=== PATIENT | female | born 1985 | race African-American/Black ===

== ENCOUNTER → 2017-10-24 18:25 | Outpatient (CLI) | payer MEDICAID, SELFPAY ==
[2017-10-30 11:03] LABS: HPV APTIMA, High Risk Negative (Negative)
== END ==
PROVIDERS: Family Provider Family Medicine; PCP Family Medicine; Visit Provider Obstetrics & Gynecology
DX: Z01.419 Encounter for gynecological examination (general) (routine) without abnormal findings (principal)
CPT/HCPCS: 88175; G0145

== ENCOUNTER → 2017-11-30 10:39 | Outpatient (CLI) | payer MEDICAID, SELFPAY | PROVIDERS: Visit Provider Obstetrics & Gynecology | DX: Z01.818 Encounter for other preprocedural examination (principal) ==

== ENCOUNTER 2018-01-11 07:03 | Day surgery (SDC) | payer MEDICAID, SELFPAY ==
--- NOTE | 2018-01-09 15:25 | EKG12_ITS ---
Test Reason : PRE OP Blood Pressure : / mmHG Vent. Rate : 055 BPM Atrial Rate : 055 BPM P-R Int : 150 ms QRS Dur : 086 ms QT Int : 420 ms P-R-T Axes : 070 056 036 degrees QTc Int : 401 ms Sinus bradycardia Otherwise normal ECG Confirmed by GO RAMON ([id number]), commercial production editor NIKKY RAMOS ([id number]) on 01/11/2018 12:31:52 PM Referred By: Brenda Gonzalez Confirmed By:GO RAMON
[2018-01-09 16:34] LABS: Prothrombin Time (Protime)PT. 13.4 SECONDS (11.7-14.9)
[2018-01-09 16:35] LABS: Hematocrit 39.3 % (37-47); Hemoglobin 12.9 g/dl (12.0-15.0); Mean Corp Hgb Conc 32.8 g/gl (32-36); Mean Corpuscular Hgb 29.7 pg (27.0-32.0); Mean Corpuscular Volume 90.6 fL (81-99); Partial Thromboplast Time 30.4 Seconds (24.1-36.2); Platelet Count 162 K/mm3 (150-450); RBC Distribution Width CV 12.9 % (11.6-14.6); RBC Distribution Width SD 42.4 fl (35.1-43.9); Red Blood Count 4.34 M/mm3 (4.2-5.4); White Blood Count 7.2 K/mm3 (4.4-11.0)
[2018-01-09 16:51] LABS: Scan Indicated on CBC? Y/N NO
[2018-01-09 17:06] LABS: AST(SGOT) 14 U/L (15-37); Alanine Aminotransfer ALT/SGPT 17 U/L (13-56); Albumin, Serum 2.9 g/dL (3.2-5.0); Alkaline Phosphatase 52 U/L (45-117); Bilirubin, Direct < 0.05 mg/dL (0.00-0.30); Globulin 3.3 g/dL (2.2-4.2); Protein, Total 6.2 g/dL (6.4-8.2)
[2018-01-11] VITALS (7 sets, daily range): BP systolic 117–134; BP diastolic 52–76; PULSE 67–94; RESP 16–24; TEMP 36.3–36.9; O2SAT 98–100; BMI 34.9
--- NOTE | 2018-01-11 08:25 | BLA_PTH ---
PATIENT: ARIELLE MOORE LOC: [facility] [place] U#:[id number] AGE/SX: 32/F ROOM: RE01/11/[address]: Dr. Brenda Daniel MD : [id number] BED: DIS: 01/11/2018 SPEC #: [id number] RECD: 01/11/18 10:51 STATUS: PREETI MARCErich #: [id number] MICHAEL: 01/11/18 08:[address]: Brenda Ceja DEPT: SURGICAL PATHOLOGY RECD BY: Anton Lock ENTERED: 01/11/18 11:56 SP TYPE: BLADDER BX OTHR DR: Dr. Kelechi Hobbs MD No Primary Care Phys Tissues: Urinary bladder, NOS Procedures: Surgery Specimen Level IV HEADER OPERATION: Diagnostic laparoscopy with treatment of endometriosis PRE-OP DIAGNOSIS: Chronic pelvic pain, dysmenorrhea, presumed endometriosis TISSUE SUBMITTED: Posterior cul-de-sac biopsy MICROSCOPIC DIAGNOSIS Posterior cul-de-sac, biopsy: A piece of fibroconnective and fibromuscular tissue, negative for endometriosis. MAXIMILIAN:noel 01/12/18 MICROSCOPIC DESCRIPTION Slides are reviewed. GROSS DESCRIPTION Received in fixative is one container labeled with the patient's name and designated posterior cul-de-sac biopsy. The specimen consists of a piece of chan-pink soft tissue measuring 0.5 x 0.5 x 0.2 cm. The specimen is totally submitted in one cassette. / MAXIMILIAN:noel 01/11/18 TC:5 [facility]: [id number]
[2018-01-11] MEDS: Bupivacaine Mpf 0.5% 30 ML VIAL (10:20)
--- NOTE | 2018-01-11 10:36 | PCM.DC ---
- Discharge Diagnoses Current Active Problems: Dysmenorrhea - painful periods Chronic pelvic pain Reason(s) for Visit for Discharge Instructions: Laparoscopy You will use the following diet at home:: No restrictions Your food should be the consistency of: Regular Discharge Activity: Return to Normal Activity, May not drive while taking narcotic pain medications., May Shower, - - No driving for 72 hours May resume sexual activity in: 4 weeks Lifting Restrictions: 10-20 lb Call your doctor if your incision/area has: Continuous Slow Oozing, Increased Pain/ Swelling, Increased Redness Call your doctor if you observe: Fever of 101 or Higher, Inability to urinate, Inability to have a bowel movement, Using more than one pad per hour, Chest pain, Calf discomfort, Uncontrolled pain Suture Line Care: Avoid Pulling/Pushing Remove Dressing in (days):: 1 Cleanse incision/area with: Soap & Water Additional Instructions: You may take Naproxen over the counter as needed for mild to moderate pain. Allergies/Adverse Reactions: Allergies No Known Allergies Allergy (Verified 09/25/16 16:05) Medications to take at Discharge Norethindrone AC-Eth Estradiol [[place] 1.5 mg-30 Mcg Tablet] 1 each PO DAILY 11/03/17 Docusate Sodium [Colace] 100 mg PO BID PRN PRN #60 cap 01/11/18 Oxycodone [Oxyir] 5 mg PO Q4H PRN PRN 3 Days #18 tablet 01/11/18 The following prescriptions were given: Oxycodone [Oxyir] 5 mg PO Q4H PRN PRN 3 Days #18 tablet PRN Reason: Severe Pain (6-10/10) Docusate Sodium [Colace] 100 mg PO BID PRN PRN #60 cap PRN Reason: Constipation Primary Care Physician: Care Physician,No Primary [Primary Care Provider] - Test Results: Test results from this visit will be discussed in further detail at your follow-up appointment, if applicable. Please Follow Up With: Brenda Gonzalez MD When: 2-4 weeks
--- NOTE | 2018-01-11 11:45 | PCM.IMDPSTOP ---
Immediate Post-Op Note Date of Procedure: 01/11/18 Primary Surgeon/Physician: HIRO Steward Assistant: Raquel Lamas Pre-Operative Diagnosis: Chronic pelvic pain, dysmenorrhea Post-Operative Diagnosis: Chronic pelvic pain, dysmenorrhea Surgery/Procedure Performed:: Diagnostic laparoscopy, peritoneal biopsy, lysis of adhesions, right ovarian cyst drainage Description of Surgical Findings:: Bilateral adnexal adhesions present Right tube absent Right hemorrhagic ovarian cyst Estimated Blood Loss: 10 ml Specimen's removed: left posterior culdesac peritoneum Type of Anesthesia:: General - Admit VTE Documentation VTE Present on Admission: No VTE Mechan Device Prophylaxis: SCD's VTE Pharm Prophylaxis ordered?: No
--- NOTE | 2018-01-16 07:24 | OP.PCM_ITS ---
Problem List (1) Chronic pelvic pain in female Status: Acute (2) Dysmenorrhea Status: Acute Report of Operation Date of Procedure: 01/11/18 Pre-Operative Diagnosis: Chronic pelvic pain, dysmenorrhea Post-Operative Diagnosis: Chronic pelvic pain, dysmenorrhea Surgery/Procedure Performed:: Diagnostic laparoscopy, peritoneal biopsy, lysis of adhesions, right ovarian cyst drainage Description of Surgical Findings:: Bilateral adnexal adhesions present Right tube absent Right hemorrhagic ovarian cyst animal husbandry professor: Raquel Lamas Type of Anesthesia:: General Anesthesiologist: Efren Marie Specimen's removed: left posterior culdesac peritoneum Drains: Urine 120ml Estimated Blood Loss (mL): 10 ml Description of Procedure: Patient's: 32-year-old para 2 with a history of chronic pelvic pain and dysmenorrhea for more than a decade. She was counseled and opted to proceed with diagnostic laparoscopy to rule out endometriosis. Risks, benefits, indications and alternatives of procedure were reviewed. Informed consent was obtained. Procedure: The patient was taken to the operating room and signed and was performed. The patient was placed into dorsal supine position and used under general anesthesia and intubated. She was then placed into dorsal lithotomy and her arms tucked at her sides. An examination under anesthesia was performed. The perineum and abdomen were prepped and draped in sterile fashion. Davis catheter was placed into the bladder. The patient was placed into high lithotomy and weighted speculum placed into the vagina cervix visualized and grasped at the anterior cervical lip using a single-tooth tenaculum. A Conn cannula was placed for uterine manipulation and secured. Patient was placed into low lithotomy and attention turned to the abdomen. A an inferior umbilical incision was made using a scalpel. Veress needle was placed at the site with successful hanging drop test and no aspirate. The abdomen was insufflated to 15 mmHg. Veress needle was removed and a 5 mm trocar was placed under laparoscopic guidance. Patient was placed into Trendelenburg. A 5 mm port was placed suprapubically after making an incision using a scalpel. The abdomen was inspected with the pelvis. There is a lesion in the posterior cul-de-sac, I was uncertain if this was endometriosis, otherwise inspection was significant for adhesions over the bilateral adnexae. The left lower quadrant incision was made and port was placed approximately 2 cm medial and superior to the anterior superior iliac spine on that side. The pelvic adhesions were lysed sharply and bluntly. The lesion in the posterior cul-de-sac was grasped and excised with peritoneal biopsy sharply. The [place] with monopolar enegy was utilized to obtain hemostasis. Shayy was also placed at this site with hemostasis attained. The abdomen was desufflated and the patient taken out of Trendelenberg. The ports were removed. The incisions were closed with 4-0 monocryl and sites covered with steristrips and opsite dressing. Half percent bupivicaine was injected for additional analgesia. The Jhonny cannula and tenaculum were removed. The patient was placed into dorsal supine position, awakened, extubated and transferred to the recovery room without complication. - Complications None - Admit VTE Documentation VTE Present on Admission: No VTE Mechan Device Prophylaxis: SCD's VTE Pharm Prophylaxis ordered?: No
== END 2018-01-11 12:25 | disposition home or self-care (01) ==
LOC: SDC 07:04 → AC 07:05
PROVIDERS: Visit Provider Obstetrics & Gynecology
PROC: (CPT 49320; principal; 2018-01-11 08:10)
DX: N83.201 Unspecified ovarian cyst, right side (principal); N73.6 Female pelvic peritoneal adhesions (postinfective); R19.07 Generalized intra-abdominal and pelvic swelling, mass and lump; N94.6 Dysmenorrhea, unspecified; G89.29 Other chronic pain; R01.1 Cardiac murmur, unspecified; Z98.51 Tubal ligation status; Z87.891 Personal history of nicotine dependence
CPT/HCPCS: 49321; 49322; 49329; 36415; 80076; 85027; 85610; 85730; 86850; 86900; 88305; 93005; J7120; J2405

== ENCOUNTER 2018-03-29 15:37 | Emergency (ER) | payer MEDICAID, SELFPAY ==
[2018-03-29 15:39] VITALS: BP 123/86; PULSE 63; RESP 18; TEMP 37.1; O2SAT 100; BMI 30.1
[2018-03-29] MEDS: Ondansetron 4 MG/2 ML Vial IV (16:26)
[2018-03-29] MEDS: 0.9% Normal Saline 1,000 ML 1000 ML IV (16:26)
--- NOTE | 2018-03-29 19:01 | ED.DCSUM_ITS ---
- ER Visit Summary Date of Service: 03/29/18 Chief Complaint: Abdominal pain with nausea and vomiting History of Present Illness: The patient is a 32 F who presents with abdominal pain nausea and vomiting that started Monday. She is reporting 4-6 episodes of emesis per day. She complains of thirst and dry mouth. She denies fever but does complain of chills. She denies any ocular, visual or auditory symptoms. She denies chest pain, palpitations or rapid heartbeat. She denies shortness of breath or dyspnea on exertion. The abdominal pain is generalized. There is no radiation. She denies hematemesis, melena or hematochezia. She denies any urologic symptoms. She states she has not urinated since yesterday. She denies symptoms of . No ill contacts. No antibiotic use in the past 3-4 weeks. Physical Examination: Vital signs noted and unremarkable. She appears uncomfortable. Head is atraumatic normocephalic. Pupils are equal round reactive. Extraocular muscles are intact. TMs are pearly white with landmarks noted. Nares patent with no drainage. Posterior pharynx without erythema or exudate. Uvula is midline. There is no dysphonia or dysphasia. Tongue and mucosa are dry. Trachea is midline. There is no stridor with auscultation of the neck. Heart is regular without murmur, gallop or rub. S1 and S2 are normal. Lungs are clear to auscultation with good movement of air bilaterally. Abdomen is soft nontender with normal bowel sounds. There is no evidence of umbilical or inguinal hernia. There is no CVA tenderness noted. She has no rash or skin lesions. Neuro exam is nonfocal. Test Results: None Emergency Department Course and Treatment: IV was established she received 1 L of normal saline wide open and 4 mg of Zofran. She was given a p.o. challenge. She was reassessed at 1850. She states she feels better. Clinically she looks better. She did passed p.o. challenge. Treatment Plan: Discharge with prescription for Zofran and appropriate home- going instructions Disposition: Discharged home in stable improved condition Impression: Abdominal pain generalized with nausea and vomiting Moderate dehydration This note was generated with [employer] dictation software. It may contain incorrect words, spelling, and punctuation that were not noted in review of the chart prior to signing ED Disposition - Plan for ED Patient: Disposition: Home or Assisted Living Chief Complaint: Nausea/Vomiting/Diarrhea Instructions: ED Nausea Vomiting Prescriptions: Ondansetron [Zofran Odt] 4 mg PO Q8H PRN PRN #5 tab PRN Reason: Nausea/Vomiting Referrals: Care Physician,No Primary [Primary Care Provider] - Goyo Figueroa III, MD [STAFF PHYSICIAN] - 3-5 Days if not improving
[2018-03-29 19:17] VITALS: BP 128/76; PULSE 64; RESP 16; O2SAT 99
[2018-03-29] MEDS: Dicyclomine 10 MG Capsule 20 MG PO (19:31)
== END 2018-03-29 19:19 | disposition home or self-care (01) ==
PROVIDERS: Emergency Provider Emergency Medicine
DX: R10.84 Generalized abdominal pain (principal); R11.2 Nausea with vomiting, unspecified; E86.0 Dehydration; Z72.0 Tobacco use
CPT/HCPCS: 96361; 96374; 99285; J7030; A4216; J2405

== ENCOUNTER 2018-07-04 13:30 | Emergency (ER) | payer MEDICAID, SELFPAY ==
[2018-07-04 13:30] VITALS: BP 136/68; PULSE 96; RESP 16; TEMP 36.6; O2SAT 99; BMI 31.1
--- NOTE | 2018-07-04 13:33 | RAD_ITS ---
STUDY: X-RAY - LEFT SHOULDER REASON FOR EXAM: Female, 32 years old. Pain following a fall. TECHNIQUE: 4 view(s) of the shoulder. COMPARISON: None. FINDINGS: Normal glenohumeral articulation. There is minimal widening of the AC joint suggesting a Type I acromioclavicular joint separation. Normal acromion. Normal humeral head and visualized proximal humerus. The soft tissue structures are unremarkable. Normal visualized pulmonary apex. RAD/Shoulder min 2 Views IMPRESSION: Minimal widening of the left acromioclavicular joint. Electronically Signed: Adan Acosta MD at 14:11 EST Tel [phone], Service support ,
--- NOTE | 2018-07-04 13:45 | RAD_ITS ---
STUDY: X-RAY - LEFT KNEE REASON FOR EXAM: Female, 32 years old. Pain following a recent fall. TECHNIQUE: 4 view(s) of the knee. COMPARISON: Comparison is made with prior study dated June 07, 2016. FINDINGS: Normal visualized distal femur. Normal visualized proximal tibia and fibula. Normal proximal tibiofibular articulation. Normal medial femorotibial compartment. Normal lateral femorotibial compartment. There is moderate degenerative arthrosis of the patellofemoral articulation. The soft tissue structures are unremarkable. RAD/Knee 4 or More Views IMPRESSION: Degenerative arthrosis. Electronically Signed: Adan Acosta MD at 14:13 EST Tel [phone], Service support ,
--- NOTE | 2018-07-04 14:56 | ED.DCSUM_ITS ---
- ER Visit Summary Date of Service: 07/04/18 Chief Complaint: Fall History of Present Illness: The patient is a 32 F who presents after a fall that occurred today. Patient states she slipped on ice and fell onto her left side. Patient states she hit her shoulder and hit her left knee. Patient states she had recent left knee surgery. Patient is concerned over possible damage to her left knee. Patient denies any head injury or loss of consciousness. Patient denies any paresthesias or weakness. Patient describes the pain as aching. Physical Examination: Vital signs are stable. Patient is afebrile. Patient is in no acute distress. Musculoskeletal exam reveals tenderness over the lateral aspect of the left shoulder. There is also some mild tenderness and spasm of the left trapezius muscle. There is no bony crepitance or step-off. Range of motion was limited in abduction and flexion of the left shoulder secondary to pain. There is diffuse tenderness over the left knee. There is no effusion. There is no deformity noted. Range of motion was limited and complete flexion and complete extension secondary to pain. Patient states that this is typical since her surgery. Sensation was intact to light touch bilaterally in the upper and lower extremities. Strength is 5/5 bilaterally upper and lower extremities. The remaining physical exam is within normal limits. Test Results: X-rays of the left shoulder and left knee were obtained. There are no acute fractures noted. Emergency Department Course and Treatment: Patient was instructed to ice and elevate the left knee and left shoulder. Patient was instructed to continue Tylenol as needed for pain. Patient was instructed to follow-up with her orthopedic surgeon in 5-7 days. Patient understood and was agreeable with the plan. All questions were answered. Disposition: Discharge home Impression: 1. Left shoulder contusion 2. Left knee contusion This note was generated with [employer] dictation software. It may contain incorrect words, spelling, and punctuation that were not noted in review of the chart prior to signing ED Disposition - Plan for ED Patient: Disposition: Home or Assisted Living Chief Complaint: Fall Instructions: ED Mechanical Fall, ED Contusion Upper Ext, ED Contusion Lower Ext Referrals: Care Physician,No Primary [Primary Care Provider] -
--- OUTSIDE RECORDS SUMMARY | 2018-09-08 13:47 | XMS RPT_ITS ---
:1985 Author Organization OHIP Support Name Relationship Address Phone [employer] Unavailable [address] + [place] [address] LUSTER, EFE Unavailable [address] + [address] [place] [address] LUSTER, JEVON Unavailable [address] + [place] [address] [employer] Unavailable [address] + [place] [address] LUSTER, EFE Unavailable [address] + [address] [place] [address] LUSTER, JEVON Unavailable [address] + [place] [address] [employer] Unavailable [address] + [place] [address] LUSTER, EFE Unavailable [address] + [address] [place] [address] LUSTER, JEVON Unavailable [address] + [place] [address] [employer] Unavailable [address] + [place] [address] LUSTER, EFE Unavailable [address] + [address] [place] [address] LUSTER, JEVON Unavailable [address] + [place] [address] [employer] Unavailable [address] + [place] [address] LUSTER, EFE Unavailable [address] + [address] [place] [address] TERESA JEVON Unavailable [address] + [place] [address] [facility] Unavailable [address] [facility] + [place] [address] LUSTGREER EFE Unavailable [address] [place] [address] TERESA JEVON Unavailable [address] + [place] [address] Care Team Providers Name Role Phone FARROW, LUTUL D Referring Unavailable FARROW, LUTUL D Admitting Unavailable FARROW, LUTUL D Attending Unavailable FARROW, LUTUL D Referring Unavailable FARROW, LUTUL D Attending Unavailable MASHA ANTON Referring Unavailable FARROW, LUTUL D Referring Unavailable FARROW, LUTUL D Attending Unavailable FARROW, LUTUL D Referring Unavailable COLBY, ALONDRA (PT) Attending Unavailable FARROW, LUTUL D Referring Unavailable FARROW, LUTUL D Referring Unavailable TRAE SOUZA (PAGiselaC) Attending Unavailable FARROW, LUTUL D Referring Unavailable COLBY, ALONDRA (PT) Attending Unavailable FARROW, LUTUL D Referring Unavailable COLBY, ALONDRA (PT) Attending Unavailable FARROW, LUTUL D Referring Unavailable COLBY, ALONDRA (PT) Attending Unavailable FARROW, LUTUL D Referring Unavailable COLBY, ALONDRA (PT) Attending Unavailable FARROW, LUTUL D Referring Unavailable COLBY, ALONDRA (PT) Attending Unavailable FARROW, LUTUL D Referring Unavailable FARROW, LUTUL D Attending Unavailable FARROW, LUTUL D Referring Unavailable COLBY, ALONDRA (PT) Attending Unavailable FARROW, LUTUL D Referring Unavailable COLBY, ALONDRA (PT) Attending Unavailable FARROW, LUTUL D Referring Unavailable COLBY, ALONDRA (PT) Attending Unavailable FARROW, LUTUL D Referring Unavailable COLBY, ALONDRA (PT) Attending Unavailable FARROW, LUTUL D Referring Unavailable COLBY, ALONDRA (PT) Attending Unavailable FARROW, LUTUL D Referring Unavailable FARROW, LUTUL D Referring Unavailable FARROW, LUTUL D Attending Unavailable FARROW, LUTUL D Referring Unavailable COLBYALONDRA (PT) Attending Unavailable FARROW, LUTUL D Referring Unavailable COLBY, ALONDRA (PT) Attending Unavailable FARROW, LUTUL D Referring Unavailable COLBY, ALONDRA (PT) Attending Unavailable FARROW, LUTUL D Referring Unavailable FARROW, LUTUL D Referring Unavailable COLBY, ALONDRA (PT) Attending Unavailable FARROW, LUTUL D Referring Unavailable COLBY, ALONDRA (PT) Attending Unavailable FARROW, LUTUL D Referring Unavailable COLBY, ALONDRA (PT) Attending Unavailable FARROW, LUTUL D Referring Unavailable FARROW, LUTUL D Referring Unavailable FARROW, LUTUL D Attending Unavailable FARROW, LUTUL D Referring Unavailable COLBY, ALONDRA (PT) Attending Unavailable FARROW, LUTUL D Referring Unavailable COLBY, ALONDRA (PT) Attending Unavailable FARROW, LUTUL D Referring Unavailable FARROW, LUTUL D Referring Unavailable FARROW, LUTUL D Referring Unavailable COLBY, ALONDRA (PT) Attending Unavailable FARROW, LUTUL D Referring Unavailable Primay Care Physicia, No Primary Care Unavailable Kelechi Burton Attending Unavailable Kilpatrick-Fredy, Brenda Attending Unavailable Tima, Dante Primary Care Unavailable Kilpatrick-Fredy, Brenda Attending Unavailable Kilpatrick-Fredy, Summer Referring Unavailable Primay Care Physicia, No Primary Care Unavailable Kilpatrick-Fredy, Summer Attending Unavailable Primay Care Physicia, No Primary Care Unavailable Kilpatrick-Fredy, Summer Referring Unavailable Kelechi Hobbs Consulting Unavailable Alistair Ramon Attending Unavailable Kilpatrick-Fredy, Summer Referring Unavailable Primay Care Physicia, No Primary Care Unavailable Perez Dunn Attending Unavailable PROBLEMS PROBLEMS DATE TYPE CONDITION / CODE ATTENDING STATUS SOURCE 05/17/2018 Active Pain in left knee / NA Active [facility] M25.562(ICD-10) Clinic Main [place] Repository 02/28/2018 Active Unspecified NA Active [facility] dislocation of left Clinic Main patella, initial [place] encounter / Repository S83.005A(ICD-10) 02/12/2018 Active Other instability, FARROW, LUTUL D Active [facility] left knee / Clinic Other M25.362(ICD-10) [place] Repository 02/26/2018 Active Other specified FARROW, LUTUL D Active [facility] postprocedural Clinic Other states / [place] Z98.890(ICD-10) Repository 02/22/2018 Active Encounter for other NA Active [facility] preprocedural Clinic Other examination / [place] Z01.818(ICD-10) Repository 01/18/2018 Active Unknown / ISMAEL SKINNER Active [facility] UNK(Unknown) Clinic Main [place] Repository 01/18/2018 Active Pain, unspecified / NA Active [facility] R52(ICD-10) [facility] Main [place] Repository 01/11/2018 Unknown Z98.890 - Other Carlos Active [place] specified [facility] states / Repository Z98.890(ICD-10) 02/20/2018 Unknown R00.1 - Bradycardia, Alistair Ramon Active [place] unspecified / Community R00.1(ICD-10) Hospital Repository 10/25/2017 Unknown Z12.4 - Encounter Ti [facility] [place] for screening for [facility] of cervix / Repository Z12.4(ICD-10) 10/25/2017 Unknown Z01.419 - Encounter Ti Gonzalez [place] for gynecological [facility] examination Hospital (general) (routine) Repository without abnormal findings / Z01.419(ICD-10) PROCEDURES PROCEDURES No Procedure Records FoundRESULTS RESULTS PROGRESS Observed: 07/13/2018 Status: COMPLETED Source: [place] 11:37 AM [facility] REPOSITORY HNO ID: [id number] Author: Alondra (Pt) Lasha Service: (none) Author Type: Physical Therapist Type: Progress Notes Filed: 07/13/2018 11:41 AM Note Text: Episode Visit Count: 23 Therapist That Will Oversee The Plan Of Care: Alondra Colby Start of Care Date: 03/05/18 Onset Date: 02/26/18 Plan of Care Certification Date: 05/22/18 Patient Identified by Name and Date of : Yes REHABILITATION AND SPORTS THERAPY PHYSICAL THERAPY TREATMENT NOTE ASSESSMENT: Miriam Liang demonstrated improvements in knee flexion, gait, pain and strength. Pt notes that she still feels her knee is a little more painful then it was before the fall Great work on all exs. Pt motivated to continue to work on flexion ROM. Returns to physician in 2 weeks. The patient will continue to benefit from continued skilled physical therapy for improvement of flexion ROM and strength PLAN FOR NEXT VISIT: Continue to work on flexion ROM SUBJECTIVE: Pt notes that she feels like her knee is still not as good as it was before the fall . Pain Score: 6/10 Pain Location: Knee - Left Description: Aching;Burning;Sharp Frequency: Continuous Pain Location: Knee - Left Post Treatment Pain Description: Burning;Aching OBJECTIVE MEASURES WITH LEVEL OF FUNCTION: LE PROM L Knee Flexion: 120 Degrees ( supine with strap) TREATMENT: Therapeutic Exercise: 1: UBE seat legs 5 and 5 seat heigh 3 for 5 min beginning and end of session 2: door mini squats 2# 2x10 3: Left quad sets 2-3 second hold 2x10. 4: paramount hamstring curls left only 25# 3x10 5: SLR left 2x15 reps . 6: prone left knee flexion with strap 30 sec hold x3 7: supine left heel slides with board and strap 2x10. 8: up / down 4 steps reciprocal with mild deviation on going down . 10: standing TKE with blue Rep band 3x15. 11: 6 inch blue step forward step ups left 2x10. 12: Left leg press 40# 3x10 13: Lacrosse ball mobs left distal patell and left quad x 5 minutes. Skilled Intervention: Patient was educated in proper exercise technique and purpose for exercises. Skilled judgment was provided in selection of appropriate interventions. Correct performance of therapeutic exercises was facilitated with verbal and visual cuing. Manual Therapy: Skilled Intervention: Manual skills to improve joint mobility, ROM, and decrease pain. Utilized anatomy knowledge of the therapist, and assessment of patient's response to intervention. Billing: [facility]: Therapeutic Exercise ([id number]): 1:1 time: 40 minutes (3 units: 38-52 mins) Total time: 40 minutes Alondra Colby PT CNTHERAPY Observed: 07/13/2018 Status: COMPLETED Source: [place] 10:45 AM [facility] REPOSITORY OT/PT/Speech Visit (PTWS) MIRIAM LIANG ([id number]) 1985 F Date Time Provider Department 07/13/18 10:45 AM ALONDRA COLBY (PT) PTWS Date Time Provider Department Center 07/13/2018 10:45 AM [id number], LISA (PT) PTWS [facility] [place] Reason for Visit: Physical Therapy [503] Primary Visit Diagnosis:S/P left knee surgery [Z98.890] Other Visit Diagnosis: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] Allergies As of Date: 07/13/2018 Noted Allergy Reaction bee stings [Other] 06/07/2005 Comments: swelling Detergents [Other] 09/28/2005 Comments: Some detergent irritate her Date Reviewed: 06/14/2018 Reviewed by: Mindy Burgos Ma - Fully Assessed Progress Notes: Alondra Colby, PT 07/13/2018 11:41 AM Signed Episode Visit Count: 23 Therapist That Will Oversee The Plan Of Care: Alondra Colby Start of Care Date: 03/05/18 Onset Date: 02/26/18 Plan of Care Certification Date: 05/22/18 Patient Identified by Name and Date of : Yes REHABILITATION AND SPORTS THERAPY PHYSICAL THERAPY TREATMENT NOTE ASSESSMENT: Miriam Liang demonstrated improvements in knee flexion, gait, pain and strength. Pt notes that she still feels her knee is a little more painful then it was before the fall Great work on all exs. Pt motivated to continue to work on flexion ROM. Returns to physician in 2 weeks. The patient will continue to benefit from continued skilled physical therapy for improvement of flexion ROM and strength PLAN FOR NEXT VISIT: Continue to work on flexion ROM SUBJECTIVE: Pt notes that she feels like her knee is still not as good as it was before the fall . Pain Score: 6/10 Pain Location: Knee - Left Description: Aching;Burning;Sharp Frequency: Continuous Pain Location: Knee - Left Post Treatment Pain Description: Burning;Aching OBJECTIVE MEASURES WITH LEVEL OF FUNCTION: LE PROM L Knee Flexion: 120 Degrees ( supine with strap) TREATMENT: Therapeutic Exercise: 1: UBE seat legs 5 and 5 seat heigh 3 for 5 min beginning and end of session 2: door mini squats 2# 2x10 3: Left quad sets 2-3 second hold 2x10. 4: paramount hamstring curls left only 25# 3x10 5: SLR left 2x15 reps . 6: prone left knee flexion with strap 30 sec hold x3 7: supine left heel slides with board and strap 2x10. 8: up / down 4 steps reciprocal with mild deviation on going down . 10: standing TKE with blue Rep band 3x15. 11: 6 inch blue step forward step ups left 2x10. 12: Left leg press 40# 3x10 13: Lacrosse ball mobs left distal patell and left quad x 5 minutes. Skilled Intervention: Patient was educated in proper exercise technique and purpose for exercises. Skilled judgment was provided in selection of appropriate interventions. Correct performance of therapeutic exercises was facilitated with verbal and visual cuing. Manual Therapy: Skilled Intervention: Manual skills to improve joint mobility, ROM, and decrease pain. Utilized anatomy knowledge of the therapist, and assessment of patient's response to intervention. Billing: [facility]: Therapeutic Exercise ([id number]): 1:1 time: 40 minutes (3 units: 38-52 mins) Total time: 40 minutes Alondra Colby PT PROGRESS Observed: 07/06/2018 Status: COMPLETED Source: [place] 11:31 AM [facility] REPOSITORY HNO ID: [id number] Author: Chandler New Service: (none) Author Type: Physical Therapist Type: Progress Notes Filed: 07/06/2018 12:33 PM Note Text: Episode Visit Count: 22 Therapist That Will Oversee The Plan Of Care: Alondra Colby Start of Care Date: 03/05/18 Onset Date: 02/26/18 Plan of Care Certification Date: 05/22/18 Patient Identified by Name and Date of : Yes REHABILITATION AND SPORTS THERAPY PHYSICAL THERAPY TREATMENT NOTE ASSESSMENT: Miriam Liang demonstrated difficulty with increase pain in knee and left side of her body as she fell down 6 steps since last seen. She went to emergency room and X-rays for left shoulder and knee were negative per patient report. Decreased intensity of exercises today and patient with a slight reduction in left knee pain at end of treatment. Patient with increase tenderness directly on knee cap to palpation. The patient will continue to benefit from continued skilled physical therapy for progression of left knee per her tolerance. PLAN FOR NEXT VISIT: Monitor response to treatment today and progress per patient tolerance. SUBJECTIVE: Patient reports she fell down 6 steps 2 days ago and fell on left side. She reports increase soreness left shoulder , upper and lower back and left patella. She reports calling off work yesterday and today due to pain. Patient reports going to ER and had X-rays of left knee and shoulder and she reports X-rays were negative.. Pain Score: 8/10 Pain Location: Knee - Left Description: Shooting Frequency: Continuous Post Treatment Pain Score: 7/10 Pain Location: Knee - Left Post Treatment Pain Description: Aching;Other: See comment (tired) OBJECTIVE MEASURES WITH LEVEL OF FUNCTION: Patient with increase tenderness directly on knee cap to palpation. TREATMENT: Therapeutic Exercise: 1: Step One stepper seat 12 x 5 minutes at start and towards end of treatment another 5 minutes. 2: door mini squats 2x10 3: Left quad sets 2-3 second hold 2x10. 4: Seated left hamstring curls with yellow band 2x10. 5: SLR left x 2 reps with increas pain lateral and medial knee and this was stopped. 6: prone left knee flexion with strap 30 sec hold x3 7: supine left heel slides 2x10. 8: Seated B hip abduction orange band 2x10. 9: Standing forward B step taps onto dome of BOSU 2x10 each. Skilled Intervention: Patient was educated in proper exercise technique and purpose for exercises. Skilled judgment was provided in selection of appropriate interventions. Correct performance of therapeutic exercises was facilitated with verbal and visual cuing. Billing: [facility]: Therapeutic Exercise ([id number]): 1:1 time: 40 minutes (3 units: 38-52 mins) Total time: 40 minutes JANELLE Solis PT CNTHERAPY Observed: 07/06/2018 Status: COMPLETED Source: [place] 10:45 AM [facility] REPOSITORY OT/PT/Speech Visit (PTWS) MIRIAM LIANG ([id number]) 1985 F Date Time Provider Department 07/06/18 10:45 AM LETICIA KIMBALL (COUNTER STACKER) PTWS Date Time Provider Department Center 07/06/2018 10:45 AM [id number], NANCY (COUNTER STACKER) PTWS [facility] [place] Reason for Visit: Physical Therapy [503] Primary Visit Diagnosis:S/P left knee surgery [Z98.890] Other Visit Diagnosis: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] Allergies As of Date: 07/06/2018 Noted Allergy Reaction bee stings [Other] 06/07/2005 Comments: swelling Detergents [Other] 09/28/2005 Comments: Some detergent irritate her Date Reviewed: 06/14/2018 Reviewed by: Mindy Burgos Ma - Fully Assessed Progress Notes: Chandler New PT 07/06/2018 12:33 PM Signed Episode Visit Count: 22 Therapist That Will Oversee The Plan Of Care: Alondra Colby Start of Care Date: 03/05/18 Onset Date: 02/26/18 Plan of Care Certification Date: 05/22/18 Patient Identified by Name and Date of : Yes REHABILITATION AND SPORTS THERAPY PHYSICAL THERAPY TREATMENT NOTE ASSESSMENT: Miriam Liang demonstrated difficulty with increase pain in knee and left side of her body as she fell down 6 steps since last seen. She went to emergency room and X-rays for left shoulder and knee were negative per patient report. Decreased intensity of exercises today and patient with a slight reduction in left knee pain at end of treatment. Patient with increase tenderness directly on knee cap to palpation. The patient will continue to benefit from continued skilled physical therapy for progression of left knee per her tolerance. PLAN FOR NEXT VISIT: Monitor response to treatment today and progress per patient tolerance. SUBJECTIVE: Patient reports she fell down 6 steps 2 days ago and fell on left side. She reports increase soreness left shoulder , upper and lower back and left patella. She reports calling off work yesterday and today due to pain. Patient reports going to ER and had X-rays of left knee and shoulder and she reports X-rays were negative.. Pain Score: 8/10 Pain Location: Knee - Left Description: Shooting Frequency: Continuous Post Treatment Pain Score: 7/10 Pain Location: Knee - Left Post Treatment Pain Description: Aching;Other: See comment (tired) OBJECTIVE MEASURES WITH LEVEL OF FUNCTION: Patient with increase tenderness directly on knee cap to palpation. TREATMENT: Therapeutic Exercise: 1: Step One stepper seat 12 x 5 minutes at start and towards end of treatment another 5 minutes. 2: door mini squats 2x10 3: Left quad sets 2-3 second hold 2x10. 4: Seated left hamstring curls with yellow band 2x10. 5: SLR left x 2 reps with increas pain lateral and medial knee and this was stopped. 6: prone left knee flexion with strap 30 sec hold x3 7: supine left heel slides 2x10. 8: Seated B hip abduction orange band 2x10. 9: Standing forward B step taps onto dome of BOSU 2x10 each. Skilled Intervention: Patient was educated in proper exercise technique and purpose for exercises. Skilled judgment was provided in selection of appropriate interventions. Correct performance of therapeutic exercises was facilitated with verbal and visual cuing. Billing: [facility]: Therapeutic Exercise ([id number]): 1:1 time: 40 minutes (3 units: 38-52 mins) Total time: 40 minutes Leticia Kimball PTMay New PT Previous Version Follow-up and Disposition History Recorded CNCO Observed: 07/05/2018 Status: COMPLETED Source: [place] 12:00 AM [facility] REPOSITORY Letter Text [facility] Ismael Skinner M.D. [address] [address] NAME: Miriam Liang July 05, 2018 To Whom This May Concern: This letter is to certify the above patient is under my care for a LEFT knee injury. She recently had a relapse after falling down her stairs and will return back to work until Monday July 09, 2018. If you have any questions concerning this matter, please call my office. Respectfully, Kathryn Ruff Observed: 07/05/2018 Status: COMPLETED Source: [place] 12:00 AM [facility] REPOSITORY Telephone (ORTHST) MIRIAM LIANG ([id number]) 1985 F Date Time Provider Department 07/05/18 ISMAEL SKINNER During your visit today, we recorded the following information about you: Mar Raman Psr 07/05/2018 10:45 AM Signed Patient calling to say that she fell down the stairs yesterday and went to the Emergency Room. The emergency room excused her from work for one day but she is in a lot of pain. She's expected to be to work at 2:30 pm today. Please call to advise. Ida Jones RN, RN 07/05/2018 11:09 AM Signed ORTHO CARE COORDINATION QUICK NOTE Patient has been identified by name and date of : Yes Returned call to patient. She states that she slipped down stairs and fell and banged up her operative knee and shoulder as well. We have never treated her shoulder. She would like a letter provided putting her out of work today and tomorrow. This is to be faxed to: Attn: Ida [phone] Letter created and faxed. Patient will continue to ice, elevate, rest and take OTC meds. She did ask for a narcotic prescription; explained she should follow up with PCP because we have not treated her for this latest injury. She also will have the [place] ED fax us their notes. Ida Jones RN Allergies As of Date: 07/05/2018 Noted Allergy Reaction bee stings [Other] 06/07/2005 Comments: swelling Detergents [Other] 09/28/2005 Comments: Some detergent irritate her Date Reviewed: 06/14/2018 Reviewed by: Mindy Burgos Ma - Fully Assessed Reason for Visit: Fall [218] Returning Patient's Call [408] Reason For Visit History Recorded Problem List As Of Date 07/05/2018 Noted Resolved DISLOCAT PATELLA-CLOSED [S83.006A] INVALID FOR* Closed dislocation of left patella [S83.005A] INVALID FOR* More... Patellar instability [M25.369] INVALID FOR* More... Obesity, Class I, BMI 30-34.9 [E66.9] INVALID FOR* S/P left knee arthroscopy, MPFL reconstruction,*INVALID FOR* Stiffness of left knee [M25.662] INVALID FOR* Letter Text [facility] Ismael Skinner M.D. [address] [address] NAME: Miriam Liang July 05, 2018 To Whom This May Concern: Miriam Liang is under my care for her left knee. She recently experienced an incident resulting in a flare up of her post op pain. As such please excuse her from work for July 05 and July 06, 2018. Respectfully, Ismael Skinner M.D. Encounter Status:Closed by IDA JONES on 07/05/18 EMERGENCY DEPARTMENT Observed: 07/04/2018 Status: F Source: [place] SUMMARY 2:57 PM [facility] REPOSITORY [facility] Medical Records Department [address] [place] [id number] Emergency Department Summary 07/04/18 1446 MR#: [id number] Acct: [id number] Name: MIRIAM LIANG Rep #: [id number] : 1985 32 From: Kelechi Burton DO PCP: Care Physician, No Primary Status: REG ER - ER Visit Summary Date of Service: 07/04/18 Chief Complaint: Fall History of Present Illness: The patient is a 32 F who presents after a fall that occurred today. Patient states she slipped on ice and fell onto her left side. Patient states she hit her shoulder and hit her left knee. Patient states she had recent left knee surgery. Patient is concerned over possible damage to her left knee. Patient denies any head injury or loss of consciousness. Patient denies any paresthesias or weakness. Patient describes the pain as aching. Physical Examination: Vital signs are stable. Patient is afebrile. Patient is in no acute distress. Musculoskeletal exam reveals tenderness over the lateral aspect of the left shoulder. There is also some mild tenderness and spasm of the left trapezius muscle. There is no bony crepitance or step-off. Range of motion was limited in abduction and flexion of the left shoulder secondary to pain. There is diffuse tenderness over the left knee. There is no effusion. There is no deformity noted. Range of motion was limited and complete flexion and complete extension secondary to pain. Patient states that this is typical since her surgery. Sensation was intact to light touch bilaterally in the upper and lower extremities. Strength is 5/5 bilaterally upper and lower extremities. The remaining physical exam is within normal limits. Test Results: X-rays of the left shoulder and left knee were obtained. There are no acute fractures noted. Emergency Department Course and Treatment: Patient was instructed to ice and elevate the left knee and left shoulder. Patient was instructed to continue Tylenol as needed for pain. Patient was instructed to follow-up with her orthopedic surgeon in 5-7 days. Patient understood and was agreeable with the plan. All questions were answered. Disposition: Discharge home Impression: 1. Left shoulder contusion 2. Left knee contusion This note was generated with [employer] dictation software. It may contain incorrect words, spelling, and punctuation that were not noted in review of the chart prior to signing ED Disposition - Plan for ED Patient: Disposition: Home or Assisted Living Chief Complaint: Fall Instructions: ED Mechanical Fall, ED Contusion Upper Ext, ED Contusion Lower Ext Referrals: Care Physician,No Primary [Primary Care Provider] - What to do if you have Problems For any increased pain, shortness of breath, bleeding, nausea or vomiting, chest pain, or any unexpected problems, contact your Primary Care Provider. Call [facility] [facility] ([phone]) or report to the closest Emergency Room. Call 911 if necessary. 07/04/18 1707 <Electronically signed by Kelechi Burton DO> Date Kelechi Neil Signature (If Indicated): Date CC: No Primary Care Physician SHOULDER MIN 2 VIEWS Observed: 07/04/2018 Status: F Source: [place] 1:36 PM [facility] REPOSITORY [facility] Imaging Services [address] [place] [address] Shoulder min 2 Views MR#: [id number] Acct: [id number] Name: MIRIAM LIANG Rep #: [id number] : 1985 F 32 From: Adan Acosta MD PCP: Care Physician, No Primary Status: PRE ER Study: Shoulder min 2 Views Date of Exam: 07/04/18 Exam# [id number] Ordering Dr: Provider,Ed P. STUDY: X-RAY - LEFT SHOULDER REASON FOR EXAM: Female, 32 years old. Pain following a fall. TECHNIQUE: 4 view(s) of the shoulder. COMPARISON: None. FINDINGS: Normal glenohumeral articulation. There is minimal widening of the AC joint suggesting a Type I acromioclavicular joint separation. Normal acromion. Normal humeral head and visualized proximal humerus. The soft tissue structures are unremarkable. Normal visualized pulmonary apex. RAD/Shoulder min 2 Views IMPRESSION: Minimal widening of the left acromioclavicular joint. Electronically Signed: Adan Acosta MD at 14:11 EST Tel [phone], Service support , CC: No Primary Care Physician; ED PHYSICIAN PROVIDER 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: Signed KNEE 4 OR MORE Observed: 07/04/2018 Status: F Source: [place] VIEWS 1:36 PM [facility] HOSPITAL REPOSITORY [facility] Imaging Services [address] [place] [address] Knee 4 or More Views MR#: [id number] Acct: [id number] Name: MIRIAM LIANG Rep #: [id number] : 1985 F 32 From: Adan Acosta MD PCP: Care Physician, No Primary Status: PRE ER Study: Knee 4 or More Views Date of Exam: 07/04/18 Exam# [id number] Ordering Dr: Provider,Ed P. STUDY: X-RAY - LEFT KNEE REASON FOR EXAM: Female, 32 years old. Pain following a recent fall. TECHNIQUE: 4 view(s) of the knee. COMPARISON: Comparison is made with prior study dated June 07, 2016. FINDINGS: Normal visualized distal femur. Normal visualized proximal tibia and fibula. Normal proximal tibiofibular articulation. Normal medial femorotibial compartment. Normal lateral femorotibial compartment. There is moderate degenerative arthrosis of the patellofemoral articulation. The soft tissue structures are unremarkable. RAD/Knee 4 or More Views IMPRESSION: Degenerative arthrosis. Electronically Signed: Adan Acosta MD at 14:13 EST Tel [phone], Service support , CC: No Primary Care Physician; ED PHYSICIAN PROVIDER 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: Signed PROGRESS Observed: 06/26/2018 Status: COMPLETED Source: [place] 10:40 AM [facility] REPOSITORY O ID: [id number] Author: Alondra Colby Service: (none) Author Type: Physical Therapist Type: Progress Notes Filed: 06/26/2018 11:09 AM Note Text: Episode Visit Count: 21 Therapist That Will Oversee The Plan Of Care: Alondra Colby Start of Care Date: 03/05/18 Onset Date: 02/26/18 Plan of Care Certification Date: 05/22/18 Patient Identified by Name and Date of : Yes REHABILITATION AND SPORTS THERAPY PHYSICAL THERAPY TREATMENT NOTE ASSESSMENT: Miriam Liang demonstrated improvements in AROM left knee flexion. She had increase soreness distal patella after starting back to work with light duty yesterday. Patient was able to progress exercises today with no increase in pain. The patient will continue to benefit from continued skilled physical therapy for progression of ROM and strength of left lower extremity. PLAN FOR NEXT VISIT: Possibly progress standing hip exercise to B with weight or resistive band. SUBJECTIVE: Patient reports the left knee is sore and tired as she returned to light duty work yesterday. Pain Score: 11/26 Pain Location: Knee - Left Description: Sore;Other: See comment (tired) Frequency: Intermittent Post Treatment Pain Score: No Change OBJECTIVE MEASURES WITH LEVEL OF FUNCTION: Ambulation up and down 4 steps step over step with 1 hand rail assist. left knee supine AROM 118 degrees flexion TREATMENT: Therapeutic Exercise: 1: Side lying with left hip abduction, circles cw and ccw and hip marching x 10 each. 2: door mini squats 2# 2x12 3: Ambulation up and down 4 steps step over step with 1 hand rail assist. 4: hamstring curls paramount 25# left only 3x10 (Added 5# cuff weight) 5: SLR left 1x15 and 1x18 reps independent 6: prone knee flexion with strap 30 sec hold x4 7: supine left heel slide with strap assist 5 second hold 2x10. 8: 6 inch blue step left lateral step ups 2x10. 9: UBE seat height 3 legs 5 and seat 5 , 5 min beginning and end of session 10: standing TKE with blue Rep band 3x15. 11: 6 inch blue step forward step ups left 2x10. 12: Left leg press 40# 3x15 13: Lacrosse ball mobs left distal patell and left quad x 5 minutes. Skilled Intervention: Patient was educated in proper exercise technique and purpose for exercises. Skilled judgment was provided in selection of appropriate interventions. Correct performance of therapeutic exercises was facilitated with verbal and visual cuing. Billing: [facility]: Therapeutic Exercise ([id number]): 1:1 time: 45 minutes (3 units: 38-52 mins) Total time: 45 minutes Leticia Kimball PT-Addis/Alondra Colby PT CNTHERAPY Observed: 06/26/2018 Status: COMPLETED Source: [place] [address]:00 AM [facility] REPOSITORY OT/PT/Speech Visit (PTWS) MIRIAM LIANG ([id number]) 1985 F Date Time Provider Department 06/26/18 10:00 AM LETICIA KIMBALL (COUNTER STACKER) PTWS Date Time Provider Department Center 06/26/2018 10:00 AM [id number], NANCY (COUNTER STACKER) PTWS [facility] [place] Reason for Visit: Physical Therapy [503] Primary Visit Diagnosis:S/P left knee surgery [Z98.890] Other Visit Diagnosis: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] Allergies As of Date: 06/26/2018 Noted Allergy Reaction bee stings [Other] 06/07/2005 Comments: swelling Detergents [Other] 09/28/2005 Comments: Some detergent irritate her Date Reviewed: 06/14/2018 Reviewed by: Mindy Burgos Ma - Fully Assessed Progress Notes: Alondra Colby, PT 06/26/2018 11:09 AM Signed Episode Visit Count: 21 Therapist That Will Oversee The Plan Of Care: Alondra Colby Start of Care Date: 03/05/18 Onset Date: 02/26/18 Plan of Care Certification Date: 05/22/18 Patient Identified by Name and Date of : Yes REHABILITATION AND SPORTS THERAPY PHYSICAL THERAPY TREATMENT NOTE ASSESSMENT: Miriam Liang demonstrated improvements in AROM left knee flexion. She had increase soreness distal patella after starting back to work with light duty yesterday. Patient was able to progress exercises today with no increase in pain. The patient will continue to benefit from continued skilled physical therapy for progression of ROM and strength of left lower extremity. PLAN FOR NEXT VISIT: Possibly progress standing hip exercise to B with weight or resistive band. SUBJECTIVE: Patient reports the left knee is sore and tired as she returned to light duty work yesterday. Pain Score: 6/10 Pain Location: Knee - Left Description: Sore;Other: See comment (tired) Frequency: Intermittent Post Treatment Pain Score: No Change OBJECTIVE MEASURES WITH LEVEL OF FUNCTION: Ambulation up and down 4 steps step over step with 1 hand rail assist. left knee supine AROM 118 degrees flexion TREATMENT: Therapeutic Exercise: 1: Side lying with left hip abduction, circles cw and ccw and hip marching x 10 each. 2: door mini squats 2# 2x12 3: Ambulation up and down 4 steps step over step with 1 hand rail assist. 4: hamstring curls paramount 25# left only 3x10 (Added 5# cuff weight) 5: SLR left 1x15 and 1x18 reps independent 6: prone knee flexion with strap 30 sec hold x4 7: supine left heel slide with strap assist 5 second hold 2x10. 8: 6 inch blue step left lateral step ups 2x10. 9: UBE seat height 3 legs 5 and seat 5 , 5 min beginning and end of session 10: standing TKE with blue Rep band 3x15. 11: 6 inch blue step forward step ups left 2x10. 12: Left leg press 40# 3x15 13: Lacrosse ball mobs left distal patell and left quad x 5 minutes. Skilled Intervention: Patient was educated in proper exercise technique and purpose for exercises. Skilled judgment was provided in selection of appropriate interventions. Correct performance of therapeutic exercises was facilitated with verbal and visual cuing. Billing: [facility]: Therapeutic Exercise ([id number]): 1:1 time: 45 minutes (3 units: 38-52 mins) Total time: 45 minutes JANELLE Solis/Alondra Colby PT Previous Version Follow-up and Disposition History Recorded PROGRESS Observed: 06/25/2018 Status: COMPLETED Source: [place] 1:24 PM [facility] REPOSITORY HNO ID: [id number] Author: Alondra (Marcus) Lasha Service: (none) Author Type: Physical Therapist Type: Progress Notes Filed: 06/25/2018 1:26 PM Note Text: Episode Visit Count: 20 Therapist That Will Oversee The Plan Of Care: Alondra Colby Start of Care Date: 03/05/18 Onset Date: 02/26/18 Plan of Care Certification Date: 05/22/18 Patient Identified by Name and Date of : Yes REHABILITATION AND SPORTS THERAPY PHYSICAL THERAPY TREATMENT NOTE ASSESSMENT: Miriam Liang demonstrated improvements in flexion ROM since last seen. Doing well with gait and strengthening The patient will continue to benefit from continued skilled physical therapy for progression of flexion stretching PLAN FOR NEXT VISIT: Continue to progress step ups , increase weight to hamstring curls as able SUBJECTIVE: Pt states that she is doing well Pain Score: 0/10 Pain Location: Knee - Left Frequency: Intermittent Post Treatment Pain Score: 0/10 Pain Location: Knee - Left OBJECTIVE MEASURES WITH LEVEL OF FUNCTION: LE AROM L Knee Extension: 0 Degrees L Knee Flexion: 116 Degrees TREATMENT: Therapeutic Exercise: 2: door mini squats 2# 2x10 4: hamstring curls paramount 20# left only 3x15 5: SLR 1x15 reps independent 6: prone knee flexion with strap 30 sec hold x4 7: supine heel slide with strap 2x10 also with 10 sec hold with therapist overpressure 9: UBE seat height 3 legs 5 and seat 5 , 5 min beginning and end of session 10: standing TKE with blue Rep band 3x15. 11: green step ups left 2x10 12: Left leg press 40# 3x15 Skilled Intervention: Skilled judgment was provided in selection of appropriate interventions. Correct performance of therapeutic exercises was facilitated with verbal and visual cuing. Billing: [facility]: Therapeutic Exercise ([id number]): 1:1 time: 40 minutes (3 units: 38-52 mins) Total time: 40 minutes Alondra Colby PT CNTHERAPY Observed: 06/25/2018 Status: COMPLETED Source: [place] 10:15 AM [facility] REPOSITORY OT/PT/Speech Visit (PTWS) MIRIAM LIANG ([id number]) 1985 F Date Time Provider Department 06/25/18 10:15 AM ALONDRA COLBY (PT) PTWS Date Time Provider Department Center 06/25/2018 10:15 AM [id number], LISA (PT) PTWS [facility] [place] Reason for Visit: Physical Therapy [503] Primary Visit Diagnosis:S/P left knee surgery [Z98.890] Other Visit Diagnosis: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] Allergies As of Date: 06/25/2018 Noted Allergy Reaction bee stings [Other] 06/07/2005 Comments: swelling Detergents [Other] 09/28/2005 Comments: Some detergent irritate her Date Reviewed: 06/14/2018 Reviewed by: Mindy Burgos Ma - Fully Assessed Progress Notes: Alondra Colby PT 06/25/2018 1:26 PM Signed Episode Visit Count: 20 Therapist That Will Oversee The Plan Of Care: Alondra Colby Start of Care Date: 03/05/18 Onset Date: 02/26/18 Plan of Care Certification Date: 05/22/18 Patient Identified by Name and Date of : Yes REHABILITATION AND SPORTS THERAPY PHYSICAL THERAPY TREATMENT NOTE ASSESSMENT: Miriam Liang demonstrated improvements in flexion ROM since last seen. Doing well with gait and strengthening The patient will continue to benefit from continued skilled physical therapy for progression of flexion stretching PLAN FOR NEXT VISIT: Continue to progress step ups , increase weight to hamstring curls as able SUBJECTIVE: Pt states that she is doing well Pain Score: 0/10 Pain Location: Knee - Left Frequency: Intermittent Post Treatment Pain Score: 0/10 Pain Location: Knee - Left OBJECTIVE MEASURES WITH LEVEL OF FUNCTION: LE AROM L Knee Extension: 0 Degrees L Knee Flexion: 116 Degrees TREATMENT: Therapeutic Exercise: 2: door mini squats 2# 2x10 4: hamstring curls paramount 20# left only 3x15 5: SLR 1x15 reps independent 6: prone knee flexion with strap 30 sec hold x4 7: supine heel slide with strap 2x10 also with 10 sec hold with therapist overpressure 9: UBE seat height 3 legs 5 and seat 5 , 5 min beginning and end of session 10: standing TKE with blue Rep band 3x15. 11: green step ups left 2x10 12: Left leg press 40# 3x15 Skilled Intervention: Skilled judgment was provided in selection of appropriate interventions. Correct performance of therapeutic exercises was facilitated with verbal and visual cuing. Billing: [facility]: Therapeutic Exercise ([id number]): 1:1 time: 40 minutes (3 units: 38-52 mins) Total time: 40 minutes Alondra Colby PT PROGRESS Observed: 06/21/2018 Status: COMPLETED Source: [place] 3:46 PM [facility] REPOSITORY HNO ID: [id number] Author: Alondra VirkPt) Lasha Service: (none) Author Type: Physical Therapist Type: Progress Notes Filed: 06/21/2018 3:53 PM Note Text: Episode Visit Count: 19 Therapist That Will Oversee The Plan Of Care: Alondra Colby Start of Care Date: 03/05/18 Onset Date: 02/26/18 Plan of Care Certification Date: 05/22/18 Patient Identified by Name and Date of : Yes REHABILITATION AND SPORTS THERAPY PHYSICAL THERAPY TREATMENT NOTE ASSESSMENT: Miriam Liang demonstrated improvements in knee flexion ROM and able to do full revolutions on UBE forward and backward at end of session! Pt ambulates with no assistive device with slight deviation. The patient will continue to benefit from continued skilled physical therapy for ROM and strengthening PLAN FOR NEXT VISIT: Add low step ups SUBJECTIVE: Pt reports that she will be returning to work next Monday. Will still be able to attend therapy. States that physician was pleased with improvements. Pt notes that she has been working hard on her [employer] ROM Pain Score: 0/10 Pain Location: Knee - Left Frequency: Intermittent Post Treatment Pain Score: 0/10 Pain Location: Knee - Right OBJECTIVE MEASURES WITH LEVEL OF FUNCTION: LE AROM L Knee Extension: 0 Degrees L Knee Flexion: 110 Degrees LE Strength L Knee Extension (L3): 4/5 TREATMENT: Therapeutic Exercise: 2: door mini squats 2x10 4: hamstring curls paramount 20# left only 3x12 5: SLR 1x15 reps independent 6: prone knee flexion with strap 30 sec hold x4 7: supine heel slide with strap 2x10 also with 10 sec hold with therapist overpressure 8: scifit stepper seat 10 x 6 minutes. Discussed progression of exercise. 9: UBE seat height 3 legs 5 and seat 5 , 1/2 revolutions x 6 minutes. full revolutions forward x6 min end of session 10: standing TKE with green Rep band 3x15. 12: Left leg press 40# 3x12. Skilled Intervention: Skilled judgment was provided in selection of appropriate interventions. Correct performance of therapeutic exercises was facilitated with verbal and visual cuing. Billing: [facility]: Therapeutic Exercise ([id number]): 1:1 time: 40 minutes (3 units: 38-52 mins) Total time: 40 minutes Alondra Colby PT CNTHERAPY Observed: 06/21/2018 Status: COMPLETED Source: [place] 10:15 AM [facility] REPOSITORY OT/PT/Speech Visit (PTWS) MIRIAM LIANG ([id number]) 1985 F Date Time Provider Department 06/21/18 10:15 AM ALONDRA COLBYPT) PTWS Date Time Provider Department Center 06/21/2018 10:15 AM [id number], LISA (PT) PTWS [facility] [place] Reason for Visit: Physical Therapy [503] Primary Visit Diagnosis:S/P left knee surgery [Z98.890] Other Visit Diagnosis: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] Allergies As of Date: 06/21/2018 Noted Allergy Reaction bee stings [Other] 06/07/2005 Comments: swelling Detergents [Other] 09/28/2005 Comments: Some detergent irritate her Date Reviewed: 06/14/2018 Reviewed by: Mindy Burgos Ma - Fully Assessed Progress Notes: Alondra Colby PT 06/21/2018 3:53 PM Signed Episode Visit Count: 19 Therapist That Will Oversee The Plan Of Care: Alondra Colby Start of Care Date: 03/05/18 Onset Date: 02/26/18 Plan of Care Certification Date: 05/22/18 Patient Identified by Name and Date of : Yes REHABILITATION AND SPORTS THERAPY PHYSICAL THERAPY TREATMENT NOTE ASSESSMENT: Miriam Liang demonstrated improvements in knee flexion ROM and able to do full revolutions on UBE forward and backward at end of session! Pt ambulates with no assistive device with slight deviation. The patient will continue to benefit from continued skilled physical therapy for ROM and strengthening PLAN FOR NEXT VISIT: Add low step ups SUBJECTIVE: Pt reports that she will be returning to work next Monday. Will still be able to attend therapy. States that physician was pleased with improvements. Pt notes that she has been working hard on her [employer] Pain Score: 0/10 Pain Location: Knee - Left Frequency: Intermittent Post Treatment Pain Score: 0/10 Pain Location: Knee - Right OBJECTIVE MEASURES WITH LEVEL OF FUNCTION: LE AROM L Knee Extension: 0 Degrees L Knee Flexion: 110 Degrees LE Strength L Knee Extension (L3): 4/5 TREATMENT: Therapeutic Exercise: 2: door mini squats 2x10 4: hamstring curls paramount 20# left only 3x12 5: SLR 1x15 reps independent 6: prone knee flexion with strap 30 sec hold x4 7: supine heel slide with strap 2x10 also with 10 sec hold with therapist overpressure 8: scifit stepper seat 10 x 6 minutes. Discussed progression of exercise. 9: UBE seat height 3 legs 5 and seat 5 , 1/2 revolutions x 6 minutes. full revolutions forward x6 min end of session 10: standing TKE with green Rep band 3x15. 12: Left leg press 40# 3x12. Skilled Intervention: Skilled judgment was provided in selection of appropriate interventions. Correct performance of therapeutic exercises was facilitated with verbal and visual cuing. Billing: [facility]: Therapeutic Exercise ([id number]): 1:1 time: 40 minutes (3 units: 38-52 mins) Total time: 40 minutes Alondra Colby PT PROGRESS Observed: 06/14/2018 Status: COMPLETED Source: [place] 10:08 AM [facility] REPOSITORY HNO ID: [id number] Author: Ismael Skinner Service: (none) Author Type: Physician Type: Progress Notes Filed: 06/15/2018 7:10 AM Note Text: DATE OF PROCEDURE: February 26, 2018 OPERATION: 1. Left?knee proximal realignment with Medial patellofemoral ligament?reconstruction with autograft semitendinosus, lateral retinacular lengthening?and vastus medialis oblique muscle advancement 2. Left?knee diagnostic arthroscopy 3. Left?knee examination under anesthesia 4. Left knee trochleoplasty Ref: Self Interval history: Miriam Liang returns today status post left knee surgery. Chief complaint is resolving left knee pain and stiffness. Doing better . Review of Systems: CV: No chest pain Pulm: No short of breath HEENT: No head ache General: no fevers, chills, nausea/vomiting, malaise Physical Examination: This is a well appearing, well nourished patient in no acute distress. Head is normocephalic and atraumatic. White sclera and pink conjunctiva. Mucous membranes are moist. Breathes easily and has normal chest wall excursion. Affect is normal. Left knee: excellent patellofemoral tracking. No instability. Excellent stability Range of motion: Flexion is approximately 100?, extension is full . Effusion: none +. Incisions: healed . No infection. Imaging: Plain films from [facility] are personally reviewed by me and demonstrate post surgical findings Impression: Miriam Liang is a 32 year old female, who is 3 1/2 months status post left knee patellofemoral stabilization with trochleoplasty . Plan: 1. No giving for return to work 2. Continue with physical therapy 3. Return to see me in 6 weeks 4. Final x-rays of the left knee at that visit. Ismael Skinner MD XR KNEE 2V AP/LAT Observed: 06/14/2018 Status: F Source: [facility] 9:55 AM [facility] REPOSITORY * * *Final Report* * * DATE OF EXAM: Jun 14 2018 9:55AM STX 5206 - XR KNEE 2V AP/LAT LT / PROCEDURE REASON: Acute pain of left knee * * * * Physician Interpretation * * * * EXAMINATION: XR KNEE 2V AP/LAT LT HISTORY: SURGERY F/U / PATELLA ALIGMENT Acute pain of left knee . TECHNIQUE: XR KNEE 2V AP/LAT LT Laterality: LEFT Number of different views (projections): 2 M: XB_1 COMPARISON: 05/17/2018 RESULT: Increased left knee osteopenia. Interval increase in healing of patellofemoral osteotomy with interval osseous bridging. Maintained joint spaces. No joint effusion. No acute fracture or dislocation. There are no bony erosions. IMPRESSION: Interval further healing of postoperative changes. 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: PSCB Transcribe Date/Time: Jun 14 2018 10:42A Dictated by : NAYELY DIOR MD This examination was interpreted and the report reviewed and electronically signed by: NAYELY DIOR MD on Jun 14 2018 10:43AM EST [id number] PROGRESS Observed: 06/14/2018 Status: COMPLETED Source: [place] 9:53 AM [facility] REPOSITORY HNO ID: [id number] Author: Ortiz Sauer (Rt) Cecilia Service: (none) Author Type: Health Information Managers Type: Progress Notes Filed: 06/14/2018 9:54 AM Note Text: Radiology Service Progress Note PATIENT NAME: Miriam Liang DATE OF SERVICE: June 14, 2018 TIME: 9:53 AM PATIENT IDENTITY VERIFICATION COMPLETED USING TWO (2) METHODS: Patient confirmed name verbally and Date of . PATIENT GENDER DATA: Female. status: : No status: NO. PATIENT RELEVANT IMPLANT DATA REVIEWED: Not Applicable RADIOLOGY DEPARTMENT: General X-ray: Exam(s) Completed: Lower Extremity X-Ray(s): Knee, AP / LAT Left: PERIPHERAL IV DATA: Not applicable SIGNED BY: RT Mikki June 14, 2018 9:53 AM CNOV Observed: 06/14/2018 Status: COMPLETED Source: [place] 9:40 AM [facility] REPOSITORY Office Visit (SPRTST) MIRIAM LIANG ([id number]) 1985 F Date Time Provider Department 06/14/18 9:40 AM ISMAEL SKINNER During your visit today, we recorded the following information about you: Ismael Skinner MD 06/15/2018 7:10 AM Signed DATE OF PROCEDURE: February 26, 2018 OPERATION: 1. Left?knee proximal realignment with Medial patellofemoral ligament?reconstruction with autograft semitendinosus, lateral retinacular lengthening?and vastus medialis oblique muscle advancement 2. Left?knee diagnostic arthroscopy 3. Left?knee examination under anesthesia 4. Left knee trochleoplasty Ref: Self Interval history: Miriam Liang returns today status post left knee surgery. Chief complaint is resolving left knee pain and stiffness. Doing better . Review of Systems: CV: No chest pain Pulm: No short of breath HEENT: No head ache General: no fevers, chills, nausea/vomiting, malaise Physical Examination: This is a well appearing, well nourished patient in no acute distress. Head is normocephalic and atraumatic. White sclera and pink conjunctiva. Mucous membranes are moist. Breathes easily and has normal chest wall excursion. Affect is normal. Left knee: excellent patellofemoral tracking. No instability. Excellent stability Range of motion: Flexion is approximately 100?, extension is full . Effusion: none +. Incisions: healed . No infection. Imaging: Plain films from [facility] are personally reviewed by me and demonstrate post surgical findings Impression: Miriam Liang is a 32 year old female, who is 3 1/2 months status post left knee patellofemoral stabilization with trochleoplasty . Plan: 1. No giving for return to work 2. Continue with physical therapy 3. Return to see me in 6 weeks 4. Final x-rays of the left knee at that visit. Ismael Skinner MD Referring Provider: ISMAEL SKINNER [[id number]] Allergies As of Date: 06/14/2018 Noted Allergy Reaction bee stings [Other] 06/07/2005 Comments: swelling Detergents [Other] 09/28/2005 Comments: Some detergent irritate her Date Reviewed: 06/14/2018 Reviewed by: Mindy Burgos Ma - Fully Assessed Reason for Visit: Recheck [92] Primary Visit Diagnosis:S/P left knee arthroscopy, MPFL reconstruction, lateral retinacular lengthening, VMO advancement and trochleoplasty [Z98.890] Order(s):XR KNEE POST OP 3V AP/LAT/MERCHANT LT [0008626] Order #: [id number] FUTURE Problem List As Of Date 06/14/2018 Noted Resolved DISLOCAT PATELLA-CLOSED [S83.006A] INVALID FOR* Closed dislocation of left patella [S83.005A] INVALID FOR* More... Patellar instability [M25.369] INVALID FOR* More... Obesity, Class I, BMI 30-34.9 [E66.9] INVALID FOR* S/P left knee arthroscopy, MPFL reconstruction,*INVALID FOR* Stiffness of left knee [M25.662] INVALID FOR* Letter Text Ismael Skinner M.D. [facility] [address] [place] [address] Office: [phone] June 14, 2018 To Whom It May Concern: Miriam Liang was seen in my clinic today. She is clear to return to work on June 25, 2017. She has a 25 pound lifting restriction. She should be allowed to lift/elevate the leg as needed. Her seating arrangement should allow her feet to touch the ground. If you have any questions or concerns, please contact my office at [phone]. Sincerely, Ismael Skinner M.D. Encounter Status:Closed by ISMAEL SKINNER MD on 06/15/18 PROGRESS Observed: 06/08/2018 Status: COMPLETED Source: [place] 11:38 AM CLINIC [facility] REPOSITORY [facility] ID: [id number] Author: Alondra Colby Service: (none) Author Type: Physical Therapist Type: Progress Notes Filed: 06/08/2018 11:42 AM Note Text: Episode Visit Count: 18 Therapist That Will Oversee The Plan Of Care: Alondra Colby Start of Care Date: 03/05/18 Onset Date: 02/26/18 Plan of Care Certification Date: 05/22/18 Patient Identified by Name and Date of : Yes REHABILITATION AND SPORTS THERAPY PHYSICAL THERAPY TREATMENT NOTE ASSESSMENT: Miriam Liang demonstrated improvements in flexion ROM and overall quad strength. Pt to 100 degrees flexion which is increased by 6 degrees. Pt making steady progress now and has improved compliance attending therapy visits. Pt confident with ambulation without cane unless very long distances or crowded environment. The patient will continue to benefit from continued skilled physical therapy for continued work on ROM and strengthening per protocol PLAN FOR NEXT VISIT: Add low step ups SUBJECTIVE: Pt notes that she has no pain in knee this morning. Getting more comfortable with walking out in community. Plans to go shopping today Pain Score: 0/10 Pain Location: Knee - Left Frequency: Intermittent Post Treatment Pain Score: 2/10 Pain Location: Knee - Right Post Treatment Pain Description: Aching OBJECTIVE MEASURES WITH LEVEL OF FUNCTION: LE AROM L Knee Extension: 0 Degrees L Knee Flexion: 100 Degrees LE Strength L Knee Extension (L3): 3+/5 L Knee Extension Functional Strength (L3): no quad lag with SLR Gait Gait: Independent Gait Device: Cane ( for distance) Gait Deviations: Left Lower Extremity Gait Deviations Left Lower Extremity: ( knee flexion and push off swing phase ) TREATMENT: Therapeutic Exercise: 2: door mini squats 2x10 4: hamstring curls paramount 20# left only 3x10 seated at side of mat table 3x10 5: SLR 2x15 reps independent 6: prone knee flexion with strap 30 sec hold x4 7: supine heel slide with strap 2x10 also with 10 sec hold with therapist overpressure 8: scifit stepper seat 10 x 6 minutes. Discussed progression of exercise. 9: UBE seat height 3 legs 5 and seat 5 , 1/2 revolutions x 6 minutes. end of session 10: standing TKE with orange Rep band 3x15. 11: knee flexion over edge of plinth with therpist overpressure 1x10 12: Left leg press 40# 3x12. 13: seated knee flexion stretch sliding hip forwards for additional stretch 15 sec x3 Skilled Intervention: Skilled judgment was provided in selection of appropriate interventions. Correct performance of therapeutic exercises was facilitated with verbal and visual cuing. Billing: [facility]: Therapeutic Exercise ([id number]): 1:1 time: 45 minutes (3 units: 38-52 mins) Total time: 45 minutes Alondra Colby, PT CNTHERAPY Observed: 06/08/2018 Status: COMPLETED Source: [place] 10:45 AM [facility] REPOSITORY OT/PT/Speech Visit (PTWS) MIRIAM LIANG ([id number]) 1985 F Date Time Provider Department 06/08/18 10:45 AM ALONDRA COLBY (PT) PTWS Date Time Provider Department Center 06/08/2018 10:45 AM [id number], LISA (PT) PTWS [facility]UL[facility] Reason for Visit: Physical Therapy [503] Primary Visit Diagnosis:S/P left knee surgery [Z98.890] Other Visit Diagnosis: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] Allergies As of Date: 06/08/2018 Noted Allergy Reaction bee stings [Other] 06/07/2005 Comments: swelling Detergents [Other] 09/28/2005 Comments: Some detergent irritate her Date Reviewed: 03/29/2018 Reviewed by: Mindy Burgos Ma - Fully Assessed Progress Notes: Alondra Colby PT 06/08/2018 11:42 AM Signed Episode Visit Count: 18 Therapist That Will Oversee The Plan Of Care: Alondra Colby Start of Care Date: 03/05/18 Onset Date: 02/26/18 Plan of Care Certification Date: 05/22/18 Patient Identified by Name and Date of : Yes REHABILITATION AND SPORTS THERAPY PHYSICAL THERAPY TREATMENT NOTE ASSESSMENT: Miriam Liang demonstrated improvements in flexion ROM and overall quad strength. Pt to 100 degrees flexion which is increased by 6 degrees. Pt making steady progress now and has improved compliance attending therapy visits. Pt confident with ambulation without cane unless very long distances or crowded environment. The patient will continue to benefit from continued skilled physical therapy for continued work on ROM and strengthening per protocol PLAN FOR NEXT VISIT: Add low step ups SUBJECTIVE: Pt notes that she has no pain in knee this morning. Getting more comfortable with walking out in community. Plans to go shopping today Pain Score: 0/10 Pain Location: Knee - Left Frequency: Intermittent Post Treatment Pain Score: 2/10 Pain Location: Knee - Right Post Treatment Pain Description: Aching OBJECTIVE MEASURES WITH LEVEL OF FUNCTION: LE AROM L Knee Extension: 0 Degrees L Knee Flexion: 100 Degrees LE Strength L Knee Extension (L3): 3+/5 L Knee Extension Functional Strength (L3): no quad lag with SLR Gait Gait: Independent Gait Device: Cane ( for distance) Gait Deviations: Left Lower Extremity Gait Deviations Left Lower Extremity: ( knee flexion and push off swing phase ) TREATMENT: Therapeutic Exercise: 2: door mini squats 2x10 4: hamstring curls paramount 20# left only 3x10 seated at side of mat table 3x10 5: SLR 2x15 reps independent 6: prone knee flexion with strap 30 sec hold x4 7: supine heel slide with strap 2x10 also with 10 sec hold with therapist overpressure 8: scifit stepper seat 10 x 6 minutes. Discussed progression of exercise. 9: UBE seat height 3 legs 5 and seat 5 , 1/2 revolutions x 6 minutes. end of session 10: standing TKE with orange Rep band 3x15. 11: knee flexion over edge of plinth with therpist overpressure 1x10 12: Left leg press 40# 3x12. 13: seated knee flexion stretch sliding hip forwards for additional stretch 15 sec x3 Skilled Intervention: Skilled judgment was provided in selection of appropriate interventions. Correct performance of therapeutic exercises was facilitated with verbal and visual cuing. Billing: [facility]: Therapeutic Exercise ([id number]): 1:1 time: 45 minutes (3 units: 38-52 mins) Total time: 45 minutes Alondra Colby PT PROGRESS Observed: 06/06/2018 Status: COMPLETED Source: [place] 2:57 PM [facility] REPOSITORY [facility] ID: [id number] Author: Alondra Colby Service: (none) Author Type: Physical Therapist Type: Progress Notes Filed: 06/06/2018 3:00 PM Note Text: Episode Visit Count: 17 Therapist That Will Oversee The Plan Of Care: Alondra Colby Start of Care Date: 03/05/18 Onset Date: 02/26/18 Plan of Care Certification Date: 05/22/18 Patient Identified by Name and Date of : Yes REHABILITATION AND SPORTS THERAPY PHYSICAL THERAPY TREATMENT NOTE ASSESSMENT: Miriam Liang demonstrated improvements in active control of left LE , improved gait without st. cane in dept and increased tolerance to passive stretching. Slow progress with flexion but able to achieve 95 degrees at end of session and multiple exs for stretching The patient will continue to benefit from continued skilled physical therapy for quad / LE strengthening and stretching for flexion ROM . PLAN FOR NEXT VISIT: Will consider passive stretch in prone and additonal passive stretch in supine . SUBJECTIVE: Pt reports that she is trying to use more weight on left leg when she gets up from sitting. Pain Score: 0/10 Pain Location: Knee - Left Frequency: Intermittent Post Treatment Pain Score: 3/10 Pain Location: Knee - Left Post Treatment Pain Description: Aching OBJECTIVE MEASURES WITH LEVEL OF FUNCTION: LE AROM L Knee Extension: 0 Degrees L Knee Flexion: 95 Degrees LE Strength L Knee Extension Functional Strength (L3): 3+/5 TREATMENT: Therapeutic Exercise: 1: full arc quad seated side of mat table 1x10 3: toe raises bilateral 2x10 in parallel bars 4: hamstring curls paramount 20# left only 2x10 seated at side of mat table 3x10 5: SLR 2x15 reps independent 6: prone knee flexion with strap 30 sec hold x3 7: supine heel slide with strap 2x10 8: scifit stepper seat 1 seat 10 x 5 minutes. Discussed progression of exercise. 9: UBE seat height 3 legs 5 and seat 5 , 1/2 revolutions x 6 minutes. end of session 10: standing TKE with orange Rep band 3x15. 11: knee flexion over edge of plinth with therpist overpressure 1x10 12: Left leg press 40# 3x10. 13: seated knee flexion stretch sliding hip forwards for additional stretch 15 sec x3 Skilled Intervention: Skilled judgment was provided in selection of appropriate interventions. Correct performance of therapeutic exercises was facilitated with verbal and visual cuing. Billing: [facility]: Therapeutic Exercise ([id number]): 1:1 time: 45 minutes (3 units: 38-52 mins) Total time: 45 minutes Alondra Colby PT CNTHERAPY Observed: 06/06/2018 Status: COMPLETED Source: [place] 9:45 AM [facility] [place] REPOSITORY OT/PT/Speech Visit (PTWS) MIRIAM LIANG ([id number]) 1985 F Date Time Provider Department 06/06/18 9:45 AM ALONDRA COLBY (PT) PTWS Date Time Provider Department Center 06/06/2018 9:45 AM [id number], LISA (PT) PTWS [facility] Reason for Visit: Physical Therapy [503] Primary Visit Diagnosis:S/P left knee surgery [Z98.890] Other Visit Diagnosis: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] Allergies As of Date: 06/06/2018 Noted Allergy Reaction bee stings [Other] 06/07/2005 Comments: swelling Detergents [Other] 09/28/2005 Comments: Some detergent irritate her Date Reviewed: 03/29/2018 Reviewed by: Mindy Burgos Ma - Fully Assessed Progress Notes: Alondra Colby PT 06/06/2018 3:00 PM Signed Episode Visit Count: 17 Therapist That Will Oversee The Plan Of Care: Alondra Colby Start of Care Date: 03/05/18 Onset Date: 02/26/18 Plan of Care Certification Date: 05/22/18 Patient Identified by Name and Date of : Yes REHABILITATION AND SPORTS THERAPY PHYSICAL THERAPY TREATMENT NOTE ASSESSMENT: Miriam Liang demonstrated improvements in active control of left LE , improved gait without st. cane in dept and increased tolerance to passive stretching. Slow progress with flexion but able to achieve 95 degrees at end of session and multiple exs for stretching The patient will continue to benefit from continued skilled physical therapy for quad / LE strengthening and stretching for flexion ROM . PLAN FOR NEXT VISIT: Will consider passive stretch in prone and additonal passive stretch in supine . SUBJECTIVE: Pt reports that she is trying to use more weight on left leg when she gets up from sitting. Pain Score: 0/10 Pain Location: Knee - Left Frequency: Intermittent Post Treatment Pain Score: 3/10 Pain Location: Knee - Left Post Treatment Pain Description: Aching OBJECTIVE MEASURES WITH LEVEL OF FUNCTION: LE AROM L Knee Extension: 0 Degrees L Knee Flexion: 95 Degrees LE Strength L Knee Extension Functional Strength (L3): 3+/5 TREATMENT: Therapeutic Exercise: 1: full arc quad seated side of mat table 1x10 3: toe raises bilateral 2x10 in parallel bars 4: hamstring curls paramount 20# left only 2x10 seated at side of mat table 3x10 5: SLR 2x15 reps independent 6: prone knee flexion with strap 30 sec hold x3 7: supine heel slide with strap 2x10 8: scifit stepper seat 1 seat 10 x 5 minutes. Discussed progression of exercise. 9: UBE seat height 3 legs 5 and seat 5 , 1/2 revolutions x 6 minutes. end of session 10: standing TKE with orange Rep band 3x15. 11: knee flexion over edge of plinth with therpist overpressure 1x10 12: Left leg press 40# 3x10. 13: seated knee flexion stretch sliding hip forwards for additional stretch 15 sec x3 Skilled Intervention: Skilled judgment was provided in selection of appropriate interventions. Correct performance of therapeutic exercises was facilitated with verbal and visual cuing. Billing: [facility]: Therapeutic Exercise ([id number]): 1:1 time: 45 minutes (3 units: 38-52 mins) Total time: 45 minutes Alondra Colby PT PROGRESS Observed: 06/04/2018 Status: COMPLETED Source: [place] 12:12 PM [facility] REPOSITORY [facility] ID: [id number] Author: Alondra Colby Service: (none) Author Type: Physical Therapist Type: Progress Notes Filed: 06/04/2018 12:15 PM Note Text: Episode Visit Count: 16 Therapist That Will Oversee The Plan Of Care: Alondra Colby Start of Care Date: 03/05/18 Onset Date: 02/26/18 Plan of Care Certification Date: 05/22/18 Patient Identified by Name and Date of : Yes REHABILITATION AND SPORTS THERAPY PHYSICAL THERAPY TREATMENT NOTE ASSESSMENT: Miriam Liang demonstrated improvements in gait pattern with cane and active strength and ROM. Knee flexion with moderate tightness at end range but decreased pain at end range noted with some overpressure. The patient will continue to benefit from continued skilled physical therapy for progression of flexion ROM and strengthening to improve functional status PLAN FOR NEXT VISIT: Will increase reps of leg press and TKE. Emphasis on knee flexion stretching SUBJECTIVE: Pt reports that she has been able to do more leg lifts and feels that exs are going better. Arrives ambulating with st. cane today with good form . Pain Score: 0/10 Pain Location: Knee - Left Frequency: Intermittent Post Treatment Pain Score: 3/10 Pain Location: Knee - Left Post Treatment Pain Description: Aching OBJECTIVE MEASURES WITH LEVEL OF FUNCTION: LE AROM L Knee Extension: 0 Degrees L Knee Flexion: 94 Degrees Mild gait deviation when not using pain. Pt requires cues to not use opposite leg to assist for transfers sit to supine TREATMENT: Therapeutic Exercise: 1: full arc quad seated side of mat table 1x10 3: toe raises bilateral 2x10 in parallel bars 4: orange rep band hamstring curls seated at side of mat table 3x10 5: SLR 1x15 reps independent 6: prone knee flexion with strap 30 sec hold x3 7: supine heel slide with strap 2x10 8: scifit stepper seat 1 seat 10 x 5 minutes. Discussed progression of exercise. 9: UBE seat height 3 legs 5 and seat 5 , 1/2 revolutions x 6 minutes. 10: standing TKE with orange Rep band 3x10. 11: knee flexion over edge of plinth with therpist overpressure 1x10 12: Left leg press 40# 2x10. Skilled Intervention: Patient was educated in proper exercise technique and purpose for exercises. Skilled judgment was provided in selection of appropriate interventions. Correct performance of therapeutic exercises was facilitated with verbal and visual cuing. Billing: [facility]: Therapeutic Exercise ([id number]): 1:1 time: 40 minutes (3 units: 38-52 mins) Total time: 40 minutes Alondra Colby PT CNTHERAPY Observed: 06/04/2018 Status: COMPLETED Source: [place] 10:15 AM [facility] REPOSITORY OT/PT/Speech Visit (PTWS) MIRIAM LIANG ([id number]) 1985 F Date Time Provider Department 06/04/18 10:15 AM ALONDRA COLBY (PT) PTWS Date Time Provider Department Center 06/04/2018 10:15 AM [id number], LISA (PT) PTWS [facility] Reason for Visit: Physical Therapy [503] Primary Visit Diagnosis:S/P left knee surgery [Z98.890] Other Visit Diagnosis: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] Allergies As of Date: 06/04/2018 Noted Allergy Reaction bee stings [Other] 06/07/2005 Comments: swelling Detergents [Other] 09/28/2005 Comments: Some detergent irritate her Date Reviewed: 03/29/2018 Reviewed by: Mindy Burgos Ma - Fully Assessed Progress Notes: Alondra Colby PT 06/04/2018 12:15 PM Signed Episode Visit Count: 16 Therapist That Will Oversee The Plan Of Care: Alondra Colby Start of Care Date: 03/05/18 Onset Date: 02/26/18 Plan of Care Certification Date: 05/22/18 Patient Identified by Name and Date of : Yes REHABILITATION AND SPORTS THERAPY PHYSICAL THERAPY TREATMENT NOTE ASSESSMENT: Miriam Liang demonstrated improvements in gait pattern with cane and active strength and ROM. Knee flexion with moderate tightness at end range but decreased pain at end range noted with some overpressure. The patient will continue to benefit from continued skilled physical therapy for progression of flexion ROM and strengthening to improve functional status PLAN FOR NEXT VISIT: Will increase reps of leg press and TKE. Emphasis on knee flexion stretching SUBJECTIVE: Pt reports that she has been able to do more leg lifts and feels that exs are going better. Arrives ambulating with st. cane today with good form . Pain Score: 0/10 Pain Location: Knee - Left Frequency: Intermittent Post Treatment Pain Score: 3/10 Pain Location: Knee - Left Post Treatment Pain Description: Aching OBJECTIVE MEASURES WITH LEVEL OF FUNCTION: LE AROM L Knee Extension: 0 Degrees L Knee Flexion: 94 Degrees Mild gait deviation when not using pain. Pt requires cues to not use opposite leg to assist for transfers sit to supine TREATMENT: Therapeutic Exercise: 1: full arc quad seated side of mat table 1x10 3: toe raises bilateral 2x10 in parallel bars 4: orange rep band hamstring curls seated at side of mat table 3x10 5: SLR 1x15 reps independent 6: prone knee flexion with strap 30 sec hold x3 7: supine heel slide with strap 2x10 8: scifit stepper seat 1 seat 10 x 5 minutes. Discussed progression of exercise. 9: UBE seat height 3 legs 5 and seat 5 , 1/2 revolutions x 6 minutes. 10: standing TKE with orange Rep band 3x10. 11: knee flexion over edge of plinth with therpist overpressure 1x10 12: Left leg press 40# 2x10. Skilled Intervention: Patient was educated in proper exercise technique and purpose for exercises. Skilled judgment was provided in selection of appropriate interventions. Correct performance of therapeutic exercises was facilitated with verbal and visual cuing. Billing: [facility]: Therapeutic Exercise ([id number]): 1:1 time: 40 minutes (3 units: 38-52 mins) Total time: 40 minutes Alondra Colby PT PROGRESS Observed: 06/01/2018 Status: COMPLETED Source: [place] 11:46 AM [facility] REPOSITORY [facility] ID: [id number] Author: Alondra VirkPtAnanya Colby Service: (none) Author Type: Physical Therapist Type: Progress Notes Filed: 06/01/2018 12:27 PM Note Text: Episode Visit Count: 15 Therapist That Will Oversee The Plan Of Care: Alondra Colby Start of Care Date: 03/05/18 Onset Date: 02/26/18 Plan of Care Certification Date: 05/22/18 Patient Identified by Name and Date of : Yes REHABILITATION AND SPORTS THERAPY PHYSICAL THERAPY TREATMENT NOTE ASSESSMENT: Miriam Liang demonstrated improvements in AROM of left knee 0-90 degrees AROM. Improved ability to walk with st cane and without assistive device with improved heel strike and push off on left. Patient with no pain at start of treatment and pain increased at end of treatment and was described as an ache. The patient will continue to benefit from continued skilled physical therapy for progression of AROM and strength of left knee and hip. PLAN FOR NEXT VISIT: Continue to progress AROM and strength of left knee and hip. SUBJECTIVE: Patient reports her knee is feelingmuch better and she currently does not have pain. Pain Score: 0/10 Pain Location: Knee - Left Frequency: Intermittent Post Treatment Pain Score: 5/10 Pain Location: Knee - Left Post Treatment Pain Description: Aching OBJECTIVE MEASURES WITH LEVEL OF FUNCTION: LE AROM L Knee Extension: 0 Degrees L Knee Flexion: 90 Degrees (AROM supine) 30 second Sit to stand from chair with no UE assist x 10. Decrease push with left leg. TREATMENT: Therapeutic Exercise: 1: full arc quad seated side of mat table 2x10 3: toe raises bilateral 2x10 in parallel bars 4: yellow rep band hamstring curls seated at side of mat table 3x12 5: SLR 2x15 reps assistance needed for first repetition and others independent. 6: prone knee flexion with strap 30 sec hold x3 7: supine heel slide with strap 2x10 and AROM 1x10 8: scifit stepper seat 11 for 4 min. and seat 10 x 2 minutes. Discussed progression of exercise. 9: UBE seat height 3 legs 5 and seat 5 , 1/2 revolutions x 5 minutes. 10: standing TKE with yellow Rep band 3x10. 11: knee flexion over edge of plinth with therpist overpressure 1x10 12: Left leg press 40# 2x10. 13: 30 second Sit to stand from chair with no UE assist x 10. Decrease push with left leg. Skilled Intervention: Patient was educated in proper exercise technique and purpose for exercises. Skilled judgment was provided in selection of appropriate interventions. Correct performance of therapeutic exercises was facilitated with verbal and visual cuing. Gait Trainin: Gait on level with st cane with instruction on proper form which improved with practive and repetitive cueing. Skilled Intervention: Facilitated proper gait cycle with the use of verbal and visual cues for correction of gait deviations with use of st cane and without assistive device. Billing: [facility]: Therapeutic Exercise ([id number]): 1:1 time: 40 minutes (3 units: 38-52 mins) Gait Training ([id number]): 1:1 time: 5 minutes (no charge) Total time: 45 minutes JANELLE Solis/Alondra Colby PT CNTHERAPY Observed: 06/01/2018 Status: COMPLETED Source: [place] 10:45 AM [facility] REPOSITORY OT/PT/Speech Visit (PTWS) MIRIAM LIANG ([id number]) 1985 F Date Time Provider Department 06/01/18 10:45 AM LETICIA KIMBALL (COUNTER STACKER) PTWS Date Time Provider Department Center 06/01/2018 10:45 AM [id number], NANCY (COUNTER STACKER) PTWS [facility] Reason for Visit: Physical Therapy [503] Primary Visit Diagnosis:S/P left knee surgery [Z98.890] Other Visit Diagnosis: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] Allergies As of Date: 06/01/2018 Noted Allergy Reaction bee stings [Other] 06/07/2005 Comments: swelling Detergents [Other] 09/28/2005 Comments: Some detergent irritate her Date Reviewed: 03/29/2018 Reviewed by: Mindy Burgos Ma - Fully Assessed Progress Notes: Alondra Colby PT 06/01/2018 12:27 PM Signed Episode Visit Count: 15 Therapist That Will Oversee The Plan Of Care: Alondra Colby Start of Care Date: 03/05/18 Onset Date: 02/26/18 Plan of Care Certification Date: 05/22/18 Patient Identified by Name and Date of : Yes REHABILITATION AND SPORTS THERAPY PHYSICAL THERAPY TREATMENT NOTE ASSESSMENT: Miriam Liang demonstrated improvements in AROM of left knee 0-90 degrees AROM. Improved ability to walk with st cane and without assistive device with improved heel strike and push off on left. Patient with no pain at start of treatment and pain increased at end of treatment and was described as an ache. The patient will continue to benefit from continued skilled physical therapy for progression of AROM and strength of left knee and hip. PLAN FOR NEXT VISIT: Continue to progress AROM and strength of left knee and hip. SUBJECTIVE: Patient reports her knee is feelingmuch better and she currently does not have pain. Pain Score: 0/10 Pain Location: Knee - Left Frequency: Intermittent Post Treatment Pain Score: 5/10 Pain Location: Knee - Left Post Treatment Pain Description: Aching OBJECTIVE MEASURES WITH LEVEL OF FUNCTION: LE AROM L Knee Extension: 0 Degrees L Knee Flexion: 90 Degrees (AROM supine) 30 second Sit to stand from chair with no UE assist x 10. Decrease push with left leg. TREATMENT: Therapeutic Exercise: 1: full arc quad seated side of mat table 2x10 3: toe raises bilateral 2x10 in parallel bars 4: yellow rep band hamstring curls seated at side of mat table 3x12 5: SLR 2x15 reps assistance needed for first repetition and others independent. 6: prone knee flexion with strap 30 sec hold x3 7: supine heel slide with strap 2x10 and AROM 1x10 8: scifit stepper seat 11 for 4 min. and seat 10 x 2 minutes. Discussed progression of exercise. 9: UBE seat height 3 legs 5 and seat 5 , 1/2 revolutions x 5 minutes. 10: standing TKE with yellow Rep band 3x10. 11: knee flexion over edge of plinth with therpist overpressure 1x10 12: Left leg press 40# 2x10. 13: 30 second Sit to stand from chair with no UE assist x 10. Decrease push with left leg. Skilled Intervention: Patient was educated in proper exercise technique and purpose for exercises. Skilled judgment was provided in selection of appropriate interventions. Correct performance of therapeutic exercises was facilitated with verbal and visual cuing. Gait Trainin: Gait on level with st cane with instruction on proper form which improved with practive and repetitive cueing. Skilled Intervention: Facilitated proper gait cycle with the use of verbal and visual cues for correction of gait deviations with use of st cane and without assistive device. Billing: [facility]: Therapeutic Exercise ([id number]): 1:1 time: 40 minutes (3 units: 38-52 mins) Gait Training ([id number]): 1:1 time: 5 minutes (no charge) Total time: 45 minutes JANELLE Solis/Alondra Colby PT Previous Version Follow-up and Disposition History Recorded PROGRESS Observed: 05/30/2018 Status: COMPLETED Source: [place] 11:49 AM [facility] REPOSITORY O ID: [id number] Author: Alondra Banks) Lasha Service: (none) Author Type: Physical Therapist Type: Progress Notes Filed: 05/30/2018 11:51 AM Note Text: Episode Visit Count: 14 Therapist That Will Oversee The Plan Of Care: Alondra Colby Start of Care Date: 03/05/18 Onset Date: 02/26/18 Plan of Care Certification Date: 05/22/18 Patient Identified by Name and Date of : Yes REHABILITATION AND SPORTS THERAPY PHYSICAL THERAPY TREATMENT NOTE ASSESSMENT: Miriam Liang demonstrated improvements in quad strength and control with decreased quad lag and improved SLR. Pt ambulated in dept with no assistive device with knee brace with mild gait deviation. Flexion ROM continues to improve and pt less fearful and more engaged in therapy The patient will continue to benefit from continued skilled physical therapy for progression of ROM and strength as tolerated PLAN FOR NEXT VISIT: Add low weight leg press as able. Increase reps of other exs. Continue to emphasize and concentrate on flexion ROM. TKE with yellow rep band SUBJECTIVE: Pt notes that she has been working hard on her therapy. Admits that she is more confident now and that she was probably holding herself back because she was scared to hurt something while doing exs. States that she is doing much better with leg lifts and has been bending more frequently during the day Pain Score: 6/10 Pain Location: Knee - Left Description: Aching Frequency: Continuous Post Treatment Pain Score: No Change Pain Location: Knee - Left Post Treatment Pain Description: Aching OBJECTIVE MEASURES WITH LEVEL OF FUNCTION: LE AROM L Knee Extension: 0 Degrees L Knee Flexion: 90 Degrees ( with assist at end of session) Functional Strength Functional Strength: 5 degrees quad lag with SLR TREATMENT: Therapeutic Exercise: 1: full arc quad seated side of mat table 2x10 2: mini squats parallel bars wtih brace on 2x10 3: toe raises bilateral 2x10 in parallel bars 4: yellow rep band hamstring curls seated at side of mat table 3x10 5: SLR 2x10 reps independent 6: prone knee flexion with strap 30 sec hold x3 7: supine heel slide with strap 2x10 8: scifit stepper seat 11 for 6 min. 9: UBE seat height 3 legs 5 and seat 5 10: standing TKE no resistance to assist in proper gait 1x10 11: knee flexion over edge of plinth with therpist overpressure 1x10 Skilled Intervention: Patient was educated in proper exercise technique and purpose for exercises. Skilled judgment was provided in selection of appropriate interventions. Correct performance of therapeutic exercises was facilitated with verbal and visual cuing. Billing: [facility]: Therapeutic Exercise ([id number]): 1:1 time: 50 minutes (3 units: 38-52 mins) Total time: 50 minutes Alondra Colby PT CNTHERAPY Observed: 05/30/2018 Status: COMPLETED Source: [place] 10:30 AM [facility] REPOSITORY OT/PT/Speech Visit (PTWS) MIRIAM LIANG ([id number]) 1985 F Date Time Provider Department 05/30/18 10:30 AM ALONDRA COLBY (PT) PTWS Date Time Provider Department Center 05/30/2018 10:30 AM [id number], LISA (PT) PTWS [facility] JULISA Reason for Visit: Physical Therapy [503] Primary Visit Diagnosis:S/P left knee surgery [Z98.890] Other Visit Diagnosis: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] Allergies As of Date: 05/30/2018 Noted Allergy Reaction bee stings [Other] 06/07/2005 Comments: swelling Detergents [Other] 09/28/2005 Comments: Some detergent irritate her Date Reviewed: 03/29/2018 Reviewed by: Mindy Burgos Ma - Fully Assessed Progress Notes: Alondra Colby PT 05/30/2018 11:51 AM Signed Episode Visit Count: 14 Therapist That Will Oversee The Plan Of Care: Alondra Colby Start of Care Date: 03/05/18 Onset Date: 02/26/18 Plan of Care Certification Date: 05/22/18 Patient Identified by Name and Date of : Yes REHABILITATION AND SPORTS THERAPY PHYSICAL THERAPY TREATMENT NOTE ASSESSMENT: Miriam Liang demonstrated improvements in quad strength and control with decreased quad lag and improved SLR. Pt ambulated in dept with no assistive device with knee brace with mild gait deviation. Flexion ROM continues to improve and pt less fearful and more engaged in therapy The patient will continue to benefit from continued skilled physical therapy for progression of ROM and strength as tolerated PLAN FOR NEXT VISIT: Add low weight leg press as able. Increase reps of other exs. Continue to emphasize and concentrate on flexion ROM. TKE with yellow rep band SUBJECTIVE: Pt notes that she has been working hard on her therapy. Admits that she is more confident now and that she was probably holding herself back because she was scared to hurt something while doing exs. States that she is doing much better with leg lifts and has been bending more frequently during the day Pain Score: 6/10 Pain Location: Knee - Left Description: Aching Frequency: Continuous Post Treatment Pain Score: No Change Pain Location: Knee - Left Post Treatment Pain Description: Aching OBJECTIVE MEASURES WITH LEVEL OF FUNCTION: LE AROM L Knee Extension: 0 Degrees L Knee Flexion: 90 Degrees ( with assist at end of session) Functional Strength Functional Strength: 5 degrees quad lag with SLR TREATMENT: Therapeutic Exercise: 1: full arc quad seated side of mat table 2x10 2: mini squats parallel bars wtih brace on 2x10 3: toe raises bilateral 2x10 in parallel bars 4: yellow rep band hamstring curls seated at side of mat table 3x10 5: SLR 2x10 reps independent 6: prone knee flexion with strap 30 sec hold x3 7: supine heel slide with strap 2x10 8: scifit stepper seat 11 for 6 min. 9: UBE seat height 3 legs 5 and seat 5 10: standing TKE no resistance to assist in proper gait 1x10 11: knee flexion over edge of plinth with therpist overpressure 1x10 Skilled Intervention: Patient was educated in proper exercise technique and purpose for exercises. Skilled judgment was provided in selection of appropriate interventions. Correct performance of therapeutic exercises was facilitated with verbal and visual cuing. Billing: [facility]: Therapeutic Exercise ([id number]): 1:1 time: 50 minutes (3 units: 38-52 mins) Total time: 50 minutes Alondra Colby PT PROGRESS Observed: 05/28/2018 Status: COMPLETED Source: [place] 12:38 PM [facility] [place] REPOSITORY O ID: [id number] Author: Alondra Colby Service: (none) Author Type: Physical Therapist Type: Progress Notes Filed: 05/28/2018 12:41 PM Note Text: Episode Visit Count: 13 Therapist That Will Oversee The Plan Of Care: Alondra Colby Start of Care Date: 03/05/18 Onset Date: 02/26/18 Plan of Care Certification Date: 05/22/18 Patient Identified by Name and Date of : Yes REHABILITATION AND SPORTS THERAPY PHYSICAL THERAPY TREATMENT NOTE ASSESSMENT: Miriam Liang demonstrated improvements in knee flexion, SLR and active knee extension quad activation. able to progress per protocol to 3 month exs. Pt able to use st. cane safely in dept. She has been going without assistive device at home. She will try to obtain a cane if possible. The patient will continue to benefit from continued skilled physical therapy for progression of ROM and strenthening PLAN FOR NEXT VISIT: Toe raises and leg press SUBJECTIVE: Pt notes she has done some exs today. Pain Score: 10 Pain Location: Knee - Left Description: Aching Frequency: Continuous Post Treatment Pain Score: No Change Pain Location: Knee - Left Post Treatment Pain Description: Aching OBJECTIVE MEASURES WITH LEVEL OF FUNCTION: LE AROM L Knee Extension: 0 Degrees L Knee Flexion: 85 Degrees ( mild assist with overpressure) Functional Strength Functional Strength: 15 degree quad lag Gait Weight Bearing Status: FWB Gait Device: Cane ( in dept, does not have one at home) TREATMENT: Therapeutic Exercise: 1: full arc quad attempted with assist seated 2x10 2: mini squats at counter 2x10 4: yellow rep band hamstring curls 2x10 5: SLR 4x3 reps independent 6: supine gravity assisted flexion x4 7: supine heel slide with strap 1x10 8: scifit stepper seat 11 for 4 min. 9: prone knee flexion 2x10 10: standing TKE no resistance to assist in proper gait 1x10 11: knee flexion over edge of plinth with therpist assist for lowering into flexion 12: cues for knee flexion while sitting and for sit to stand transfers Skilled Intervention: Patient was educated in proper exercise technique and purpose for exercises. Skilled judgment was provided in selection of appropriate interventions. Correct performance of therapeutic exercises was facilitated with verbal and visual cuing. Assigned Home Exercise Program: 1: add mini squats 2: discussed importance of compliance with therapy visits Billing: [facility]: Therapeutic Exercise ([id number]): 1:1 time: 45 minutes (3 units: 38-52 mins) Total time: 45 minutes Alondra Colby PT CNTHERAPY Observed: 05/28/2018 Status: COMPLETED Source: [place] 10:15 AM [facility] REPOSITORY OT/PT/Speech Visit (PTWS) MIRIAM LIANG ([id number]) 1985 F Date Time Provider Department 05/28/18 10:15 AM ALONDRA COLBY (PT) PTWS Date Time Provider Department Center 05/28/2018 10:15 AM [id number], LISA (PT) PTWS [facility] JULISA Reason for Visit: Physical Therapy [503] Primary Visit Diagnosis:S/P left knee surgery [Z98.890] Other Visit Diagnosis: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] Allergies As of Date: 05/28/2018 Noted Allergy Reaction bee stings [Other] 06/07/2005 Comments: swelling Detergents [Other] 09/28/2005 Comments: Some detergent irritate her Date Reviewed: 03/29/2018 Reviewed by: Mindy Burgos Ma - Fully Assessed Progress Notes: Alondra Colby PT 05/28/2018 12:41 PM Signed Episode Visit Count: 13 Therapist That Will Oversee The Plan Of Care: Alondra Colby Start of Care Date: 03/05/18 Onset Date: 02/26/18 Plan of Care Certification Date: 05/22/18 Patient Identified by Name and Date of : Yes REHABILITATION AND SPORTS THERAPY PHYSICAL THERAPY TREATMENT NOTE ASSESSMENT: Miriam Liang demonstrated improvements in knee flexion, SLR and active knee extension quad activation. able to progress per protocol to 3 month exs. Pt able to use st. cane safely in dept. She has been going without assistive device at home. She will try to obtain a cane if possible. The patient will continue to benefit from continued skilled physical therapy for progression of ROM and strenthening PLAN FOR NEXT VISIT: Toe raises and leg press SUBJECTIVE: Pt notes she has done some exs today. Pain Score: 6/10 Pain Location: Knee - Left Description: Aching Frequency: Continuous Post Treatment Pain Score: No Change Pain Location: Knee - Left Post Treatment Pain Description: Aching OBJECTIVE MEASURES WITH LEVEL OF FUNCTION: LE AROM L Knee Extension: 0 Degrees L Knee Flexion: 85 Degrees ( mild assist with overpressure) Functional Strength Functional Strength: 15 degree quad lag Gait Weight Bearing Status: FWB Gait Device: Cane ( in dept, does not have one at home) TREATMENT: Therapeutic Exercise: 1: full arc quad attempted with assist seated 2x10 2: mini squats at counter 2x10 4: yellow rep band hamstring curls 2x10 5: SLR 4x3 reps independent 6: supine gravity assisted flexion x4 7: supine heel slide with strap 1x10 8: scifit stepper seat 11 for 4 min. 9: prone knee flexion 2x10 10: standing TKE no resistance to assist in proper gait 1x10 11: knee flexion over edge of plinth with therpist assist for lowering into flexion 12: cues for knee flexion while sitting and for sit to stand transfers Skilled Intervention: Patient was educated in proper exercise technique and purpose for exercises. Skilled judgment was provided in selection of appropriate interventions. Correct performance of therapeutic exercises was facilitated with verbal and visual cuing. Assigned Home Exercise Program: 1: add mini squats 2: discussed importance of compliance with therapy visits Billing: [facility]: Therapeutic Exercise ([id number]): 1:1 time: 45 minutes (3 units: 38-52 mins) Total time: 45 minutes Alondra Colby PT PROGRESS Observed: 05/22/2018 Status: COMPLETED Source: [place] 12:32 PM [facility] [place] REPOSITORY O ID: [id number] Author: Alondra Colby Service: (none) Author Type: Physical Therapist Type: Progress Notes Filed: 05/22/2018 12:57 PM Note Text: Episode Visit Count: 12 Therapist That Will Oversee The Plan Of Care: Alondra Colby Start of Care Date: 03/05/18 Onset Date: 02/26/18 Plan of Care Certification Date: 05/22/18 Patient Identified by Name and Date of : Yes REHABILITATION AND SPORTS THERAPY PHYSICAL THERAPY PROGRESS REPORT PLAN OF CARE UPDATE: Assessment: Miriam Liang exhibits improvements in knee flexion though still limited . She continues to be limited with walking, stair negotiation, bending and physical activities/ strength. She is progressing slower than expected towards her therapy goals as demonstrated by: home exercise program compliance, pain levels, documented objective information regarding gait, strength and range of motion and appointment compliance. She will benefit from continued skilled therapy requiring ROM/ strengthening progression in order to further improve deficits and function. Functional gains: Improved gait quality Increased ROM Decreased intensity of pain Goals for Episode of Care: created on 03/05/18 through 06/04/18 [place] in home exercise program./ partially achieved Patient will decrease pain rating by 2 points to meet minimal clinical important difference for numeric pain rating scale./partially achieved Patient will increase active ROM of left knee to 130 degrees to allow pt to improved performance of ADLs. LTG/ progressing Patient will increase strength of left LE to 5/5 to allow for return to prior functional status, normalized gait mechanics, perform ADLs and negotiate stairs./ progression Perform ADL's with decreased report of symptoms/pain in 4 weeks. Complete all ADL normally in 12 weeks/ progression Normal gait. LTG/ progression Reciprocal stair negotiation.LTG progression Planned Interventions, Frequency, and Duration: 3x/week, 4 weeks Total Number of Visits Planned: 12 Patient to be seen for Therapeutic exercise;Manual therapy;Patient/Family/Caregiver Education;Gait Training PLAN FOR NEXT VISIT: Will advance per protocol. Add mini squats scifit stepper. toe raises with weights SUBJECTIVE: Pt reports that she has a new brace . Can not return back to work yet. Now walking with walker until she feels comfortable. . Pain Score: 0/10 Pain Location: Knee - Left Description: Aching Frequency: Continuous Post Treatment Pain Score: 7/10 Pain Location: Knee - Left Post Treatment Pain Description: Aching OBJECTIVE MEASURES WITH LEVEL OF FUNCTION: LE AROM L Knee Extension: 0 Degrees L Knee Flexion: 78 Degrees LE Joint Mobility L Patellar Mobility: Hypomobile LE Strength L Hip Flexion (L2): 3/5 L Knee Extension (L3): 3-/5 Functional Strength Functional Strength: Poor quad activation for knee extension and with SLR quad lag 20 Gait Weight Bearing Status: WBAT Gait: Independent Gait Device: Front-wheeled Walker TREATMENT: Therapeutic Exercise: 1: full arc quad attempted with assist seated 1x10 2: quad sets 2x10 3: assisted heel slide seated , use of hands to lift thigh to assist 1x10, 4: yellow rep band hamstring curls 2x10 5: assisted SLR 2x10 minimal assist required, quad lag still present 6: supine gravity assisted flexion x4 7: supine heel slide with strap 1x10 9: prone knee flexion 2x10 10: standing TKE no resistance to assist in proper gait 2x10 11: knee flexion over edge of plinth with therpist assist for lowering into flexion 12: cues for knee flexion while sitting and for sit to stand transfers 13: patellar mobilization for superior and medial 2x15 Skilled Intervention: Patient was educated in proper exercise technique and purpose for exercises. Skilled judgment was provided in selection of appropriate interventions. Correct performance of therapeutic exercises was facilitated with verbal and visual cuing. Billing: [facility]: Therapeutic Exercise ([id number]): 1:1 time: 35 minutes (2 units: 23-37 mins) Total time: 35 minutes Alondra Colby PT CNTHERAPY Observed: 05/22/2018 Status: COMPLETED Source: [place] 10:30 AM [facility] REPOSITORY OT/PT/Speech Visit (PTWS) MIRIAM LIANG ([id number]) 1985 F Date Time Provider Department 05/22/18 10:30 AM ALONDRA COLBY (PT) PTWS Date Time Provider Department Center 05/22/2018 10:30 AM [id number], LISA (PT) PTWS [facility] JULISA Reason for Visit: PT Progress Note [1596] Primary Visit Diagnosis:S/P left knee surgery [Z98.890] Other Visit Diagnosis: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] Allergies As of Date: 05/22/2018 Noted Allergy Reaction bee stings [Other] 06/07/2005 Comments: swelling Detergents [Other] 09/28/2005 Comments: Some detergent irritate her Date Reviewed: 03/29/2018 Reviewed by: Mindy Burgos Ma - Fully Assessed Progress Notes: Alondra Colby PT 05/22/2018 12:57 PM Signed Episode Visit Count: 12 Therapist That Will Oversee The Plan Of Care: Alondra Colby Start of Care Date: 03/05/18 Onset Date: 02/26/18 Plan of Care Certification Date: 05/22/18 Patient Identified by Name and Date of : Yes REHABILITATION AND SPORTS THERAPY PHYSICAL THERAPY PROGRESS REPORT PLAN OF CARE UPDATE: Assessment: Miriam Liang exhibits improvements in knee flexion though still limited . She continues to be limited with walking, stair negotiation, bending and physical activities/ strength. She is progressing slower than expected towards her therapy goals as demonstrated by: home exercise program compliance, pain levels, documented objective information regarding gait, strength and range of motion and appointment compliance. She will benefit from continued skilled therapy requiring ROM/ strengthening progression in order to further improve deficits and function. Functional gains: Improved gait quality Increased ROM Decreased intensity of pain Goals for Episode of Care: created on 03/05/18 through 06/04/18 [place] in home exercise program./ partially achieved Patient will decrease pain rating by 2 points to meet minimal clinical important difference for numeric pain rating scale./partially achieved Patient will increase active ROM of left knee to 130 degrees to allow pt to improved performance of ADLs. LTG/ progressing Patient will increase strength of left LE to 5/5 to allow for return to prior functional status, normalized gait mechanics, perform ADLs and negotiate stairs./ progression Perform ADL's with decreased report of symptoms/pain in 4 weeks. Complete all ADL normally in 12 weeks/ progression Normal gait. LTG/ progression Reciprocal stair negotiation.LTG progression Planned Interventions, Frequency, and Duration: 3x/week, 4 weeks Total Number of Visits Planned: 12 Patient to be seen for Therapeutic exercise;Manual therapy;Patient/Family/Caregiver Education;Gait Training PLAN FOR NEXT VISIT: Will advance per protocol. Add mini squats scifit stepper. toe raises with weights SUBJECTIVE: Pt reports that she has a new brace . Can not return back to work yet. Now walking with walker until she feels comfortable. . Pain Score: 0/10 Pain Location: Knee - Left Description: Aching Frequency: Continuous Post Treatment Pain Score: 7/10 Pain Location: Knee - Left Post Treatment Pain Description: Aching OBJECTIVE MEASURES WITH LEVEL OF FUNCTION: LE AROM L Knee Extension: 0 Degrees L Knee Flexion: 78 Degrees LE Joint Mobility L Patellar Mobility: Hypomobile LE Strength L Hip Flexion (L2): 3/5 L Knee Extension (L3): 3-/5 Functional Strength Functional Strength: Poor quad activation for knee extension and with SLR quad lag 20 Gait Weight Bearing Status: WBAT Gait: Independent Gait Device: Front-wheeled Walker TREATMENT: Therapeutic Exercise: 1: full arc quad attempted with assist seated 1x10 2: quad sets 2x10 3: assisted heel slide seated , use of hands to lift thigh to assist 1x10, 4: yellow rep band hamstring curls 2x10 5: assisted SLR 2x10 minimal assist required, quad lag still present 6: supine gravity assisted flexion x4 7: supine heel slide with strap 1x10 9: prone knee flexion 2x10 10: standing TKE no resistance to assist in proper gait 2x10 11: knee flexion over edge of plinth with therpist assist for lowering into flexion 12: cues for knee flexion while sitting and for sit to stand transfers 13: patellar mobilization for superior and medial 2x15 Skilled Intervention: Patient was educated in proper exercise technique and purpose for exercises. Skilled judgment was provided in selection of appropriate interventions. Correct performance of therapeutic exercises was facilitated with verbal and visual cuing. Billing: [facility]: Therapeutic Exercise ([id number]): 1:1 time: 35 minutes (2 units: 23-37 mins) Total time: 35 minutes Alondra Colby PT PROGRESS Observed: 05/17/2018 Status: COMPLETED Source: [place] 3:26 PM [facility] REPOSITORY HNO ID: [id number] Author: Elsa Hernández Service: (none) Author Type: (none) Type: Progress Notes Filed: 05/17/2018 3:31 PM Note Text: Radiology Service Progress Note PATIENT NAME: Miriam Liang DATE OF SERVICE: May 17, 2018 TIME: 3:26 PM PATIENT IDENTITY VERIFICATION COMPLETED USING TWO (2) METHODS: Patient confirmed name verbally and Date of . PATIENT GENDER DATA: Female. status: : No status: N/A PATIENT RELEVANT IMPLANT DATA REVIEWED: Not Applicable RADIOLOGY DEPARTMENT: General X-ray: Exam(s) Completed: Rib X-Ray: Left Lower Extremity X-Ray(s): Knee, AP / LAT Left: PERIPHERAL IV DATA: Not applicable SIGNED BY: Elsa Hernández May 17, 2018 3:26 PM PROGRESS Observed: 05/17/2018 Status: COMPLETED Source: [place] 2:45 PM [facility] [place] REPOSITORY HNO ID: [id number] Author: Ismael Skinner Service: (none) Author Type: Physician Type: Progress Notes Filed: 05/17/2018 3:03 PM Note Text: DATE OF PROCEDURE: February 26, 2018 OPERATION: 1. Left?knee proximal realignment with Medial patellofemoral ligament?reconstruction with autograft semitendinosus, lateral retinacular lengthening?and vastus medialis oblique muscle advancement 2. Left?knee diagnostic arthroscopy 3. Left?knee examination under anesthesia 4. Left knee trochleoplasty Ref: Self Interval history: Miriam Liang returns today status post left knee surgery. Chief complaint is resolving pain. Doing much better . Review of Systems: CV: No chest pain Pulm: No short of breath HEENT: No head ache General: no fevers, chills, nausea/vomiting, malaise Physical Examination: This is a well appearing, well nourished patient in no acute distress. Head is normocephalic and atraumatic. White sclera and pink conjunctiva. Mucous membranes are moist. Breathes easily and has normal chest wall excursion. Affect is normal. Left knee: flexion to 70 degrees. Soft endpoint. No apprehension. Extension is full . Effusion: trace +. Incisions: healed . No infection. Imaging: Plain films from [facility] are personally reviewed by me and demonstrates post surgery changes Impression: Miriam Liang is a 32 year old female, who is approaching 3 months status post left knee patellofemoral stabilization with trochleoplasty . Plan: 1. Patellofemoral stability brace 2. We will keep her off work until the next visit 3. Continue to advance flexion as tolerated 4. Repeat x-ray at the next visit. This needs to be a 3 view that includes the merchant view Ismael Skinner MD XR KNEE 2V AP/LAT Observed: 05/17/2018 Status: F Source: [facility] 2:37 PM [facility] REPOSITORY * * *Final Report* * * DATE OF EXAM: May 17 2018 2:37PM STX 5206 - XR KNEE 2V AP/LAT LT / PROCEDURE REASON: Acute pain of left knee * * * * Physician Interpretation * * * * HISTORY: RECONTSTRUCTED KNEE. Acute pain of left knee . TECHNIQUE: XR KNEE 2V AP/LAT LT Laterality: LEFT Number of different views (projections): 2 COMPARISON: March 08 RESULT: Supine examination, satisfactory alignment. No fracture. Postsurgical changes of the patella and trochlea. Small effusion. IMPRESSION: Postsurgical changes. 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: PSCB Transcribe Date/Time: May 17 2018 2:51P Dictated by : RENARD PEDRO MD This examination was interpreted and the report reviewed and electronically signed by: RENARD PEDRO MD on May 17 2018 2:55PM EST [id number] Observed: 05/17/2018 Status: COMPLETED Source: [place] 2:15 PM [facility] REPOSITORY Office Visit (SPRTST) MIRIAM LIANG ([id number]) 1985 F Date Time Provider Department 05/17/18 2:15 PM ISMAEL SKINNER SPRTST During your visit today, we recorded the following information about you: Ismael Skinner MD 05/17/2018 3:03 PM Signed DATE OF PROCEDURE: February 26, 2018 OPERATION: 1. Left?knee proximal realignment with Medial patellofemoral ligament?reconstruction with autograft semitendinosus, lateral retinacular lengthening?and vastus medialis oblique muscle advancement 2. Left?knee diagnostic arthroscopy 3. Left?knee examination under anesthesia 4. Left knee trochleoplasty Ref: Self Interval history: Miriam Liang returns today status post left knee surgery. Chief complaint is resolving pain. Doing much better . Review of Systems: CV: No chest pain Pulm: No short of breath HEENT: No head ache General: no fevers, chills, nausea/vomiting, malaise Physical Examination: This is a well appearing, well nourished patient in no acute distress. Head is normocephalic and atraumatic. White sclera and pink conjunctiva. Mucous membranes are moist. Breathes easily and has normal chest wall excursion. Affect is normal. Left knee: flexion to 70 degrees. Soft endpoint. No apprehension. Extension is full . Effusion: trace +. Incisions: healed . No infection. Imaging: Plain films from [facility] are personally reviewed by me and demonstrates post surgery changes Impression: Miriam Liang is a 32 year old female, who is approaching 3 months status post left knee patellofemoral stabilization with trochleoplasty . Plan: 1. Patellofemoral stability brace 2. We will keep her off work until the next visit 3. Continue to advance flexion as tolerated 4. Repeat x-ray at the next visit. This needs to be a 3 view that includes the merchant view Ismael Skinner MD Referring Provider: ISMAEL SKINNER [[id number]] Allergies As of Date: 05/17/2018 Noted Allergy Reaction bee stings [Other] 06/07/2005 Comments: swelling Detergents [Other] 09/28/2005 Comments: Some detergent irritate her Date Reviewed: 03/29/2018 Reviewed by: Mindy Burgos Ma - Fully Assessed Primary Visit Diagnosis:S/P left knee arthroscopy, MPFL reconstruction, lateral retinacular lengthening, VMO advancement and trochleoplasty [Z98.890] Problem List As Of Date 05/17/2018 Noted Resolved DISLOCAT PATELLA-CLOSED [S83.006A] INVALID FOR* Closed dislocation of left patella [S83.005A] INVALID FOR* More... Patellar instability [M25.369] INVALID FOR* More... Obesity, Class I, BMI 30-34.9 [E66.9] INVALID FOR* S/P left knee arthroscopy, MPFL reconstruction,*INVALID FOR* Stiffness of left knee [M25.662] INVALID FOR* Encounter Status:Closed by ISMAEL SKINNER MD on 05/17/18 PROGRESS Observed: 05/16/2018 Status: COMPLETED Source: [place] 1:09 PM [facility] RE[facility] HNO ID: [id number] Author: Ida Pierce) LINDA Jones Service: (none) Author Type: Registered Nurse Type: Progress Notes Filed: 05/16/2018 1:10 PM Note Text: ORTHO CARE COORDINATION QUICK NOTE Patient has been identified by name and date of : No Received e-mail from the [employer] advising that patient's phone has not been fully functioning so they have been unable to reach her. As that is the only number that we have on file for her, advised her of mom's info and pt's e-mail. Ida Jones RN HOSP Observed: 05/16/2018 Status: COMPLETED Source: [place] 12:00 AM [facility] REPOSITORY Patient Update (SPHTB) MIRIAM LIANG ([id number]) 1985 F Date Time Provider Department 05/16/18 ISMAEL SKINNER [facility] During your visit today, we recorded the following information about you: Ida Jones RN, RN 05/16/2018 1:10 PM Signed ORTHO CARE COORDINATION QUICK NOTE Patient has been identified by name and date of : No Received e-mail from the [employer] advising that patient's phone has not been fully functioning so they have been unable to reach her. As that is the only number that we have on file for her, advised her of mom's info and pt's e-mail. Ida Jones RN Allergies As of Date: 05/16/2018 Noted Allergy Reaction bee stings [Other] 06/07/2005 Comments: swelling Detergents [Other] 09/28/2005 Comments: Some detergent irritate her Date Reviewed: 03/29/2018 Reviewed by: Mindy Burgos Ma - Fully Assessed Reason for Visit: Follow Up [171] Electronic Communication [890] Problem List As Of Date 05/16/2018 Noted Resolved DISLOCAT PATELLA-CLOSED [S83.006A] INVALID FOR* Closed dislocation of left patella [S83.005A] INVALID FOR* More... Patellar instability [M25.369] INVALID FOR* More... Obesity, Class I, BMI 30-34.9 [E66.9] INVALID FOR* S/P left knee arthroscopy, MPFL reconstruction,*INVALID FOR* Stiffness of left knee [M25.662] INVALID FOR* Encounter Status:Closed by IDA JONES on 05/16/18 JACQUES Observed: 05/04/2018 Status: COMPLETED Source: [place] 12:00 AM [facility] REPOSITORY Telephone (SPHTB) MIRIAM LIANG ([id number]) 1985 F Date Time Provider Department 05/04/18 ISMAEL SKINNER SPHTB During your visit today, we recorded the following information about you: Ida Jones RN, RN 05/04/2018 10:57 AM Signed ORTHO CARE COORDINATION QUICK NOTE Patient has been identified by name and date of : No Per staff message from provider, patient needs a flexion dynasplint. Order placed and routed. Once filed, will be faxed to [facility]. LINDA Hedrick RN, RN 05/04/2018 2:55 PM Signed ORTHO CARE COORDINATION QUICK NOTE Patient has been identified by name and date of : No Dynasplint order faxed along with notes to rep. E-mailed her to advise of same. Ida Jones RN Allergies As of Date: 05/04/2018 Noted Allergy Reaction bee stings [Other] 06/07/2005 Comments: swelling Detergents [Other] 09/28/2005 Comments: Some detergent irritate her Date Reviewed: 03/29/2018 Reviewed by: Mindy Burgos Ma - Fully Assessed Reason for Visit: Follow Up [171] Orders [681] Primary Visit Diagnosis:S/P left knee arthroscopy, MPFL reconstruction, lateral retinacular lengthening, VMO advancement and trochleoplasty [Z98.890] Other Visit Diagnoses:Closed dislocation of left patella, subsequent encounter [S83.005D] Stiffness of left knee [M25.662] Order(s):SPLINT [[id number]] Order #: [id number] Problem List As Of Date 05/04/2018 Noted Resolved DISLOCAT PATELLA-CLOSED [S83.006A] INVALID FOR* Closed dislocation of left patella [S83.005A] INVALID FOR* More... Patellar instability [M25.369] INVALID FOR* More... Obesity, Class I, BMI 30-34.9 [E66.9] INVALID FOR* S/P left knee arthroscopy, MPFL reconstruction,*INVALID FOR* Stiffness of left knee [M25.662] INVALID FOR* Encounter Status:Closed by ETELVINA PICKETT CNP on 05/04/18 PROGRESS Observed: 05/02/2018 Status: COMPLETED Source: [place] 1:18 PM [facility] REPOSITORY HNO ID: [id number] Author: Alondra (Pt) Lasha Service: (none) Author Type: Physical Therapist Type: Progress Notes Filed: 05/02/2018 1:21 PM Note Text: Episode Visit Count: 11 Therapist That Will Oversee The Plan Of Care: Alondra Colby Start of Care Date: 03/05/18 Onset Date: 02/26/18 Plan of Care Certification Date: 03/05/18 Patient Identified by Name and Date of : Yes REHABILITATION AND SPORTS THERAPY PHYSICAL THERAPY TREATMENT NOTE ASSESSMENT: Miriam Liang demonstrated improvements in ability to perform independent SLR ( performed 3 reps). Still with quad lag. Better engagement of quad for full arcs. Will effort and some light overpressure able to achieve flexion to 65 degrees. Encouraged increased work and effort with ROM and active quad ex . The patient will continue to benefit from continued skilled physical therapy for progression of ROM and strengthening. Pt to see physician tomorrow. PLAN FOR NEXT VISIT: Continue to work on ROM and strengthening SUBJECTIVE: Pt notes that she had to get a new brace yesterday. One of sthe straps broke states that she woke up with more pain in her knee today. Pain Score: 8/10 Pain Location: Knee - Left Description: Aching Frequency: Continuous Post Treatment Pain Score: 8/10 Pain Location: Knee - Left Post Treatment Pain Description: Aching OBJECTIVE MEASURES WITH LEVEL OF FUNCTION: Knee Observations L Knee Palpation Tenderness: Lateral retinaculum LE AROM L Knee Extension: 0 Degrees L Knee Flexion: 65 Degrees LE Joint Mobility L Patellar Mobility: Hypomobile LE Strength L Hip Flexion (L2): 3+/5 L Knee Extension (L3): 3-/5 TREATMENT: Therapeutic Exercise: 1: full arc quad attempted with assist seated 2x10 2: quad sets 3x15 3: assisted heel slide seated , use of hands to lift thigh to assist 1x10, 4: seated marches hip flexion with knee in flexion 2x10 poor activation of hip flexors 5: assisted SLR 2x10 minimal assist required, quad lag still present 6: standing SLR 2x10 , with quad lag noted 7: supine heel slide with strap 1x10 8: walker gait training brace unlocked with cues for proper push off with knee flexion 9: prone knee flexion 2x10 10: standing TKE no resistance to assist in proper gait 2x10 11: knee flexion over edge of plinth with therpist assist for lowering into flexion 13: patellar mobilization for superior and medial 2x15 Skilled Intervention: Patient was educated in proper exercise technique and purpose for exercises. Skilled judgment was provided in selection of appropriate interventions. Correct performance of therapeutic exercises was facilitated with verbal and visual cuing. Assigned Home Exercise Program: 1: sit with knee in flexed position, not extension to improve ROM. Work on active quad extension in sitting Billing: [facility]: Therapeutic Exercise ([id number]): 1:1 time: 43 minutes (3 units: 38-52 mins) Total time: 43 minutes Alodnra Colby PT CNTHERAPY Observed: 05/02/2018 Status: COMPLETED Source: [place] 9:45 AM [facility] REPOSITORY OT/PT/Speech Visit (PTWS) MIRIAM LIANG ([id number]) 1985 F Date Time Provider Department 05/02/18 9:45 AM ALONDRA COLBY (PT) PTWS Date Time Provider Department Center 05/02/2018 9:45 AM [id number], LISA (PT) PTWS [facility] JULISA Reason for Visit: Physical Therapy [503] Primary Visit Diagnosis:S/P left knee surgery [Z98.890] Other Visit Diagnosis: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] Allergies As of Date: 05/02/2018 Noted Allergy Reaction bee stings [Other] 06/07/2005 Comments: swelling Detergents [Other] 09/28/2005 Comments: Some detergent irritate her Date Reviewed: 03/29/2018 Reviewed by: Mindy Burgos Ma - Fully Assessed Progress Notes: Alondra Colby, PT 05/02/2018 1:21 PM Signed Episode Visit Count: 11 Therapist That Will Oversee The Plan Of Care: Alondra Colby Start of Care Date: 03/05/18 Onset Date: 02/26/18 Plan of Care Certification Date: 03/05/18 Patient Identified by Name and Date of : Yes REHABILITATION AND SPORTS THERAPY PHYSICAL THERAPY TREATMENT NOTE ASSESSMENT: Miriam Liang demonstrated improvements in ability to perform independent SLR ( performed 3 reps). Still with quad lag. Better engagement of quad for full arcs. Will effort and some light overpressure able to achieve flexion to 65 degrees. Encouraged increased work and effort with ROM and active quad ex . The patient will continue to benefit from continued skilled physical therapy for progression of ROM and strengthening. Pt to see physician tomorrow. PLAN FOR NEXT VISIT: Continue to work on ROM and strengthening SUBJECTIVE: Pt notes that she had to get a new brace yesterday. One of jose knight states that she woke up with more pain in her knee today. Pain Score: 8/10 Pain Location: Knee - Left Description: Aching Frequency: Continuous Post Treatment Pain Score: 8/10 Pain Location: Knee - Left Post Treatment Pain Description: Aching OBJECTIVE MEASURES WITH LEVEL OF FUNCTION: Knee Observations L Knee Palpation Tenderness: Lateral retinaculum LE AROM L Knee Extension: 0 Degrees L Knee Flexion: 65 Degrees LE Joint Mobility L Patellar Mobility: Hypomobile LE Strength L Hip Flexion (L2): 3+/5 L Knee Extension (L3): 3-/5 TREATMENT: Therapeutic Exercise: 1: full arc quad attempted with assist seated 2x10 2: quad sets 3x15 3: assisted heel slide seated , use of hands to lift thigh to assist 1x10, 4: seated marches hip flexion with knee in flexion 2x10 poor activation of hip flexors 5: assisted SLR 2x10 minimal assist required, quad lag still present 6: standing SLR 2x10 , with quad lag noted 7: supine heel slide with strap 1x10 8: walker gait training brace unlocked with cues for proper push off with knee flexion 9: prone knee flexion 2x10 10: standing TKE no resistance to assist in proper gait 2x10 11: knee flexion over edge of plinth with therpist assist for lowering into flexion 13: patellar mobilization for superior and medial 2x15 Skilled Intervention: Patient was educated in proper exercise technique and purpose for exercises. Skilled judgment was provided in selection of appropriate interventions. Correct performance of therapeutic exercises was facilitated with verbal and visual cuing. Assigned Home Exercise Program: 1: sit with knee in flexed position, not extension to improve ROM. Work on active quad extension in sitting Billing: [facility]: Therapeutic Exercise ([id number]): 1:1 time: 43 minutes (3 units: 38-52 mins) Total time: 43 minutes Alondra Colby PT PROGRESS Observed: 04/23/2018 Status: COMPLETED Source: [place] 1:12 PM [facility] [place] REPOSITORY HNO ID: [id number] Author: Alondra Colby Service: (none) Author Type: Physical Therapist Type: Progress Notes Filed: 04/23/2018 1:17 PM Note Text: Episode Visit Count: 10 Therapist That Will Oversee The Plan Of Care: Alondra Colby Start of Care Date: 03/05/18 Onset Date: 02/26/18 Plan of Care Certification Date: 03/05/18 Patient Identified by Name and Date of : Yes REHABILITATION AND SPORTS THERAPY PHYSICAL THERAPY TREATMENT NOTE ASSESSMENT: Miriam Liang demonstrated improvements in quad activation for LAQ . Flexion ROM still painful and difficult. Gait in parallel bars still requires many cues for knee flexion during push off phase. The patient will continue to benefit from continued skilled physical therapy for progression of exs as tolerated. Emphasis on quad control and flexion ROM PLAN FOR NEXT VISIT: Continue to work on flexion ROM SUBJECTIVE: Pt reports that she continues to work on exs. Feels it is getting a little stronger Pain Score: 7/10 Pain Location: Knee - Left Description: Aching Frequency: Continuous Post Treatment Pain Score: 7/10 Pain Location: Knee - Left Post Treatment Pain Description: Aching OBJECTIVE MEASURES WITH LEVEL OF FUNCTION: LE AROM L Knee Extension: 0 Degrees L Knee Flexion: 56 Degrees TREATMENT: Therapeutic Exercise: 1: full arc quad attempted with assist seated 2x10 2: quad sets 2x15 3: assisted heel slide seated , use of hands to lift thigh to assist 1x10, 4: seated marches hip flexion with knee in flexion 5: assisted SLR 2x10 minimal assist required 6: standing SLR 2x10 , with quad lag noted 7: supine heel slide with strap 1x10 8: parallel bars gait training brace unlocked with cues for proper push off with knee flexion 9: prone knee flexion 2x10 10: standing TKE no resistance to assist in proper gait 2x10 11: knee flexion over edge of plinth with therpist assist for lowering into flexion 12: heel slide with foot on physioball and therapist assist for ROM 2x10 13: patellar mobilization for superior and medial 2x15 Skilled Intervention: Patient was educated in proper exercise technique and purpose for exercises. Skilled judgment was provided in selection of appropriate interventions. Correct performance of therapeutic exercises was facilitated with verbal and visual cuing. Assigned Home Exercise Program: 1: hold flexion stretch 20-30 seconds as tolerated Billing: [facility]: Therapeutic Exercise ([id number]): 1:1 time: 40 minutes (3 units: 38-52 mins) Total time: 40 minutes Alondra Colby PT CNTHERAPY Observed: 04/23/2018 Status: COMPLETED Source: [place] 10:15 AM [facility] REPOSITORY OT/PT/Speech Visit (PTWS) MIRIAM LIANG ([id number]) 1985 F Date Time Provider Department 04/23/18 10:15 AM ALONDRA COLBY (PT) PTWS Date Time Provider Department Center 04/23/2018 10:15 AM [id number], LISA (PT) PTWS [facility] JULISA Reason for Visit: Physical Therapy [503] Primary Visit Diagnosis:S/P left knee surgery [Z98.890] Other Visit Diagnosis: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] Allergies As of Date: 04/23/2018 Noted Allergy Reaction bee stings [Other] 06/07/2005 Comments: swelling Detergents [Other] 09/28/2005 Comments: Some detergent irritate her Date Reviewed: 03/29/2018 Reviewed by: Mindy Burgos Ma - Fully Assessed Progress Notes: Alondra Colby PT 04/23/2018 1:17 PM Signed Episode Visit Count: 10 Therapist That Will Oversee The Plan Of Care: Alondra Colby Start of Care Date: 03/05/18 Onset Date: 02/26/18 Plan of Care Certification Date: 03/05/18 Patient Identified by Name and Date of : Yes REHABILITATION AND SPORTS THERAPY PHYSICAL THERAPY TREATMENT NOTE ASSESSMENT: Miriam Liang demonstrated improvements in quad activation for LAQ . Flexion ROM still painful and difficult. Gait in parallel bars still requires many cues for knee flexion during push off phase. The patient will continue to benefit from continued skilled physical therapy for progression of exs as tolerated. Emphasis on quad control and flexion ROM PLAN FOR NEXT VISIT: Continue to work on flexion ROM SUBJECTIVE: Pt reports that she continues to work on exs. Feels it is getting a little stronger Pain Score: 7/10 Pain Location: Knee - Left Description: Aching Frequency: Continuous Post Treatment Pain Score: 7/10 Pain Location: Knee - Left Post Treatment Pain Description: Aching OBJECTIVE MEASURES WITH LEVEL OF FUNCTION: LE AROM L Knee Extension: 0 Degrees L Knee Flexion: 56 Degrees TREATMENT: Therapeutic Exercise: 1: full arc quad attempted with assist seated 2x10 2: quad sets 2x15 3: assisted heel slide seated , use of hands to lift thigh to assist 1x10, 4: seated marches hip flexion with knee in flexion 5: assisted SLR 2x10 minimal assist required 6: standing SLR 2x10 , with quad lag noted 7: supine heel slide with strap 1x10 8: parallel bars gait training brace unlocked with cues for proper push off with knee flexion 9: prone knee flexion 2x10 10: standing TKE no resistance to assist in proper gait 2x10 11: knee flexion over edge of plinth with therpist assist for lowering into flexion 12: heel slide with foot on physioball and therapist assist for ROM 2x10 13: patellar mobilization for superior and medial 2x15 Skilled Intervention: Patient was educated in proper exercise technique and purpose for exercises. Skilled judgment was provided in selection of appropriate interventions. Correct performance of therapeutic exercises was facilitated with verbal and visual cuing. Assigned Home Exercise Program: 1: hold flexion stretch 20-30 seconds as tolerated Billing: [facility]: Therapeutic Exercise ([id number]): 1:1 time: 40 minutes (3 units: 38-52 mins) Total time: 40 minutes Alondra Colby PT PROGRESS Observed: 04/21/2018 Status: COMPLETED Source: [place] 8:47 AM [facility] REPOSITORY HNO ID: [id number] Author: Alondra Colby Service: (none) Author Type: Physical Therapist Type: Progress Notes Filed: 04/21/2018 8:51 AM Note Text: Episode Visit Count: 9 Therapist That Will Oversee The Plan Of Care: Alondra Colby Start of Care Date: 03/05/18 Onset Date: 02/26/18 Plan of Care Certification Date: 03/05/18 Patient Identified by Name and Date of : Yes REHABILITATION AND SPORTS THERAPY PHYSICAL THERAPY TREATMENT NOTE ASSESSMENT: Miriam Liang demonstrated improvements in eliciting quads for full arc quad ex today. Flexion is still limited and pt still reporting high pain levels. Worked on gait in parallel bars with brace unlocked but still not good enough quad control for ambulation without knee locked. Will have to return to walker if we allow brace unlocked for gait. Flexion ROM still painful and difficult. The patient will continue to benefit from continued skilled physical therapy for progression of exs to increase ROM/ quad control/ hip control and normalize gait PLAN FOR NEXT VISIT: Continue to progress gait , ROM and quad exs SUBJECTIVE: Pt notes that she feels her knee is bending more. Doing ok with brace being unlocked when not wt bearing. Pain Score: 8/10 Pain Location: Knee - Left Description: Aching Frequency: Continuous Post Treatment Pain Score: 7/10 Pain Location: Knee - Left Post Treatment Pain Description: Aching OBJECTIVE MEASURES WITH LEVEL OF FUNCTION: LE AROM L Knee Extension: 0 Degrees L Knee Flexion: 54 Degrees LE Strength L Hip Flexion (L2): 3/5 L Knee Extension (L3): 3-/5 TREATMENT: Therapeutic Exercise: 1: full arc quad attempted with assist seated 2x10 2: quad sets 2x15 3: assisted heel slide seated , use of hands to lift thigh to assist 1x10, 4: seated marches hip flexion with knee in flexion 5: assisted SLR 2x10 minimal assist required 6: standing SLR 2x10 7: supine heel slide with strap 1x10 8: parallel bars gait training brace unlocked with cues for proper push off with knee flexion 9: prone knee flexion 2x10 10: standing TKE no resistance to assist in proper gait 2x10 11: knee flexion over edge of plinth with therpist assist for lowering into flexion 12: heel slide with foot on physioball and therapist assist for ROM 2x10 13: patellar mobilization for superior and medial 2x15 Skilled Intervention: Patient was educated in proper exercise technique and purpose for exercises. Reviewed and educated patient on additions/changes for home exercise program as above (*) Skilled judgment was provided in selection of appropriate interventions. Correct performance of therapeutic exercises was facilitated with verbal and visual cuing. Assigned Home Exercise Program: 1: full arc quads 2: practice standing TKE brace unlocked 3: alernate hip flexion marches with knee bent Billing: [facility]: Therapeutic Exercise ([id number]): 1:1 time: 45 minutes (3 units: 38-52 mins) Total time: 45 minutes Alondra Colby PT CNTHERAPY Observed: 04/20/2018 Status: COMPLETED Source: [place] 9:15 AM [facility] REPOSITORY OT/PT/Speech Visit (PTWS) TERESAMIRIAM ([id number]) 1985 F Date Time Provider Department 04/20/18 9:15 AM ALONDRA COLBY (PT) PTWS Date Time Provider Department Center 04/20/2018 9:15 AM [id number], LISA (PT) PTWS [facility] JULISA Reason for Visit: Physical Therapy [503] Primary Visit Diagnosis:S/P left knee surgery [Z98.890] Other Visit Diagnosis: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] Allergies As of Date: 04/20/2018 Noted Allergy Reaction bee stings [Other] 06/07/2005 Comments: swelling Detergents [Other] 09/28/2005 Comments: Some detergent irritate her Date Reviewed: 03/29/2018 Reviewed by: Mindy Burgos Ma - Fully Assessed Progress Notes: Alondra Colby, PT 04/21/2018 8:51 AM Signed Episode Visit Count: 9 Therapist That Will Oversee The Plan Of Care: Alondra Colby Start of Care Date: 03/05/18 Onset Date: 02/26/18 Plan of Care Certification Date: 03/05/18 Patient Identified by Name and Date of : Yes REHABILITATION AND SPORTS THERAPY PHYSICAL THERAPY TREATMENT NOTE ASSESSMENT: Miriam Fox Mariannalexis demonstrated improvements in eliciting quads for full arc quad ex today. Flexion is still limited and pt still reporting high pain levels. Worked on gait in parallel bars with brace unlocked but still not good enough quad control for ambulation without knee locked. Will have to return to walker if we allow brace unlocked for gait. Flexion ROM still painful and difficult. The patient will continue to benefit from continued skilled physical therapy for progression of exs to increase ROM/ quad control/ hip control and normalize gait PLAN FOR NEXT VISIT: Continue to progress gait , ROM and quad exs SUBJECTIVE: Pt notes that she feels her knee is bending more. Doing ok with brace being unlocked when not wt bearing. Pain Score: 8/10 Pain Location: Knee - Left Description: Aching Frequency: Continuous Post Treatment Pain Score: 12/26 Pain Location: Knee - Left Post Treatment Pain Description: Aching OBJECTIVE MEASURES WITH LEVEL OF FUNCTION: LE AROM L Knee Extension: 0 Degrees L Knee Flexion: 54 Degrees LE Strength L Hip Flexion (L2): 3/5 L Knee Extension (L3): 3-/5 TREATMENT: Therapeutic Exercise: 1: full arc quad attempted with assist seated 2x10 2: quad sets 2x15 3: assisted heel slide seated , use of hands to lift thigh to assist 1x10, 4: seated marches hip flexion with knee in flexion 5: assisted SLR 2x10 minimal assist required 6: standing SLR 2x10 7: supine heel slide with strap 1x10 8: parallel bars gait training brace unlocked with cues for proper push off with knee flexion 9: prone knee flexion 2x10 10: standing TKE no resistance to assist in proper gait 2x10 11: knee flexion over edge of plinth with therpist assist for lowering into flexion 12: heel slide with foot on physioball and therapist assist for ROM 2x10 13: patellar mobilization for superior and medial 2x15 Skilled Intervention: Patient was educated in proper exercise technique and purpose for exercises. Reviewed and educated patient on additions/changes for home exercise program as above (*) Skilled judgment was provided in selection of appropriate interventions. Correct performance of therapeutic exercises was facilitated with verbal and visual cuing. Assigned Home Exercise Program: 1: full arc quads 2: practice standing TKE brace unlocked 3: alernate hip flexion marches with knee bent Billing: [facility]: Therapeutic Exercise ([id number]): 1:1 time: 45 minutes (3 units: 38-52 mins) Total time: 45 minutes Alondra Colby PT PROGRESS Observed: 04/16/2018 Status: COMPLETED Source: [place] 11:37 AM [facility] REPOSITORY O ID: [id number] Author: Alondra Colby Service: (none) Author Type: Physical Therapist Type: Progress Notes Filed: 04/16/2018 11:43 AM Note Text: Episode Visit Count: 8 Therapist That Will Oversee The Plan Of Care: Alondra Colby Start of Care Date: 03/05/18 Onset Date: 02/26/18 Plan of Care Certification Date: 03/05/18 Patient Identified by Name and Date of : Yes REHABILITATION AND SPORTS THERAPY PHYSICAL THERAPY PROGRESS REPORT PLAN OF CARE UPDATE: Assessment: Miriam Liang exhibits difficulty with SLR still and unable to do them without assist in supine. Quad contraction better for quad sets but trouble with activation for full arc quad. Flexion ROM still very limited to 53 degrees but extension is fine. . She continues to be limited with walking and physical activities, knee flexion. She is progressing slower than expected towards her therapy goals as demonstrated by: documented objective information regarding strength, range of motion and overall function. She will benefit from continued skilled therapy requiring continued advancement of exs in order to further improve ROM, strength and function. Functional gains: Increased independence with HEP Increased ROM Increased strength Goals for Episode of Care: created on 03/05/18 through 06/04/18 [place] in home exercise program./ partially achieved Patient will decrease pain rating by 2 points to meet minimal clinical important difference for numeric pain rating scale./partially achieved Patient will increase active ROM of left knee to 130 degrees to allow pt to improved performance of ADLs. LTG/ progressing Patient will increase strength of left LE to 5/5 to allow for return to prior functional status, normalized gait mechanics, perform ADLs and negotiate stairs./ progression Perform ADL's with decreased report of symptoms/pain in 4 weeks. Complete all ADL normally in 12 weeks/ progression Normal gait. LTG Reciprocal stair negotiation.LTG Planned Interventions, Frequency, and Duration: 3x/week, 4 weeks Total Number of Visits Planned: 12 Patient to be seen for Therapeutic exercise;Manual therapy;Patient/Family/Caregiver Education;Gait Training PLAN FOR NEXT VISIT: Will continue to work on quad sets SLR and ROM SUBJECTIVE: Pt notes that she has not used the walker for about a week. She notes that she has been moving more and has some more pain. Pain Score: 8/10 Pain Location: Knee - Left Description: Aching Frequency: Continuous Post Treatment Pain Score: 7/10 Pain Location: Knee - Left Post Treatment Pain Description: Aching OBJECTIVE MEASURES WITH LEVEL OF FUNCTION: LE AROM L Knee Extension: 0 Degrees L Knee Flexion: 53 Degrees LE Joint Mobility L Patellar Mobility: Hypomobile LE Strength L Hip Flexion (L2): 3/5 L Knee Extension (L3): 3-/5 Gait Weight Bearing Status: WBAT Gait: Independent Gait Device: None ( brace locked in extension) TREATMENT: Therapeutic Exercise: 1: full arc quad attempted with assist seated 1x4 2: quad sets 1x10 3: assisted heel slide seated , use of hands to lift thigh to assist 1x10, 4: towel gastroc stretch 30 sec x3 5: assisted SLR 2x10 minimal assist required 6: standing SLR 2x10 7: supine heel slide with strap 1x10 8: long sitting heel slide with strap and hand assist 1x10 9: prone knee flexion 1x10 10: seated hamstring stretch 30 sec x3 11: knee flexion over edge of plinth with therpist assist for lowering into flexion 12: heel slide with foot on physioball and therapist assist for ROM 13: patellar mobilization for superior and medial 2x15 Skilled Intervention: Patient was educated in proper exercise technique and purpose for exercises. Reviewed and educated patient on additions/changes for home exercise program as above (*) Skilled judgment was provided in selection of appropriate interventions. Correct performance of therapeutic exercises was facilitated with verbal and visual cuing. Assigned Home Exercise Program: 1: add full arc quad as able with other LE to assist 2: unlock brace when not walking. 0-70 degrees set. Pt with good understanding of how to lock and unlock Billing: [facility]: Therapeutic Exercise ([id number]): 1:1 time: 55 minutes (4 units: 53-67 mins) Total time: 55 minutes Alondra Colby PT CNTHERAPY Observed: 04/16/2018 Status: COMPLETED Source: [place] 10:15 AM [facility] REPOSITORY OT/PT/Speech Visit (PTWS) MIRIAM LIANG ([id number]) 1985 F Date Time Provider Department 04/16/18 10:15 AM ALONDRA COLBY (PT) PTWS Date Time Provider Department Center 04/16/2018 10:15 AM [id number], LISA (PT) PTWS [facility] JULISA Reason for Visit: PT Progress Note [2946] Primary Visit Diagnosis:S/P left knee surgery [Z98.890] Other Visit Diagnosis: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] Allergies As of Date: 04/16/2018 Noted Allergy Reaction bee stings [Other] 06/07/2005 Comments: swelling Detergents [Other] 09/28/2005 Comments: Some detergent irritate her Date Reviewed: 03/29/2018 Reviewed by: Mindy Burgos Ma - Fully Assessed Progress Notes: Alondra Colby PT 04/16/2018 11:43 AM Signed Episode Visit Count: 8 Therapist That Will Oversee The Plan Of Care: Alondra Colby Start of Care Date: 03/05/18 Onset Date: 02/26/18 Plan of Care Certification Date: 03/05/18 Patient Identified by Name and Date of : Yes REHABILITATION AND SPORTS THERAPY PHYSICAL THERAPY PROGRESS REPORT PLAN OF CARE UPDATE: Assessment: Miriam Liang exhibits difficulty with SLR still and unable to do them without assist in supine. Quad contraction better for quad sets but trouble with activation for full arc quad. Flexion ROM still very limited to 53 degrees but extension is fine. . She continues to be limited with walking and physical activities, knee flexion. She is progressing slower than expected towards her therapy goals as demonstrated by: documented objective information regarding strength, range of motion and overall function. She will benefit from continued skilled therapy requiring continued advancement of exs in order to further improve ROM, strength and function. Functional gains: Increased independence with HEP Increased ROM Increased strength Goals for Episode of Care: created on 03/05/18 through 06/04/18 [place] in home exercise program./ partially achieved Patient will decrease pain rating by 2 points to meet minimal clinical important difference for numeric pain rating scale./partially achieved Patient will increase active ROM of left knee to 130 degrees to allow pt to improved performance of ADLs. LTG/ progressing Patient will increase strength of left LE to 5/5 to allow for return to prior functional status, normalized gait mechanics, perform ADLs and negotiate stairs./ progression Perform ADL's with decreased report of symptoms/pain in 4 weeks. Complete all ADL normally in 12 weeks/ progression Normal gait. LTG Reciprocal stair negotiation.LTG Planned Interventions, Frequency, and Duration: 3x/week, 4 weeks Total Number of Visits Planned: 12 Patient to be seen for Therapeutic exercise;Manual therapy;Patient/Family/Caregiver Education;Gait Training PLAN FOR NEXT VISIT: Will continue to work on quad sets SLR and ROM SUBJECTIVE: Pt notes that she has not used the walker for about a week. She notes that she has been moving more and has some more pain. Pain Score: 8/10 Pain Location: Knee - Left Description: Aching Frequency: Continuous Post Treatment Pain Score: 7/10 Pain Location: Knee - Left Post Treatment Pain Description: Aching OBJECTIVE MEASURES WITH LEVEL OF FUNCTION: LE AROM L Knee Extension: 0 Degrees L Knee Flexion: 53 Degrees LE Joint Mobility L Patellar Mobility: Hypomobile LE Strength L Hip Flexion (L2): 3/5 L Knee Extension (L3): 3-/5 Gait Weight Bearing Status: WBAT Gait: Independent Gait Device: None ( brace locked in extension) TREATMENT: Therapeutic Exercise: 1: full arc quad attempted with assist seated 1x4 2: quad sets 1x10 3: assisted heel slide seated , use of hands to lift thigh to assist 1x10, 4: towel gastroc stretch 30 sec x3 5: assisted SLR 2x10 minimal assist required 6: standing SLR 2x10 7: supine heel slide with strap 1x10 8: long sitting heel slide with strap and hand assist 1x10 9: prone knee flexion 1x10 10: seated hamstring stretch 30 sec x3 11: knee flexion over edge of plinth with therpist assist for lowering into flexion 12: heel slide with foot on physioball and therapist assist for ROM 13: patellar mobilization for superior and medial 2x15 Skilled Intervention: Patient was educated in proper exercise technique and purpose for exercises. Reviewed and educated patient on additions/changes for home exercise program as above (*) Skilled judgment was provided in selection of appropriate interventions. Correct performance of therapeutic exercises was facilitated with verbal and visual cuing. Assigned Home Exercise Program: 1: add full arc quad as able with other LE to assist 2: unlock brace when not walking. 0-70 degrees set. Pt with good understanding of how to lock and unlock Billing: [facility]: Therapeutic Exercise ([id number]): 1:1 time: 55 minutes (4 units: 53-67 mins) Total time: 55 minutes Alondra Colby PT PROGRESS Observed: 04/02/2018 Status: COMPLETED Source: [place] 4:32 PM [facility] [place] REPOSITORY HNO ID: [id number] Author: Alondra (Pt) Lasha Service: (none) Author Type: Physical Therapist Type: Progress Notes Filed: 04/02/2018 4:35 PM Note Text: Episode Visit Count: 7 Therapist That Will Oversee The Plan Of Care: Alondra Colby Start of Care Date: 03/05/18 Onset Date: 02/26/18 Plan of Care Certification Date: 03/05/18 Patient Identified by Name and Date of : Yes REHABILITATION AND SPORTS THERAPY PHYSICAL THERAPY TREATMENT NOTE ASSESSMENT: Miriam Liang demonstrated improvements in quad contraction and flexion ROM today. still requires assist for supine SLR but better strength noted. The patient will continue to benefit from continued skilled physical therapy for progression of strengthening and ROM per protocol PLAN FOR NEXT VISIT: Will continue to advance quad exs and ROM for flexion SUBJECTIVE: Pt notes that she saw the physician who felt she was doing ok. States in his note to unlock brace at 6 weeks. Pt reports that she continues to perform exs at home. Notes that she is also now off of the percocet. Pain Score: 6/10 Pain Location: Knee - Right Description: Aching Frequency: Continuous Post Treatment Pain Score: No Change Pain Location: Knee - Right Post Treatment Pain Description: Aching OBJECTIVE MEASURES WITH LEVEL OF FUNCTION: LE AROM L Knee Extension: 0 Degrees L Knee Flexion: 54 Degrees Pt ambulates with walker , brace locked in extension TREATMENT: Therapeutic Exercise: 2: quad sets 1x10 3: assisted heel slide seated , use of hands to lift thigh to assist 1x10, 4: towel gastroc stretch 30 sec x3 5: assisted SLR 2x10 minimal assist required 6: standing SLR 2x10 7: supine heel slide with strap 1x10 8: long sitting heel slide with strap and hand assist 1x10 9: prone knee flexion 1x10 10: seated hamstring stretch 30 sec x3 11: knee flexion over edge of plinth with therpist assist for lowering into flexion 12: heel slide with foot on physioball and therapist assist for ROM 13: patellar mobilization for superior and medial 2x15 Skilled Intervention: Patient was educated in proper exercise technique and purpose for exercises. Skilled judgment was provided in selection of appropriate interventions. Correct performance of therapeutic exercises was facilitated with verbal and visual cuing. Modalities: E-Stim Attended/TENS Body Region Treated - E-Stim Attended/TENS: to quad region with active quad sets Patient Position: long sitting Current: 8 sec on and 15 off. Channels: 1 Intensity: to tolerance Minutes: 8 See flowsheet for details regarding treatment. Skilled Intervention: Proper administration and selection of modality based on clinical presentation, deficits, and needs. Patient response monitored throughout treatment. Billing: [facility]: Therapeutic Exercise ([id number]): 1:1 time: 40 minutes (3 units: 38-52 mins) E- stim - no charge Total time: 40 minutes Alondra Colby PT CNTHERAPY Observed: 04/02/2018 Status: COMPLETED Source: [place] 2:45 PM [facility] REPOSITORY OT/PT/Speech Visit (PTWS) MIRIAM LIANG ([id number]) 1985 F Date Time Provider Department 04/02/18 2:45 PM ALONDRA COLBYPT) PTWS Date Time Provider Department Center 04/02/2018 2:45 PM [id number], LISA (PT) PTJOSE [facility] JULISA Reason for Visit: Physical Therapy [503] Primary Visit Diagnosis:S/P left knee surgery [Z98.890] Other Visit Diagnosis: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] Allergies As of Date: 04/02/2018 Noted Allergy Reaction bee stings [Other] 06/07/2005 Comments: swelling Detergents [Other] 09/28/2005 Comments: Some detergent irritate her Date Reviewed: 03/29/2018 Reviewed by: Mindy Burgos Ma - Fully Assessed Progress Notes: Alondra Colby, PT 04/02/2018 4:35 PM Signed Episode Visit Count: 7 Therapist That Will Oversee The Plan Of Care: Alondra Colby Start of Care Date: 03/05/18 Onset Date: 02/26/18 Plan of Care Certification Date: 03/05/18 Patient Identified by Name and Date of : Yes REHABILITATION AND SPORTS THERAPY PHYSICAL THERAPY TREATMENT NOTE ASSESSMENT: Miriam Liang demonstrated improvements in quad contraction and flexion ROM today. still requires assist for supine SLR but better strength noted. The patient will continue to benefit from continued skilled physical therapy for progression of strengthening and ROM per protocol PLAN FOR NEXT VISIT: Will continue to advance quad exs and ROM for flexion SUBJECTIVE: Pt notes that she saw the physician who felt she was doing ok. States in his note to unlock brace at 6 weeks. Pt reports that she continues to perform exs at home. Notes that she is also now off of the percocet. Pain Score: 11/26 Pain Location: Knee - Right Description: Aching Frequency: Continuous Post Treatment Pain Score: No Change Pain Location: Knee - Right Post Treatment Pain Description: Aching OBJECTIVE MEASURES WITH LEVEL OF FUNCTION: LE AROM L Knee Extension: 0 Degrees L Knee Flexion: 54 Degrees Pt ambulates with walker , brace locked in extension TREATMENT: Therapeutic Exercise: 2: quad sets 1x10 3: assisted heel slide seated , use of hands to lift thigh to assist 1x10, 4: towel gastroc stretch 30 sec x3 5: assisted SLR 2x10 minimal assist required 6: standing SLR 2x10 7: supine heel slide with strap 1x10 8: long sitting heel slide with strap and hand assist 1x10 9: prone knee flexion 1x10 10: seated hamstring stretch 30 sec x3 11: knee flexion over edge of plinth with therpist assist for lowering into flexion 12: heel slide with foot on physioball and therapist assist for ROM 13: patellar mobilization for superior and medial 2x15 Skilled Intervention: Patient was educated in proper exercise technique and purpose for exercises. Skilled judgment was provided in selection of appropriate interventions. Correct performance of therapeutic exercises was facilitated with verbal and visual cuing. Modalities: E-Stim Attended/TENS Body Region Treated - E-Stim Attended/TENS: to quad region with active quad sets Patient Position: long sitting Current: 8 sec on and 15 off. Channels: 1 Intensity: to tolerance Minutes: 8 See flowsheet for details regarding treatment. Skilled Intervention: Proper administration and selection of modality based on clinical presentation, deficits, and needs. Patient response monitored throughout treatment. Billing: [facility]: Therapeutic Exercise ([id number]): 1:1 time: 40 minutes (3 units: 38-52 mins) E- stim - no charge Total time: 40 minutes Alondra Colby PT EMERGENCY DEPARTMENT Observed: 03/29/2018 Status: F Source: [place] SUMMARY 7:02 PM [facility] Medical Records Department [address] [place] [address] Emergency Department Summary 03/29/18 1856 MR#: [id number] Acct: [id number] Name: MIRIAM LIANG Rep #: [id number] : 1985 32 From: Perez Dunn MD PCP: Care Physician, No Primary Status: REG ER - ER Visit Summary Date of Service: 03/29/18 Chief Complaint: Abdominal pain with nausea and vomiting History of Present Illness: The patient is a 32 F who presents with abdominal pain nausea and vomiting that started Monday. She is reporting 4-6 episodes of emesis per day. She complains of thirst and dry mouth. She denies fever but does complain of chills. She denies any ocular, visual or auditory symptoms. She denies chest pain, palpitations or rapid heartbeat. She denies shortness of breath or dyspnea on exertion. The abdominal pain is generalized. There is no radiation. She denies hematemesis, melena or hematochezia. She denies any urologic symptoms. She states she has not urinated since yesterday. She denies symptoms of . No ill contacts. No antibiotic use in the past 3-4 weeks. Physical Examination: Vital signs noted and unremarkable. She appears uncomfortable. Head is atraumatic normocephalic. Pupils are equal round reactive. Extraocular muscles are intact. TMs are pearly white with landmarks noted. Nares patent with no drainage. Posterior pharynx without erythema or exudate. Uvula is midline. There is no dysphonia or dysphasia. Tongue and mucosa are dry. Trachea is midline. There is no stridor with auscultation of the neck. Heart is regular without murmur, gallop or rub. S1 and S2 are normal. Lungs are clear to auscultation with good movement of air bilaterally. Abdomen is soft nontender with normal bowel sounds. There is no evidence of umbilical or inguinal hernia. There is no CVA tenderness noted. She has no rash or skin lesions. Neuro exam is nonfocal. Test Results: None Emergency Department Course and Treatment: IV was established she received 1 L of normal saline wide open and 4 mg of Zofran. She was given a p.o. challenge. She was reassessed at 1850. She states she feels better. Clinically she looks better. She did passed p.o. challenge. Treatment Plan: Discharge with prescription for Zofran and appropriate home-going instructions Disposition: Discharged home in stable improved condition Impression: Abdominal pain generalized with nausea and vomiting Moderate dehydration This note was generated with [employer] dictation software. It may contain incorrect words, spelling, and punctuation that were not noted in review of the chart prior to signing ED Disposition - Plan for ED Patient: Disposition: Home or Assisted Living Chief Complaint: Nausea/Vomiting/Diarrhea Instructions: ED Nausea Vomiting Prescriptions: Ondansetron [Zofran Odt] 4 mg PO Q8H PRN PRN #5 tab PRN Reason: Nausea/Vomiting Referrals: Care Physician,No Primary [Primary Care Provider] - Goyo Figueroa III, MD [STAFF PHYSICIAN] - 3-5 Days if not improving What to do if you have Problems For any increased pain, shortness of breath, bleeding, nausea or vomiting, chest pain, or any unexpected problems, contact your Primary Care Provider. Call [facility] ([phone]) or report to the closest Emergency Room. Call 911 if necessary. 03/29/18 1902 <Electronically signed by Perez Dunn MD> Date Perez Dunn MD Cosigner Signature (If Indicated): Date CC: No Primary Care Physician AASHISH Observed: 03/29/2018 Status: COMPLETED Source: [place] 2:30 PM [facility] REPOSITORY Office Visit (SPRTST) MIRIAM LIANG ([id number]) 1985 F Date Time Provider Department 03/29/18 2:30 PM ISMAEL SKINNER SPRTST During your visit today, we recorded the following information about you: Ismael Skinner MD 03/29/2018 2:32 PM Signed DATE OF PROCEDURE: February 26, 2018 OPERATION: 1. Left knee proximal realignment with Medial patellofemoral ligament reconstruction with autograft semitendinosus, lateral retinacular lengthening and vastus medialis oblique muscle advancement 2. Left knee diagnostic arthroscopy 3. Left knee examination under anesthesia 4. Left knee trochleoplasty Ref: Self Interval history: Miriam Liang returns today status post left knee surgery. Chief complaint is left knee pain. Doing better . Review of Systems: CV: No chest pain Pulm: No short of breath HEENT: No head ache General: no fevers, chills, nausea/vomiting, malaise Physical Examination: This is a well appearing, well nourished patient in no acute distress. Head is normocephalic and atraumatic. White sclera and pink conjunctiva. Mucous membranes are moist. Breathes easily and has normal chest wall excursion. Affect is normal. left knee: no apprehension Range of motion: Flexion is 40 - 50 deg, extension is full . Effusion: none +. Incisions: healed . No infection. Imaging: none Impression: Miriam Liang is a 32 year old female, who is 4 weeks status post left knee patellofemoral stabilization with trochleoplast . Plan: 1. Reassurance 2. PT 3. Ok to unlock brace at 6 weeks post surgery 4. We explained that we should be done with narcotics at this point. 5. Repeat nonweightbearing x-rays of the left knee at the next visit including a merchant view Ismael Skinner MD Referring Provider: ISMAEL SKINNER [[id number]] Allergies As of Date: 03/29/2018 Noted Allergy Reaction bee stings [Other] 06/07/2005 Comments: swelling Detergents [Other] 09/28/2005 Comments: Some detergent irritate her Date Reviewed: 03/29/2018 Reviewed by: Mindy Burgos Ma - Fully Assessed Reason for Visit: Recheck [92] Primary Visit Diagnosis:S/P left knee arthroscopy, MPFL reconstruction, lateral retinacular lengthening, VMO advancement and trochleoplasty [Z98.890] Problem List As Of Date 03/29/2018 Noted Resolved DISLOCAT PATELLA-CLOSED [S83.006A] INVALID FOR* Closed dislocation of left patella [S83.005A] INVALID FOR* More... Patellar instability [M25.369] INVALID FOR* More... Obesity, Class I, BMI 30-34.9 [E66.9] INVALID FOR* S/P left knee arthroscopy, MPFL reconstruction,*INVALID FOR* Letter Text Ismael Skinner M.D. [facility] [address] [address] Office: [phone] March 29, 2018 To Whom It May Concern: Miriam Liang was seen in my clinic today. She requires a wheelchair for long distance locomotion due to her left knee condition and her upper body status precluding long distance crutch/walker weightbearing. If you have any questions or concerns, please contact my office at [phone]. Sincerely, Ismael Skinner M.D. Encounter Status:Closed by ISMAEL SKINNER MD on 03/29/18 PROGRESS Observed: 03/29/2018 Status: COMPLETED Source: [place] 2:13 PM [facility] REPOSITORY HNO ID: [id number] Author: Ismael Skinner Service: (none) Author Type: Physician Type: Progress Notes Filed: 03/29/2018 2:32 PM Note Text: DATE OF PROCEDURE: February 26, 2018 OPERATION: 1. Left knee proximal realignment with Medial patellofemoral ligament reconstruction with autograft semitendinosus, lateral retinacular lengthening and vastus medialis oblique muscle advancement 2. Left knee diagnostic arthroscopy 3. Left knee examination under anesthesia 4. Left knee trochleoplasty Ref: Self Interval history: Miriam Liang returns today status post left knee surgery. Chief complaint is left knee pain. Doing better . Review of Systems: CV: No chest pain Pulm: No short of breath HEENT: No head ache General: no fevers, chills, nausea/vomiting, malaise Physical Examination: This is a well appearing, well nourished patient in no acute distress. Head is normocephalic and atraumatic. White sclera and pink conjunctiva. Mucous membranes are moist. Breathes easily and has normal chest wall excursion. Affect is normal. left knee: no apprehension Range of motion: Flexion is 40 - 50 deg, extension is full . Effusion: none +. Incisions: healed . No infection. Imaging: none Impression: Miriam Liang is a 32 year old female, who is 4 weeks status post left knee patellofemoral stabilization with trochleoplast . Plan: 1. Reassurance 2. PT 3. Ok to unlock brace at 6 weeks post surgery 4. We explained that we should be done with narcotics at this point. 5. Repeat nonweightbearing x-rays of the left knee at the next visit including a merchant view Ismael Skinner MD PROGRESS Observed: 03/27/2018 Status: COMPLETED Source: [place] 3:28 PM [facility] REPOSITORY HNO ID: [id number] Author: Alondra VirkPtAnanya Colby Service: (none) Author Type: Physical Therapist Type: Progress Notes Filed: 03/28/2018 8:36 AM Note Text: Episode Visit Count: 6 Therapist That Will Oversee The Plan Of Care: Alondra Lasha Start of Care Date: 03/05/18 Onset Date: 02/26/18 Plan of Care Certification Date: 03/05/18 REHABILITATION AND SPORTS THERAPY PHYSICAL THERAPY TREATMENT NOTE ASSESSMENT: Miriam Liang demonstrated improvements in tolerance to exs and improved contraction of quads with and without use of e- stim. Better leg lifts standing but still with difficulty in supine. Superior patellar mobility also improved. but medial mobility poor. Flexion ROM still well below was is allowed for this stage though less patient guarding and improved tolerance to flexion ROM Pt with good effort during all exs and good compliance to home program The patient will continue to benefit from continued skilled physical therapy for progression of exs both ROM and strengthening per protocol. Pt to see physician prior to next visit PLAN FOR NEXT VISIT: Will continue to encourage increased ROM and facilitate quad and hip strength SUBJECTIVE: Pt reports that she feels she is doing a little better with leg lifts. Still unable to do independently . Has been working hard on exs. Pain Score: 7/10 Pain Location: Knee - Right Description: Aching Frequency: Continuous OBJECTIVE MEASURES WITH LEVEL OF FUNCTION: LE AROM L Knee Extension: 0 Degrees L Knee Flexion: 45 Degrees LE Joint Mobility L Patellar Mobility: Hypomobile LE Strength L Hip Flexion (L2): 3-/5 L Knee Extension (L3): 2/5 Post Treatment Pain Post Treatment Pain Score: No Change Pain Location: Knee - Right Post Treatment Pain Description: Aching TREATMENT: Therapeutic Exercise: 2: quad sets 1x10 3: assisted heel slide seated , use of hands to lift thigh to assist 1x10, 4: towel gastroc stretch 30 sec x3 5: assisted SLR 2x10 moderate assist required 6: standing SLR 2x10 7: supine heel slide with strap 1x10 8: long sitting heel slide with strap and hand assist 1x10 9: prone knee flexion 1x10 deferred today 10: seated hamstring stretch 30 sec x3 11: knee flexion over edge of plinth with therpist assist for lowering into flexion 12: heel slide with foot on physioball and therapist assist for ROM 13: patellar mobilization for superior and medial 2x15 Skilled Intervention: Patient was educated in proper exercise technique and purpose for exercises. Skilled judgment was provided in selection of appropriate interventions. Correct performance of therapeutic exercises was facilitated with verbal and visual cuing. Modalities: E-Stim Attended/TENS Body Region Treated - E-Stim Attended/TENS: to quad region with active quad sets Patient Position: long sitting Current: 8 sec on and 15 off. Channels: 1 Intensity: to tolerance Minutes: 8 See flowsheet for details regarding treatment. Skilled Intervention: Proper administration and selection of modality based on clinical presentation, deficits, and needs. Patient response monitored throughout treatment. Billing: [facility]: Therapeutic Exercise ([id number]): 1:1 time: 45 minutes (3 units: 38-52 mins) E- stim no charge Total time: 45 minutes Alondra Colby PT CNTHERAPY Observed: 03/27/2018 Status: COMPLETED Source: [place] 9:45 AM [facility] REPOSITORY OT/PT/Speech Visit (PTWS) MIRIAM LIANG ([id number]) 1985 F Date Time Provider Department 03/27/18 9:45 AM ALONDRA COLBY (PT) PTWS Date Time Provider Department Center 03/27/2018 9:45 AM [id number], LISA (PT) PTWS [facility] JULISA Reason for Visit: Physical Therapy [503] Primary Visit Diagnosis:S/P left knee surgery [Z98.890] Other Visit Diagnosis: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] Allergies As of Date: 03/27/2018 Noted Allergy Reaction bee stings [Other] 06/07/2005 Comments: swelling Detergents [Other] 09/28/2005 Comments: Some detergent irritate her Date Reviewed: 03/08/2018 Reviewed by: Trae Souza - Fully Assessed Progress Notes: Alondra Colby PT 03/28/2018 8:36 AM Signed Episode Visit Count: 6 Therapist That Will Oversee The Plan Of Care: Alondra Colby Start of Care Date: 03/05/18 Onset Date: 02/26/18 Plan of Care Certification Date: 03/05/18 REHABILITATION AND SPORTS THERAPY PHYSICAL THERAPY TREATMENT NOTE ASSESSMENT: Miriam Liang demonstrated improvements in tolerance to exs and improved contraction of quads with and without use of e- stim. Better leg lifts standing but still with difficulty in supine. Superior patellar mobility also improved. but medial mobility poor. Flexion ROM still well below was is allowed for this stage though less patient guarding and improved tolerance to flexion ROM Pt with good effort during all exs and good compliance to home program The patient will continue to benefit from continued skilled physical therapy for progression of exs both ROM and strengthening per protocol. Pt to see physician prior to next visit PLAN FOR NEXT VISIT: Will continue to encourage increased ROM and facilitate quad and hip strength SUBJECTIVE: Pt reports that she feels she is doing a little better with leg lifts. Still unable to do independently . Has been working hard on exs. Pain Score: 7/10 Pain Location: Knee - Right Description: Aching Frequency: Continuous OBJECTIVE MEASURES WITH LEVEL OF FUNCTION: LE AROM L Knee Extension: 0 Degrees L Knee Flexion: 45 Degrees LE Joint Mobility L Patellar Mobility: Hypomobile LE Strength L Hip Flexion (L2): 3-/5 L Knee Extension (L3): 2/5 Post Treatment Pain Post Treatment Pain Score: No Change Pain Location: Knee - Right Post Treatment Pain Description: Aching TREATMENT: Therapeutic Exercise: 2: quad sets 1x10 3: assisted heel slide seated , use of hands to lift thigh to assist 1x10, 4: towel gastroc stretch 30 sec x3 5: assisted SLR 2x10 moderate assist required 6: standing SLR 2x10 7: supine heel slide with strap 1x10 8: long sitting heel slide with strap and hand assist 1x10 9: prone knee flexion 1x10 deferred today 10: seated hamstring stretch 30 sec x3 11: knee flexion over edge of plinth with therpist assist for lowering into flexion 12: heel slide with foot on physioball and therapist assist for ROM 13: patellar mobilization for superior and medial 2x15 Skilled Intervention: Patient was educated in proper exercise technique and purpose for exercises. Skilled judgment was provided in selection of appropriate interventions. Correct performance of therapeutic exercises was facilitated with verbal and visual cuing. Modalities: E-Stim Attended/TENS Body Region Treated - E-Stim Attended/TENS: to quad region with active quad sets Patient Position: long sitting Current: 8 sec on and 15 off. Channels: 1 Intensity: to tolerance Minutes: 8 See flowsheet for details regarding treatment. Skilled Intervention: Proper administration and selection of modality based on clinical presentation, deficits, and needs. Patient response monitored throughout treatment. Billing: [facility]: Therapeutic Exercise ([id number]): 1:1 time: 45 minutes (3 units: 38-52 mins) E- stim no charge Total time: 45 minutes Alondra Colby PT PROGRESS Observed: 03/23/2018 Status: COMPLETED Source: [place] 2:35 PM [facility] [place] REPOSITORY HNO ID: [id number] Author: Alondra (Pt) Lasha Service: (none) Author Type: Physical Therapist Type: Progress Notes Filed: 03/23/2018 2:38 PM Note Text: Episode Visit Count: 5 Therapist That Will Oversee The Plan Of Care: Alondra Colby Start of Care Date: 03/05/18 Onset Date: 02/26/18 Plan of Care Certification Date: 03/05/18 Patient Identified by Name and Date of : Yes REHABILITATION AND SPORTS THERAPY PHYSICAL THERAPY TREATMENT NOTE ASSESSMENT: Miriam Liang demonstrated improvements in tolerance to flexion ROM and performance of quad sets with e- stim. Still unable to perform SLR with brace. requires strap or therapist assist. The patient will continue to benefit from continued skilled physical therapy for work on ROM and strength per physician protocl PLAN FOR NEXT VISIT: Will continue to work on ROM and quad activation with leg lifts. SUBJECTIVE: Pt reports that she feels her exs are going a little better. Still working on getting leg lifts to go. Pain Score: 7/10 Pain Location: Knee - Right Description: Aching Frequency: Continuous Post Treatment Pain Score: No Change Pain Location: Knee - Right OBJECTIVE MEASURES WITH LEVEL OF FUNCTION: LE AROM L Knee Extension: 0 Degrees L Knee Flexion: 50 Degrees TREATMENT: Therapeutic Exercise: 2: quad sets 1x10 3: assisted heel slide seated , use of hands to lift thigh to assist 1x10, 4: towel gastroc stretch 30 sec x3 5: assisted SLR 3x10 moderate assist required 6: standing SLR 2x10 with extensive cues required. 7: supine heel slide with strap 1x10 8: long sitting heel slide with strap and hand assist 1x10 9: prone knee flexion 1x10 deferred today 10: seated hamstring stretch 30 sec x3 11: knee flexion over edge of plinth with therpist assist for lowering into flexion Skilled Intervention: Patient was educated in proper exercise technique and purpose for exercises. Skilled judgment was provided in selection of appropriate interventions. Correct performance of therapeutic exercises was facilitated with verbal and visual cuing. Modalities: E-Stim Attended/TENS Body Region Treated - E-Stim Attended/TENS: to quad region with active quad sets Patient Position: long sitting Channels: 1 Intensity: to tolerace Minutes: 5 See flowsheet for details regarding treatment. Skilled Intervention: Proper administration and selection of modality based on clinical presentation, deficits, and needs. Patient response monitored throughout treatment. Billing: [facility]: Therapeutic Exercise ([id number]): 1:1 time: 40 minutes (3 units: 38-52 mins) Modalities E-Stim Attended/TENS ([id number]) 1:1 time 5 minutes :no charge Total time: 45 minutes Alondra Colby PT CNTHERAPY Observed: 03/23/2018 Status: COMPLETED Source: [place] 10:00 AM [facility] REPOSITORY OT/PT/Speech Visit (PTWS) MIRIAM LIANG ([id number]) 1985 F Date Time Provider Department 03/23/18 10:00 AM ALONDRA COLBYPT) PTWS Date Time Provider Department Center 03/23/2018 10:00 AM [id number] COLBYPT) PTJOSE [facility] JULISA Reason for Visit: Physical Therapy [503] Primary Visit Diagnosis:S/P left knee surgery [Z98.890] Other Visit Diagnosis: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] Allergies As of Date: 03/23/2018 Noted Allergy Reaction bee stings [Other] 06/07/2005 Comments: swelling Detergents [Other] 09/28/2005 Comments: Some detergent irritate her Date Reviewed: 03/08/2018 Reviewed by: Trae Souza - Fully Assessed Progress Notes: Alondra Colby, PT 03/23/2018 2:38 PM Signed Episode Visit Count: 5 Therapist That Will Oversee The Plan Of Care: Alondra Colby Start of Care Date: 03/05/18 Onset Date: 02/26/18 Plan of Care Certification Date: 03/05/18 Patient Identified by Name and Date of : Yes REHABILITATION AND SPORTS THERAPY PHYSICAL THERAPY TREATMENT NOTE ASSESSMENT: Miriam Fox Mariannalexis demonstrated improvements in tolerance to flexion ROM and performance of quad sets with e- stim. Still unable to perform SLR with brace. requires strap or therapist assist. The patient will continue to benefit from continued skilled physical therapy for work on ROM and strength per physician protocl PLAN FOR NEXT VISIT: Will continue to work on ROM and quad activation with leg lifts. SUBJECTIVE: Pt reports that she feels her exs are going a little better. Still working on getting leg lifts to go. Pain Score: 7/10 Pain Location: Knee - Right Description: Aching Frequency: Continuous Post Treatment Pain Score: No Change Pain Location: Knee - Right OBJECTIVE MEASURES WITH LEVEL OF FUNCTION: LE AROM L Knee Extension: 0 Degrees L Knee Flexion: 50 Degrees TREATMENT: Therapeutic Exercise: 2: quad sets 1x10 3: assisted heel slide seated , use of hands to lift thigh to assist 1x10, 4: towel gastroc stretch 30 sec x3 5: assisted SLR 3x10 moderate assist required 6: standing SLR 2x10 with extensive cues required. 7: supine heel slide with strap 1x10 8: long sitting heel slide with strap and hand assist 1x10 9: prone knee flexion 1x10 deferred today 10: seated hamstring stretch 30 sec x3 11: knee flexion over edge of plinth with therpist assist for lowering into flexion Skilled Intervention: Patient was educated in proper exercise technique and purpose for exercises. Skilled judgment was provided in selection of appropriate interventions. Correct performance of therapeutic exercises was facilitated with verbal and visual cuing. Modalities: E-Stim Attended/TENS Body Region Treated - E-Stim Attended/TENS: to quad region with active quad sets Patient Position: long sitting Channels: 1 Intensity: to tolerace Minutes: 5 See flowsheet for details regarding treatment. Skilled Intervention: Proper administration and selection of modality based on clinical presentation, deficits, and needs. Patient response monitored throughout treatment. Billing: [facility]: Therapeutic Exercise ([id number]): 1:1 time: 40 minutes (3 units: 38-52 mins) Modalities E-Stim Attended/TENS ([id number]) 1:1 time 5 minutes :no charge Total time: 45 minutes Alondra Colby PT PROGRESS Observed: 03/20/2018 Status: COMPLETED Source: [place] 12:32 PM [facility] [place] REPOSITORY HNO ID: [id number] Author: Alondra (Pt) Lasha Service: (none) Author Type: Physical Therapist Type: Progress Notes Filed: 03/20/2018 12:37 PM Note Text: Episode Visit Count: 4 Therapist That Will Oversee The Plan Of Care: Alondra Colby Start of Care Date: 03/05/18 Onset Date: 02/26/18 Plan of Care Certification Date: 03/05/18 Patient Identified by Name and Date of : Yes REHABILITATION AND SPORTS THERAPY PHYSICAL THERAPY TREATMENT NOTE ASSESSMENT: Miriam Liang demonstrated improvements in knee flexion after heel slides and flexion over round bolster with use of tennis ball and foam roller to quads. Improved form with seated heel slides using hands to lift thigh. Still unable to initiate SLR but improved effort and control in midranges and with lifting leg on and off of plinth with brace on. Quad sets fair but working on it with tactile and verbal cues. The patient will continue to benefit from continued skilled physical therapy for continued work on ROM and strengthening as tolerated. PLAN FOR NEXT VISIT: trial of e- stim to quads SUBJECTIVE: Pt notes that she continues to work on exs. States that she gets pretty tired even with walking using walker. Pain Score: 6/10 Pain Location: Knee - Left Description: Aching Frequency: Continuous Post Treatment Pain Score: No Change Pain Location: Knee - Right OBJECTIVE MEASURES WITH LEVEL OF FUNCTION: LE AROM L Knee Extension: 0 Degrees L Knee Flexion: 47 Degrees TREATMENT: Therapeutic Exercise: 1: ankle pumps with towel under heel for extension 1x10 2: quad sets 3x10 3: assisted heel slide seated , use of hands to lift thigh to assist 1x10, 4: towel gastroc stretch 30 sec x3 5: assisted SLR 3x10 moderate assist required 6: standing SLR 2x10 with extensive cues required. 7: supine heel slide with strap 1x10 8: long sitting heel slide with strap and hand assist 1x10 9: prone knee flexion 1x10 10: seated hamstring stretch 30 sec x3 11: knee flexion over bolter with therpist assist for lowering . Flexion to approx 30 degrees for 2 min with use of tennis ball and foam roller to proximal quad Skilled Intervention: Patient was educated in proper exercise technique and purpose for exercises. Skilled judgment was provided in selection of appropriate interventions. Correct performance of therapeutic exercises was facilitated with verbal, visual and tactile cuing. Billing: [facility]: Therapeutic Exercise ([id number]): 1:1 time: 45 minutes (3 units: 38-52 mins) Total time: 45 minutes Alondra Colby PT CNTHERAPY Observed: 03/20/2018 Status: COMPLETED Source: [place] 10:30 AM [facility] REPOSITORY OT/PT/Speech Visit (PTWS) MIRIAM LIANG ([id number]) 1985 F Date Time Provider Department 03/20/18 10:30 AM ALONDRA COLBYPT) PTJOSE Date Time Provider Department Center 03/20/2018 10:30 AM [id number], LISA (PT) PTJOSE [facility] JULISA Reason for Visit: Physical Therapy [503] Primary Visit Diagnosis:S/P left knee surgery [Z98.890] Other Visit Diagnosis: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] Allergies As of Date: 03/20/2018 Noted Allergy Reaction bee stings [Other] 06/07/2005 Comments: swelling Detergents [Other] 09/28/2005 Comments: Some detergent irritate her Date Reviewed: 03/08/2018 Reviewed by: Trae Souza - Fully Assessed Progress Notes: Alondra Colby, PT 03/20/2018 12:37 PM Signed Episode Visit Count: 4 Therapist That Will Oversee The Plan Of Care: Alondra Colby Start of Care Date: 03/05/18 Onset Date: 02/26/18 Plan of Care Certification Date: 03/05/18 Patient Identified by Name and Date of : Yes REHABILITATION AND SPORTS THERAPY PHYSICAL THERAPY TREATMENT NOTE ASSESSMENT: Miriam Liang demonstrated improvements in knee flexion after heel slides and flexion over round bolster with use of tennis ball and foam roller to quads. Improved form with seated heel slides using hands to lift thigh. Still unable to initiate SLR but improved effort and control in midranges and with lifting leg on and off of plinth with brace on. Quad sets fair but working on it with tactile and verbal cues. The patient will continue to benefit from continued skilled physical therapy for continued work on ROM and strengthening as tolerated. PLAN FOR NEXT VISIT: trial of e- stim to quads SUBJECTIVE: Pt notes that she continues to work on exs. States that she gets pretty tired even with walking using walker. Pain Score: 6/10 Pain Location: Knee - Left Description: Aching Frequency: Continuous Post Treatment Pain Score: No Change Pain Location: Knee - Right OBJECTIVE MEASURES WITH LEVEL OF FUNCTION: LE AROM L Knee Extension: 0 Degrees L Knee Flexion: 47 Degrees TREATMENT: Therapeutic Exercise: 1: ankle pumps with towel under heel for extension 1x10 2: quad sets 3x10 3: assisted heel slide seated , use of hands to lift thigh to assist 1x10, 4: towel gastroc stretch 30 sec x3 5: assisted SLR 3x10 moderate assist required 6: standing SLR 2x10 with extensive cues required. 7: supine heel slide with strap 1x10 8: long sitting heel slide with strap and hand assist 1x10 9: prone knee flexion 1x10 10: seated hamstring stretch 30 sec x3 11: knee flexion over bolter with therpist assist for lowering . Flexion to approx 30 degrees for 2 min with use of tennis ball and foam roller to proximal quad Skilled Intervention: Patient was educated in proper exercise technique and purpose for exercises. Skilled judgment was provided in selection of appropriate interventions. Correct performance of therapeutic exercises was facilitated with verbal, visual and tactile cuing. Billing: [facility]: Therapeutic Exercise ([id number]): 1:1 time: 45 minutes (3 units: 38-52 mins) Total time: 45 minutes Alondra Colby PT PROGRESS Observed: 03/19/2018 Status: COMPLETED Source: [place] 4:04 PM [facility] [place] REPOSITORY HNO ID: [id number] Author: Alondra (Pt) Lasha Service: (none) Author Type: Physical Therapist Type: Progress Notes Filed: 03/19/2018 4:06 PM Note Text: Episode Visit Count: 3 Therapist That Will Oversee The Plan Of Care: Alondra Colby Start of Care Date: 03/05/18 Onset Date: 02/26/18 Plan of Care Certification Date: 03/05/18 Patient Identified by Name and Date of : Yes REHABILITATION AND SPORTS THERAPY PHYSICAL THERAPY TREATMENT NOTE ASSESSMENT: Miriam Liang demonstrated improvements in ability to perform leg lifts by end of sesssion. ROM still limited. 70 degrees allowed this week and 40 degrees active available. The patient will continue to benefit from continued skilled physical therapy for progression of exs. PLAN FOR NEXT VISIT: Will add foam roller to quad to facilitate ROM, consider e- stim as needed to quad SUBJECTIVE: Pt notes that exs are going well. Doing heel slides 3x/day as tolerated. Pain Score: 7/10 Pain Location: Knee - Left Description: Aching Frequency: Continuous Post Treatment Pain Score: No Change Pain Location: Knee - Right OBJECTIVE MEASURES WITH LEVEL OF FUNCTION: LE AROM L Knee Extension: 0 Degrees L Knee Flexion: 40 Degrees TREATMENT: Therapeutic Exercise: 1: ankle pumps with towel under heel for extension 1x10 2: quad sets 3x10 3: assisted heel slide seated 1x10, 4: towel gastroc stretch 30 sec x3 5: assisted SLR 1x10 moderate assist required 6: standing SLR 2x10 with extensive cues required. 7: supine heel slide with strap 1x10 8: long sitting heel slide with strap and hand assist 1x10 9: prone knee flexion 1x10 10: seated hamstring stretch 30 sec x3 Skilled Intervention: Patient was educated in proper exercise technique and purpose for exercises. Skilled judgment was provided in selection of appropriate interventions. Provided written instruction for home exercise program to facilitate proper performance and compliance. Correct performance of therapeutic exercises was facilitated with verbal and visual cuing. Assigned Home Exercise Program: 1: may do heel slides with strap and hand assist in long sitting 2: encouraged leg lifts with transfers as well as exercise Billing: [facility]: Therapeutic Exercise ([id number]): 1:1 time: 45 minutes (3 units: 38-52 mins) Total time: 45 minutes Alondra Colby PT CNTHERAPY Observed: 03/19/2018 Status: COMPLETED Source: [place] 2:45 PM [facility] REPOSITORY OT/PT/Speech Visit (PTWS) MIRIAM LIANG ([id number]) 1985 F Date Time Provider Department 03/19/18 2:45 PM ALONDRA COLBYPT) PTWS Date Time Provider Department Center 03/19/2018 2:45 PM [id number] COLBYPT) PTJOSE [facility] JULISA Reason for Visit: Physical Therapy [503] Primary Visit Diagnosis:S/P left knee surgery [Z98.890] Other Visit Diagnosis: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] Allergies As of Date: 03/19/2018 Noted Allergy Reaction bee stings [Other] 06/07/2005 Comments: swelling Detergents [Other] 09/28/2005 Comments: Some detergent irritate her Date Reviewed: 03/08/2018 Reviewed by: Trae Souza - Fully Assessed Progress Notes: Alondra Colby, PT 03/19/2018 4:06 PM Signed Episode Visit Count: 3 Therapist That Will Oversee The Plan Of Care: Alondra Colby Start of Care Date: 03/05/18 Onset Date: 02/26/18 Plan of Care Certification Date: 03/05/18 Patient Identified by Name and Date of : Yes REHABILITATION AND SPORTS THERAPY PHYSICAL THERAPY TREATMENT NOTE ASSESSMENT: Miriam Liang demonstrated improvements in ability to perform leg lifts by end of sesssion. ROM still limited. 70 degrees allowed this week and 40 degrees active available. The patient will continue to benefit from continued skilled physical therapy for progression of exs. PLAN FOR NEXT VISIT: Will add foam roller to quad to facilitate ROM, consider e- stim as needed to quad SUBJECTIVE: Pt notes that exs are going well. Doing heel slides 3x/day as tolerated. Pain Score: 7/10 Pain Location: Knee - Left Description: Aching Frequency: Continuous Post Treatment Pain Score: No Change Pain Location: Knee - Right OBJECTIVE MEASURES WITH LEVEL OF FUNCTION: LE AROM L Knee Extension: 0 Degrees L Knee Flexion: 40 Degrees TREATMENT: Therapeutic Exercise: 1: ankle pumps with towel under heel for extension 1x10 2: quad sets 3x10 3: assisted heel slide seated 1x10, 4: towel gastroc stretch 30 sec x3 5: assisted SLR 1x10 moderate assist required 6: standing SLR 2x10 with extensive cues required. 7: supine heel slide with strap 1x10 8: long sitting heel slide with strap and hand assist 1x10 9: prone knee flexion 1x10 10: seated hamstring stretch 30 sec x3 Skilled Intervention: Patient was educated in proper exercise technique and purpose for exercises. Skilled judgment was provided in selection of appropriate interventions. Provided written instruction for home exercise program to facilitate proper performance and compliance. Correct performance of therapeutic exercises was facilitated with verbal and visual cuing. Assigned Home Exercise Program: 1: may do heel slides with strap and hand assist in long sitting 2: encouraged leg lifts with transfers as well as exercise Billing: [facility]: Therapeutic Exercise ([id number]): 1:1 time: 45 minutes (3 units: 38-52 mins) Total time: 45 minutes Alondra Colby PT PROGRESS Observed: 03/13/2018 Status: COMPLETED Source: [place] 10:27 AM [facility] REPOSITORY HNO ID: [id number] Author: Alondra (Pt) Lasha Service: (none) Author Type: Physical Therapist Type: Progress Notes Filed: 03/13/2018 10:58 AM Note Text: Episode Visit Count: 2 Therapist That Will Oversee The Plan Of Care: Alondra Colby Start of Care Date: 03/05/18 Onset Date: 02/26/18 Plan of Care Certification Date: 03/05/18 Patient Identified by Name and Date of : Yes REHABILITATION AND SPORTS THERAPY PHYSICAL THERAPY TREATMENT NOTE ASSESSMENT: Miriam Liang demonstrated difficulty with proper form of gait with walker and also with exs. Pt was turning leg outward outside of walker. Able to correct with cues. Also poor ability to perform SLR supine. Added standing to facilitate strength and form. Heel slides for ROM also poor and only able to achieve 30 degrees flexion with effort. The patient will continue to benefit from continued skilled physical therapy for progression of strengthening and ROM per protocol PLAN FOR NEXT VISIT: Continue to work on SLR , quad sets and flexion to 60 degrees. SUBJECTIVE: Pt notes that her exs are going good. . States that her leg did not feel right with walking, had leg turned so outside of walker. Pain Score: 6/10 Pain Location: Knee - Left Description: Tingling Frequency: Continuous Post Treatment Pain Score: 5/10 Pain Location: Knee - Right OBJECTIVE MEASURES WITH LEVEL OF FUNCTION: Knee Observations L Knee Presents with: ( bandaids over incisions) LE AROM L Knee Extension: 0 Degrees ( 3 degrees hyperextension) L Knee Flexion: 30 Degrees TREATMENT: Therapeutic Exercise: 1: ankle pumps with towel under heel for extension 1x10 2: quad sets 1x10 3: assisted heel slide seated 1x10 4: towel gastroc stretch 30 sec x3 5: assisted SLR 1x10 moderate assist required 6: standing SLR 1x10 with extensive cues required. Skilled Intervention: Patient was educated in proper exercise technique and purpose for exercises. Reviewed and educated patient on additions/changes for home exercise program as above (*) Skilled judgment was provided in selection of appropriate interventions. Correct performance of therapeutic exercises was facilitated with verbal and visual cuing. Patient education as noted. Assigned Home Exercise Program: 1: add standing SLR 2: seated heel slides up to 60 degrees. Billing: [facility]: Therapeutic Exercise ([id number]): 1:1 time: 45 minutes (3 units: 38-52 mins) Total time: 45 minutes Alondra Colby PT CNTHERAPY Observed: 03/12/2018 Status: COMPLETED Source: [place] 12:30 PM [facility] REPOSITORY OT/PT/Speech Visit (PTWS) MIRIAM LIANG ([id number]) 1985 F Date Time Provider Department 03/12/18 12:30 PM ALONDRA COLBY (PT) PTWS Date Time Provider Department Center 03/12/2018 12:30 PM [id number], LISA (PT) PTWS [facility] JULISA Reason for Visit: Physical Therapy [503] Primary Visit Diagnosis:S/P left knee surgery [Z98.890] Other Visit Diagnosis: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] Allergies As of Date: 03/12/2018 Noted Allergy Reaction bee stings [Other] 06/07/2005 Comments: swelling Detergents [Other] 09/28/2005 Comments: Some detergent irritate her Date Reviewed: 03/08/2018 Reviewed by: Trae Souza - Fully Assessed Prescriptions as of 03/12/2018 Sig: OXYCODONE-ACETAMINOPHEN 5 MG-* Take 1-2 tablets by mouth mike* Progress Notes: Alondra Colby PT 03/13/2018 10:58 AM Signed Episode Visit Count: 2 Therapist That Will Oversee The Plan Of Care: Alondra Colby Start of Care Date: 03/05/18 Onset Date: 02/26/18 Plan of Care Certification Date: 03/05/18 Patient Identified by Name and Date of : Yes REHABILITATION AND SPORTS THERAPY PHYSICAL THERAPY TREATMENT NOTE ASSESSMENT: Miriam Liang demonstrated difficulty with proper form of gait with walker and also with exs. Pt was turning leg outward outside of walker. Able to correct with cues. Also poor ability to perform SLR supine. Added standing to facilitate strength and form. Heel slides for ROM also poor and only able to achieve 30 degrees flexion with effort. The patient will continue to benefit from continued skilled physical therapy for progression of strengthening and ROM per protocol PLAN FOR NEXT VISIT: Continue to work on SLR , quad sets and flexion to 60 degrees. SUBJECTIVE: Pt notes that her exs are going good. . States that her leg did not feel right with walking, had leg turned so outside of walker. Pain Score: 6/10 Pain Location: Knee - Left Description: Tingling Frequency: Continuous Post Treatment Pain Score: 5/10 Pain Location: Knee - Right OBJECTIVE MEASURES WITH LEVEL OF FUNCTION: Knee Observations L Knee Presents with: ( bandaids over incisions) LE AROM L Knee Extension: 0 Degrees ( 3 degrees hyperextension) L Knee Flexion: 30 Degrees TREATMENT: Therapeutic Exercise: 1: ankle pumps with towel under heel for extension 1x10 2: quad sets 1x10 3: assisted heel slide seated 1x10 4: towel gastroc stretch 30 sec x3 5: assisted SLR 1x10 moderate assist required 6: standing SLR 1x10 with extensive cues required. Skilled Intervention: Patient was educated in proper exercise technique and purpose for exercises. Reviewed and educated patient on additions/changes for home exercise program as above (*) Skilled judgment was provided in selection of appropriate interventions. Correct performance of therapeutic exercises was facilitated with verbal and visual cuing. Patient education as noted. Assigned Home Exercise Program: 1: add standing SLR 2: seated heel slides up to 60 degrees. Billing: [facility]: Therapeutic Exercise ([id number]): 1:1 time: 45 minutes (3 units: 38-52 mins) Total time: 45 minutes Alondra Colby PT PROGRESS Observed: 03/08/2018 Status: COMPLETED Source: [place] 1:52 PM [facility] REPOSITORY HNO ID: [id number] Author: Trae Souza Service: (none) Author Type: Physician Squaring Machine Operator Type: Progress Notes Filed: 03/08/2018 3:41 PM Note Text: Miriam Liang is seen today status post S/P left knee arthroscopy, MPFL reconstruction, lateral retinacular lengthening, VMO advancement and trochleoplasty with Ismael Skinner M.D. at [facility] on 02/26/18. Post op diagnosis: First post op clinic visit; updated knee films completed today. Reason for visit: Patient presents with: Postop left knee Patient conveys that her recovery has been without complications. Patient pleased with the outcome of surgery. Medication used during recovery: Percocet and Naprosyn Medications and allergies reviewed and updated. Pain Scale: Pt. states pain is a 7 on a scale of 0-10. Ambulating with assistance. Using a walker. Patient involved with physical therapy at the [facility]. Initial visit on 03/05. Physical therapy note has been provided. Reviewed OARRS report. Reviewed Problem list Examination: Wounds are covered by a Stephenson dressing. Removed dressing. Cleaned wounds with alcohol before and after removing steri-strips. Applied dry sterile gauze held by an aniceto wrap. Wounds are becoming well-healed, and without drainage, unusual inflammation or edema. No erythema, mild effusion and warmth. Radiographs (reviewed and summarized): * * *Final Report* * * DATE OF EXAM: Mar 08 2018 12:39PM ? STX ? [id number] ?- ?XR KNEE 2V AP/LAT LT ?/ PROCEDURE REASON: Unspecified dislocation of left patella, initial encounter ?? ? * * * * Physician Interpretation * * * * ?EXAMINATION: ?XR KNEE 2V AP/LAT LT HISTORY: ? 10 day post op ?Unspecified dislocation of left patella, initial encounter ? . TECHNIQUE: ?XR KNEE 2V AP/LAT LT ?? Laterality: ?LEFT ?? Number of different views (projections): 2 ?? M: ?XB_1 COMPARISON: ?Comparison is made to prior knee study dated [address] dated 08 February 2018 RESULT: AP and cross table lateral radiographs of the left knee with immobilization device in place are presented. The patella is slightly high in location on the lateral view but normal in alignment on the AP view. Findings could be secondary to hyperextension. 2 linear lucencies are noted within the patellar body which may be artifactual. 2 tiny bone fragments measuring less than 3 mm present posterior to the patella. Only seen on the lateral view is lucency within the anterior distal tibia which is thought to be artifactual related to immobilization device. A/P: Doing very well. Reviewed operative note and findings. Compliant with assistive device and hinged knee brace. Continue on with outpatient PT. Next PT appt is on 03/12. Postop pain medication refill requested and provided. Hinged knee brace adjusted by Patricia monroe. Provided wound and skin care education, aniceto wrap, and medication management instructions. OK to shower with the wound uncovered. RTC on 03/29 for a follow up visit with Dr. Skinner, no x-rays needed. Trae Souza MS, CASSIUS ZENDEJAS Observed: 03/08/2018 Status: COMPLETED Source: [place] 1:00 PM [facility] REPOSITORY Office Visit (ORTHST) MIRIAM LIANG ([id number]) 1985 F Date Time Provider Department 03/08/18 1:00 PM TRAE SOUZA)MARTIN During your visit today, we recorded the following information about you: Trae Souza PA-C 03/08/2018 3:41 PM Signed Miriam Liang is seen today status post S/P left knee arthroscopy, MPFL reconstruction, lateral retinacular lengthening, VMO advancement and trochleoplasty with Ismael Skinner M.D. at [facility] on 02/26/18. Post op diagnosis: First post op clinic visit; updated knee films completed today. Reason for visit: Patient presents with: Postop left knee Patient conveys that her recovery has been without complications. Patient pleased with the outcome of surgery. Medication used during recovery: Percocet and Naprosyn Medications and allergies reviewed and updated. Pain Scale: Pt. states pain is a 7 on a scale of 0-10. Ambulating with assistance. Using a walker. Patient involved with physical therapy at the [facility]. Initial visit on 03/05. Physical therapy note has been provided. Reviewed OARRS report. Reviewed Problem list Examination: Wounds are covered by a Stephenson dressing. Removed dressing. Cleaned wounds with alcohol before and after removing steri-strips. Applied dry sterile gauze held by an aniceto wrap. Wounds are becoming well-healed, and without drainage, unusual inflammation or edema. No erythema, mild effusion and warmth. Radiographs (reviewed and summarized): * * *Final Report* * * DATE OF EXAM: Mar 08 2018 12:39PM ? STX ? 5206 ?- ?XR KNEE 2V AP/LAT LT ?/ PROCEDURE REASON: Unspecified dislocation of left patella, initial encounter ?? ? * * * * Physician Interpretation * * * * ?EXAMINATION: ?XR KNEE 2V AP/LAT LT HISTORY: ? 10 day post op ?Unspecified dislocation of left patella, initial encounter ? . TECHNIQUE: ?XR KNEE 2V AP/LAT LT ?? Laterality: ?LEFT ?? Number of different views (projections): 2 ?? M: ?XB_1 COMPARISON: ?Comparison is made to prior knee study dated [address] dated 08 February 2018 RESULT: AP and cross table lateral radiographs of the left knee with immobilization device in place are presented. The patella is slightly high in location on the lateral view but normal in alignment on the AP view. Findings could be secondary to hyperextension. 2 linear lucencies are noted within the patellar body which may be artifactual. 2 tiny bone fragments measuring less than 3 mm present posterior to the patella. Only seen on the lateral view is lucency within the anterior distal tibia which is thought to be artifactual related to immobilization device. A/P: Doing very well. Reviewed operative note and findings. Compliant with assistive device and hinged knee brace. Continue on with outpatient PT. Next PT appt is on 03/12. Postop pain medication refill requested and provided. Hinged knee brace adjusted by Patricia monroe. Provided wound and skin care education, aniceto wrap, and medication management instructions. OK to shower with the wound uncovered. RTC on 03/29 for a follow up visit with Dr. Skinner, no x-rays needed. Trae Souza MS, CASSIUS Souza PA-C 03/08/2018 2:07 PM Signed POSTOPERATIVE PLAN: The patient will be nonweightbearing/touch- down weight bearing with the brace locked in extension on the lower extremity for the first week after surgery. After the first week, the patient may progress to weight bearing as tolerated with the brace locked in full extension. At 6 weeks, the patient will then have the brace unlocked for weightbearing and then progress off crutches IF pain and quadriceps function permits. The patient should not begin physical therapy until 1 weeks post surgery. At that time, they may begin range of motion from 0 to 50 degrees and they may do that out of the brace and then progress 10 degrees per week until week 6 at which point, they may progress range of motion as tolerated. Otherwise, we will follow our patellofemoral stabilization protocol. PATELLAR STABILIZATION/REALIGNMENT PHYSICAL THERAPY PROTOCOL Post-operative Period 0 to 1 month: 1 to 2 visits per week, everyday home program Quad sets, may use electrical stimulation, increase # visit/week if quad inhibited Patellar mobilizations, especially superiorly and medially (as tolerated) Straight leg raises, full arc quads without weights Prone knee flexion, heel slides, calf and hamstring stretching Icing program, 3 to 5 times a day, 30 minutes each after exercises Knee brace locked at degrees extension at all times except for exercises and shower Flexion limited to degrees for 4 weeks Extension limited to degrees for 4 weeks Prone lying and gentle stretching to achieve full extension (if full extension is allowed) Partial weightbearing % with crutches for 4 weeks with brace locked in extension, no exceptions! 1 to 3 months: 2 visits per week, 5 times a week home program Continue all exercises in previous phase (as described above) Patellar mobilizations, especially superiorly and medially Progress from partial weightbearing to full weightbearing by 6 to 8 weeks Gait training to walk without a limp with crutch assistance should be a primary goal of this stage OK to regain full flexion during this phase Brace may be unlocked at all times except for weightbearing (keep locked until quad control is adequate) Crutches and brace should be weaned off by 6 to 8 weeks (If tibial tubercle osteotomy, this is pending radiographic healing) 3 to 4 months: 2 to 3 visits per week, 5 times a week home program. Continue exercises in previous phases (as described above) Begin quad exercises including mini-squats, wall slide mini- squats, leg presses, hamstring curls, all with light weights and high repetitions - avoid leg extensions Toe raises with weights, step-ups (begin with 2 inches and progress to a full step) Endurance closed-chain quadriceps exercises should begin such as Stairmaster, stationary bike, elliptical health and safety trainer, [place] trac, etc. ?Focus on increasing endurance and should be performed 3 to 4 times per week. Continue gait training, including progression to fast walking on a treadmill or even ground If a pool is available, swimming may started but the frog- kick and breaststroke should be avoided Gait and range of motion should be normal by the end of this phase. ?If it is not, contact Dr. Skinner 4 to 5 months: 4 to 5 times a week home program. ?May also have 2 visits per month to review home program. ? Continue exercises in previous phases (as described above) Begin slow jogging and progress to slow running on even ground or treadmill, no cutting, jumping or pivoting Advance strengthening with weights including leg presses, step-ups, mini-squats, and leg curls. ?Repetitions should be smooth and slow and NOT explosive. ?May advance swimming (no frog-kick or breaststroke). ?Avoid leg extensions 5 to 7 months: 3 to 5 times a week home program. ?May need physical therapy supervision for functional training. Begin advanced strengthening with weights including leg presses, squats, leg curls, and lunges - Avoid leg extensions Initiate plyometric program as appropriate for patient's functional goals May begin functional training exercises including fast straight running, backward running, cutting, cross-overs, carioca, etc. Begin gradual return to previous sports/activities/work duties under controlled conditions Full return to sports/activities/full work duties are pending Dr. Skinner's approval based upon the following criteria: Criteria for Return to Sports/Full Activities: Quadriceps and hamstring strength at least 90% of opposite leg One-leg hop test and vertical jump at least 90% of opposite leg Jog, full speed run, shuttle run, and figure of 8 running without a limp Squat and rise from a full squat No effusion or quadriceps atrophy Referring Provider: ISMAEL SKINNER [[id number]] Allergies As of Date: 03/08/2018 Noted Allergy Reaction bee stings [Other] 06/07/2005 Comments: swelling Detergents [Other] 09/28/2005 Comments: Some detergent irritate her Date Reviewed: 03/08/2018 Reviewed by: Trae Souza - Fully Assessed Reason for Visit: Recheck [92] Primary Visit Diagnosis:S/P left knee arthroscopy, MPFL reconstruction, lateral retinacular lengthening, VMO advancement and trochleoplasty [Z98.890] Other Visit Diagnoses: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 Patellar instability [M25.369] INVALID FOR* More... Obesity, Class I, BMI 30-34.9 [E66.9] INVALID FOR* S/P left knee arthroscopy, MPFL reconstruction,*INVALID FOR* Other instructions from your clinician: POSTOPERATIVE PLAN: The patient will be nonweightbearing/touch- down weight bearing with the brace locked in extension on the lower extremity for the first week after surgery. After the first week, the patient may progress to weight bearing as tolerated with the brace locked in full extension. At 6 weeks, the patient will then have the brace unlocked for weightbearing and then progress off crutches IF pain and quadriceps function permits. The patient should not begin physical therapy until 1 weeks post surgery. At that time, they may begin range of motion from 0 to 50 degrees and they may do that out of the brace and then progress 10 degrees per week until week 6 at which point, they may progress range of motion as tolerated. Otherwise, we will follow our patellofemoral stabilization protocol. PATELLAR STABILIZATION/REALIGNMENT PHYSICAL THERAPY PROTOCOL Post-operative Period 0 to 1 month: 1 to 2 visits per week, everyday home program Quad sets, may use electrical stimulation, increase # visit/week if quad inhibited Patellar mobilizations, especially superiorly and medially (as tolerated) Straight leg raises, full arc quads without weights Prone knee flexion, heel slides, calf and hamstring stretching Icing program, 3 to 5 times a day, 30 minutes each after exercises Knee brace locked at degrees extension at all times except for exercises and shower Flexion limited to degrees for 4 weeks Extension limited to degrees for 4 weeks Prone lying and gentle stretching to achieve full extension (if full extension is allowed) Partial weightbearing % with crutches for 4 weeks with brace locked in extension, no exceptions! 1 to 3 months: 2 visits per week, 5 times a week home program Continue all exercises in previous phase (as described above) Patellar mobilizations, especially superiorly and medially Progress from partial weightbearing to full weightbearing by 6 to 8 weeks Gait training to walk without a limp with crutch assistance should be a primary goal of this stage OK to regain full flexion during this phase Brace may be unlocked at all times except for weightbearing (keep locked until quad control is adequate) Crutches and brace should be weaned off by 6 to 8 weeks (If tibial tubercle osteotomy, this is pending radiographic healing) 3 to 4 months: 2 to 3 visits per week, 5 times a week home program. Continue exercises in previous phases (as described above) Begin quad exercises including mini-squats, wall slide mini-squats, leg presses, hamstring curls, all with light weights and high repetitions - avoid leg extensions Toe raises with weights, step-ups (begin with 2 inches and progress to a full step) Endurance closed-chain quadriceps exercises should begin such as Stairmaster, stationary bike, elliptical health and safety trainer, [place] trac, etc. ?Focus on increasing endurance and should be performed 3 to 4 times per week. Continue gait training, including progression to fast walking on a treadmill or even ground If a pool is available, swimming may started but the frog- kick and breaststroke should be avoided Gait and range of motion should be normal by the end of this phase. ?If it is not, contact Dr. Skinner 4 to 5 months: 4 to 5 times a week home program. ?May also have 2 visits per month to review home program. ? Continue exercises in previous phases (as described above) Begin slow jogging and progress to slow running on even ground or treadmill, no cutting, jumping or pivoting Advance strengthening with weights including leg presses, step-ups, mini-squats, and leg curls. ?Repetitions should be smooth and slow and NOT explosive. ?May advance swimming (no frog-kick or breaststroke). ?Avoid leg extensions 5 to 7 months: 3 to 5 times a week home program. ?May need physical therapy supervision for functional training. Begin advanced strengthening with weights including leg presses, squats, leg curls, and lunges - Avoid leg extensions Initiate plyometric program as appropriate for patient's functional goals May begin functional training exercises including fast straight running, backward running, cutting, cross-overs, carioca, etc. Begin gradual return to previous sports/activities/work duties under controlled conditions Full return to sports/activities/full work duties are pending Dr. Skinner's approval based upon the following criteria: Criteria for Return to Sports/Full Activities: Quadriceps and hamstring strength at least 90% of opposite leg One-leg hop test and vertical jump at least 90% of opposite leg Jog, full speed run, shuttle run, and figure of 8 running without a limp Squat and rise from a full squat No effusion or quadriceps atrophy Prescriptions ordered this encounter Disp Refills Start End OXYCODONE-ACETAMINOPHEN 5 MG-325 MG * 50 t* 0 03/08/2018 03/15/2018 Class: Print RX Route: ORAL Sig: Take 1-2 tablets by mouth every 6 hours as needed for up to 7 days. Medications Discontinued During This Encounter oxyCODONE-acetaminophen (PERCOCET) 5* 50 t* 0 02/26/2018 03/08/2018 Class: Print RX Route: ORAL Sig: Take 1-2 tablets by mouth every 6 hours as needed for up to 7 days. Disc: Reason for discontinue is not on file. Letter Text Ismael Skinner M.D. [facility] Orthopa[facility] Surgery [address] [address] Office: [phone] March 08, 2018 To Whom It May Concern: Miriam Liang was seen by Dr. Ismael Skinner today, March 08, 2018. Please excuse this patients sister from work for the time necessary for this appointment. If you have any questions or concerns, please contact my office at [phone]. Sincerely, Mindy Burgos MA Office of Ismael Skinner M.D. Encounter Status:Closed by TRAE SOUZA PA-C on 03/08/18 PROGRESS Observed: 03/08/2018 Status: COMPLETED Source: [place] 12:39 PM [facility] [place] REPOSITORY HNO ID: [id number] Author: Keara Vernon (Madison Guzman Service: (none) Author Type: Health Information Managers Type: Progress Notes Filed: 03/08/2018 12:40 PM Note Text: Radiology Service Progress Note PATIENT NAME: Miriam Liang DATE OF SERVICE: March 08, 2018 TIME: 12:39 PM PATIENT IDENTITY VERIFICATION COMPLETED USING TWO (2) METHODS: Patient confirmed name verbally and Date of . PATIENT GENDER DATA: Female. status: : No status: NO. PATIENT RELEVANT IMPLANT DATA REVIEWED: Not Applicable RADIOLOGY DEPARTMENT: General X-ray: Exam(s) Completed: Lower Extremity X-Ray(s): Knee, AP / LAT Left: PERIPHERAL IV DATA: Not applicable SIGNED BY: RT Yesica March 08, 2018 12:39 PM XR KNEE 2V AP/LAT Observed: 03/08/2018 Status: F Source: [facility] 12:39 PM [facility] REPOSITORY * * *Final Report* * * DATE OF EXAM: Mar 08 2018 12:39PM STX [id number] - XR KNEE 2V AP/LAT LT / PROCEDURE REASON: Unspecified dislocation of left patella, initial encounter * * * * Physician Interpretation * * * * EXAMINATION: XR KNEE 2V AP/LAT LT HISTORY: 10 day post op Unspecified dislocation of left patella, initial encounter . TECHNIQUE: XR KNEE 2V AP/LAT LT Laterality: LEFT Number of different views (projections): 2 M: XB_1 COMPARISON: Comparison is made to prior knee study dated [address] dated 08 February 2018 RESULT: AP and cross table lateral radiographs of the left knee with immobilization device in place are presented. The patella is slightly high in location on the lateral view but normal in alignment on the AP view. Findings could be secondary to hyperextension. 2 linear lucencies are noted within the patellar body which may be artifactual. 2 tiny bone fragments measuring less than 3 mm present posterior to the patella. Only seen on the lateral view is lucency within the anterior distal tibia which is thought to be artifactual related to immobilization device. IMPRESSION: Findings as detailed in report. 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: PSCB Transcribe Date/Time: Mar 08 2018 1:47P Dictated by : ABHAY BURDEN MD This examination was interpreted and the report reviewed and electronically signed by: ABHAY BURDEN MD on Mar 08 2018 1:52PM EST [id number] Observed: 03/07/2018 Status: COMPLETED Source: [place] 12:00 AM [facility] REPOSITORY Telephone (SPHTB) MIRIAM LIANG ([id number]) 1985 F Date Time Provider Department 03/07/18 ISMAEL SKINNER SPHTB During your visit today, we recorded the following information about you: Ida Jones RN, RN 03/07/2018 10:36 AM Signed ORTHO CARE COORDINATION QUICK NOTE Patient has been identified by name and date of : Yes Incoming call from patient. She was tearful and upset; states that the dressing, brace and Iceman all keep moving and are causing her discomfort. She has pre op OV scheduled for tomorrow. She did not want to go to PT; encouraged her to go so that therapist could work with her and possibly try to adjust brace. Offered to move her OV up to this afternoon at [facility]. Patient will discuss with mom to see re: transportation and call us back. Message sent to PT to advise of same. LINDA Hedrick RN, RN 03/07/2018 11:17 AM Signed ORTHO CARE COORDINATION QUICK NOTE Patient has been identified by name and date of : No Called and spoke to patient's mom. She states that they cannot come to [facility] so they will keep tomorrow's OV. She will keep patient comfortable today. Patient had expressed to her that the Iceman is pulling the dressing and brace down when she ambulates so they will adjust that as needed. Ida Jones RN Allergies As of Date: 03/07/2018 Noted Allergy Reaction bee stings [Other] 06/07/2005 Comments: swelling Detergents [Other] 09/28/2005 Comments: Some detergent irritate her Date Reviewed: 02/26/2018 Reviewed by: Tasneem Dunn (Rn) LINDA Olson - Fully Assessed Reason for Visit: Follow Up [171] Problem List As Of Date 03/07/2018 Noted Resolved DISLOCAT PATELLA-CLOSED [S83.006A] INVALID FOR* Closed dislocation of left patella [S83.005A] INVALID FOR* More... Patellar instability [M25.369] INVALID FOR* More... Obesity, Class I, BMI 30-34.9 [E66.9] INVALID FOR* S/P left knee arthroscopy, MPFL reconstruction,*INVALID FOR* Encounter Status:Closed by IDA JONES on 03/07/18 PROGRESS Observed: 03/05/2018 Status: COMPLETED Source: [place] 12:37 PM [facility] [place] REPOSITORY O ID: [id number] Author: Alondra (Pt) Lasha Service: (none) Author Type: Physical Therapist Type: Progress Notes Filed: 03/05/2018 3:42 PM Note Text: Episode Visit Count: 1 Therapist That Will Oversee The Plan Of Care: Alondra Colby Start of Care Date: 03/05/18 Onset Date: 02/26/18 Plan of Care Certification Date: 03/05/18 Patient Identified by Name and Date of : Yes REHABILITATION AND SPORTS THERAPY PHYSICAL THERAPY EVALUATION PLAN OF CARE: Assessment: Miriam Liang presents with the diagnosis of 1 week s/p left knee arthroscopy with medial patellar femoral ligament reconstruction and lateral retinacular lengthening with VMO advacement and trochleoplasty. . She presents with impairments of expected decreased strength/ ROM and gait . Pt did well with advancement to WBAT left using wheeled walker. She is hesitant to put weight on leg but no increased pain. Pt able to elicit good quad contraction for quad sets and gentle heel slide to approx 20 degrees. . Pt is motivated for therapy. Has had some problems with incision dressing and brace sliding down Adjustments made . She may benefit from skilled therapy services to improve ROM strength and gait per protocol guidelines . Prognosis: Good Good due to: current objective clinical presentation;good overall health status Goals for Episode of Care: created on 03/05/18 through 06/04/18 [place] in home exercise program. Patient will decrease pain rating by 2 points to meet minimal clinical important difference for numeric pain rating scale. Patient will increase active ROM of left knee to 130 degrees to allow pt to improved performance of ADLs. LTG Patient will increase strength of left LE to 5/5 to allow for return to prior functional status, normalized gait mechanics, perform ADLs and negotiate stairs. Perform ADL's with decreased report of symptoms/pain in 4 weeks. Complete all ADL normally in 12 weeks Normal gait. Reciprocal stair negotiation. Planned Interventions, Frequency, and Duration: Current Frequency: 2x/week Duration: 12 weeks Total Number of Visits Planned: 24 Planned Treatment Interventions: Therapeutic exercise;Neuromuscular re-education;Self-group home management;Gait Training;Patient/Family/Caregiver Education PLAN FOR NEXT VISIT: Will progress exs per protocol Review gait pattern as needed Patient demonstrates good understanding of plan of care and treatment. The above goals and plan of care were discussed and agreed upon by patient/family. SUBJECTIVE: Miriam Liang is a 32 year old female seen today for s/p surgery, states that pain is on the back side of knee . Functional Limitations: walking in the house;walking in the community;stair negotiation;physical activities Patient Goals: return to prior function Intake Information: Prescription present Home Environment Patient Lives With: Family Home Type: Multi-Level Entry To Home: Stairs;Without Rail Number Of Stairs To Bed/Bath: bathroom on main level Pain Score: 6/10 Pain Location: Knee - Left Description: Burning Frequency: Continuous Post Treatment Pain Score: No Change Pain Location: Knee - Right Post Treatment Pain Description: Burning OBJECTIVE MEASURES WITH LEVEL OF FUNCTION: Knee Observations L Knee Presents with: ( wrapped in post op dressing/ iceman and MARILYN. ) Mobility Sit To Supine: Minimal Assistance Sit To Stand: Independent Gait Weight Bearing Status: WBAT Gait: Supervision Gait Device: Front-wheeled Walker Gait Deviations: Left Lower Extremity Gait Deviations Left Lower Extremity: (locked in extension) Gait Observation: fair form LE AROM L Knee Extension: 0 Degrees L Knee Flexion: 20 Degrees LE Joint Mobility L Patellar Mobility: ( unable to assess today) LE Strength L Hip Flexion (L2): 3-/5 ( unable to SLR without assist) L Knee Extension (L3): ( fair quad contraction for quad set) Education: Education Learning Preferences: Demonstration;Explanation;Performance;Printed Materials Barriers: None Learning/educational needs: Home exercise program;Plan of Care;Gait Training Education Provided: Yes, see treatment interventions for education provided Education Mode/Type: Demonstration;Explanation/Discussion;Performance;Literature/Printed Materials Response to Education/Teach Back: States/Identifies;Return Demonstration TREATMENT: Evaluation Therapeutic Exercise: 1: ankle pumps 1x10 2: quad sets 1x10 3: assisted heel slide approx 20 degrees 1x10 4: towel gastroc stretch 30 sec x3 5: assisted SLR 1x10 moderate assist required Skilled Intervention: Patient was educated in proper exercise technique and purpose for exercises. Skilled judgment was provided in selection of appropriate interventions. Provided written instruction for home exercise program to facilitate proper performance and compliance. Correct performance of therapeutic exercises was facilitated with verbal and visual cuing. Patient education as noted. Gait Training: Assistive Device: wheeled walker Assist Level: stand by guarding with verbal cues Weight Bearing Status: WBAT Left brace locked in extension Skilled Intervention: Patient was provided stand by assist during pre-gait/gait training to prevent falls and insure safety. Gait belt utilized during session for safety. Education provided to patient regarding the proper sequence for level surface negotiation. Assigned Home Exercise Program: 1: as outlined above Billing: [facility]: Evaluation - Low Complexity (12077) Therapeutic Exercise (75580): 1:1 time: 20 minutes (1 unit: 8-22 mins) Gait Training (53760): 1:1 time: 10 minutes (1 unit: 8-22 mins) Total time: 50 minutes Alondra Colby PT CNTHERAPY Observed: 03/05/2018 Status: COMPLETED Source: [place] 9:30 AM [facility] REPOSITORY OT/PT/Speech Visit (PTWS) MIRIAM LIAGN ([id number]) 1985 F Date Time Provider Department 03/05/18 9:30 AM ALONDRA COLBY (PT) PTWS Date Time Provider Department Center 03/05/2018 9:30 AM [id number], LISA (PT) PTWS [facility] JULISA Reason for Visit: PT Eval [747] Patient Education [91] Primary Visit Diagnosis:S/P left knee surgery [Z98.890] Other Visit Diagnosis: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] Allergies As of Date: 03/05/2018 Noted Allergy Reaction bee stings [Other] 06/07/2005 Comments: swelling Detergents [Other] 09/28/2005 Comments: Some detergent irritate her Date Reviewed: 02/26/2018 Reviewed by: Tasneem Dunn (Rn) LINDA Olson - Fully Assessed Prescriptions as of 03/05/2018 Sig: OXYCODONE-ACETAMINOPHEN 5 MG-* Take 1-2 tablets by mouth mike* NAPROXEN 500 MG TABLET Take 1 tablet by mouth twice * Progress Notes: Alondra Colby PT 03/05/2018 3:42 PM Signed Episode Visit Count: 1 Therapist That Will Oversee The Plan Of Care: Alondra Colby Start of Care Date: 03/05/18 Onset Date: 02/26/18 Plan of Care Certification Date: 03/05/18 Patient Identified by Name and Date of : Yes REHABILITATION AND SPORTS THERAPY PHYSICAL THERAPY EVALUATION PLAN OF CARE: Assessment: Miriam Liang presents with the diagnosis of 1 week s/p left knee arthroscopy with medial patellar femoral ligament reconstruction and lateral retinacular lengthening with VMO advacement and trochleoplasty. . She presents with impairments of expected decreased strength/ ROM and gait . Pt did well with advancement to WBAT left using wheeled walker. She is hesitant to put weight on leg but no increased pain. Pt able to elicit good quad contraction for quad sets and gentle heel slide to approx 20 degrees. . Pt is motivated for therapy. Has had some problems with incision dressing and brace sliding down Adjustments made . She may benefit from skilled therapy services to improve ROM strength and gait per protocol guidelines . Prognosis: Good Good due to: current objective clinical presentation;good overall health status Goals for Episode of Care: created on 03/05/18 through 06/04/18 [place] in home exercise program. Patient will decrease pain rating by 2 points to meet minimal clinical important difference for numeric pain rating scale. Patient will increase active ROM of left knee to 130 degrees to allow pt to improved performance of ADLs. LTG Patient will increase strength of left LE to 5/5 to allow for return to prior functional status, normalized gait mechanics, perform ADLs and negotiate stairs. Perform ADL's with decreased report of symptoms/pain in 4 weeks. Complete all ADL normally in 12 weeks Normal gait. Reciprocal stair negotiation. Planned Interventions, Frequency, and Duration: Current Frequency: 2x/week Duration: 12 weeks Total Number of Visits Planned: 24 Planned Treatment Interventions: Therapeutic exercise;Neuromuscular re-education;Self-group home management;Gait Training;Patient/Family/Caregiver Education PLAN FOR NEXT VISIT: Will progress exs per protocol Review gait pattern as needed Patient demonstrates good understanding of plan of care and treatment. The above goals and plan of care were discussed and agreed upon by patient/family. SUBJECTIVE: Miriam Liang is a 32 year old female seen today for s/p surgery, states that pain is on the back side of knee . Functional Limitations: walking in the house;walking in the community;stair negotiation;physical activities Patient Goals: return to prior function Intake Information: Prescription present Home Environment Patient Lives With: Family Home Type: Multi-Level Entry To Home: Stairs;Without Rail Number Of Stairs To Bed/Bath: bathroom on main level Pain Score: 6/10 Pain Location: Knee - Left Description: Burning Frequency: Continuous Post Treatment Pain Score: No Change Pain Location: Knee - Right Post Treatment Pain Description: Burning OBJECTIVE MEASURES WITH LEVEL OF FUNCTION: Knee Observations L Knee Presents with: ( wrapped in post op dressing/ iceman and MARILYN. ) Mobility Sit To Supine: Minimal Assistance Sit To Stand: Independent Gait Weight Bearing Status: WBAT Gait: Supervision Gait Device: Front-wheeled Walker Gait Deviations: Left Lower Extremity Gait Deviations Left Lower Extremity: (locked in extension) Gait Observation: fair form LE AROM L Knee Extension: 0 Degrees L Knee Flexion: 20 Degrees LE Joint Mobility L Patellar Mobility: ( unable to assess today) LE Strength L Hip Flexion (L2): 3-/5 ( unable to SLR without assist) L Knee Extension (L3): ( fair quad contraction for quad set) Education: Education Learning Preferences: Demonstration;Explanation;Performance;Printed Materials Barriers: None Learning/educational needs: Home exercise program;Plan of Care;Gait Training Education Provided: Yes, see treatment interventions for education provided Education Mode/Type: Demonstration;Explanation/Discussion;Performance;Literature/Printed Materials Response to Education/Teach Back: States/Identifies;Return Demonstration TREATMENT: Evaluation Therapeutic Exercise: 1: ankle pumps 1x10 2: quad sets 1x10 3: assisted heel slide approx 20 degrees 1x10 4: towel gastroc stretch 30 sec x3 5: assisted SLR 1x10 moderate assist required Skilled Intervention: Patient was educated in proper exercise technique and purpose for exercises. Skilled judgment was provided in selection of appropriate interventions. Provided written instruction for home exercise program to facilitate proper performance and compliance. Correct performance of therapeutic exercises was facilitated with verbal and visual cuing. Patient education as noted. Gait Training: Assistive Device: wheeled walker Assist Level: stand by guarding with verbal cues Weight Bearing Status: WBAT Left brace locked in extension Skilled Intervention: Patient was provided stand by assist during pre-gait/gait training to prevent falls and insure safety. Gait belt utilized during session for safety. Education provided to patient regarding the proper sequence for level surface negotiation. Assigned Home Exercise Program: 1: as outlined above Billing: [facility]: Evaluation - Low Complexity (57841) Therapeutic Exercise (79558): 1:1 time: 20 minutes (1 unit: 8-22 mins) Gait Training (89389): 1:1 time: 10 minutes (1 unit: 8-22 mins) Total time: 50 minutes Alondra Colby PT CNPN Observed: 03/01/2018 Status: COMPLETED Source: [place] 12:00 AM [facility] REPOSITORY Telephone (SPRTST) MIRIAM LIANG ([id number]) 1985 F Date Time Provider Department 03/01/18 ISMAEL SKINNER During your visit today, we recorded the following information about you: Mar Danisha Psr 03/01/2018 1:31 PM Signed Patient's mom calling on her behalf to say that the knee brace on her left leg keeps sliding down. Please call to advise. Is there a way to tighten it? Ida Jones, RN, RN 03/02/2018 2:14 PM Signed ORTHO CARE COORDINATION QUICK NOTE Patient has been identified by name and date of : Yes Returned call to patient. She requested that I speak to mom and gave permission to speak with her re: any medical info. Mom states that brace is still loose and sliding down. They have been trying to tighten it per [place] ED direction. Mom states Daphnie is working fine now; provided her with [facility] number just in case of any issues with it going forward. Advised I will let [employer] rep know but that per them she would need to come to [facility] to have brace adjusted. E-mail sent to . LINDA Hedrick RN, RN 03/02/2018 3:31 PM Signed ORTHO CARE COORDINATION QUICK NOTE Patient has been identified by name and date of : No [employer] rep called patient and addressed brace concerns. Patient informed her that the brace was never the issue it was dressing. However, earlier we were informed it was the brace, same as Stro RN was told and the resident solution mixer. Patient will call us if anything else is needed. Ida Jones RN Allergies As of Date: 03/01/2018 Noted Allergy Reaction bee stings [Other] 06/07/2005 Comments: swelling Detergents [Other] 09/28/2005 Comments: Some detergent irritate her Date Reviewed: 02/26/2018 Reviewed by: Tasneem Dunn (Rn) LINDA Olson - Fully Assessed Reason for Visit: Knee Pain [132] Returning Patient's Call [408] Reason For Visit History Recorded Prescriptions as of 03/01/2018 Sig: OXYCODONE-ACETAMINOPHEN 5 MG-* Take 1-2 tablets by mouth mike* NAPROXEN 500 MG TABLET Take 1 tablet by mouth twice * Problem List As Of Date 03/01/2018 Noted Resolved DISLOCAT PATELLA-CLOSED [S83.006A] INVALID FOR* Closed dislocation of left patella [S83.005A] INVALID FOR* More... Patellar instability [M25.369] INVALID FOR* More... Obesity, Class I, BMI 30-34.9 [E66.9] INVALID FOR* S/P left knee arthroscopy, MPFL reconstruction,*INVALID FOR* Encounter Status:Closed by IDA JONES on 03/02/18 [facility] EXPOS Collected: 02/26/2018 Status: F Source: [place] 7:35 PM [facility] REPOS[facility]ORY TYPE CODE TESTS RESULT OUT OF REFERENCE UNITS RANGE LAB HBSAGX Negative HBsAg Negative LAB HVAGAB Non Reactive HIV Non Reactive 12 Ag/Ab Result Comment: (NOTE) HIV Information: [place] Rev. Code 3701.243(E): This information has been disclosed to you from confidential records protected from disclosure by state law. You shall make no further disclosure of this information without the specific, written, and informed release of the individual to whom it pertains, or as otherwise permitted by state law. A general authorization for the release of medical or other information is not sufficient for the purpose of the release of HIV test results or diagnoses. LAB AHCV Negative Hepatitis C Ab IA Negative LAB PXSCR Negative Post X Screen Negative Result Comment: Negative for both HIV1 and/or HIV2 antibodies and HIV1 p24 antigen. Called to and read back by: TODD PAGER [phone] 02/26/2018 HNareshSIGNOR HIV Information: [place] Rev. Code 3701.243(E): This information has been disclosed to you from confidential records protected from disclosure by state law. You shall make no further disclosure of this information without the specific, written, and informed release of the individual to whom it pertains or as otherwise permitted by state law. A general authorization for the release of medical or other information is not sufficient for the purpose of the release of HIV test results or diagnoses. Performed By: #### HEXPOH #### [facility] [address], [place] [address] OPERATIVE NO Observed: 02/26/2018 Status: COMPLETED Source: [place] 4:10 PM [facility] OTHER CAMPUS REPOSITORY O ID: [id number] Author: Ismael Skinner Service: Orthopaedic Surgery Author Type: Physician Type: Operative Report Filed: 02/28/2018 6:52 AM Note Text: OPERATIVE NOTE Miriam Liang DATE OF PROCEDURE: February 26, 2018 SURGEON: Ismael Skinner MD MEDICAL MANAGER: 1. Reji Bains DO (Fellow) PREOPERATIVE DIAGNOSIS: 1. Left knee recurrent patellofemoral instability 2. Left knee patellofemoral malalignment 3. Left knee patellar chondrosis POSTOPERATIVE DIAGNOSIS: 1. Left knee recurrent patellofemoral instability 2. Left knee patellofemoral malalignment 3. Left knee patellar chondrosis OPERATION: 1. Left knee proximal realignment with Medial patellofemoral ligament reconstruction with autograft semitendinosus, lateral retinacular lengthening and vastus medialis oblique muscle advancement 2. Left knee diagnostic arthroscopy 3. Left knee examination under anesthesia 4. Left knee trochleoplasty ANESTHESIA: General laryngeal mask airway with a femoral nerve block COMPLICATIONS: None. SPECIMEN: None. DISPOSITION: The patient to PACU in stable condition. COMPONENTS: 1. Elena and Nephew 2.8 mm Q-Fix x 2 2. Arthrex 7 x 23 mm PEEK biotenodesis screw 3. 3 Arthrex 4.5 mm PEEK push locks x 2 CLINICAL NOTE: Miriam Liang is a 32 year old female, who is well known to me following extensive evaluation and management for recurrent patellofemoral instability. The patient has been refractory to non-surgical management. Due to this and the persistent symptoms, we talked to the patient about operative intervention. Dynamic CT revealed a 23 TT:TG distance. The lateral retinaculum was moderately tight. We explained the risks, benefits, alternative of the procedures, expected outcomes, as well as length of convalescence. Having understood that, informed consent was signed. The patient's operative extremity was marked in the preoperative holding area. The patient received a femoral nerve block by Anesthesia Team without any complication. The patient was taken to operating room on February 26, 2018, in stable condition. DESCRIPTION OF OPERATION: Once in the operating room, brief time-out was taken by nursing team, Anesthesia, and surgical staff, confirming the patient's operative site was the left lower extremity. At this point in time, the patient was placed supine on the operative table and all bony prominences were well padded. IV sedation was given to the patient. Once asleep, laryngeal mask airway was inserted and general inhalation anesthetics were administered for duration of the case. At this point in time, the patient was placed supine on the operative table with the non-operative extremity well-padded from pressure. At this point in time, the left lower extremity had examination under anesthesia revealed the following findings: 1. Tight lateral retinaculum with eversion shy of neutral. 2. Increased medial and lateral excursion of the patella. 3. Patellofemoral instability testing revealed: easy complete dislocation with minimal laterally directed force 4. Stable varus and valgus stress test at 0 and 30 degrees. 5. Negative Tierney. 6. Negative posterior drawer. 7. Full, unrestricted range of motion of the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 Normal appearance Mallampati Score is CLASS II ULBT: Class I - Lower incisors can bite the upper lip above the shaggy line Neck: Normal appearance and function, Distance from hyoid to mentum during neck extension is at least 3 finger breaths Mouth: Normal tongue size and Mouth opening greater than 2 finger breaths Dentition: Intact Airway History: No abnormal airway history STOP BANG Score: Criteria: Tired Neck circumference > 15.75 inches Score = 2 PLAN This patient is optimally prepared for surgery pending LABS. CONSULTS: Patient does not require consults for optimization at this time. The Following Tests/Procedures Have Been Initiated: Orders Placed This Encounter TOX SCREEN ROUT UR Planned Anesthetic: Per anesthesia choice Instructions Given to Patient: Patient given verbal and written preop instructions and voices comprehension and compliance. SIGNATURE: Tasneem Bustamante PA-C PATIENT NAME: Miriam Liang DATE: February 22, 2018 TIME: 10:28 AM PAGER/CONTACT #: [id number] Observed: 02/12/2018 Status: COMPLETED Source: [place] 12:00 AM [facility] REPOSITORY Patient:Miriam Liang MRN: <[id number]> Height:5' 2(1.575 m) Weight:172 lb (78.019 kg) Outpatient Medications as of 02/26/18: oxyCODONE-acetaminophen (PERCOCET) 5-325 mg tablet naproxen (NAPROSYN) 500 mg tablet Admission/Clinic Administered Medications as of 02/26/18: lidocaine 10 mg/mL (1 %) 1-2 mg injection (XYLOCAINE) lactated ringers infusion ceFAZolin iv piggyback 2 g in D5W (iso-osmotic) 100 mL (ANCEF) scopolamine 1 mg over 3 days 1 Patch (TRANSDERM-SCOP) scopolamine - VERIFY patch scopolamine - REMOVE PATCH Problem List: Closed dislocation of patella [S83.006A] Closed dislocation of left patella [S83.005A] Patellar instability [M25.369] Obesity, Class I, BMI 30-34.9 [E66.9] Allergies: bee stings [Other] Detergents [Other] Date Verified: 02/26/18 Lab Values No results within the last 30 days for the following basenames: K,HCT Progress Notes ([facility]): Ida Jones RN, RN 02/20/2018 3:28 PM Signed ORTHO CARE COORDINATION QUICK NOTE Patient has been identified by name and date of : No STD paperwork received. Completed and faxed back to [employer]. Copy will be uploaded to chart. Ida Jones RN Progress Notes ([facility]): Ida Jones RN, RN 02/16/2018 12:14 PM Signed ORTHO CARE COORDINATION QUICK NOTE Patient has been identified by name and date of : No FMLA paperwork completed and faxed. Copy will be uploaded to chart. Ida Jones RN CT KNEE WO IVCON LT Observed: 02/08/2018 Status: F Source: [place] 11:26 AM [facility] REPOSITORY * * *Final Report* * * DATE OF EXAM: Feb 08 2018 11:26AM [facility] 0083 - CT KNEE WO IVCON LT / PROCEDURE REASON: Other instability, unspecified knee * * * * Physician Interpretation * * * * CT KNEE WO IVCON LT HISTORY: Other instability, unspecified knee TECHNIQUE: Limited axial cuts through the bilateral knees were obtained both with full extension of the knees, with the knees flexed at 15 and 30 degrees. Postprocessing measurements were then performed on a dedicated workstation under physician supervision. Dose-length product for this visit = 540 mGy*cm Dose Reduction Employed: Automated exposure control(AEC) and iterative recon RESULT: See Impression. IMPRESSION: RIGHT: (Knees in full extension) Tibial tuberosity : Trochlear groove distance (mm): 18 Trochlear sulcus angle: 128 Trochlear inclination angle: 4 Distal femoral inclination angle: 8 (Knees flexed at 30 degrees) Congruence angle: 7 Patellar tilt angle (DeJour): 20 LEFT: (Knees in full extension) Tibial tuberosity : Trochlear groove distance (mm): 18 Trochlear sulcus angle: 105 Trochlear inclination angle: 7 Distal femoral inclination angle: 15 (Knees flexed at 30 degrees) Congruence angle: 10 Patellar tilt angle (DeJour): 29 Note: Symmetric lateral subluxation of the patellas bilaterally in full extension and to a lesser extent at 15 degrees of flexion. At 30 degrees of flexion, the patellas were well engaged in the trochlea without subluxation. There is marked flattening of the upper aspect of the trochlea on both sides 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: [facility] Transcribe Date/Time: Feb 08 2018 12:23P Dictated by : SHANELL KRAUSE MD This examination was interpreted and the report reviewed and electronically signed by: RENARD PEDRO MD on Feb 08 2018 4:20PM EST [id number] PROGRESS Observed: 02/08/2018 Status: COMPLETED Source: [place] 11:23 AM [facility] REPOSITORY HNO ID: [id number] Author: Ismael Skinner Service: (none) Author Type: Physician Type: Progress Notes Filed: 02/08/2018 1:30 PM Note Text: TT:TG - Interval History: Miriam Liang returns today for evaluation of her left knee . Chief complaint is left knee patellofemoral instability . Review of Systems: CV: No chest pain Pulm: No short of breath HEENT: No head ache General: no fevers, chills, nausea/vomiting, malaise Physical Examination: This is a well appearing, well nourished patient in no acute distress. Head is normocephalic and atraumatic. White sclera and pink conjunctiva. Mucous membranes are moist. Breathes easily and has normal chest wall excursion. Affect is normal. Imaging: CAT scan from the [facility] is personally reviewed by me. Her TT: TG distance is approximately 23 Impression/plan: Miriam Liang is a 32 year old year old female with a tough problem. 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 I have discussed the risks, benefits, alternative procedures, expected outcomes and the length of convalescence. We have also discussed operative versus nonoperative management. Miriam Liang understands and would like to proceed with surgical intervention. The plan will be for left knee arthroscopy, open medial patellofemoral ligament reconstruction with hamstring autograft, lateral retinacular lengthening, vastus medialis oblique advancement and trochleoplasty. Supine with a lateral stress post. Large C- arm on the same side of the table as the operative knee. Preoperative antibiotics. Combined femoral and sciatic nerve equivalent blocks. Elena and Nephew Q-Fix anchors available. Arthrex PEEK biotenodesis screws and screw set. Arthrex PEEK suture tack anchors. We need the Arthrex trochleoplasty set. We also need a hand bur. TROM Brace. Needs a walker instead of crutches. She apparently has some paperwork that is floating around somewhere that we need to fill out once we get a surgery date. Ismael Skinner MD PROGRESS Observed: 02/08/2018 Status: COMPLETED Source: [place] 11:04 AM [facility] REPOSITORY HNO ID: [id number] Author: Zuri Ramos Rt Service: (none) Author Type: (none) Type: Progress Notes Filed: 02/08/2018 11:05 AM Note Text: Radiology Service Progress Note PATIENT NAME: Miriam Liang DATE OF SERVICE: February 08, 2018 TIME: 11:04 AM PATIENT IDENTITY VERIFICATION COMPLETED USING TWO (2) METHODS: Patient confirmed name verbally and Date of . PATIENT GENDER DATA: Female. status: : No status: NO. PATIENT RELEVANT IMPLANT DATA REVIEWED: Yes RADIOLOGY DEPARTMENT: CT; Exam(s) Completed: Lower extremity knees PERIPHERAL IV DATA: Not applicable SIGNED BY: Zuri Ramos Rt February 08, 2018 11:04 AM CNOV Observed: 02/08/2018 Status: COMPLETED Source: [place] 11:00 AM [facility] REPOSITORY Office Visit (SPRTST) MIRIAM LIANG ([id number]) 1985 F Date Time Provider Department 02/08/18 11:00 AM ISMAEL SKINNER SPRTST During your visit today, we recorded the following information about you: Ismael Skinner MD 02/08/2018 1:30 PM Signed TT:TG 22 - 23 Interval History: Miriam Liang returns today for evaluation of her left knee . Chief complaint is left knee patellofemoral instability . Review of Systems: CV: No chest pain Pulm: No short of breath HEENT: No head ache General: no fevers, chills, nausea/vomiting, malaise Physical Examination: This is a well appearing, well nourished patient in no acute distress. Head is normocephalic and atraumatic. White sclera and pink conjunctiva. Mucous membranes are moist. Breathes easily and has normal chest wall excursion. Affect is normal. Imaging: CAT scan from the [facility] is personally reviewed by me. Her TT: TG distance is approximately 23 Impression/plan: Miriam Liang is a 32 year old year old female with a tough problem. 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 I have discussed the risks, benefits, alternative procedures, expected outcomes and the length of convalescence. We have also discussed operative versus nonoperative management. Miriam Liang understands and would like to proceed with surgical intervention. The plan will be for left knee arthroscopy, open medial patellofemoral ligament reconstruction with hamstring autograft, lateral retinacular lengthening, vastus medialis oblique advancement and trochleoplasty. Supine with a lateral stress post. Large C- arm on the same side of the table as the operative knee. Preoperative antibiotics. Combined femoral and sciatic nerve equivalent blocks. Elena and Nephew Q-Fix anchors available. Arthrex PEEK biotenodesis screws and screw set. Arthrex PEEK suture tack anchors. We need the Arthrex trochleoplasty set. We also need a hand bur. TROM Brace. Needs a walker instead of crutches. She apparently has some paperwork that is floating around somewhere that we need to fill out once we get a surgery date. Ismael Skinner MD Referring Provider: ISMAEL SKINNER [[id number]] Allergies As of Date: 02/08/2018 Noted Allergy Reaction bee stings [Other] 06/07/2005 Comments: swelling Detergents [Other] 09/28/2005 Comments: Some detergent irritate her Date Reviewed: 02/08/2018 Reviewed by: Mindy Burgos Ma - Fully Assessed Reason for Visit: Recheck [92] Primary Visit Diagnosis:Patellofemoral instability of both knees with pain [M25.361, M25.561, M25.362, M25.562] Prescriptions as of 02/08/2018 Sig: OXYCODONE-ACETAMINOPHEN 5 MG-* Take 1 tablet by mouth every * PROVERA 10 MG TABLET 1 daily X 10 days CONCERTA 36 MG TABLET,EXTENDE* 1 TAB QAM Problem List As Of Date 02/08/2018 Noted Resolved DISLOCAT PATELLA-CLOSED [S83.006A] INVALID FOR* Follow-up and Disposition History Recorded Encounter Status:Closed by ISMAEL SKINNER MD on 02/08/18 PROGRESS Observed: 01/18/2018 Status: COMPLETED Source: [place] 9:29 AM [facility] REPOSITORY HNO ID: [id number] Author: Ismael Skinner Service: (none) Author Type: Physician Type: Progress Notes Filed: 01/19/2018 12:18 PM Note Text: We have her MRI. New Patient appointment History of present illness: Miriam Liang is a 32 year old female who comes in today with a chief complaint of bilateral knee patellar instability. Left greater than right. Pain is also an issue she has a hard time deciding whether pain is the main issue or instability isn't her main issue . The intability and pain has been present for many years. Her first dislocation occurred 6 grade she was playing floor hockey. This spontaneously reduced. Her neck dislocation occurred when she was 13 or 14 years old. She had another dislocation at 17 years of age. At some point they recommended surgery but did not want to do that she was skeletally mature. She has lived with this but continued to have continued issues . This instability occurred with the following preceding injury: Above . There is pain with stairs. There is pain with squatting. Patient has No swelling. There is popping/clicking. There is locking. There is giving way. There is not night pain. Prior treatment: She has tried bracing and physical therapy without relief. Her knee continues to dislocate despite management. 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 ALLERGIES Allergen Reactions - Bee Stings [Other] swelling - Detergents [Other] Some detergent irritate her PAST MEDICAL HISTORY Diagnosis Date - Attention deficit disorder without mention of hyperactivity - Dysmenorrhea - Other acne PAST SURGICAL HISTORY Procedure Laterality Date - RX ECTOP PREG BY SCOPE,RMV TUBE/OVRY 01/02/15 right salpingectomy for ectopic Current Outpatient Prescriptions on File Prior to Visit: oxyCODONE-acetaminophen (PERCOCET) 5-325 mg tablet Take 1 tablet by mouth every 8 hours as needed for Pain. PROVERA 10 MG TAB 1 daily X 10 days CONCERTA 36 MG TAB 1 TAB QAM No current facility-administered medications on file prior to visit. FAMILY HISTORY Problem Relation Age of Onset - Hypertension Father - Diabetes Mother - Hypertension Maternal Grandmother - Hypertension Maternal Grandfather - Hypertension Paternal Grandmother - Hypertension Paternal Grandfather - Diabetes Paternal Grandmother kidney failure - Heart Paternal Grandmother - Heart Paternal Grandfather - Heart Maternal Grandmother Social History Marital status: Single Spouse name: Years of education: 11 Number of children: 0 Occupational History Occupation Employer Comment [employer] Social History Main Topics Smoking status: Former Smoker Packs/day: 0.00 Years: 1.00 Comment: quit 2 yrs. ago Alcohol use: No Drug use: No Sexual activity: Yes Partners with: Male Review of Systems: CV: No chest pain Pulm: No short of breath HEENT: No head ache General: no fevers, chills, nausea/vomiting, malaise Physical Examination: This is a well appearing, well nourished patient in no acute distress. Patient's head is normocephalic and atraumatic. Patient has white sclera and pink conjunctiva. Mucous membranes are moist. Patient breathes easily and has normal chest wall excursion. Patient has a Normal. affect. Body habitus moderately overweight . Focused exam of the bilateral knee: Normal. gait. Knee alignment: Valgus . Pain with squat test: Yes . Pes planus: Significant. Generalized ligamentous laxity: Yes . Range of motion is 5/0/135? . She has a very significant J sign. There is pain with patellofemoral compression. There is pain along facets. Tight lateral retinaculum.Tibial tubercle position: Minimal lateralization There is Apprehension. No effusion. There is quadriceps atrophy. There is patellofemoral crepitance. There is not medial joint line pain on palpation. There is not lateral joint line pain on palpation. Tierney's negative . Posterior drawer negative . Mik's negative. The extremity is warm and well perfused. Sensation is grossly intact. Ipsilateral hip exam: There is good range of motion of the ipsilateral hip. No significant pain or restrictions with range of motion or log-rolling. Good strength. Normal stability. Negative straight leg raise. 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 Because of patellofemoral instability. 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 Chioma's index is approximately 1. Procedure: None Impression/plan: Miriam Liang is a 32 year old female with very tough problem. She has recurrent patellofemoral instability of her bilateral knees. She has a dramatic J sign. Very large suprapatellar spur. He will need operative management of this. The plan will be arthroscopy, medial patellofemoral ligament reconstruction with autograft hamstring, lateral retinacular lengthening with VMO advancement and likely trochleoplasty. We need to obtain a CAT scan of the knees in order to evaluate her bony rotatory alignment for presurgical planning to determine whether a tibial tubercle osteotomy is also necessary. Ismael Skinner MD CNOV Observed: 01/18/2018 Status: COMPLETED Source: [place] 9:00 AM [facility] REPOSITORY Office Visit (SPRTST) MIRIAM LIANG ([id number]) 1985 F Date Time Provider Department 01/18/18 9:00 AM ISMAEL SKINNER SPRT[facility] During your visit today, we recorded the following information about you: Ismael Skinner MD 01/19/2018 12:18 PM Signed We have her MRI. New Patient appointment History of present illness: Miriam Liang is a 32 year old female who comes in today with a chief complaint of bilateral knee patellar instability. Left greater than right. Pain is also an issue she has a hard time deciding whether pain is the main issue or instability isn't her main issue . The intability and pain has been present for many years. Her first dislocation occurred 6 grade she was playing floor hockey. This spontaneously reduced. Her neck dislocation occurred when she was 13 or 14 years old. She had another dislocation at 17 years of age. At some point they recommended surgery but did not want to do that she was skeletally mature. She has lived with this but continued to have continued issues . This instability occurred with the following preceding injury: Above . There is pain with stairs. There is pain with squatting. Patient has No swelling. There is popping/clicking. There is locking. There is giving way. There is not night pain. Prior treatment: She has tried bracing and physical therapy without relief. Her knee continues to dislocate despite management. 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 ALLERGIES Allergen Reactions - Bee Stings [Other] swelling - Detergents [Other] Some detergent irritate her PAST MEDICAL HISTORY Diagnosis Date - Attention deficit disorder without mention of hyperactivity - Dysmenorrhea - Other acne PAST SURGICAL HISTORY Procedure Laterality Date - RX ECTOP PREG BY SCOPE,RMV TUBE/OVRY 01/02/15 right salpingectomy for ectopic Current Outpatient Prescriptions on File Prior to Visit: oxyCODONE-acetaminophen (PERCOCET) 5-325 mg tablet Take 1 tablet by mouth every 8 hours as needed for Pain. PROVERA 10 MG TAB 1 daily X 10 days CONCERTA 36 MG TAB 1 TAB QAM No current facility-administered medications on file prior to visit. FAMILY HISTORY Problem Relation Age of Onset - Hypertension Father - Diabetes Mother - Hypertension Maternal Grandmother - Hypertension Maternal Grandfather - Hypertension Paternal Grandmother - Hypertension Paternal Grandfather - Diabetes Paternal Grandmother kidney failure - Heart Paternal Grandmother - Heart Paternal Grandfather - Heart Maternal Grandmother Social History Marital status: Single Spouse name: Years of education: 11 Number of children: 0 Occupational History Occupation Employer Comment [employer] Social History Main Topics Smoking status: Former Smoker Packs/day: 0.00 Years: 1.00 Comment: quit 2 yrs. ago Alcohol use: No Drug use: No Sexual activity: Yes Partners with: Male Review of Systems: CV: No chest pain Pulm: No short of breath HEENT: No head ache General: no fevers, chills, nausea/vomiting, malaise Physical Examination: This is a well appearing, well nourished patient in no acute distress. Patient's head is normocephalic and atraumatic. Patient has white sclera and pink conjunctiva. Mucous membranes are moist. Patient breathes easily and has normal chest wall excursion. Patient has a Normal. affect. Body habitus moderately overweight . Focused exam of the bilateral knee: Normal. gait. Knee alignment: Valgus . Pain with squat test: Yes . Pes planus: Significant. Generalized ligamentous laxity: Yes . Range of motion is 5/0/135? . She has a very significant J sign. There is pain with patellofemoral compression. There is pain along facets. Tight lateral retinaculum.Tibial tubercle position: Minimal lateralization There is Apprehension. No effusion. There is quadriceps atrophy. There is patellofemoral crepitance. There is not medial joint line pain on palpation. There is not lateral joint line pain on palpation. Tierney's negative . Posterior drawer negative . Mik's negative. The extremity is warm and well perfused. Sensation is grossly intact. Ipsilateral hip exam: There is good range of motion of the ipsilateral hip. No significant pain or restrictions with range of motion or log- rolling. Good strength. Normal stability. Negative straight leg raise. 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 Because of patellofemoral instability. 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 Chioma's index is approximately 1. Procedure: None Impression/plan: Miriam Liang is a 32 year old female with very tough problem. She has recurrent patellofemoral instability of her bilateral knees. She has a dramatic J sign. Very large suprapatellar spur. He will need operative management of this. The plan will be arthroscopy, medial patellofemoral ligament reconstruction with autograft hamstring, lateral retinacular lengthening with VMO advancement and likely trochleoplasty. We need to obtain a CAT scan of the knees in order to evaluate her bony rotatory alignment for presurgical planning to determine whether a tibial tubercle osteotomy is also necessary. Ismael Skinner MD Referring Provider: MASHA ANTON [[id number]] Allergies As of Date: 01/18/2018 Noted Allergy Reaction bee stings [Other] 06/07/2005 Comments: swelling Detergents [Other] 09/28/2005 Comments: Some detergent irritate her Date Reviewed: 01/18/2018 Reviewed by: Mindy Burgos Ma - Fully Assessed Reason for Visit: Bilateral Knee Pain [1210] Primary Visit Diagnosis:Patellofemoral instability of both knees with pain [M25.361, M25.561, M25.362, M25.562] Other Visit Diagnosis:Instability of knee joint, unspecified laterality [M25.369] Order(s):CT KNEE WO IVCON LT [[id number]] Order #: [id number] Prescriptions as of 01/18/2018 Sig: OXYCODONE-ACETAMINOPHEN 5 MG-* Take 1 tablet by mouth every * PROVERA 10 MG TABLET 1 daily X 10 days CONCERTA 36 MG TABLET,EXTENDE* 1 TAB QAM Problem List As Of Date 01/18/2018 Noted Resolved DISLOCAT PATELLA-CLOSED [S83.006A] INVALID FOR* Disposition: Return for Return to clinic after your CT. Follow-up and Disposition History Recorded Encounter Status:Closed by ISMAEL SKINNER MD on 01/19/18 PROGRESS Observed: 01/18/2018 Status: COMPLETED Source: [place] 8:42 AM [facility] REPOSITORY HNO ID: [id number] Author: Keara Vernon (Rt) Megan Service: (none) Author Type: Health Information Managers Type: Progress Notes Filed: 01/18/2018 8:42 AM Note Text: Radiology Service Progress Note PATIENT NAME: Miriam Liang DATE OF SERVICE: January 18, 2018 TIME: 8:42 AM PATIENT IDENTITY VERIFICATION COMPLETED USING TWO (2) METHODS: Patient confirmed name verbally and Date of . PATIENT GENDER DATA: Female. status: : No status: NO. PATIENT RELEVANT IMPLANT DATA REVIEWED: Not Applicable RADIOLOGY DEPARTMENT: General X-ray: Exam(s) Completed: Lower Extremity X-Ray(s): Knee, AP / Lat / Tunne / Merchant Bilateral and Wt. Bearing: PERIPHERAL IV DATA: Not applicable SIGNED BY: RT Yesica January 18, 2018 8:42 AM XR KNEE 4V AP/PA Observed: 01/18/2018 Status: F Source: [place] BOTH+LAT/CECE RT 8:41 AM [facility] REPOSITORY * * *Final Report* * * DATE OF EXAM: Jan 18 2018 8:41AM STX 5203 - XR KNEE 4V AP/PA BOTH+LAT/CECE RT / PROCEDURE REASON: Pain, unspecified * * * * Physician Interpretation * * * * EXAMINATION: XR KNEE 4V AP/PA BOTH+LAT/CECE LT, XR KNEE 4V AP/PA BOTH+LAT/CECE RT HISTORY: chronic knee pain Pain, unspecified . TECHNIQUE: XR KNEE 4V AP/PA BOTH+LAT/CECE LT, XR KNEE 4V AP/PA BOTH+LAT/CECE RT Laterality: BILATERAL Number of different views (projections): 4 M: XB_1 COMPARISON: RESULT: Joint spaces of the knees are maintained. There are tiny tricompartmental osteophytes of both knees. No joint effusion. No acute fracture or dislocation. There are no bony erosions. IMPRESSION: Maintained bilateral knee joint spaces. 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: JOCELINE Transcribe Date/Time: Jan 18 2018 8:57A Dictated by : NAYELY DIOR MD This examination was interpreted and the report reviewed and electronically signed by: NAYELY DIOR MD on Jan 18 2018 8:58AM EST [id number] XR KNEE 4V AP/PA Observed: 01/18/2018 Status: F Source: [place] BOTH+LAT/CECE LT 8:41 AM [facility] [place] REPOSITORY * * *Final Report* * * DATE OF EXAM: Jan 18 2018 8:41AM STX 5202 - XR KNEE 4V AP/PA BOTH+LAT/CECE LT / PROCEDURE REASON: Pain, unspecified * * * * Physician Interpretation * * * * EXAMINATION: XR KNEE 4V AP/PA BOTH+LAT/CECE LT, XR KNEE 4V AP/PA BOTH+LAT/CECE RT HISTORY: chronic knee pain Pain, unspecified . TECHNIQUE: XR KNEE 4V AP/PA BOTH+LAT/CECE LT, XR KNEE 4V AP/PA BOTH+LAT/CECE RT Laterality: BILATERAL Number of different views (projections): 4 M: XB_1 COMPARISON: RESULT: Joint spaces of the knees are maintained. There are tiny tricompartmental osteophytes of both knees. No joint effusion. No acute fracture or dislocation. There are no bony erosions. IMPRESSION: Maintained bilateral knee joint spaces. 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: [employer] Transcribe Date/Time: Jan 18 2018 8:57A Dictated by : NAYELY DIOR MD This examination was interpreted and the report reviewed and electronically signed by: NAYELY DIOR MD on Jan 18 2018 8:58AM EST [id number] OPERATIVE REPORT Observed: 01/16/2018 Status: F Source: [place] 7:28 AM [facility] REPOSITORY [facility] Medical Records Department [address] [place] [address] Operative Report 01/11/182014 MR#: [id number] Acct: [id number] Name: MIRIAM LIANG Rep #: [id number] : 1985 32 From: Brenda Daniel MD PCP: Care Physician, No Primary Status: DEP [facility] Y Location: [facility] Problem List (1) Chronic pelvic pain in female Status: Acute (2) Dysmenorrhea Status: Acute Report of Operation Date of Procedure: 01/11/18 Pre-Operative Diagnosis: Chronic pelvic pain, dysmenorrhea Post-Operative Diagnosis: Chronic pelvic pain, dysmenorrhea Surgery/Procedure Performed:: Diagnostic laparoscopy, peritoneal biopsy, lysis of adhesions, right ovarian cyst drainage Description of Surgical Findings:: Bilateral adnexal adhesions present Right tube absent Right hemorrhagic ovarian cyst carpet sewer: Raquel Lamas Type of Anesthesia:: General Anesthesiologist: Efren Marie Specimen's removed: left posterior culdesac peritoneum Drains: Urine 120ml Estimated Blood Loss (mL): 10 ml Description of Procedure: Patient's: 32-year-old para 2 with a history of chronic pelvic pain and dysmenorrhea for more than a decade. She was counseled and opted to proceed with diagnostic laparoscopy to rule out endometriosis. Risks, benefits, indications and alternatives of procedure were reviewed. Informed consent was obtained. Procedure: The patient was taken to the operating room and signed and was performed. The patient was placed into dorsal supine position and used under general anesthesia and intubated. She was then placed into dorsal lithotomy and her arms tucked at her sides. An examination under anesthesia was performed. The perineum and abdomen were prepped and draped in sterile fashion. Davis catheter was placed into the bladder. The patient was placed into high lithotomy and weighted speculum placed into the vagina cervix visualized and grasped at the anterior cervical lip using a single-tooth tenaculum. A Conn cannula was placed for uterine manipulation and secured. Patient was placed into low lithotomy and attention turned to the abdomen. A an inferior umbilical incision was made using a scalpel. Veress needle was placed at the site with successful hanging drop test and no aspirate. The abdomen was insufflated to 15 mmHg. Veress needle was removed and a 5 mm trocar was placed under laparoscopic guidance. Patient was placed into Trendelenburg. A 5 mm port was placed suprapubically after making an incision using a scalpel. The abdomen was inspected with the pelvis. There is a lesion in the posterior cul-de-sac, I was uncertain if this was endometriosis, otherwise inspection was significant for adhesions over the bilateral adnexae. The left lower quadrant incision was made and port was placed approximately 2 cm medial and superior to the anterior superior iliac spine on that side. The pelvic adhesions were lysed sharply and bluntly. The lesion in the posterior cul-de-sac was grasped and excised with peritoneal biopsy sharply. The [place] with monopolar enegy was utilized to obtain hemostasis. Shayy was also placed at this site with hemostasis attained. The abdomen was desufflated and the patient taken out of Trendelenberg. The ports were removed. The incisions were closed with 4-0 monocryl and sites covered with steristrips and opsite dressing. Half percent bupivicaine was injected for additional analgesia. The Jhonny cannula and tenaculum were removed. The patient was placed into dorsal supine position, awakened, extubated and transferred to the recovery room without complication. - Complications None - Admit VTE Documentation VTE Present on Admission: No VTE Mechan Device Prophylaxis: SCD's VTE Pharm Prophylaxis ordered?: No 01/16/18 0728 <Electronically signed by Brenda Gonzalez MD> Date Brenda Gonzalez MD CC: No Primary Care Physician; Kelechi Hobbs MD; Brenda Gonzalez MD Signed 12 LEAD ELECTROCARDIOGRAM Observed: 01/11/2018 Status: F Source: [place] 12:32 PM [facility] REPOSITORY [facility] Cardiovascular Services [address] [place] [address] 12 Lead EKG 01/09/18 1536 MR#: [id number] Acct: [id number] Name: MIRIAM LIANG Ruddy Rep #: [id number] : 1985 32 From: Alistair Ramon MD Attending Dr: Carlos QUEEN,Summer Status: REG VAC Ordering Dr: Brenda Gonzalez MD Date: 01/09/18 Location: AC Sex: F AA Admitted: Test Reason : PRE OP Blood Pressure : / mmHG Vent. Rate : 055 BPM Atrial Rate : 055 BPM P-R Int : 150 ms QRS Dur : 086 ms QT Int : 420 ms P-R-T Axes : 070 056 036 degrees QTc Int : 401 ms Sinus bradycardia Otherwise normal ECG Confirmed by ALISTAIR RAMON ([id number]), subeditor NIKKY RAMOS ([id number]) on 01/11/2018 12:31:52 PM Referred By: Brenda Gonzalez Confirmed By:ALISTAIR RAMON 01/11/18 1232 Date Alistair Ramon MD CC: No Primary Care Physician; Brenda Gonzalez MD Signed DISCHARGE INSTRUCTION Observed: 01/11/2018 Status: F Source: [place] 10:38 AM [facility] REPOSITORY [facility] Medical Records Department [address] [place] [address] Instructions for Home/Discharge Instructions 01/11/18 1036 MR#: [id number] Acct: [id number] Name: MIRIAM LIANG Rep #: [id number] : 1985 32 From: Brenda Daniel MD PCP: Care Physician, No Primary Status: REG SDC - Discharge Diagnoses Current Active Problems: Dysmenorrhea - painful periods Chronic pelvic pain Reason(s) for Visit for Discharge Instructions: Laparoscopy You will use the following diet at home:: No restrictions Your food should be the consistency of: Regular Discharge Activity: Return to Normal Activity, May not drive while taking narcotic pain medications., May Shower, - - No driving for 72 hours May resume sexual activity in: 4 weeks Lifting Restrictions: 10-20 lb Call your doctor if your incision/area has: Continuous Slow Oozing, Increased Pain/ Swelling, Increased Redness Call your doctor if you observe: Fever of 101 or Higher, Inability to urinate, Inability to have a bowel movement, Using more than one pad per hour, Chest pain, Calf discomfort, Uncontrolled pain Suture Line Care: Avoid Pulling/Pushing Remove Dressing in (days):: 1 Cleanse incision/area with: Soap AND Water Additional Instructions: You may take Naproxen over the counter as needed for mild to moderate pain. Allergies/Adverse Reactions: Allergies No Known Allergies Allergy (Verified 09/25/16 16:05) Medications to take at Discharge Norethindrone AC-Eth Estradiol [Sydney 1.5 mg-30 Mcg Tablet] 1 each PO DAILY 11/03/17 Docusate Sodium [Colace] 100 mg PO BID PRN PRN #60 cap 01/11/18 Oxycodone [Oxyir] 5 mg PO Q4H PRN PRN 3 Days #18 tablet 01/11/18 The following prescriptions were given: Oxycodone [Oxyir] 5 mg PO Q4H PRN PRN 3 Days #18 tablet PRN Reason: Severe Pain (6-03/28) Docusate Sodium [Colace] 100 mg PO BID PRN PRN #60 cap PRN Reason: Constipation Primary Care Physician: Care Physician,No Primary [Primary Care Provider] - Test Results: Test results from this visit will be discussed in further detail at your follow-up appointment, if applicable. Please Follow Up With: Brenda Gonzalez MD When: 2-4 weeks 01/11/18 1038 <Electronically signed by Brenda Gonzalez MD> Date Brenda Gonzalez MD CC: No Primary Care Physician; eKlechi Hobbs MD BLADDER BX/FULGURATION Observed: 01/11/2018 Status: F Source: [place] 8:25 AM [facility] REPOSITORY Patient: MIRIAM LIANG : 1985 () Acct Num: [id number] Phys: Brenda Gonzalez MD Unit Num: [id number] Loc: [facility] Specimen: [id number] Received: 01/11/18 - 1051 Spec Type: BLADDER BX TISSUES TISSUES: Urinary bladder, NOS GROSS DESCRIPTION Received in fixative is one container labeled with the patient's name and designated posterior cul-de-sac biopsy. The specimen consists of a piece of chan-pink soft tissue measuring 0.5 x 0.5 x 0.2 cm. The specimen is totally submitted in one cassette. / MAXIMILIAN:noel 01/11/18 TC:5 CPT: 02843 HEADER OPERATION: Diagnostic laparoscopy with treatment of endometriosis PRE-OP DIAGNOSIS: Chronic pelvic pain, dysmenorrhea, presumed endometriosis TISSUE SUBMITTED: Posterior cul-de-sac biopsy MICROSCOPIC DESCRIPTION Slides are reviewed. MICROSCOPIC DIAGNOSIS Posterior cul-de-sac, biopsy: A piece of fibroconnective and fibromuscular tissue, negative for endometriosis. SJ:noel 01/12/18 Signed Oleksandr Jaime 01/12/18 <signature on file> Performed By: #### PBLA #### [facility] [address] [place], [place], [address] PROTHROMBIN TIME W/INR Collected: 01/09/2018 Status: F Source: [place] 3:05 PM [facility] REPOSITORY TYPE CODE TESTS RESULT OUT OF RANGE REFERENCE UNITS LAB L300.4150 11.7-14.9 SECONDS Normal PROTIME 13.4 LAB L300.4200 Normal INR 1.0 Performed By: #### L300.3900, L300.4310 #### [facility] [address] [place], [place], [address] PARTIAL THROMBOPLAST Collected: 01/09/2018 Status: F Source: [place] TIME 3:05 PM [facility] REPOSITORY TYPE CODE TESTS RESULT OUT OF RANGE REFERENCE UNITS LAB L300.4310 24.1-36.2 Seconds Normal PTT 30.4 Performed By: #### L300.3900, L300.4310 #### [facility] [address] [place], [address] CBC-COMPLETE BLOOD CNT Collected: 01/09/2018 Status: F Source: [place] NO DIFF 3:05 PM [facility] REPOSITORY TYPE CODE TESTS RESULT OUT OF RANGE REFERENCE UNITS LAB L100.1000 4.4-11.0 K/mm3 Normal WBC 7.2 LAB L100.1200 4.2-5.4 M/mm3 Normal RBC 4.34 LAB L100.1300 12.0-15.0 g/dl Normal HGB 12.9 LAB L100.1400 37-47 % Normal HCT 39.3 LAB L100.1500 81-99 fL Normal MCV 90.6 LAB L100.1600 27.0-32.0 pg Normal MCH 29.7 LAB L100.1700 32-36 g/gl Normal MCHC 32.8 LAB L100.1810 11.6-14.6 % Normal RDW CV 12.9 LAB L100.1820 35.1-43.9 fl Normal RDW SD 42.4 LAB L100.1900 150-450 K/mm3 Normal PLT 162 LAB L100.2000 6.2-12.0 fl Normal MPV 12.0 Performed By: #### L100.0500 #### [facility] [address] [place], [place], [address] LIVER PROFILE Collected: 01/09/2018 Status: F Source: [place] 3:05 PM [facility] REPOSITORY TYPE CODE TESTS RESULT OUT OF RANGE REFERENCE UNITS LAB L501.1500 6.4-8.2 g/dL Low T PROT 6.2 LAB L501.1800 3.2-5.0 g/dL Low ALB 2.9 LAB L501.1950 2.2-4.2 g/dL Normal GLOB 3.3 LAB L501.4100 15-37 U/L Low AST 14 LAB L501.4305 45-117 U/L Normal ALK P 52 LAB L501.4405 13-56 U/L Normal ALT 17 LAB L501.4600 0.20-1.00 mg/dL Normal T BILI 0.20 LAB L501.4700 0.00-0.30 mg/dL Normal D BILI < 0.05 Performed By: #### L500.3400 #### [facility] [address] [place], [place], [address] TYPE AND SCREEN Collected: 01/09/2018 Status: F Source: [place] 3:05 PM [facility] REPOSITORY Order Comment: Surgery Date: 01/11/18 Hx of Preganancy in last 3 Months No Ever experience any problems with transfusion(s)? N Hx of Transfusion in last 3 Months N Reason for Type AND Screen/Red Cells: SURGERY SURGICAL PROCEDURE: LAP TOE TYPE CODE TESTS RESULT OUT OF RANGE REFERENCE UNITS LAB B10.0800 O Normal BLOOD TYPE GEL POSITIVE LAB B100.4000 Normal Antibody NEGATIVE Screen Performed By: #### B101.7475 #### [facility] [address] [place], [address] PAP IG HPV APTIMA Collected: 10/24/2017 Status: F Source: [place] 16/18,45 2:30 PM [facility] REPOSITORY Order Comment: CYTOLOGY INFORMATION: - CLINICAL INFORMATION: - DATE LMP/MENOPAUSE: LMP 09/25/17 - COLLECTION VIAL: THIN PREP n Prep Vial - INTEGRITY ENGINEER SOURCE: CERVICAL/ENDOCERVICAL - COLLECTION TECHNIQUE: BRUSH/SPATULA Specimen Comment: [id number] Specimen Comment: No. of containers..01 ThinPrep Vial TYPE CODE TESTS RESULT OUT OF RANGE REFERENCE UNITS LAB L7400.0800 . Normal DIAGN Comment Result Comment: UNSATISFACTORY FOR EVALUATION. LAB L7400.0900 . Normal ADEQ Comment Result Comment: Specimen processed and examined but unsatisfactory for evaluation of epithelial abnormality because of insufficient cellularity. LAB L7400.1300 . Normal RECOMM Comment Result Comment: Suggest follow up as clinically appropriate. LAB L7400.1400 . Normal PERFORM Comment Result Comment: Veronika Junior, Driller Brake Lining (ASCP) LAB L7400.1500 . Normal QC Comment REV Result Comment: Kathie Harrington, Supervisory Driller Brake Lining (ASC) LAB L7400.2575 . Normal Test not TEST METHOD performed Result Comment: The Thin Prep(R) Parking Manager was unable to read this specimen. Therefore a manual review was performed. LAB L7400.2600 . Normal . COMM LAB L7400.2700 . Normal PAPSMR Comment Result Comment: The Pap smear is a screening test designed to aid in the detection of premalignant and malignant conditions of the uterine cervix. It is not a diagnostic procedure and should not be used as the sole means of detecting cervical cancer. Both false-positive and false-negative reports do occur. LAB L7400.2760 Negative Normal HPV APTIMA, Negative HR Result Comment: This test detects fourteen high-risk HPV types (16/18/31/33/35/39/45/ 51/52/56/58/59/66/68) without differentiation. Performed at: [address] [id number] Ornamental Plaster Sticker: Svitlana Hensley MD, Phone: [phone] Performed at: =G - [facility] [place] [id number] Ornamental Plaster Sticker: Svitlana Hensley MD, Phone: [phone] Performed By: #### L7400.0280 #### [facility] (refer to report for specific site) refer to report for address and phone number ALLERGIES ALLERGIES DATE TYPE / CODE NAME / CODE REACTION SEVERITY SOURCE 07/04/2018 Drug No Known Unknown [place] Allergy/[id number](S Allergies/F [facility]ED [id number] Miscellaneous OTHER [facility] Allergy/693367147(S Other [place] NOMED CT) Repository ENCOUNTERS ENCOUNTERS ADMIT/DISCHARGE ACCOUNT ADMITTING ENCOUNTER LOCATION SOURCE NUMBER CLASS 07/13/2018/07/13/19 [id number] Ambulatory [address] [place] Repository 07/06/2018/07/09/19 [id number] Ambulatory [address] [place] Repository 07/04/2018/07/04/19 [id number] Emergency [place] [facility] ing:ED Repository 06/26/2018/06/27/19 [id number] Ambulatory [address] [place] Repository 06/25/2018/06/26/19 [id number] Ambulatory [address] [place] Repository 06/21/2018/06/21/19 [id number] Ambulatory [place] [facility] Main [place] Repository 06/14/2018/06/18/20 [id number] Ambulatory [address] [place] Repository 06/14/2018/06/14/20 [id number] Ambulatory [place] 18 [facility] Main [place] Repository 06/08/2018/06/11/20 [id number] Ambulatory [place] 18 [facility] Main [place] Repository 06/06/2018/06/07/20 [id number] Ambulatory [place] 18 [facility] Main [place] Repository 06/04/2018/06/05/20 [id number] Ambulatory [address] [place] Repository 06/01/2018/06/01/20 [id number] Ambulatory [place] 18 [facility] [place] Repository 05/30/2018/05/31/20 [id number] Ambulatory [place] 18 [facility] [place] Repository 05/28/2018/05/29/20 [id number] Ambulatory [place] [facility] [address] [place] Repository 05/22/2018/05/23/20 [id number] Ambulatory [place] [facility] [place] Repository 05/17/2018/05/18/20 [id number] Ambulatory [place] [facility] [place] Repository 05/17/2018/05/17/20 [id number] Ambulatory [place] [facility] [place] Repository 05/02/2018/05/03/20 [id number] Ambulatory [place] [facility] [place] Repository 04/23/2018/04/24/20 [id number] Ambulatory [place] [facility] [place] Repository 04/20/2018/04/23/20 [id number] Ambulatory [place] [facility] [place] Repository 04/16/2018/04/17/20 [id number] Ambulatory [place] [facility] [place] Repository 04/02/2018/04/03/20 [id number] Ambulatory [place] [facility] [place] Repository 03/29/2018/03/29/20 [id number] Emergency [place] ing:ED Repository 03/29/2018/03/30/20 [id number] Ambulatory [place] [facility] [place] Repository 03/27/2018/03/28/20 [id number] Ambulatory [place] [facility] [place] Repository 03/23/2018/03/23/20 [id number] Ambulatory [place] [facility] [place] Repository 03/20/2018/03/21/20 [id number] Ambulatory [place] [facility] [place] Repository 03/19/2018/03/20/20 [id number] Ambulatory [place] [facility] [place] Repository 03/12/2018/03/13/20 [id number] Ambulatory [place] [facility] [place] Repository 03/08/2018/03/09/20 [id number] Ambulatory [place] [facility] [place] Repository 03/08/2018/03/08/20 [id number] Ambulatory [place] [facility] [place] Repository 03/05/2018/03/06/20 [id number] Ambulatory [place] [facility] [place] Repository 02/26/2018/02/27/20 [id number] ISMAEL SKINNER Ambulatory [place] 18 [facility] Other [place] Repository 02/22/2018/02/23/20 [id number] Ambulatory [place] [facility] Other [place] Repository 02/08/2018/02/10/20 [id number] Ambulatory [address] [place] Repository 02/08/2018/02/14/20 [id number] Ambulatory [address] Repository 01/18/2018/01/20/20 [id number] Ambulatory [address] Repository 01/18/2018/01/19/20 [id number] Ambulatory [address] Repository 01/11/2018/01/12/20 [id number] Ambulatory [address] ing:[facility] Repository 01/09/2018 [id number] Ambulatory [facility] Repository 11/30/2017 [id number] Ambulatory [facility] ing:[facility] Repository 10/24/2017 [id number] [facility] ing:[facility] Repository PAYERS PAYERS ENCOUNTER GUARANTOR PAYER SUBSCRIBER SOURCE 07/04/2018 MIRIAM R Primary MIRIAM R [place] [id number] Insurance:PARAMOUNT LUSTERDOB: [facility] [id number]: Repository [id number]: [address] [id number] [phone] Date:[id number] [address] [address]UM: 07/04/2018 Secondary NOT GIVENUNK Julisa Insurance:SELF PAY [facility] Number: Effective Repository Date:2018-07-04 03/29/2018 MIRIAM R Primary MIRIAM R [place] [id number] Insurance:PARAMOUNT LUSTERDOB: [facility] [place] Number: Repository [id number]: [phone] [id number] [phone] (HP) Date:6857-19-04KC [address] [address]RM: 03/29/2018 Secondary NOT GIVENUNK [place] Insurance:SELF PAY [facility] Number: Effective Repository Date:2018-03-29 01/11/2018 Miiram R Primary Miriam R [place] [id number] Insurance:PARAMOUNT LusterDOB: [facility] [id number] Number: Repository [id number]: [phone] [id number] [phone] (HP) Date:5054-69-54IB [address] [address]VO: 01/11/2018 Secondary NOT GIVENUNK Jul[place] Insurance:SELF PAY [facility] Number: Effective Repository Date:2017-12-25 01/09/2018 Miriam R Primary Miriam R [place] [id number] Insurance:PARAMOUNT LusterDOB: [facility] [id number] Number: Repository [id number]: [phone] [id number] [phone] (HP) Date:[id number] [address] [address]YC: 01/09/2018 Secondary NOT GIVENUNK Julisa Insurance:SELF PAY [facility] Number: Effective Repository Date:2018-01-09 11/30/2017 Miriam R Primary Miriam R [place] [id number] Insurance:PARAMOUNT LusterDOB: [facility] [id number] Number: Repository [id number]: [phone] [id number] [phone] (HP) Date:2347-70-22UE [address] [address]RL: 11/30/2017 Secondary NOT GIVENUNK [place] Insurance:SELF PAY [facility] Number: Effective Repository Date:2017-10-30 10/24/2017 Miriam R Primary Miriam R [place] [id number] Insurance:PARAMOUNT LusterDOB: [id number] [place] Number[facility] Repository [id number]: [phone] [id number] [phone] (HP) Date:9719-77-30[address]TO[facility] [place] [address]OI: 10/24/2017 Secondary NOT GIVENUNK Julisa Insurance:SELF PAY [facility] Effective Rep[facility] Date:2017-10-24
== END 2018-07-04 14:58 | disposition home or self-care (01) ==
PROVIDERS: Emergency Provider Emergency Medicine
DX: S40.012A Contusion of left shoulder, initial encounter (principal); S80.02XA Contusion of left knee, initial encounter; W00.0XXA Fall on same level due to ice and snow, initial encounter; Y93.9 Activity, unspecified; Y92.9 Unspecified place or not applicable
CPT/HCPCS: 73030; 73564; 99282

== ENCOUNTER 2018-08-02 11:06 | Emergency (ER) | payer MEDICAID, SELFPAY ==
[2018-08-02 11:07] VITALS: BP 115/70; PULSE 71; RESP 17; TEMP 36.5; O2SAT 99; BMI 31.1
[2018-08-02] MEDS: Ondansetron ODT 4 MG Tablet 8 MG PO (11:44)
--- NOTE | 2018-08-02 15:15 | ED.DCSUM_ITS ---
- ER Visit Summary Date of Service: 08/02/18 Chief Complaint: Nausea, vomiting, diarrhea History of Present Illness: The patient is a 32 F with nausea, vomiting, and diarrhea that started 2 days ago. Patient tried some nausea medicine but did not have her own prescription and it seemed to help but she has continued nausea. She denies any bleeding or abdominal pain. Denies fevers. Denies recent antibiotic use or travel. Denies any other symptoms or complaints. Physical Examination: Afebrile and vital signs unremarkable. Patient is alert and oriented. No acute distress. Mucous members are moist. Heart regular. Lungs clear. Abdomen soft and nontender. No guarding or rebound. Skin appears normal in color. Test Results: None performed Emergency Department Course and Treatment: Patient was treated with Zofran and Imodium and had resolution of her symptoms. She declined IV or any further testing or interventions. On reevaluation, the patient had resolution of her vomiting and diarrhea. She was given a prescription for Zofran and Imodium. She asked for a work note for yesterday, today, and tomorrow. Treatment Plan: As above Disposition: Discharge Impression: 1. Nausea, vomiting, and diarrhea This note was generated with [employer] dictation software. It may contain incorrect words, spelling, and punctuation that were not noted in review of the chart prior to signing ED Disposition - Plan for ED Patient: Referrals: Care Physician,No Primary [Primary Care Provider] -
--- NOTE | 2018-08-02 15:15 | ED.DEP ---
ED Disposition - Plan for ED Patient: Instructions: ED Diet Vomiting Diarrhea Prescriptions: Loperamide [Imodium] 2 mg PO Q4H PRN PRN #30 cap PRN Reason: Diarrhea Ondansetron [Zofran Odt] 4 mg PO Q8H PRN PRN #10 tab PRN Reason: Nausea
[2018-08-02 15:28] VITALS: BP 124/86; PULSE 64; RESP 16; O2SAT 100
== END 2018-08-02 15:30 | disposition home or self-care (01) ==
LOC: ED 12:37
PROVIDERS: Emergency Provider Emergency Medicine
DX: R11.2 Nausea with vomiting, unspecified (principal); R19.7 Diarrhea, unspecified
CPT/HCPCS: 99283

== ENCOUNTER → 2018-09-19 15:23 | Outpatient (CLI) | payer MEDICAID, SELFPAY ==
[2018-09-19 10:24] VITALS: BMI 31.1
[2018-09-24 14:28] LABS: HPV APTIMA, High Risk Negative (Negative)
== END ==
PROVIDERS: Referring Provider Nurse Practitioner Women's Health; Visit Provider Nurse Practitioner Women's Health
DX: Z12.4 Encounter for screening for malignant neoplasm of cervix (principal)
CPT/HCPCS: 87624; 88175; G0145

== ENCOUNTER → 2019-07-10 13:56 | Outpatient (CLI) | payer MEDICAID, SELFPAY ==
[2019-07-10 13:56] VITALS: BMI 35.3
[2019-07-10 14:43] LABS: hCG Titer Quant., Serum < 1 mIU/mL (1-3)
== END ==
PROVIDERS: Obstetrics & Gynecology; Referring Provider Nurse Practitioner Women's Health; Visit Provider Nurse Practitioner Women's Health
DX: N91.2 Amenorrhea, unspecified (principal)
CPT/HCPCS: 36415; 84702

== ENCOUNTER 2019-08-14 14:00 | Emergency (ER) | payer MEDICAID, SELFPAY ==
[2019-08-14 14:00] VITALS: BMI 31.1
[2019-08-14 14:01] VITALS: BP 122/67; PULSE 69; RESP 15; TEMP 37.4; O2SAT 98; BMI 33.5
--- NOTE | 2019-08-14 16:25 | ED.DCSUM_ITS ---
- ER Visit Summary Date of Service: 08/14/19 Chief Complaint: Nausea and vomiting History of Present Illness: The patient is a 33 F who has nausea and vomiting. Started yesterday. She has had some abdominal cramping in the epigastric region. Food makes it worse. She denies any diarrhea. No urinary symptoms. She denies a fever. She saw an online doctor yesterday who prescribed her Zofran. Is not helping. She denies any other health problems. She has a history of a tubal ligation and a tubal . Physical Examination: Vital signs reviewed. HEENT exam unremarkable. Heart is regular rate and rhythm without murmurs. Lungs are clear to auscultation. Abdomen is soft and nontender. Extremities reveal no edema. Skin exam normal. Neurologic exam normal. Test Results: Hemoglobin 15.9, chloride 109. Urinalysis has 500 leukocytes. She also has 10-25 white blood cells Emergency Department Course and Treatment: Patient was given IV fluids and Phenergan. Upon reevaluation she is feeling better. She does have evidence of UTI. I will treat her with Keflex along with Phenergan at home. She does have Zofran that she can still use as well. She will follow-up with her PCP. Treatment Plan: [] Disposition: Discharge Impression: UTI, nausea and vomiting This note was generated with [employer] dictation software. It may contain incorrect words, spelling, and punctuation that were not noted in review of the chart prior to signing ED Disposition - Plan for ED Patient: Disposition: Home or Assisted Living Instructions: VOMITING AND DIARRHEA, Nonspecific (Adult) Prescriptions: Cephalexin [Keflex] 500 mg PO Q12 #10 cap Transmission Status: Pending to [facility] proMETHazine tablet [Phenergan] 25 mg PO Q6H PRN PRN #10 tab PRN Reason: Nausea Transmission Status: Pending to [facility] [address] Referrals: Care Physician,No Primary [Primary Care Provider] - Additional Instructions: Your prescriptions were electronically transferred to [facility]
[2019-08-14 16:27] LABS: Absolute Lymphocyte Count 2.13 X10^3/uL (0.83-4.51); Basophil# 0.02 X10^3/uL; Basophil% 0.2 % (0-1); Hematocrit 46.5 % (37-47); Hemoglobin 15.9 g/dL (12.0-15.0); Lymphocyte # 2.13 X10^3/ul (4.0); Lymphocyte % 22.2 % (19-41); Mean Corp Hgb Conc 34.2 g/dL (32-36); Mean Corpuscular Hgb 29.6 pg (27.0-32.0); Mean Corpuscular Volume 86.4 fL (81-99); Monocyte# 0.38 X10^3/uL; NRBC Flagged by Analyzer 0 % (0-5); Neutrophil # 7.02 X10^3/uL (2.7-7.7); Neutrophil % 73.2 % (47-70); Platelet Count 215 K/mm3 (150-450); RBC Distribution Width CV 11.9 % (11.6-14.6); RBC Distribution Width SD 37.7 fl (35.1-43.9); Red Blood Count 5.38 M/mm3 (4.2-5.4); White Blood Count 9.6 K/mm3 (4.4-11.0)
[2019-08-14] MEDS: 0.9% Normal Saline 1,000 ML 999 ML IV (16:28)
[2019-08-14] MEDS: proMETHazine 25 MG/ML Syringe 12.5 MG IV (16:28)
[2019-08-14 16:33] LABS: Internal QC Validated? YES +Cl - CLEAR BKGD; Pregnancy, Serum, hCG Quali. NEGATIVE Negative
[2019-08-14 16:35] LABS: Squamous Epithelial Cells - UA 0 SEEN /hpf (5-10)
[2019-08-14 16:44] LABS: Anion Gap 8 (5-15); BUN 16 mg/dL (7-18); BUN/Creat Ratio 16.9 RATIO (10-20); Calcium,Total 9.1 mg/dL (8.5-10.1); Chloride 109 mmol/L (98-107); Creatinine, Serum 0.94 mg/dL (0.55-1.02); EST Glomerular Filtration Rate 73 mL/min (>60); Est Glom Filt Rate - Afr Amer 89 mL/min (>60); Estimated Creatinine Clearance 68.58 ml/min; Glucose 99 mg/dL (74-106); Potassium 4.4 mmol/L (3.5-5.1); Sodium Level 139 mmol/L (136-145)
[2019-08-14 16:49] LABS: Color, Urine Yellow (Yellow); Glucose, Dipstick Normal (Normal); Leukocyte Esterase-Dipstick 500 /ul (Negative); Nitrite-Dipstick Negative (Negative); Occult Blood-Urine 10 /ul (Negative); Protein-Dipstick 30 mg/dl (Negative); Specific Gravity, Urine 1.025 (1.002-1.030); Urine Clarity Sl. Cloudy (Clear); Urine Urobilinogen 1 mg/dl (Normal)
[2019-08-14 16:50] LABS: Lipase 62 U/L (73-393)
[2019-08-14 16:53] LABS: AST(SGOT) 34 U/L (15-37); Alanine Aminotransfer ALT/SGPT 28 U/L (13-56); Albumin, Serum 4.1 g/dL (3.2-5.0); Alkaline Phosphatase 67 U/L (45-117); Bilirubin, Direct 0.05 mg/dL (0.00-0.30); Globulin 4.5 g/dL (2.2-4.2); Protein, Total 8.6 g/dL (6.4-8.2)
[2019-08-14 16:58] LABS: Urine Bilirubin Dipstick 1 mg/dL (Negative)
[2019-08-14 16:59] LABS: Ketone-Dipstick 150 mg/dl (Negative)
[2019-08-14 17:05] VITALS: BP 114/73; PULSE 63; RESP 16; O2SAT 99
[2019-08-14 18:01] LABS: Bacteria RARE /hpf (None Seen); Mucous, Urine 2+ /hpf (<or=2+); White Blood Cells 10-25 SEEN /hpf (0-5)
[2019-08-14 18:02] LABS: Red Blood Cells-Urine 0-5 SEEN /hpf (0-5)
== END 2019-08-14 18:29 | disposition home or self-care (01) ==
PROVIDERS: Emergency Provider Emergency Medicine
DX: N39.0 Urinary tract infection, site not specified (principal); R11.2 Nausea with vomiting, unspecified
CPT/HCPCS: 80048; 80076; 81001; 83690; 84703; 85025; 96361; 96374; 99282; J7030; A4216

== ENCOUNTER 2019-08-18 19:02 | Emergency (ER) | payer MEDICAID, SELFPAY ==
[2019-08-18 19:03] VITALS: BP 124/80; PULSE 101; RESP 16; TEMP 37.4; O2SAT 97; BMI 33.3
--- NOTE | 2019-08-18 19:22 | ED.VIS.GEN ---
History of Present Illness Chief Complaint: Nausea/Vomiting Informant: Patient Onset: Days - 6 days Context: Gradual Onset Current Severity: Moderate Maximum Severity: Moderate Narrative: Patient presents with continued nausea and vomiting. She was seen here on Monday for the same. She apparently had failed treatment with Zofran and was given prescription for Phenergan. She was also given Keflex for a UTI. Patient states in spite of this she continues to have nausea and vomiting. She has difficulty keeping the pills down. She reports a nauseous feeling in her stomach. She has not had fever or chills. She is still urinating. She has had no diarrhea. - Past Medical History (1) Chronic pelvic pain in female Status: Chronic Past Medical History - Allergies and Home Meds Allergies/Adverse Reactions: Allergies No Known Allergies Allergy (Verified 08/14/19 14:03) Primary Care Physician: Care Physician,No Primary [Primary Care Provider] - Prior records reviewed: Yes Surgical History: - - Tubal ligation Smoking Status: Unknown if ever smoked Review of Systems General: Denies: Chills, Fever Eyes: Denies: Visual changes - bilaterally ENT: Denies: Bilateral ear pain Cardiovascular: Denies: Chest pain Respiratory: Denies: Dyspnea, Cough Gastrointestinal: Reports: Abdominal pain, Nausea, Vomiting Genitourinary: Denies: Dysuria Musculoskeletal: Denies: Swelling, Extremity Pain Skin: Denies: Rash Neurological: Denies: Headache Hematologic: Denies: Easy bruising, Easy bleeding Allergy: Denies: Uticaria Physical Exam Vital Signs/Narrative: Vital Signs Temp Pulse Resp BP Pulse Ox 08/18/19 19:03 99.4 F H 101 H 16 124/80 H 97 Inital Vital Signs reviewed: Yes General: Well nourished, Well developed Head: Normocephalic ENT: Moist mucous membranes Neck: Supple Cardiovascular: Regular rate, Regular rhythm Respiratory: No distress, CTA bilaterally Abdomen: Soft, Nontender, Hypoactive bowel sounds Skin: Normal color Neurological: Alert, Oriented x3 Psychological: Normal affect Diagnostic/Tx/Re-eval Laboratory Results 08/18/19 08/18/19 08/18/19 19:45 19:45 20:30 WBC 9.4 RBC 5.45 H Hgb 16.4 H Hct 45.5 MCV 83.5 MCH 30.1 MCHC 36.0 D RDW Std Deviation 34.5 L RDW Coeff of Robert 11.5 L Plt Count 217 MPV 11.5 Immature Gran % (Auto) 0.400 Neut % (Auto) 64.8 Lymph % (Auto) 29.3 [place] % (Auto) 4.4 Eos % (Auto) 0.6 Baso % (Auto) 0.5 Absolute Neuts (auto) 6.1 Absolute Lymphs (auto) 2.76 Nucleated RBC % 0 Platelet Estimate ADEQUATE RBC Morphology N CHROM Anisocytosis 1+ Sodium 138 Potassium 2.7 L* Chloride 102 Carbon Dioxide 25.0 Anion Gap 11 BUN 10 Creatinine 0.91 Estim Creat Clear Calc 70.85 Est GFR (MDRD) Af Amer 93 Est GFR (MDRD) Non-Af 77 BUN/Creatinine Ratio 11.0 Glucose 104 Calcium 9.0 Total Bilirubin 0.50 Direct Bilirubin 0.19 AST 13 L ALT 19 Alkaline Phosphatase 68 Total Protein 7.9 Albumin 3.9 Globulin 4.0 Lipase 91 Urine Color Yellow Urine Clarity Cloudy Urine pH 9.0 Ur Specific [place] 1.015 Urine Protein 30 H Urine Glucose (UA) Normal Urine Ketones 50 H Urine Occult Blood Negative Urine Nitrite Negative Urine Bilirubin Negative Urine Urobilinogen 4 H Ur Leukocyte Esterase 500 H Urine RBC 0 SEEN Urine WBC 50-100 SEEN Ur Squamous Epith Cells 5-10 SEEN Urine Bacteria 1+ Urine Mucus 4+ Urine Yeast 1+ - Medical Decision Making Patient was given Reglan and Benadryl IV along with a dose of Protonix. On repeat evaluation she reported significant provement. Potassium returned low at 2.7. She is given 60 mEq p.o. and was able to hold this down. We will have back to evaluate her she states her upper abdomen was started to hurt again and she was feeling nauseous. My suspicion is this is secondary to taking the potassium tablets on an empty stomach. She is given some crackers and ice water. She is given a dose of IV Rocephin as there is still evidence of UTI. Urine culture is sent. At this time patient is resting comfortably. She will be switched to 3 days of Bactrim and given a prescription for Reglan as well. She will be given 3 additional days of potassium replacement. Patient is comfortable with this plan will return if symptoms worsen. ED Disposition - Plan for ED Patient: Disposition: Home or Assisted Living Diagnosis: Vomiting, Hypokalemia, Cystitis Instructions: VOMITING (8y-Adult), Bladder Infection, Female (Adult), Hypokalemia Prescriptions: Smz/Tmp Ds [Bactrim Ds] 1 tablet PO BID #6 tablet Potassium Chloride [K-Dur] 20 meq PO BID #6 tablet Metoclopramide [Reglan] 10 mg PO 4X/DAY PRN #20 tablet PRN Reason: Vomiting Referrals: Mansoor Nguyen DO [STAFF PHYSICIAN] - As Needed
[2019-08-18] MEDS: 0.9% Normal Saline 1,000 ML 1000 ML IV (19:43)
[2019-08-18] MEDS: Metoclopramide 10 MG/2 ML Vial IV (19:43)
[2019-08-18] MEDS: DiphenhydrAMINE 50 MG/ML Syringe 25 MG IV (19:43)
[2019-08-18 20:05] LABS: Absolute Lymphocyte Count 2.76 X10^3/uL (0.83-4.51); Absolute Neutrophil Count 6.1 X10^3/uL (2.0-7.7); Basophil# 0.05 X10^3/uL; Basophil% 0.5 % (0-1); Eosinophil# 0.06 X10^3/uL; Eosinophils% 0.6 % (0-5); Hematocrit 45.5 % (37-47); Hemoglobin 16.4 g/dL (12.0-15.0); Lymphocyte # 2.76 X10^3/ul (4.0); Lymphocyte % 29.3 % (19-41); Mean Corpuscular Hgb 30.1 pg (27.0-32.0); Mean Corpuscular Volume 83.5 fL (81-99); Mean Platelet Vol. 11.5 fl (6.2-12.0); Monocyte# 0.41 X10^3/uL; Monocyte% 4.4 % (0-10); NRBC Flagged by Analyzer 0 % (0-5); Neutrophil # 6.09 X10^3/uL (2.7-7.7); Neutrophil % 64.8 % (47-70); Platelet Count 217 K/mm3 (150-450); RBC Distribution Width CV 11.5 % (11.6-14.6); RBC Distribution Width SD 34.5 fl (35.1-43.9); Red Blood Count 5.45 M/mm3 (4.2-5.4); White Blood Count 9.4 K/mm3 (4.4-11.0)
[2019-08-18 20:07] LABS: Differential Indicated SCAN CRITERIA MET; POSITIVE COUNT NO; POSITIVE DIFFERENTIAL NO; POSITIVE MORPHOLOGY YES
[2019-08-18 20:08] LABS: Anisocytosis 1+; Platelet Estimate ADEQUATE (ADEQ); Red Cell Morphology N CHROM NORMAL (NORM C&C)
[2019-08-18 20:22] LABS: AST(SGOT) 13 U/L (15-37); Alanine Aminotransfer ALT/SGPT 19 U/L (13-56); Albumin, Serum 3.9 g/dL (3.2-5.0); Alkaline Phosphatase 68 U/L (45-117); Anion Gap 11 (5-15); BUN 10 mg/dL (7-18); Bilirubin, Direct 0.19 mg/dL (0.00-0.30); Chloride 102 mmol/L (98-107); Creatinine, Serum 0.91 mg/dL (0.55-1.02); EST Glomerular Filtration Rate 77 mL/min (>60); Est Glom Filt Rate - Afr Amer 93 mL/min (>60); Estimated Creatinine Clearance 70.85 ml/min; Glucose 104 mg/dL (74-106); Lipase 91 U/L (73-393); Potassium 2.7 mmol/L (3.5-5.1); Protein, Total 7.9 g/dL (6.4-8.2); Sodium Level 138 mmol/L (136-145)
[2019-08-18 20:47] LABS: Color, Urine Yellow (Yellow); Glucose, Dipstick Normal (Normal); Ketone-Dipstick 50 mg/dl (Negative); Leukocyte Esterase-Dipstick 500 /ul (Negative); Nitrite-Dipstick Negative (Negative); Occult Blood-Urine Negative /ul (Negative); Protein-Dipstick 30 mg/dl (Negative); Specific Gravity, Urine 1.015 (1.002-1.030); Urine Bilirubin Dipstick Negative (Negative); Urine Clarity Cloudy (Clear); Urine Urobilinogen 4 mg/dl (Normal)
[2019-08-18 21:01] LABS: Mucous, Urine 4+ /hpf (<or=2+)
[2019-08-18 21:06] LABS: Squamous Epithelial Cells - UA 5-10 SEEN /hpf (5-10); White Blood Cells 50-100 SEEN /hpf (0-5)
[2019-08-18 21:08] LABS: Bacteria 1+ /hpf (None Seen)
[2019-08-18 21:09] LABS: Red Blood Cells-Urine 0 SEEN /hpf (0-5)
[2019-08-18 21:10] LABS: Yeast-Urine 1+ /hpf (None Seen)
[2019-08-18] MEDS: Ceftriaxone 1 GM/50 ML BAG IV (21:50)
[2019-08-18] MEDS: 0.9% Normal Saline 1,000 ML 150 ML IV (21:51)
[2019-08-18 21:52] VITALS: BP 114/75; PULSE 76; RESP 16; TEMP 37; O2SAT 95
[2019-08-18 23:00] VITALS: PULSE 80; TEMP 37
== END 2019-08-18 23:11 | disposition home or self-care (01) ==
PROVIDERS: Emergency Provider Emergency Medicine
DX: R11.2 Nausea with vomiting, unspecified (principal); E87.6 Hypokalemia; N30.90 Cystitis, unspecified without hematuria
CPT/HCPCS: 80048; 80076; 81001; 83690; 85025; 87077; 87086; 87088; 87186; 96365; 96367; 96375; 99284; J7030; A4216

== ENCOUNTER → 2019-08-26 | Outpatient (CLI) | payer MEDICAID, SELFPAY ==
[2019-08-26 11:07] VITALS: BMI 33.3
[2019-08-26 19:40] LABS: Chlamydia Trachomatis by PCR Negative (Negative); Neisserai gonorrhoeae by PCR Negative (Negative); Probe Check PASS; Sample Adequacy Control PASS; Specimen Processing Control PASS
== END | disposition home or self-care (01) ==
LOC: LABSPEC 15:00
PROVIDERS: Referring Provider Nurse Practitioner Women's Health; Visit Provider Nurse Practitioner Women's Health
DX: R10.2 Pelvic and perineal pain (principal); G89.29 Other chronic pain
CPT/HCPCS: 87070; 87106; 87205; 87491; 87591

== ENCOUNTER → 2019-08-27 16:02 | Outpatient (CLI) | payer MEDICAID, SELFPAY ==
[2019-08-26 11:07] VITALS: BMI 33.3
--- NOTE | 2019-08-27 16:02 | US_ITS ---
STUDY: ULTRASOUND OF THE FEMALE PELVIS - COMPLETE REASON FOR EXAM: Female, 33 years old. PELVIC PAIN DEPO SHOT TECHNIQUE: Transabdominal and endovaginal TECHNICAL QUALITY: Adequate. COMPARISON: None. FINDINGS: The uterus is retroverted and is in a midline position. The uterus measures 8.0 x 4.8 x 4.5 cm. Normal uterine cervix. The endometrium measures 3 mm in thickness, and is hyperechoic. There is no demonstrated endometrial mass. There is no demonstrated myometrial mass. I.U.D. - The patient does not have an I.U.D. The right ovary is visualized. The right ovary measures 4.0 x 2.6 x 1.9 cm. There is no right ovarian cyst or ovarian mass. There is no visualized right adnexal mass or complex lesion. There is normal arterial and normal venous vascularity. The left ovary is visualized. The left ovary measures 2.9 x 2.4 x 1.8 cm. There is no left ovarian cyst or ovarian mass. There is no visualized left adnexal mass or complex lesion. There is normal arterial and normal venous vascularity. There is mild fluid in the cul-de-sac. The pre void volume of the bladder was 167 ml. US/Pelvic (Non ) IMPRESSION: Portable uterus. Mild pelvic fluid. Nabothian cyst. Electronically Signed: Patricio Jeong DO at 0:01 EDT Tel [phone], Service support ,
--- NOTE | 2019-08-27 16:02 | US_ITS ---
STUDY: ULTRASOUND OF THE FEMALE PELVIS - COMPLETE REASON FOR EXAM: Female, 33 years old. PELVIC PAIN DEPO SHOT TECHNIQUE: Transabdominal and endovaginal TECHNICAL QUALITY: Adequate. COMPARISON: None. FINDINGS: The uterus is retroverted and is in a midline position. The uterus measures 8.0 x 4.8 x 4.5 cm. Normal uterine cervix. The endometrium measures 3 mm in thickness, and is hyperechoic. There is no demonstrated endometrial mass. There is no demonstrated myometrial mass. I.U.D. - The patient does not have an I.U.D. The right ovary is visualized. The right ovary measures 4.0 x 2.6 x 1.9 cm. There is no right ovarian cyst or ovarian mass. There is no visualized right adnexal mass or complex lesion. There is normal arterial and normal venous vascularity. The left ovary is visualized. The left ovary measures 2.9 x 2.4 x 1.8 cm. There is no left ovarian cyst or ovarian mass. There is no visualized left adnexal mass or complex lesion. There is normal arterial and normal venous vascularity. There is mild fluid in the cul-de-sac. The pre void volume of the bladder was 167 ml. US/Transvaginal Non- IMPRESSION: Portable uterus. Mild pelvic fluid. Nabothian cyst. Electronically Signed: Patricio Jeong DO at 0:01 EDT Tel [phone], Service support ,
== END ==
PROVIDERS: Referring Provider Nurse Practitioner Women's Health; Visit Provider Nurse Practitioner Women's Health
DX: R10.2 Pelvic and perineal pain (principal); G89.29 Other chronic pain
CPT/HCPCS: 76830; 76856; 93976

== ENCOUNTER → 2020-01-30 10:40 | Outpatient (CLI) | payer MEDICAID, SELFPAY ==
[2019-11-06 15:08] VITALS: BMI 35.3
[2020-02-03 15:28] LABS: HPV APTIMA, High Risk Negative (Negative); HPV Reflexed? YES, CHARGE PATIENT
== END ==
PROVIDERS: Visit Provider Student in an Organized Health Care Education/Training Program
DX: Z12.4 Encounter for screening for malignant neoplasm of cervix (principal); Z11.3 Encounter for screening for infections with a predominantly sexual mode of transmission
CPT/HCPCS: 87624; 88175; G0145

== ENCOUNTER 2020-05-07 14:44 | Observation (INO) | payer MEDICAID, SELFPAY ==
[2019-11-06 15:08] VITALS: BMI 35.3
[2020-05-07] VITALS (8 sets, daily range): BP systolic 110–134; BP diastolic 72–94; PULSE 75–104; RESP 16–20; TEMP 36.3–37.2; O2SAT 96–100; BMI 34.2; BMI 34.6
--- NOTE | 2020-05-07 16:24 | ED.VIS.GI ---
History of Present Illness Chief Complaint: Shortness of Breath Narrative: Patient presenting secondary to nausea and vomiting. Patient states that since the weekend she has been having relatively profuse nausea and vomiting. Is been associated with nonbloody nonbilious emesis with large volumes of emesis per day. She denies any diarrhea. She does have some malaise and body aches. Decreased taste is noted. She denies any cough or sore throat. No sick contacts noted. Patient has had similar presentations in the past when she was due for her Depo-Provera shot, but she got the shot recently and did not get relief from that. Patient is otherwise healthy. Review of systems otherwise negative. Past Medical History - Allergies and Home Meds Allergies/Adverse Reactions: Allergies No Known Allergies Allergy (Verified 11/06/19 15:08) Primary Care Physician: Care Physician,No Primary [Primary Care Provider] - Prior records reviewed: Yes Past Medical History: None Surgical History: - - Tubal ligation Smoking Status: Never smoker Alcohol: None Drugs: None Review of Systems General: Reports: Fever, Malaise Eyes: Denies: Visual changes - bilaterally, Diplopia ENT: Denies: Rhinorrhea, Sore throat Cardiovascular: Denies: Chest pain, Palpitations Respiratory: Denies: Dyspnea, Cough, Dyspnea on exertion Gastrointestinal: Reports: Nausea, Vomiting Genitourinary: Denies: Dysuria, Hematuria, Frequency Musculoskeletal: Denies: Back pain, Extremity Pain Skin: Denies: Rash, Wounds Neurological: Denies: Headache, Weakness, Numbness Physical Exam Vital Signs/Narrative: Vital Signs Temp Pulse Resp BP Pulse Ox 05/07/20 14:48 97.3 F L 104 H 18 129/81 H 99 05/07/20 14:45 97.3 F L 102 H 18 129/81 H 99 General: Well nourished, Well developed, No Acute Distress Head: Normocephalic, Atraumatic Eyes: Perrl, EOMI ENT: Dry mucous membranes Neck: Supple, Nontender Cardiovascular: Regular rhythm, No murmurs, Tachycardia Respiratory: No distress, CTA bilaterally, Chest nontender Abdomen: Soft, Nontender, Nondistended, Normal bowel sounds Back: Nontender, Normal Inspection Extremities: Nontender, No edema Skin: Normal color, No rash Neurological: Alert, Oriented x3, Cranial nerves II-XII grossly intact, Normal Strength, Normal Sensation Psychological: Normal affect, Normal Mood Diagnostic/Tx/Re-eval Laboratory Data 05/07/20 05/07/20 05/07/20 16:40 16:40 17:10 WBC 13.6 H RBC 5.49 H Hgb 15.9 H Hct 48.0 H MCV 87.4 MCH 29.0 MCHC 33.1 RDW Std Deviation 38.0 RDW Coeff of Robert 11.8 Plt Count 249 MPV 11.5 Immature Gran % (Auto) 0.400 Neut % (Auto) 54.4 Lymph % (Auto) 38.6 [place] % (Auto) 5.7 Eos % (Auto) 0.4 Baso % (Auto) 0.5 Absolute Neuts (auto) 7.4 Absolute Lymphs (auto) 5.26 H Nucleated RBC % 0 Differential Comment SEE COMMENT Diff Path Review May foll Platelet Estimate ADEQUATE RBC Morphology NORM C+C Anisocytosis RARE Sodium Cancelled 140 Potassium Cancelled 2.6 L* Chloride Cancelled 105 Carbon Dioxide Cancelled 27.0 Anion Gap Cancelled 8 BUN Cancelled 13 Creatinine Cancelled 0.82 Estim Creat Clear Calc Cancelled 77.90 Est GFR (MDRD) Af Amer Cancelled 104 Est GFR (MDRD) Non-Af Cancelled 86 BUN/Creatinine Ratio Cancelled 15.9 Glucose Cancelled 97 Calcium Cancelled 8.5 - Medical Decision Making Patient presented secondary to nausea and vomiting. IV was established patient was given IV fluids, Zofran was given. Patient was noted on lab work to have profound hypokalemia with a potassium of 2.6. Oral and IV replacement were started, patient was placed on telemetry monitoring. Patient due to her significant electrolyte derangement will require admission for telemetry observation. Patient will be admitted under the hospitalist. ED Disposition - Plan for ED Patient: Disposition: Acute Care Hospital [facility] Diagnosis: Hypokalemia, Nausea and vomiting
[2020-05-07] MEDS: 0.9% Normal Saline 1,000 ML 1000 ML IV (16:38)
[2020-05-07] MEDS: Ondansetron 4 MG/2 ML Vial IV (16:38)
[2020-05-07 16:55] LABS: Absolute Lymphocyte Count 5.26 X10^3/uL (0.83-4.51); Absolute Neutrophil Count 7.4 X10^3/uL (2.0-7.7); Basophil# 0.07 X10^3/uL; Basophil% 0.5 % (0-1); Eosinophil# 0.06 X10^3/uL; Eosinophils% 0.4 % (0-5); Hemoglobin 15.9 g/dL (12.0-15.0); Lymphocyte # 5.26 X10^3/ul (4.0); Lymphocyte % 38.6 % (19-41); Mean Corp Hgb Conc 33.1 g/dL (32-36); Mean Corpuscular Volume 87.4 fL (81-99); Mean Platelet Vol. 11.5 fl (6.2-12.0); Monocyte# 0.78 X10^3/uL; Monocyte% 5.7 % (0-10); NRBC Flagged by Analyzer 0 % (0-5); Neutrophil % 54.4 % (47-70); POSITIVE DIFFERENTIAL YES; Platelet Count 249 K/mm3 (150-450); RBC Distribution Width CV 11.8 % (11.6-14.6); Red Blood Count 5.49 M/mm3 (4.2-5.4); White Blood Count 13.6 K/mm3 (4.4-11.0)
[2020-05-07 17:14] LABS: Differential Indicated SCAN CRITERIA MET
[2020-05-07 17:19] LABS: Anisocytosis RARE; Platelet Estimate ADEQUATE (ADEQ); Red Cell Morphology NORM C+C NORMAL (NORM C&C)
[2020-05-07 17:41] LABS: Anion Gap 8 (5-15); BUN 13 mg/dL (7-18); BUN/Creat Ratio 15.9 RATIO (10-20); Calcium,Total 8.5 mg/dL (8.5-10.1); Chloride 105 mmol/L (98-107); Creatinine, Serum 0.82 mg/dL (0.55-1.02); EST Glomerular Filtration Rate 86 mL/min (>60); Est Glom Filt Rate - Afr Amer 104 mL/min (>60); Glucose 97 mg/dL (74-106); Potassium 2.6 mmol/L (3.5-5.1); Sodium Level 140 mmol/L (136-145)
--- NOTE | 2020-05-07 18:00 | HP.PCM_ITS ---
History of Present Illness Date of Admission: 05/07/20 Chief Complaint: Shortness of breath The patient is a 34 year old F with no significant past medical history was admitted through the ED on 05/07/2020 with a complaint of shortness of breath, nausea and vomiting. She says she has been having profuse numerous episodes of nausea and vomiting for several days. She did not have any diarrhea and also had malaise and body aches as well as decrease in taste. She denied any cough or sore throat and even though when she came in initially, during triage complained of shortness of breath, at time of review she denies shortness of breath. Review of symptoms otherwise negative. In the ED, vitals showed tem perature of 98.9 Fahrenheit with blood pressure of 134/79, pulse rate of 88 and respiratory of 18. She was saturating at 99% on room air. Chemistry showed sodium of 140 and potassium of 2.6. CBC showed hemoglobin of 15.9 and WBC of 13.6 with platelets of 249. However test was done and was pending. She has been admitted to be managed for hypokalemia likely due to profuse vomiting. [] Past Medical History Past Medical History (Chronic Problems): Chronic Problems (Last Reviewed 11/06/19 @ 15:09 by Reina Collins) Chronic pelvic pain in female (Chronic) Allergies No Known Allergies Allergy (Verified 11/06/19 15:08) Home Medications: Ambulatory Orders Medication Instructions Recorded medroxyprogesterone 150 mg/mL 150 mg IM [id number] #1 ml 10/08/19 intramuscular suspension Metoclopramide [Reglan] 5 mg PO Q8H PRN PRN #20 tab 05/08/20 Potassium Chloride [K-Dur] 20 meq PO DAILY #3 tab 05/08/20 Surgical History: Surgical History (Last Reviewed 11/06/19 @ 15:09 by Reina Collins) Encounter for prophylactic removal of fallopian tube Z40.03 H/O knee surgery Z98.890 H/O tubal ligation Z98.51 Surgical History: - - Tubal ligation Psychiatric History: No pertinent psych hx Lives: With Family Smoking Status: Never smoker Alcohol: None Drugs: None - *Family History Maternal Family History: Family History (Last Reviewed 11/06/19 @ 15:09 by Reina Collins) Father Diabetes Mother Diabetes Review of Systems Constitutional: Reports: Anorexia, Chills, Fever, Malaise, Weakness, Fatigue Eyes: Denies: Blurred vision HEENT: Denies: Head Aches, Sinus Congestion, Sinus Drainage Cardiovascular: Denies: Chest Pain, Palpitations Respiratory: Denies: Cough, Shortness of breath at rest, Sputum production Gastrointestinal: Reports: Nausea, Vomiting. Denies: Abdominal Pain Genitourinary: Denies: Dysuria Musculoskeletal: Denies: Joint Pain, Joint Tenderness Skin: Denies: Rash, Wounds Neurological: Denies: Numbness, Tingling, Focal weakness Psychiatric: Denies: Anxiety, Depression, Homicidal Ideations, Suicidal Ideations Hematologic/ Lymphatic: Denies: Easy Bruising, Easy Bleeding VTE Information - Inpt Only VTE Present on Admission: No VTE Pharm Prophylaxis ordered?: Yes Patient Problems: Active and Suspected Problems (Last Reviewed 11/06/19 @ 15:09 by Reina Collins) Hypokalemia (Acute) Nausea and vomiting (Acute) - Physical Exam Vitals/I&O's: Vital Signs Temp Pulse Resp BP Pulse Ox 99.0 F 84 18 134/82 H 97 05/07/20 17:16 05/07/20 17:16 05/07/20 17:16 05/07/20 17:16 05/07/20 17:16 Oxygen Delivery Method Room Air Weight: 187 lb 2.759 oz Body Mass Index (BMI) 34.2 General: Alert, Oriented x3, Cooperative, No apparent distress HEENT: Atraumatic, PERRLA, EOMI, Normocephalic Oral: Dry Mucosa Neck: Supple, No JVD, Negative Carotid Bruits, Negative Hepatojugular Reflux, No Nodes Lungs: Clear to auscultation, Normal air movement, No rhonchi, No wheeze, No rales Cardiovascular: Regular rate, Regular Rhythm, Normal S1, Normal S2, No murmurs Abdomen: Bowel Sounds Present, Soft, Non Tender, Non-Distended, No Hepato- splenomegaly Extremities: No clubbing, No cyanosis, No edema, Capillary Refill Less than 3 Seconds Skin: No rashes, No breakdown Musculoskeletal: No Tenderness to Palpation of Joints or Extremities Lymphatic: No Cervical, Supraclavicular, or Inguinal Adenopathy Neurological: Cranial nerves II-XII grossly intact, Neuro grossly intact, Motor Exam 5/5 strength throughout Psych/Mental Status: Normal Affect, Appropriate, Alert and oriented to time, place, person, mood and affect Laboratory Results 05/07/20 16:17: COVID-19 (JEET) Pending 05/07/20 16:40: WBC 13.6 H, RBC 5.49 H, Hgb 15.9 H, Hct 48.0 H, MCV 87.4, MCH 29.0, MCHC 33.1, RDW Std Deviation 38.0, RDW Coeff of Robert 11.8, Plt Count 249, MPV 11.5, Immature Gran % (Auto) 0.400, Neut % (Auto) 54.4, Lymph % (Auto) 38.6, [place] % (Auto) 5.7, Eos % (Auto) 0.4, Baso % (Auto) 0.5, Absolute Neuts (auto) 7.4, Absolute Lymphs (auto) 5.26 H, Nucleated RBC % 0, Differential Comment SEE COMMENT, Diff Path Review May foll, Platelet Estimate ADEQUATE, RBC Morphology NORM C+C, Anisocytosis RARE 05/07/20 16:40: Sodium Cancelled, Potassium Cancelled, Chloride Cancelled, Carbon Dioxide Cancelled, Anion Gap Cancelled, BUN Cancelled, Creatinine Cancelled, Estim Creat Clear Calc Cancelled, Est GFR (MDRD) Af Amer Cancelled, Est GFR (MDRD) Non-Af Cancelled, BUN/Creatinine Ratio Cancelled, Glucose Cancelled, Calcium Cancelled 05/07/20 17:10: Sodium 140, Potassium 2.6 L*, Chloride 105, Carbon Dioxide 27.0, Anion Gap 8, BUN 13, Creatinine 0.82, Estim Creat Clear Calc 77.90, Est GFR (MDRD) Af Amer 104, Est GFR (MDRD) Non-Af 86, BUN/Creatinine Ratio 15.9, Glucose 97, Calcium 8.5 Current Medications Potassium Chloride () 10 meq in 100 mls @ 100 mls/hr IV BOLUS Q1H PAT Stop: 05/07/20 21:44 Assessment/Plan All Active Problems (Last Reviewed 11/06/19 @ 15:09 by Reina Collins) Hypokalemia (Acute) Nausea and vomiting (Acute) Dysmenorrhea (Acute) 34 y/o admitted with a complaint of nausea and vomiting # Hypokalemia due to incessant nausea and vomiting. * admit to PCu with telemetry * IV potassiuim 40mg * check magnesium level * hydrate with IVF * IV zofran prn * clear liquids for now, and advance as tolerated #Intractable nausea and vomiting * Patient also has some generalized malaise and subjective shortness of breath. In light of symptoms, Covid test ordered. * Hydrate with IV fluids and IV Zofran as needed. * Clear liquids and advance as tolerated. * DVT prophylaxis: SCDs OBSV E&M: [id number] Initial observation care L3
--- NOTE | 2020-05-07 18:00 | EKG12_ITS ---
Test Reason : NAUSEA Blood Pressure : / mmHG Vent. Rate : 075 BPM Atrial Rate : 075 BPM P-R Int : 138 ms QRS Dur : 086 ms QT Int : 388 ms P-R-T Axes : 072 046 019 degrees QTc Int : 433 ms Sinus rhythm with Premature atrial complexes Nonspecific T wave abnormality Abnormal ECG Confirmed by JEREMY QUEEN, IAN ([id number]), film editor IVETTE BYRD ([id number]) on 05/08/2020 10:54:15 AM Referred By: Confirmed By:IAN LUNA MD
[2020-05-07] MEDS: Potassium Chloride 10mEq/100mL 10 MEQ/100 ML IV.SOLN. 100 MEQ IV BOLUS ×4 (18:31→22:22)
--- NOTE | 2020-05-07 20:18 | ED.RN ---
per dr. vaughan ok to complete sepsis screen. pt c/o right shoulder aching. dr. vaughan aware. tylenol ordered. pt remains on playground monitor due to potassium infusion. no changes to rhythm noted on playground monitor.
[2020-05-07] MEDS: Acetaminophen 325 MG Tablet 650 MG PO (20:24)
[2020-05-07] MEDS: 0.9% Normal Saline 1,000 ML 125 ML IV (21:34)
[2020-05-07 21:55] LABS: Magnesium 2.5 mg/dL (1.6-2.6)
[2020-05-07 23:21] LABS: Internal QC Validated? YES +Cl - CLEAR BKGD; Pregnancy, Serum, hCG Quali. NEGATIVE Negative
[2020-05-08] VITALS (8 sets, daily range): BP systolic 117–131; BP diastolic 69–77; PULSE 72–81; RESP 16; TEMP 36.9–37.2; O2SAT 96–100
[2020-05-08] MEDS: Ondansetron 4 MG/2 ML Vial IV ×2 (00:16→11:07)
[2020-05-08] MEDS: 0.9% Saline Lock 10 ML Syringe IV ×4 (00:17→12:17)
[2020-05-08] MEDS: proCHLORPERazine 10 MG/2 ML Vial IV (03:38)
[2020-05-08] MEDS: Famotidine 20 MG Tablet PO ×2 (04:29→09:03)
[2020-05-08] MEDS: 0.9% Normal Saline 1,000 ML 125 ML IV (05:24)
[2020-05-08 07:37] LABS: Absolute Lymphocyte Count 3.63 X10^3/uL (0.83-4.51); Absolute Neutrophil Count 4.2 X10^3/uL (2.0-7.7); Basophil# 0.04 X10^3/uL; Basophil% 0.5 % (0-1); Eosinophil# 0.07 X10^3/uL; Eosinophils% 0.8 % (0-5); Hematocrit 38.1 % (37-47); Hemoglobin 12.6 g/dL (12.0-15.0); Lymphocyte # 3.63 X10^3/ul (4.0); Lymphocyte % 43.2 % (19-41); Mean Corp Hgb Conc 33.1 g/dL (32-36); Mean Corpuscular Hgb 29.7 pg (27.0-32.0); Mean Corpuscular Volume 89.9 fL (81-99); Mean Platelet Vol. 11.4 fl (6.2-12.0); Monocyte# 0.43 X10^3/uL; Monocyte% 5.1 % (0-10); NRBC Flagged by Analyzer 0 % (0-5); Neutrophil % 49.9 % (47-70); Platelet Count 178 K/mm3 (150-450); RBC Distribution Width CV 11.9 % (11.6-14.6); RBC Distribution Width SD 38.9 fl (35.1-43.9); Red Blood Count 4.24 M/mm3 (4.2-5.4); White Blood Count 8.4 K/mm3 (4.4-11.0)
[2020-05-08 07:49] LABS: Anion Gap 4 (5-15); BUN 8 mg/dL (7-18); BUN/Creat Ratio 11.6 RATIO (10-20); Calcium,Total 7.3 mg/dL (8.5-10.1); Chloride 115 mmol/L (98-107); Creatinine, Serum 0.69 mg/dL (0.55-1.02); EST Glomerular Filtration Rate 105 mL/min (>60); Est Glom Filt Rate - Afr Amer 127 mL/min (>60); Estimated Creatinine Clearance 92.58 ml/min; Glucose 94 mg/dL (74-106); Magnesium 2.3 mg/dL (1.6-2.6); Potassium 3.3 mmol/L (3.5-5.1); Sodium Level 143 mmol/L (136-145)
--- NOTE | 2020-05-08 11:18 | DCINST_ITS ---
- Discharge Diagnoses Current Active Problems: Current Active and Chronic Problems (Last Reviewed 11/06/19 @ 15:09 by Reina Collins) Hypokalemia (Acute) Nausea and vomiting (Acute) You will use the following diet at home:: Regular Your food should be the consistency of: Regular Discharge Activity: May Not Drive Weight Bearing Status: Weight bearing as tolerated Call your doctor if you observe: Fever of 101 or Higher, Coldness, Increased Pain, Numbness or Tingling, Inability to urinate, Inability to have a bowel movement, Using more than one pad per hour, Shortness of breath, Dizziness, Fainting spells, Swelling in the ankles, Chest pain, Prolonged hiccoughing, Increased palpitations (irregular heartbeat), Calf discomfort, Uncontrolled pain Allergies/Adverse Reactions: Allergies No Known Allergies Allergy (Verified 11/06/19 15:08) Medications to take at Discharge medroxyprogesterone 150 mg/mL intramuscular suspension 150 mg IM [id number] #1 ml 10/08/19 Metoclopramide [Reglan] 5 mg PO Q8H PRN PRN #20 tab 05/08/20 Potassium Chloride [K-Dur] 20 meq PO DAILY #3 tab 05/08/20 The following prescriptions were given: Potassium Chloride [K-Dur] 20 meq PO DAILY #3 tab Transmission Status: Pending to [facility] CESAR1954 SANDRA BROWN Metoclopramide [Reglan] 5 mg PO Q8H PRN PRN #20 tab PRN Reason: nausea/vomoting Transmission Status: Pending to [facility] VILLALPANDO SANDRA BROWN Primary Care Physician: Care Physician,No Primary [Primary Care Provider] - Please follow up with your Primary Care Physician in: in 1-2 weeks Test Results: Test results from this visit will be discussed in further detail at your follow- up appointment, if applicable.
--- NOTE | 2020-05-08 11:20 | PCM.DC.SUM ---
Discharge Date and Diagnosis - Problem List Patient Problems: Active and Suspected Problems (Last Reviewed 11/06/19 @ 15:09 by Reina Collins) Hypokalemia (Acute) Nausea and vomiting (Acute) Date of Admission: 05/07/20 Date of Discharge: 05/08/20 - Primary Discharge Diagnosis Acute Problems: Active Problems (Last Reviewed 11/06/19 @ 15:09 by Reina Collins) Hypokalemia (Acute) Nausea and vomiting (Acute) - Secondary Discharge Diagnosis Chronic Problems: Chronic Problems (Last Reviewed 11/06/19 @ 15:09 by Reina Collins) Chronic pelvic pain in female (Chronic) Hospital Course and Treatment Summary of Care Provided: The patient is a 34 y/o female admitted with a complaint of nausea and vomiting for several days after she had food at her workplace. # Hypokalemia due to incessant nausea and vomiting. Exact etiology unclear but seems food poisoning. Initial potassium was 2.6 and potassium replaced 3.3. After that, K. Dur 40 M EQ x2 doses. Serum magnesium normal 2.3. Her vomiting was controlled with the Zofran and Reglan. She tolerated clear liquid diets and was advanced to soft diet. Patient was well hydrated with IV fluid. Discharge medication reconciliation done. Discharge follow-up instructions completed. Discharge process discussed with the patient and all questions were answered to patient's satisfaction. Total time spent, exact 35 minutes on discharge meds reconciliation, examination, coordination of care with nurses and ancillary staff, review of imaging and blood test and discussion with the patient on follow-up instructions Patient Problems: Active and Suspected Problems (Last Reviewed 11/06/19 @ 15:09 by Reina Collins) Hypokalemia (Acute) Nausea and vomiting (Acute) Objective: Seen and examined. Patient does not have vomiting but feels mild burping and nausea. Reglan 5 mg IV ordered. Patient denies any chronic GI disorder including Crohn's/ulcerative colitis, IBS or celiac disease. Patient had food from friend at workplace Physical exam General: Alert, Oriented x3, Cooperative HEENT: Atraumatic, PERRLA, EOMI, Normocephalic Oral: No Gingival or Mucosal Lesions/ Ulcerations Neck: Supple, No JVD, Negative Carotid Bruits Lungs: Air entry equal in bilateral lung bases. No crepitation/rhonchi Cardiovascular: Regular rate, Regular Rhythm, Normal S1, Normal S2, No murmurs Abdomen: Bowel Sounds Present, Soft, Non Tender, Non-Distended : No renal angle tenderness. No suprapubic tenderness. Extremities: No edema, Capillary Refill Less than 3 Seconds Skin: No rashes, No breakdown Musculoskeletal: No Tenderness to Palpation of Joints or Extremities Neurological: Cranial nerves II-XII grossly intact, Deep Tendon Reflexes 2+/4 and Symmetrical, Neuro grossly intact Psych/Mental Status: Normal Affect, Appropriate. - Physical Exam Vitals/I&O's: Vital Signs Temp Pulse Resp BP Pulse Ox 98.5 F 78 16 123/76 H 98 05/08/20 09:01 05/08/20 09:01 05/08/20 09:05 05/08/20 09:01 05/08/20 09:05 Oxygen Delivery Method Room Air Weight: 189 lb 6.033 oz Body Mass Index (BMI) 34.6 Intake and Output for Last 24 Hours 05/06/20 05/07/20 05/08/20 23:59 23:59 23:59 Intake Total 1398.33 / 1398.33 1079.17 / 1079.17 Output Total 300 / 300 Balance 1398.33 / 1398.33 779.17 / 779.17 Microbiology Past 72 Hours 05/07/20 18:20 Mucosa - Nasopharyngeal SARS-CoV-2 Antigen (Rapid) - Final Laboratory Results 05/07/20 16:17: COVID-19 (JEET) Cancelled 05/07/20 16:40: WBC 13.6 H, RBC 5.49 H, Hgb 15.9 H, Hct 48.0 H, MCV 87.4, MCH 29.0, MCHC 33.1, RDW Std Deviation 38.0, RDW Coeff of Robert 11.8, Plt Count 249, MPV 11.5, Immature Gran % (Auto) 0.400, Neut % (Auto) 54.4, Lymph % (Auto) 38.6, [place] % (Auto) 5.7, Eos % (Auto) 0.4, Baso % (Auto) 0.5, Absolute Neuts (auto) 7.4, Absolute Lymphs (auto) 5.26 H, Nucleated RBC % 0, Differential Comment SEE COMMENT, Diff Path Review May foll, Platelet Estimate ADEQUATE, RBC Morphology NORM C+C, Anisocytosis RARE 05/07/20 16:40: Sodium Cancelled, Potassium Cancelled, Chloride Cancelled, Carbon Dioxide Cancelled, Anion Gap Cancelled, BUN Cancelled, Creatinine Cancelled, Estim Creat Clear Calc Cancelled, Est GFR (MDRD) Af Amer Cancelled, Est GFR (MDRD) Non-Af Cancelled, BUN/Creatinine Ratio Cancelled, Glucose Cancelled, Calcium Cancelled 05/07/20 17:10: Sodium 140, Potassium 2.6 L*, Chloride 105, Carbon Dioxide 27.0, Anion Gap 8, BUN 13, Creatinine 0.82, Estim Creat Clear Calc 77.90, Est GFR (MDRD) Af Amer 104, Est GFR (MDRD) Non-Af 86, BUN/Creatinine Ratio 15.9, Glucose 97, Calcium 8.5 05/07/20 17:10: Magnesium 2.5 05/07/20 22:50: Serum , Qual NEGATIVE 05/08/20 07:15: WBC 8.4, RBC 4.24, Hgb 12.6, Hct 38.1, MCV 89.9, MCH 29.7, MCHC 33.1, RDW Std Deviation 38.9, RDW Coeff of Robert 11.9, Plt Count 178, MPV 11.4, Immature Gran % (Auto) 0.500, Neut % (Auto) 49.9, Lymph % (Auto) 43.2 H, [place] % (Auto) 5.1, Eos % (Auto) 0.8, Baso % (Auto) 0.5, Absolute Neuts (auto) 4.2, Absolute Lymphs (auto) 3.63, Nucleated RBC % 0 05/08/20 07:15: Sodium 143, Potassium 3.3 L, Chloride 115 H, Carbon Dioxide 24.0, Anion Gap 4 L, BUN 8, Creatinine 0.69, Estim Creat Clear Calc 92.58, Est GFR (MDRD) Af Amer 127, Est GFR (MDRD) Non-Af 105, BUN/Creatinine Ratio 11.6, Glucose 94, Calcium 7.3 L, Magnesium 2.3 Current Medications Acetaminophen (Acetaminophen 325 Mg Tablet) 650 mg PO Q6H PRN PRN PRN Reason: Pain Score 1-10 /Temp>100.7 Al Hydroxide/Mg Hydroxide (Mag Hydrox/Al Hydrox/Simeth 30 Ml Udc) 30 ml PO Q4H PRN PRN PRN Reason: DYSPEPSIA Albuterol Sulfate (Albuterol 2.5 Mg/3 Ml Vial.Neb.) 2.5 mg INHALATION Q2H PRN PRN PRN Reason: Dyspnea, wheezing Famotidine (Famotidine 20 Mg Tablet) 20 mg PO BID [facility] Last Admin: 05/08/20 09:03 Dose: 20 mg Documented by: Hydralazine HCl (Hydralazine 20 Mg/Ml Vial) 10 mg IV Q4H PRN PRN PRN Reason: SBP > 160 Sodium Chloride () 1,000 mls @ 125 mls/hr IV .Q8H PAT Stop: 05/08/20 13:04 Last Admin: 05/08/20 05:24 Dose: 125 mls/hr Documented by: Sodium Chloride () 250 mls @ 15 mls/hr IV .[id number] PRN PRN Reason: Saline Flush Sodium Chloride () 250 mls @ 15 mls/hr IV .[id number] PRN PRN Reason: Additional IVPB Infusion Metoclopramide HCl (Metoclopramide 10 Mg/2 Ml Vial) 5 mg IV X1 ONE Stop: 05/08/20 11:17 Ondansetron HCl (Ondansetron 4 Mg/2 Ml Vial) 4 mg IV Q8H PRN PRN PRN Reason: NAUSEA/VOMITING Last Admin: 05/08/20 11:07 Dose: 4 mg Documented by: Potassium Chloride (Potassium Chloride 20 Meq Tablet) 40 meq PO Q3H [facility] Stop: 05/08/20 11:31 Last Admin: 05/08/20 11:07 Dose: 40 meq Documented by: Sodium Chloride (0.9% Saline Lock 10 Ml Syringe) 10 - 40 ml IV UD PRN PRN Reason: SALINE FLUSH Last Admin: 05/08/20 11:07 Dose: 10 ml Documented by: Discharge Activity: May Not Drive Weight Bearing Status: Weight bearing as tolerated Call your doctor if you observe: Fever of 101 or Higher, Coldness, Increased Pain, Numbness or Tingling, Inability to urinate, Inability to have a bowel movement, Using more than one pad per hour, Shortness of breath, Dizziness, Fainting spells, Swelling in the ankles, Chest pain, Prolonged hiccoughing, Increased palpitations (irregular heartbeat), Calf discomfort, Uncontrolled pain Home Medications: Medications to take at Discharge medroxyprogesterone 150 mg/mL intramuscular suspension 150 mg IM [id number] #1 ml 10/08/19 Metoclopramide [Reglan] 5 mg PO Q8H PRN PRN #20 tab 05/08/20 RX: Potassium Chloride [K-Dur] 20 meq PO DAILY #3 tab 05/08/20 Following Prescriptions Were Given to Patient: RX: Potassium Chloride [K-Dur] 20 meq PO DAILY #3 tab Transmission Status: Received by JAMA FLORES RD Metoclopramide [Reglan] 5 mg PO Q8H PRN PRN #20 tab PRN Reason: nausea/vomoting Transmission Status: Received by JAMA FLORES RD Primary Care Physician: Care Physician,No Primary [Primary Care Provider] - Please follow up with your Primary Care Physician in: in 1-2 weeks Medical Necessity - Tobacco Use Smoking Status: Never smoker Tobacco Use: Cigarettes Meaningful Use Info Meaningful Use Diagnoses (Choose all that apply): None applicable OBSV E&M: 97515 Observation care discharge
[2020-05-08] MEDS: Metoclopramide 10 MG/2 ML Vial 5 MG IV (12:17)
[2020-05-08 13:48] LABS: Pathologist Review Reviewed
== END 2020-05-08 15:55 | disposition home or self-care (01) ==
LOC: ED 18:14 → PCU 05-08 06:37
PROVIDERS: Family Medicine; Admitting Provider Student in an Organized Health Care Education/Training Program; Emergency Provider Emergency Medicine; Visit Provider Internal Medicine
DX: E87.6 Hypokalemia (principal); R11.2 Nausea with vomiting, unspecified; R53.81 Other malaise; N94.6 Dysmenorrhea, unspecified
CPT/HCPCS: 36415; 80048; 83735; 84703; 85025; 87426; 87635; 93005; 96361; 96374; 96375; 96376; 99218; 99284; J7030; A4216; G0378; J2405; U0003

== ENCOUNTER 2020-08-27 12:56 | Emergency (ER) | payer MEDICAID, SELFPAY ==
[2020-05-07 21:17] VITALS: BMI 34.6
[2020-08-27 12:58] VITALS: BP 130/82; PULSE 61; RESP 22; TEMP 36.4; O2SAT 99; BMI 36.6
--- NOTE | 2020-08-27 13:32 | ED.DCSUM_ITS ---
History of Present Illness Chief Complaint: Flank Pain Narrative: 34-year-old female presenting with lower abdominal pain, nausea, vomiting. Onset of this was Monday. She has been able to hold down some food and fluids but is mostly been vomiting. She has not had a fever that she knows of but has not checked at home. She has been using ibuprofen. Patient does not have any antiemetics at home. Patient states she gets the chills after she vomits. She has no exposure to anybody that sick. She states she has no medical problems. Patient states that she does not have periods and is on Depo-Provera. She states she hasn't had any sexual intercourse in over a month. Patient denies vaginal bleeding or vaginal discharge. Past Medical History - Allergies and Home Meds Allergies/Adverse Reactions: Allergies No Known Allergies Allergy (Verified 11/06/19 15:08) Primary Care Physician: Care Physician,No Primary [Primary Care Provider] - Past Medical History: - Surgical History: - - Tubal ligation Lives: Alone Smoking Status: Never smoker Alcohol: None Drugs: None Review of Systems General: Reports: Chills, Malaise. Denies: Fever Eyes: Denies: Visual changes - bilaterally, Diplopia ENT: Denies: Rhinorrhea, Sore throat Cardiovascular: Denies: Chest pain, Palpitations Respiratory: Denies: Dyspnea, Cough, Dyspnea on exertion Gastrointestinal: Reports: Abdominal pain, Nausea, Vomiting. Denies: Diarrhea, Constipation Genitourinary: Denies: Dysuria, Hematuria, Frequency Musculoskeletal: Denies: Myalgias, Arthralgias, Neck pain Skin: Denies: Rash, Abscess Neurological: Denies: Headache, Weakness, Parasthesia Psych: Denies: Depression, Anxiety Physical Exam Vital Signs/Narrative: Vital Signs Temp Pulse Resp BP Pulse Ox 08/27/20 12:58 97.6 F L 61 22 H 130/82 H 99 Inital Vital Signs reviewed: Yes General: Obese, No Acute Distress Head: Normocephalic, Atraumatic Eyes: Perrl, EOMI ENT: Moist mucous membranes, No rhinorrhea Cardiovascular: Regular rate, Regular rhythm Respiratory: No distress, CTA bilaterally Abdomen: Soft, Nondistended, Tender - Mild tenderness in the left and right lowe r quadrant. Abdomen is nonperitoneal. Extremities: Nontender, No edema Skin: Normal color, No rash. Negative for: Cyanosis, Diaphoresis Neurological: Alert, Oriented x3 Psychological: Normal affect, Normal Mood Diagnostic/Tx/Re-eval - Medical Decision Making 34-year-old female presenting with abdominal pain, nausea, vomiting for the last 4 days. Patient ordered pain medicine and antiemetics. Patient's lab work unremarkable with exception of low potassium which will be placed after negative work-up and nausea control. Patient does appear to have UTI which will be treated. Patient signed out to incoming ED physician for follow-up on CT imaging. Pression: 1. Nausea/vomiting 2. Abdominal pain 3. Hypokalemia 4. UTI ED Disposition - Plan for ED Patient: Referrals: Care Physician,No Primary [Primary Care Provider] -
--- NOTE | 2020-08-27 13:32 | CT_ITS ---
STUDY: CT ABDOMEN AND PELVIS WITH CONTRAST REASON FOR EXAM: Female, 34 years old. abdominal pain RADIATION DOSAGE (If Supplied By Facility): CTDIvol = ( 19.95 ) mGy, DLP = ( 1016.40 ) mGycm TECHNIQUE: Transaxial images were obtained from the dome of the diaphragm to the symphysis pubis without oral contrast. IV 100mL Isovue-370 was administered. Sagittal and coronal images were reconstructed. Individualized dose optimization techniques were used for this CT. COMPARISON: 10/08/2011 FINDINGS: The visualized lung bases are unremarkable. The visualized portions of the heart are within normal limits. Normal liver. Normal gallbladder and extrahepatic biliary system. Normal spleen. Normal pancreas. Normal bilateral adrenal glands. Normal right kidney. Normal left kidney. Normal visualized stomach. Normal small intestine. Normal colon. There is non-visualization of the appendix. Normal abdominal aorta. Normal inferior vena cava. Normal retroperitoneum. Normal urinary bladder. Normal abdominal wall. Normal osseous structures. CT/Abdomen/Pelvis W IV Cont ONLY IMPRESSION: Normal enhanced CT of the abdomen and pelvis. Electronically Signed: Anton Rico MD at 16:01 EST Tel , Service support ,
[2020-08-27] MEDS: Morphine 4 MG/ML Syringe IV (13:51)
[2020-08-27] MEDS: Ondansetron 4 MG/2 ML Vial IV (13:51)
[2020-08-27] MEDS: 0.9% Normal Saline 1,000 ML 1000 ML IV (13:52)
[2020-08-27 14:41] LABS: Absolute Lymphocyte Count 1.52 X10^3/uL (0.83-4.51); Absolute Neutrophil Count 7.4 X10^3/uL (2.0-7.7); Basophil# 0.04 X10^3/uL; Basophil% 0.4 % (0-1); Eosinophil# 0.01 X10^3/uL; Eosinophils% 0.1 % (0-5); Hematocrit 43.6 % (37-47); Hemoglobin 14.4 g/dL (12.0-15.0); Lymphocyte # 1.52 X10^3/ul (4.0); Lymphocyte % 16.5 % (19-41); Mean Corpuscular Hgb 29.9 pg (27.0-32.0); Mean Corpuscular Volume 90.5 fL (81-99); Mean Platelet Vol. 11.5 fl (6.2-12.0); Monocyte# 0.21 X10^3/uL; Monocyte% 2.3 % (0-10); NRBC Flagged by Analyzer 0 % (0-5); Neutrophil # 7.38 X10^3/uL (2.7-7.7); Neutrophil % 80.2 % (47-70); Platelet Count 193 K/mm3 (150-450); RBC Distribution Width SD 39.8 fl (35.1-43.9); Red Blood Count 4.82 M/mm3 (4.2-5.4); White Blood Count 9.2 K/mm3 (4.4-11.0)
[2020-08-27 14:49] LABS: Internal QC Validated? YES +Cl - CLEAR BKGD; Pregnancy, Serum, hCG Quali. NEGATIVE Negative
[2020-08-27 14:59] LABS: AST(SGOT) 18 U/L (15-37); Alanine Aminotransfer ALT/SGPT 18 U/L (13-56); Albumin, Serum 3.8 g/dL (3.2-5.0); Alkaline Phosphatase 73 U/L (45-117); Anion Gap 11 (5-15); BUN 15 mg/dL (7-18); BUN/Creat Ratio 16.7 RATIO (10-20); Calcium,Total 8.9 mg/dL (8.5-10.1); Chloride 110 mmol/L (98-107); EST Glomerular Filtration Rate 77 mL/min (>60); Est Glom Filt Rate - Afr Amer 93 mL/min (>60); Estimated Creatinine Clearance 70.98 ml/min; Globulin 3.8 g/dL (2.2-4.2); Glucose 102 mg/dL (74-106); Potassium 3.1 mmol/L (3.5-5.1); Protein, Total 7.6 g/dL (6.4-8.2); Sodium Level 141 mmol/L (136-145)
[2020-08-27 15:09] LABS: Bacteria 0 SEEN /hpf (None Seen); Mucous, Urine 0 SEEN /hpf (<or=2+); Red Blood Cells-Urine 0 SEEN /hpf (0-5)
[2020-08-27 15:13] LABS: Color, Urine Yellow (Yellow); Glucose, Dipstick Normal (Normal); Leukocyte Esterase-Dipstick 500 /ul (Negative); Nitrite-Dipstick Negative (Negative); Occult Blood-Urine 10 /ul (Negative); Protein-Dipstick 30 mg/dl (Negative); Specific Gravity, Urine 1.015 (1.002-1.030); Urine Bilirubin Dipstick Negative (Negative); Urine Clarity Clear (Clear); Urine Urobilinogen 1 mg/dl (Normal)
[2020-08-27 15:21] LABS: Ketone-Dipstick 150 mg/dl (Negative)
[2020-08-27 15:23] LABS: Squamous Epithelial Cells - UA 0-5 SEEN /hpf (5-10); White Blood Cells 25-50 SEEN /hpf (0-5)
[2020-08-27 15:59] VITALS: BP 106/58; PULSE 62; RESP 16; TEMP 37; O2SAT 100
--- NOTE | 2020-08-27 16:08 | ED.DEP ---
ED Disposition - Plan for ED Patient: Instructions: ED Urinary Tract Infections in Women Prescriptions: Nitrofurantoin Macrocrystals [Macrobid] 100 mg PO Q12 #14 cap Prescription Printed Naproxen [Naprosyn] 500 mg PO BID PRN #20 tab Prescription Printed Referrals: Deedee Martinez [NON-STAFF] -
[2020-08-27] MEDS: Nitrofurantoin Macrocrystals 100 MG Capsule PO (16:14)
[2020-08-27] MEDS: Potassium Chloride Oral Tablet 20 MEQ 40 MEQ PO (16:14)
== END 2020-08-27 16:20 | disposition home or self-care (01) ==
PROVIDERS: Student in an Organized Health Care Education/Training Program; Emergency Provider Emergency Medicine
DX: R11.2 Nausea with vomiting, unspecified (principal); R10.30 Lower abdominal pain, unspecified; E87.6 Hypokalemia; N39.0 Urinary tract infection, site not specified
CPT/HCPCS: 36415; 74177; 80053; 81001; 84703; 85025; 87086; 87088; 96374; 96375; 99284; J7030; Q9967; A4216

== ENCOUNTER 2020-09-23 12:12 | Emergency (ER) | payer MEDICAID, SELFPAY ==
[2020-09-23 12:12] VITALS: BP 123/87; PULSE 96; RESP 16; TEMP 37; O2SAT 99; BMI 34.4
[2020-09-23 13:32] LABS: Absolute Lymphocyte Count 2.62 X10^3/uL (0.83-4.51); Absolute Neutrophil Count 7.6 X10^3/uL (2.0-7.7); Basophil# 0.04 X10^3/uL; Basophil% 0.4 % (0-1); Eosinophil# 0.01 X10^3/uL; Eosinophils% 0.1 % (0-5); Hematocrit 45.1 % (37-47); Hemoglobin 15.7 g/dL (12.0-15.0); Lymphocyte # 2.62 X10^3/ul (4.0); Lymphocyte % 23.9 % (19-41); Mean Corp Hgb Conc 34.8 g/dL (32-36); Mean Corpuscular Hgb 30.2 pg (27.0-32.0); Mean Corpuscular Volume 86.7 fL (81-99); Mean Platelet Vol. 11.4 fl (6.2-12.0); Monocyte# 0.67 X10^3/uL; Monocyte% 6.1 % (0-10); NRBC Flagged by Analyzer 0 % (0-5); Neutrophil # 7.55 X10^3/uL (2.7-7.7); Neutrophil % 68.8 % (47-70); Platelet Count 201 K/mm3 (150-450); RBC Distribution Width CV 11.4 % (11.6-14.6); RBC Distribution Width SD 36.6 fl (35.1-43.9)
[2020-09-23] MEDS: 0.9% Normal Saline 1,000 ML 1000 ML IV (13:35)
[2020-09-23] MEDS: Ondansetron 4 MG/2 ML Vial IV (13:35)
[2020-09-23 13:46] LABS: AST(SGOT) 13 U/L (15-37); Alanine Aminotransfer ALT/SGPT 17 U/L (13-56); Alkaline Phosphatase 73 U/L (45-117); Anion Gap 7 (5-15); BUN 15 mg/dL (7-18); BUN/Creat Ratio 18.6 RATIO (10-20); Bilirubin, Direct 0.21 mg/dL (0.00-0.30); Calcium,Total 8.7 mg/dL (8.5-10.1); Chloride 98 mmol/L (98-107); EST Glomerular Filtration Rate 87 mL/min (>60); Est Glom Filt Rate - Afr Amer 106 mL/min (>60); Estimated Creatinine Clearance 79.85 ml/min; Globulin 3.9 g/dL (2.2-4.2); Glucose 86 mg/dL (74-106); Lipase 293 U/L (73-393); Potassium 2.9 mmol/L (3.5-5.1); Protein, Total 7.9 g/dL (6.4-8.2); Sodium Level 131 mmol/L (136-145)
[2020-09-23 13:50] LABS: Color, Urine Yellow (Yellow); Glucose, Dipstick Normal (Normal); Leukocyte Esterase-Dipstick 500 /ul (Negative); Nitrite-Dipstick Negative (Negative); Occult Blood-Urine 250 /ul (Negative); Protein-Dipstick 30 mg/dl (Negative); Urine Bilirubin Dipstick 1 mg/dL (Negative); Urine Clarity Cloudy (Clear); Urine Urobilinogen 1 mg/dl (Normal)
[2020-09-23 13:51] LABS: Ketone-Dipstick 150 mg/dl (Negative)
[2020-09-23 13:58] LABS: Bacteria RARE /hpf (None Seen); Mucous, Urine 3+ /hpf (<or=2+); Red Blood Cells-Urine 0-5 SEEN /hpf (0-5); Squamous Epithelial Cells - UA 5-10 SEEN /hpf (5-10); White Blood Cells 10-25 SEEN /hpf (0-5)
[2020-09-23 14:07] LABS: Internal QC Validated? YES +Cl - CLEAR BKGD; Pregnancy, Serum, hCG Quali. NEGATIVE Negative
[2020-09-23] MEDS: Potassium Chloride Oral Tablet 20 MEQ 60 MEQ PO (14:52)
[2020-09-23] MEDS: Ketorolac 30 MG/ML Syringe IV (14:55)
[2020-09-23] MEDS: Ceftriaxone 1 GM/50 ML BAG IV (14:57)
--- NOTE | 2020-09-23 15:12 | ED.VIS.GEN ---
History of Present Illness Chief Complaint: Nausea/Vomiting Informant: Patient Context: Gradual Onset Current Severity: Mild Maximum Severity: Moderate Narrative: Patient presents secondary to nausea and vomiting. Patient states she was recently seen and found to have a UTI. She finished the antibiotics late last week. When she was ill she was complaining of nausea and vomiting but not necessarily urinary symptoms. Patient states a day or 2 after finishing the antibiotics her nausea and vomiting worsened again. She denies having any diarrhea. Past Medical History - Allergies and Home Meds Allergies/Adverse Reactions: Allergies No Known Allergies Allergy (Verified 09/23/20 12:14) Primary Care Physician: Care Physician,No Primary [Primary Care Provider] - Past Medical History: None Surgical History: - - Tubal ligation Smoking Status: Never smoker Review of Systems General: Reports: Chills. Denies: Fever Eyes: Denies: Visual changes - bilaterally ENT: Denies: Bilateral ear pain Cardiovascular: Denies: Chest pain Respiratory: Denies: Dyspnea, Cough Gastrointestinal: Reports: Abdominal pain - Tied in knots, Nausea, Vomiting. Denies: Diarrhea Genitourinary: Denies: Dysuria, Frequency Musculoskeletal: Denies: Extremity Pain Neurological: Denies: Headache Endocrine: Denies: Polyuria, Polydipsia Hematologic: Denies: Easy bruising, Easy bleeding Allergy: Denies: Uticaria Physical Exam Vital Signs/Narrative: Vital Signs Temp Pulse Resp BP Pulse Ox 09/23/20 12:12 98.6 F 96 16 123/87 H 99 Inital Vital Signs reviewed: Yes General: Well nourished, Well developed Head: Normocephalic Eyes: EOMI Cardiovascular: Regular rate, Regular rhythm Respiratory: No distress, CTA bilaterally Abdomen: Soft, Normal bowel sounds, Tender - Mild diffuse tenderness to palpation.. Negative for: Guarding, Rebound tenderness Extremities: Nontender Skin: Normal color Neurological: Alert, Oriented x3 Psychological: Normal affect Diagnostic/Tx/Re-eval Laboratory Results 09/23/20 09/23/20 09/23/20 13:20 13:20 13:20 WBC 11.0 RBC 5.20 Hgb 15.7 H Hct 45.1 MCV 86.7 MCH 30.2 MCHC 34.8 RDW Std Deviation 36.6 RDW Coeff of Robert 11.4 L Plt Count 201 MPV 11.4 Immature Gran % (Auto) 0.700 Neut % (Auto) 68.8 Lymph % (Auto) 23.9 [place] % (Auto) 6.1 Eos % (Auto) 0.1 Baso % (Auto) 0.4 Absolute Neuts (auto) 7.6 Absolute Lymphs (auto) 2.62 Nucleated RBC % 0 Sodium 131 L Potassium 2.9 L Chloride 98 Carbon Dioxide 26.0 Anion Gap 7 BUN 15 Creatinine 0.80 Estim Creat Clear Calc 79.85 Est GFR (MDRD) Af Amer 106 Est GFR (MDRD) Non-Af 87 BUN/Creatinine Ratio 18.6 Glucose 86 Calcium 8.7 Total Bilirubin 0.70 Direct Bilirubin 0.21 AST 13 L ALT 17 Alkaline Phosphatase 73 Total Protein 7.9 Albumin 4.0 Globulin 3.9 Lipase 293 Serum , Qual NEGATIVE Urine Color Urine Clarity Urine pH Ur Specific [place] Urine Protein Urine Glucose (UA) Urine Ketones Urine Occult Blood Urine Nitrite Urine Bilirubin Urine Urobilinogen Ur Leukocyte Esterase Urine RBC Urine WBC Ur Squamous Epith Cells Urine Bacteria Urine Mucus 09/23/20 13:40 WBC RBC Hgb Hct MCV MCH MCHC RDW Std Deviation RDW Coeff of Robert Plt Count MPV Immature Gran % (Auto) Neut % (Auto) Lymph % (Auto) [place] % (Auto) Eos % (Auto) Baso % (Auto) Absolute Neuts (auto) Absolute Lymphs (auto) Nucleated RBC % Sodium Potassium Chloride Carbon Dioxide Anion Gap BUN Creatinine Estim Creat Clear Calc Est GFR (MDRD) Af Amer Est GFR (MDRD) Non-Af BUN/Creatinine Ratio Glucose Calcium Total Bilirubin Direct Bilirubin AST ALT Alkaline Phosphatase Total Protein Albumin Globulin Lipase Serum , Qual Urine Color Yellow Urine Clarity Cloudy Urine pH 6.0 Ur Specific [place] 1.020 Urine Protein 30 H Urine Glucose (UA) Normal Urine Ketones 150 H Urine Occult Blood 250 H Urine Nitrite Negative Urine Bilirubin 1 H Urine Urobilinogen 1 H Ur Leukocyte Esterase 500 H Urine RBC 0-5 SEEN Urine WBC 10-25 SEEN Ur Squamous Epith Cells 5-10 SEEN Urine Bacteria RARE Urine Mucus 3+ - Medical Decision Making Patient was given Zofran, Protonix, IV fluids. Repeat evaluation she reported still having pain. She is given a dose of Toradol. Blood work is remarkable for sodium of 131 and potassium of 2.9. Potassium was replaced orally. She is given a total of a liter and a half of IV fluids to help with sodium replacement. Patient does state that she is been drinking a lot of water recently and I encouraged her to take Gatorade or Powerade to help replace electrolytes. Urine does appear to still be infected. She does have 5-10 white cells in her urine sample making a urine culture not likely to be beneficial. Patient was treated with Macrobid previously will be treated with a course of Bactrim at this time. She did receive a dose of IV Rocephin in the emergency room. ED Disposition - Plan for ED Patient: Disposition: Home or Assisted Living Diagnosis: Epigastric pain, UTI (urinary tract infection) Instructions: ED Vomiting (Adult), ED Epigastric Pain (Uncertain Cause), ED Bladder Infection, Female (Adult) Prescriptions: Smz/Tmp Ds [Bactrim Ds] 1 tablet PO BID #14 tab Transmission Status: Pending to JAMA FLORES RD Dicyclomine HCl [Bentyl] 20 mg PO TIDAC #20 capsule Transmission Status: Pending to JAMA FLORES RD Omeprazole [Prilosec] 20 mg PO DAILY #30 capsule Transmission Status: Pending to JAMA FLORES RD Ondansetron [Zofran Odt] 4 mg PO Q8H PRN PRN #10 tablet PRN Reason: Nausea Transmission Status: Pending to JAMA FLORES RD Referrals: Tyrese Watkins MD [STAFF PHYSICIAN] - 1-2 Weeks
[2020-09-23 15:34] VITALS: BP 128/81; PULSE 77; RESP 14; O2SAT 100
== END 2020-09-23 15:47 | disposition home or self-care (01) ==
PROVIDERS: Emergency Provider Emergency Medicine
DX: R10.13 Epigastric pain (principal); N39.0 Urinary tract infection, site not specified
CPT/HCPCS: 80048; 80076; 81001; 83690; 84703; 85025; 96365; 96367; 96375; 99285; J7030; J7040; J2405

== ENCOUNTER 2020-11-13 17:49 | Emergency (ER) | payer MEDICAID, SELFPAY ==
[2020-11-13 17:50] VITALS: BP 156/89; PULSE 74; RESP 16; TEMP 36.8; O2SAT 98; BMI 35.4
[2020-11-13 17:52] VITALS: BP 156/89; PULSE 74; RESP 16; TEMP 36.8; O2SAT 98
[2020-11-13 18:11] LABS: Color, Urine Yellow (Yellow); Glucose, Dipstick Normal (Normal); Leukocyte Esterase-Dipstick 500 /ul (Negative); Nitrite-Dipstick Negative (Negative); Occult Blood-Urine 150 /ul (Negative); Protein-Dipstick 30 mg/dl (Negative); Urine Bilirubin Dipstick Negative (Negative); Urine Clarity Sl. Cloudy (Clear); Urine Urobilinogen 1 mg/dl (Normal)
[2020-11-13 18:13] LABS: Ketone-Dipstick 150 mg/dl (Negative)
[2020-11-13 18:19] LABS: Amorphous Sediment 1+ URATE; Bacteria 1+ /hpf (None Seen); Mucous, Urine 2+ /hpf (<or=2+); Red Blood Cells-Urine 50-100 SEEN /hpf (0-5); Squamous Epithelial Cells - UA 5-10 SEEN /hpf (5-10); White Blood Cells 50-100 SEEN /hpf (0-5)
[2020-11-13] MEDS: 0.9% Normal Saline 1,000 ML 1000 ML IV (20:44)
[2020-11-13] MEDS: Metoclopramide 10 MG/2 ML Vial IV (20:44)
[2020-11-13 20:56] VITALS: BP 114/78; PULSE 68; RESP 14; O2SAT 100
[2020-11-13 21:08] LABS: Absolute Lymphocyte Count 3.45 X10^3/uL (0.83-4.51); Basophil# 0.04 X10^3/uL; Basophil% 0.4 % (0-1); Hematocrit 45.6 % (37-47); Hemoglobin 15.4 g/dL (12.0-15.0); Lymphocyte # 3.45 X10^3/ul (0.83-4.51); Lymphocyte % 31.4 % (19-41); Mean Corp Hgb Conc 33.8 g/dL (32-36); Mean Corpuscular Volume 88.9 fL (81-99); Mean Platelet Vol. 11.9 fl (6.2-12.0); Monocyte# 0.51 X10^3/uL; Monocyte% 4.6 % (0-10); NRBC Flagged by Analyzer 0 % (0-5); Neutrophil # 6.97 X10^3/uL (2.7-7.7); Neutrophil % 63.4 % (47-70); Platelet Count 225 K/mm3 (150-450); RBC Distribution Width CV 12.2 % (11.6-14.6); Red Blood Count 5.13 M/mm3 (4.2-5.4)
[2020-11-13 21:20] LABS: Anion Gap 14 (5-15); BUN 17 mg/dL (7-18); Calcium,Total 9.4 mg/dL (8.5-10.1); Chloride 106 mmol/L (98-107); Creatinine, Serum 0.85 mg/dL (0.55-1.02); EST Glomerular Filtration Rate 82 mL/min (>60); Est Glom Filt Rate - Afr Amer 99 mL/min (>60); Estimated Creatinine Clearance 75.15 ml/min; Glucose 81 mg/dL (74-106); Potassium 2.9 mmol/L (3.5-5.1); Sodium Level 142 mmol/L (136-145)
[2020-11-13 21:27] LABS: Internal QC Validated? YES +Cl - CLEAR BKGD; Pregnancy, Serum, hCG Quali. NEGATIVE Negative
[2020-11-13] MEDS: Potassium Chloride 10mEq/100mL 10 MEQ/100 ML IV.SOLN. 100 MEQ IV BOLUS (22:35)
[2020-11-13] MEDS: Potassium Chloride Oral Tablet 20 MEQ 60 MEQ PO (22:35)
[2020-11-13 23:42] VITALS: PULSE 66; RESP 14; O2SAT 99
--- NOTE | 2020-11-14 01:20 | EDS_ITS ---
HPI HPI - GI History of Present Illness Chief Complaint: Nausea/Vomiting Abdominal Pain/Flank Pain Onset: Days (3) Context: Gradual Onset Timing: Continuous Quality: Stabbing Location: RLQ and LLQ Worsened by: Nothing Relieved by: Nothing Nausea/Vomiting/Emesis GI Symptom: Positive for Nausea and Vomiting Onset: Days (3) Quality: Positive for Nonbilious; Negative for Coffee ground and Hematemesis Diarrhea/Melena/Hematochezia GI Symptom: Negative for Diarrhea, Melena and Hematochezia Associated Symptoms Associated Symptoms: Negative for Dysuria and Hematuria Narrative Narrative: Patient presents with nausea, vomiting, and abdominal pain that has been getting worse over the past 3 days. Patient states her pain is over the lower abdomen. Patient describes her pain as stabbing. Patient states the pain is constant. Patient states she is vomiting up stomach contents. Patient denies any hematemesis or coffee-ground emesis. Patient denies any diarrhea, melena, or hematochezia. Patient denies any dysuria or hematuria. Patient admits to subjective chills but denies any fevers. PFSH PFSH no medical history Home Medications dicyclomine 20 mg PO TIDAC #20 capsule 09/23/20 [Rx Last Taken Unknown] omeprazole 20 mg PO DAILY #30 capsule 09/23/20 [Rx Last Taken Unknown] sulfamethoxazole-trimethoprim 1 tablet PO BID #14 tab 09/23/20 [Rx Last Taken Unknown] ondansetron 4 mg PO Q8H PRN PRN #10 tab 11/13/20 [Rx Last Taken Unknown] Allergy/AdvReac Type Severity Reaction Status Date / Time No Known Allergies Allergy Verified 09/23/20 12:14 Family History Father Diabetes Mother Diabetes Surgical History Encounter for prophylactic removal of fallopian tube H/O knee surgery H/O tubal ligation Social History number of children: 2 current occupational status: employed current occupation: [employer] Smoking Status: Never smoker alcohol intake: never substance use type: does not use seatbelt use: sometimes do you feel safe at home: Yes ROS ROS ED Constitutional Constitutional ED: Reports chills and subjective; Denies fever(s) Eyes Eyes: Denies blurry vision or change in vision ENT ENT ED: Denies rhinorrhea or sore throat Cardiovascular Cardiovascular: Denies chest pain or palpitations Respiratory/Chest Respiratory/Chest: Denies cough or dyspnea Gastrointestinal Gastrointestinal: Reports abdominal pain, nausea and vomiting Genitourinary Genitourinary ED: Denies dysuria or hematuria Musculoskeletal Musculoskeletal: Reports back pain; Denies neck pain Integumentary Denies abscess or rash Neurologic Neurologic: Denies headache(s) or weakness Allergic/Immunologic Allergic/Immunologic ED: Denies mouth swelling or urticaria EXAM Physical Exam Const Vital Signs: 11/13/20 17:50 11/13/20 17:52 11/13/20 20:56 Temperature 98.3 F 98.3 F Temperature Source Temporal Temporal Pulse Rate 74 74 68 Respiratory Rate 16 16 14 Blood Pressure 156/89 H 156/89 H 114/78 Blood Pressure Mean 111 111 90 Pulse Ox 98 98 100 Oxygen Delivery Method Room Air Room Air Room Air 11/13/20 23:42 Temperature Temperature Source Pulse Rate 66 Respiratory Rate 14 Blood Pressure Blood Pressure Mean Pulse Ox 99 Oxygen Delivery Method Positive well nourished and well developed General Appearance ED: well developed HEENT normocephalic and atraumatic Neck supple and no JVD Resp normal respiratory effort and clear to auscultation bilaterally Cardio regular rate, regular rhythm and no murmurs Rate: regular rate Rhythm: regular rhythm GI non-distended Auscultation: normoactive bowel sounds Palpation: soft and tender LLQ, RLQ and suprapubic; Negative for guarding or rebound tenderness present Extremity normal to inspection General Extremety ED: Negative for edema or tenderness General Extremity: Negative for edema Neuro oriented x3, CN's II-XII intact bilaterally and no sensory deficits noted Sensorium / Orientation: alert, oriented to person, oriented to place and oriented to time Motor Exam: strength 5/5 throughout Psych mental status grossly normal Skin Rashes: no rashes MDM MDM MDM Narrative Medical decision making narrative: Patient was given IV fluids and Reglan. CBC was within normal limits. Basic metabolic profile showed a hypokalemia of 2.9. Urinalysis showed leukocyte esterase of 500 with 50-100 red blood cells and 50- 100 white blood cells and 5-10 epithelial cells. Since this may be a possible contaminated specimen, urine culture was ordered. Serum hCG was negative. Patient was given oral and IV potassium here. Patient was feeling better on reevaluation. Patient was given a prescription for Zofran. Patient was instructed to start with small amounts of liquids and advance as tolerated. Patient was instructed to follow-up with her primary care physician in 5 to 7 days. Patient understood and was agreeable with the plan. All questions were answered. Lab Data Attestation: I reviewed the patient's lab results. Labs: Laboratory Results - last 24 hr 11/13/20 11/13/20 11/13/20 17:59 20:52 20:52 WBC 11.0 RBC 5.13 Hgb 15.4 H Hct 45.6 MCV 88.9 MCH 30.0 MCHC 33.8 RDW Std Deviation 40.0 RDW Coeff of Robert 12.2 Plt Count 225 MPV 11.9 Immature Gran % (Auto) 0.200 Neut % (Auto) 63.4 Lymph % (Auto) 31.4 [place] % (Auto) 4.6 Eos % (Auto) 0.0 Baso % (Auto) 0.4 Absolute Neuts (auto) 7.0 Absolute Lymphs (auto) 3.45 Nucleated RBC % 0 Sodium 142 Potassium 2.9 L Chloride 106 Carbon Dioxide 22.0 Anion Gap 14 BUN 17 Creatinine 0.85 Estim Creat Clear Calc 75.15 Est GFR (MDRD) Af Amer 99 Est GFR (MDRD) Non-Af 82 BUN/Creatinine Ratio 20.0 Glucose 81 Calcium 9.4 Serum , Qual Urine Color Yellow Urine Clarity Sl. Cloudy Urine pH 6.0 Ur Specific [place] 1.030 Urine Protein 30 H Urine Glucose (UA) Normal Urine Ketones 150 A* Urine Occult Blood 150 H Urine Nitrite Negative Urine Bilirubin Negative Urine Urobilinogen 1 H Ur Leukocyte Esterase 500 H Urine RBC 50-100 SEEN Urine WBC 50-100 SEEN Ur Squamous Epith Cells 5-10 SEEN Amorphous Sediment 1+ URATE Urine Bacteria 1+ Urine Mucus 2+ 11/13/20 20:52 WBC RBC Hgb Hct MCV MCH MCHC RDW Std Deviation RDW Coeff of Robert Plt Count MPV Immature Gran % (Auto) Neut % (Auto) Lymph % (Auto) [place] % (Auto) Eos % (Auto) Baso % (Auto) Absolute Neuts (auto) Absolute Lymphs (auto) Nucleated RBC % Sodium Potassium Chloride Carbon Dioxide Anion Gap BUN Creatinine Estim Creat Clear Calc Est GFR (MDRD) Af Amer Est GFR (MDRD) Non-Af BUN/Creatinine Ratio Glucose Calcium Serum , Qual NEGATIVE Urine Color Urine Clarity Urine pH Ur Specific [place] Urine Protein Urine Glucose (UA) Urine Ketones Urine Occult Blood Urine Nitrite Urine Bilirubin Urine Urobilinogen Ur Leukocyte Esterase Urine RBC Urine WBC Ur Squamous Epith Cells Amorphous Sediment Urine Bacteria Urine Mucus Discharge Plan Triage Chief Complaint: Nausea/Vomiting ED Provider: Kelechi Burton Dx/Rx/DC Orders Clinical Impression: Nausea and vomiting Instructions: ED Vomiting (Adult) Prescriptions: New ondansetron [ondansetron] 4 MG tablet 4 mg PO Q8H PRN PRN (Reason: Nausea) Qty: 10 RF: 0 Discontinued ondansetron 4 MG tablet 4 mg PO Q8H PRN PRN (Reason: Nausea) Qty: 10 RF: 0 No Action omeprazole 20 MG capsule 20 mg PO DAILY Qty: 30 RF: 0 dicyclomine 10 MG capsule 20 mg PO TIDAC Qty: 20 RF: 0 sulfamethoxazole-trimethoprim 1 TABLET tablet 1 tablet PO BID Qty: 14 RF: 0 Stand Alone Forms: ED Work / School Excuse Primary Care Provider: Care Physician,No Primary Referrals: Isamar Torres MD [STAFF PHYSICIAN] - 5-7 Days Care Physician,No Primary [Primary Care Provider] - Disposition Disposition: Home, self care Discharge Date/Time: 11/13/20 23:43
== END 2020-11-13 23:43 | disposition home or self-care (01) ==
PROVIDERS: Emergency Provider Emergency Medicine
DX: R11.2 Nausea with vomiting, unspecified (principal)
CPT/HCPCS: 80048; 81001; 84703; 85025; 96361; 96365; 96375; 99285; J7030; A4216

== ENCOUNTER 2021-03-03 09:28 | Emergency (ER) | payer MEDICAID, SELFPAY ==
[2021-03-03 09:29] VITALS: BP 109/85; PULSE 74; RESP 14; TEMP 36.5; BMI 33.5
--- NOTE | 2021-03-03 09:54 | EDS_ITS ---
HPI HPI - Female History of Present Illness Chief Complaint: Vag Bleeding Informant: patient Narrative Narrative: Patient presents with some nausea vomiting and small amount of vaginal bleeding. She states nausea and vomiting is a common issue she has. She does have Phenergan and Zofran at home that she takes. This has been a chronic recurrent problem. It started again on Monday. She really did not think much about it because it so common. However, today she feels a little bit of suprapubic discomfort. She wiped after urinating and noted a small amount of vaginal blood. She states the blood was not in the urine. It was vaginal. It was only a small amount on the tissue. No clots. This is markedly less than a normal menstrual cycle. Patient has been on Depo for 3 years. Her last shot was 1 month ago. She has also had a bilateral tubal ligation. She also had one tube removed because of an ectopic after her tubal ligation. No fevers or chills. No pain upper abdomen. No back or flank pain. No history of kidney stones. Nothing really changes her symptoms. PFSH PFSH Home Medications naproxen 500 mg PO BID #14 tab 03/03/21 [Rx Last Taken Unknown] Allergy/AdvReac Type Severity Reaction Status Date / Time No Known Allergies Allergy Verified 03/03/21 09:32 Family History Father Diabetes Mother Diabetes Surgical History Encounter for prophylactic removal of fallopian tube H/O knee surgery H/O tubal ligation Social History number of children: 2 current occupational status: employed current occupation: [employer] Smoking Status: Never smoker alcohol intake: never substance use type: does not use seatbelt use: sometimes do you feel safe at home: Yes ROS ROS ED Constitutional Constitutional ED: Denies chills or fever(s) Eyes Eyes: Denies blurry vision ENT ENT ED: Denies rhinorrhea or sore throat Cardiovascular Cardiovascular: Denies chest pain Respiratory/Chest Respiratory/Chest: Denies cough or dyspnea Gastrointestinal Gastrointestinal: Reports abdominal pain, nausea and vomiting; Denies constipation, diarrhea or melena Genitourinary Genitourinary ED: Reports urinary frequency and other Details: See history of present illness. ; Denies dysuria or hematuria Musculoskeletal Musculoskeletal: Denies arthralgias or myalgias Integumentary Denies rash Neurologic Neurologic: Denies headache(s) Endocrine Endocrinology: Denies polydipsia or polyuria Hematologic/Lymphatic Hematologic/Lymphatic: Denies easy bruising Allergic/Immunologic Allergic/Immunologic ED: Denies urticaria EXAM Physical Exam Const Vital Signs: 03/03/21 09:29 03/03/21 11:29 Temperature 97.7 F L Temperature Source Temporal Pulse Rate 74 Respiratory Rate 14 14 Blood Pressure 109/85 H Blood Pressure Mean 93 Positive well nourished and well developed General Appearance ED: well developed and NAD; Negative for pallor HEENT Reports moist mucous membranes Negative for trauma Eyes General Eye ED: Negative for pale conjunctiva Neck no JVD Chest Wall inspection of chest normal Resp normal respiratory effort and clear to auscultation bilaterally Auscultation: Negative for rales, rhonchi or wheezes Cardio regular rate and regular rhythm GI normal to inspection, nondistended, normoactive bowel sounds, soft to palpation and non-distended GI Narrative: There is very mild suprapubic tenderness. No rebound or guarding. No tenderness in left or right side. no CVA tenderness Back/Spine no CVA tenderness Extremity normal to inspection Neuro Sensorium / Orientation: alert Psych mental status grossly normal Skin no rashes or lesions noted and no wounds General Skin Exam: Negative for jaundice or pallor MDM MDM MDM Narrative Medical decision making narrative: Patient's white count is normal. Hemoglobin slightly high. Electrolytes are unremarkable other than mildly low potassium. Urine shows 5-10 white cells but also 0-5 squamous epithelial cells. But she is not having dysuria. Nitrites are negative. The urine is clear. We will send this off to a culture rather than treated. is negative. Ultrasound showed no acute process. Patient would like to go. She is feeling better. I will get her home on nonsteroidals. I explained that she could get a call in the next few days if her urine culture shows positive. She is comfortable with this plan. Lab Data Attestation: I reviewed the patient's lab results. Labs: Laboratory Results - last 24 hr 03/03/21 03/03/21 03/03/21 10:00 11:00 11:00 WBC 10.3 RBC 5.19 Hgb 15.4 H Hct 46.2 MCV 89.0 MCH 29.7 MCHC 33.3 RDW Std Deviation 39.3 RDW Coeff of Robert 12.0 Plt Count 210 MPV 11.5 Immature Gran % (Auto) 0.600 Neut % (Auto) 55.7 Lymph % (Auto) 36.8 [place] % (Auto) 5.3 Eos % (Auto) 1.0 Baso % (Auto) 0.6 Absolute Neuts (auto) 5.8 Absolute Lymphs (auto) 3.79 Nucleated RBC % 0 Sodium 137 Potassium 3.3 L Chloride 103 Carbon Dioxide 24.0 Anion Gap 10 BUN 15 Creatinine 0.76 Estim Creat Clear Calc 83.27 Est GFR (MDRD) Af Amer 112 Est GFR (MDRD) Non-Af 93 BUN/Creatinine Ratio 19.7 Glucose 83 Calcium 9.0 Serum , Qual Urine Color Yellow Urine Clarity Clear Urine pH 5.0 Ur Specific [place] 1.020 Urine Protein 30 H Urine Glucose (UA) Normal Urine Ketones 150 A* Urine Occult Blood 150 H Urine Nitrite Negative Urine Bilirubin Negative Urine Urobilinogen 1 H Ur Leukocyte Esterase 500 H Urine RBC 0 SEEN Urine WBC 5-10 SEEN Ur Squamous Epith Cells 0-5 SEEN Urine Bacteria 0 SEEN Urine Mucus 0 SEEN 03/03/21 11:00 WBC RBC Hgb Hct MCV MCH MCHC RDW Std Deviation RDW Coeff of Robert Plt Count MPV Immature Gran % (Auto) Neut % (Auto) Lymph % (Auto) [place] % (Auto) Eos % (Auto) Baso % (Auto) Absolute Neuts (auto) Absolute Lymphs (auto) Nucleated RBC % Sodium Potassium Chloride Carbon Dioxide Anion Gap BUN Creatinine Estim Creat Clear Calc Est GFR (MDRD) Af Amer Est GFR (MDRD) Non-Af BUN/Creatinine Ratio Glucose Calcium Serum , Qual NEGATIVE Urine Color Urine Clarity Urine pH Ur Specific [place] Urine Protein Urine Glucose (UA) Urine Ketones Urine Occult Blood Urine Nitrite Urine Bilirubin Urine Urobilinogen Ur Leukocyte Esterase Urine RBC Urine WBC Ur Squamous Epith Cells Urine Bacteria Urine Mucus Radiography Diagnostic Testing: Radiology Impression Transvaginal US 03/03/21 09:54 IMPRESSION: Normal female pelvis. Electronically Signed: Adan Acosta MD at 12:55 EDT , Service support , Discharge Plan Triage Chief Complaint: Vag Bleeding ED Provider: Fernando Souza Dx/Rx/DC Orders Clinical Impression: Nausea and vomiting, Vaginal spotting Instructions: ED Dysfunctional Uterine Bleeding, ED Vomiting (Adult) Prescriptions: New naproxen 500 MG tablet 500 mg PO BID Qty: 14 RF: 0 Primary Care Provider: Care Physician,No Primary Referrals: Fast,Zuri, DO [NON-STAFF] - 3-5 Days if not improving Care Physician,No Primary [Primary Care Provider] - Disposition Disposition: Home, Self Care
--- NOTE | 2021-03-03 09:54 | US_ITS ---
STUDY: ULTRASOUND OF THE FEMALE PELVIS - COMPLETE REASON FOR EXAM: Female, 35 years old. Pelvic pain, bleeding LMP: Unknown. TECHNIQUE: Transvaginal TECHNICAL QUALITY: Adequate. COMPARISON: Comparison is made with prior study dated 08/27/2019. FINDINGS: The uterus is retroverted and is in a midline position. The uterus measures 7.4 cm x 4.9 cm x 3.7 cm. There is a Nabothian cyst of the cervix. The endometrium measures 4.8 mm in thickness, and is heterogeneous (striated). There is no demonstrated endometrial mass. Heterogeneous echotexture of the myometrium although no focal fibroid is seen I.U.D. - The patient does not have an I.U.D. The right ovary is visualized. The right ovary measures 3 cm x 1.9 cm x 2 cm. There is no right ovarian cyst or ovarian mass. There is no visualized right adnexal mass or complex lesion. There is normal arterial and normal venous vascularity. The left ovary is visualized. The left ovary measures 2.5 cm x 2.8 x 1.5 cm. There is no left ovarian cyst or ovarian mass. There is no visualized left adnexal mass or complex lesion. There is normal arterial and normal venous vascularity. There is no fluid in the cul-de-sac. US/Transvaginal Non- IMPRESSION: Normal female pelvis. Electronically Signed: Adan Acosta MD at 12:55 EDT , Service support ,
[2021-03-03 10:08] LABS: Bacteria 0 SEEN /hpf (None Seen); Mucous, Urine 0 SEEN /hpf (<or=2+); Red Blood Cells-Urine 0 SEEN /hpf (0-5)
[2021-03-03 10:15] LABS: Color, Urine Yellow (Yellow); Glucose, Dipstick Normal (Normal); Leukocyte Esterase-Dipstick 500 /ul (Negative); Nitrite-Dipstick Negative (Negative); Occult Blood-Urine 150 /ul (Negative); Protein-Dipstick 30 mg/dl (Negative); Urine Bilirubin Dipstick Negative (Negative); Urine Clarity Clear (Clear); Urine Urobilinogen 1 mg/dl (Normal)
[2021-03-03 10:20] LABS: Ketone-Dipstick 150 mg/dl (Negative)
[2021-03-03 10:25] LABS: Squamous Epithelial Cells - UA 0-5 SEEN /hpf (5-10); White Blood Cells 5-10 SEEN /hpf (0-5)
[2021-03-03] MEDS: Ketorolac 15 MG/ML Vial IV (11:07)
[2021-03-03] MEDS: Ondansetron 4 MG/2 ML Vial IV (11:07)
[2021-03-03] MEDS: 0.9% Normal Saline 1,000 ML 1000 ML IV (11:07)
[2021-03-03 11:14] LABS: Absolute Lymphocyte Count 3.79 X10^3/uL (0.83-4.51); Absolute Neutrophil Count 5.8 X10^3/uL (2.0-7.7); Basophil# 0.06 X10^3/uL; Basophil% 0.6 % (0-1); Hematocrit 46.2 % (37-47); Hemoglobin 15.4 g/dL (12.0-15.0); Lymphocyte # 3.79 X10^3/ul (0.83-4.51); Lymphocyte % 36.8 % (19-41); Mean Corp Hgb Conc 33.3 g/dL (32-36); Mean Corpuscular Hgb 29.7 pg (27.0-32.0); Mean Platelet Vol. 11.5 fl (6.2-12.0); Monocyte# 0.55 X10^3/uL; Monocyte% 5.3 % (0-10); NRBC Flagged by Analyzer 0 % (0-5); Neutrophil # 5.75 X10^3/uL (2.7-7.7); Neutrophil % 55.7 % (47-70); Platelet Count 210 K/mm3 (150-450); RBC Distribution Width SD 39.3 fl (35.1-43.9); Red Blood Count 5.19 M/mm3 (4.2-5.4); White Blood Count 10.3 K/mm3 (4.4-11.0)
[2021-03-03 11:23] LABS: Internal QC Validated? YES +Cl - CLEAR BKGD
[2021-03-03 11:26] LABS: Pregnancy, Serum, hCG Quali. NEGATIVE Negative
[2021-03-03 11:29] VITALS: RESP 14
[2021-03-03 11:29] LABS: Anion Gap 10 (5-15); BUN 15 mg/dL (7-18); BUN/Creat Ratio 19.7 RATIO (10-20); Chloride 103 mmol/L (98-107); Creatinine, Serum 0.76 mg/dL (0.55-1.02); EST Glomerular Filtration Rate 93 mL/min (>60); Est Glom Filt Rate - Afr Amer 112 mL/min (>60); Estimated Creatinine Clearance 83.27 ml/min; Glucose 83 mg/dL (74-106); Potassium 3.3 mmol/L (3.5-5.1); Sodium Level 137 mmol/L (136-145)
[2021-03-03 14:38] VITALS: RESP 16
== END 2021-03-03 14:38 | disposition home or self-care (01) ==
PROVIDERS: Emergency Provider Emergency Medicine
DX: N93.9 Abnormal uterine and vaginal bleeding, unspecified (principal); R11.2 Nausea with vomiting, unspecified
CPT/HCPCS: 76830; 80048; 81001; 84703; 85025; 87086; 87088; 93976; 96361; 96374; 96375; 99285; J7030; J2405

== ENCOUNTER 2021-05-08 15:47 | Emergency (ER) | payer MEDICAID, SELFPAY ==
[2021-05-08 15:48] VITALS: BP 115/66; PULSE 93; RESP 18; TEMP 36.4; O2SAT 99; BMI 32.5
--- NOTE | 2021-05-08 16:13 | EX.ED.DYSGE1 ---
HPI <Dr. Ericka Cain MD - Last Filed: 05/08/21 18:23> History of Present Illness Chief Complaint: Nausea/Vomiting/Diarrhea Informant: patient Narrative Narrative: 35-year-old female presenting with nausea, vomiting, diarrhea. She states she has had vomiting for the past several days. She states she initially had diarrhea but that has now improved. Denies blood in her stool or emesis. She has mild lower abdominal cramping. Denies possibility of . Denies urinary complaints. Denies fever. Denies sick contacts. Prior similar symptoms: Yes Recent Illness/Hospitalization: No PFSH <Dr. Ericka Cain MD - Last Filed: 05/08/21 18:23> PFSH Home Medications naproxen 500 mg PO BID #14 tab 03/03/21 [Rx Last Taken Unknown] cephalexin 500 mg PO Q12 #14 capsule 05/08/21 [Rx Last Taken Unknown] ondansetron HCl [Zofran] 4 mg PO Q8H PRN #20 tab 05/08/21 [Rx Last Taken Unknown] Allergy/AdvReac Type Severity Reaction Status Date / Time No Known Allergies Allergy Verified 05/08/21 15:49 Family History Father Diabetes Mother Diabetes Surgical History (Updated 05/08/21 @ 16:55 by Chandler Chang) Encounter for prophylactic removal of fallopian tube H/O knee surgery H/O tubal ligation Social History number of children: 2 current occupational status: employed current occupation: [employer] Smoking Status: Never smoker alcohol intake: never substance use type: does not use seatbelt use: sometimes do you feel safe at home: Yes ROS <Dr. Ericka Cain MD - Last Filed: 05/08/21 18:23> ROS ED Constitutional Constitutional ED: Denies fever(s) ENT ENT ED: Denies rhinorrhea or sore throat Cardiovascular Cardiovascular: Denies chest pain or palpitations Respiratory/Chest Respiratory/Chest: Denies cough or dyspnea Gastrointestinal Gastrointestinal: Reports abdominal pain, diarrhea, nausea and vomiting Genitourinary Genitourinary ED: Denies dysuria Musculoskeletal Musculoskeletal: Denies myalgias Integumentary Denies rash Neurologic Neurologic: Denies headache(s) EXAM <Dr. Ericka Cain MD - Last Filed: 05/08/21 18:23> Physical Exam Const Vital Signs: 05/08/21 15:48 Temperature 97.5 F L Temperature Source Temporal Pulse Rate 93 Respiratory Rate 18 Blood Pressure 115/66 Blood Pressure Mean 82 Pulse Ox 99 Oxygen Delivery Method Room Air Positive well nourished and well developed General Appearance ED: well developed HEENT Reports normocephalic and head/scalp atraumatic Eyes PERRL and EOMs intact bilaterally Neck supple General: Negative for tenderness Chest Wall inspection of chest normal Resp normal respiratory effort and clear to auscultation bilaterally Cardio regular rate and regular rhythm GI non-tender and non-distended Palpation: soft; Negative for guarding or rebound tenderness present no CVA tenderness Extremity normal to inspection Neuro oriented x3 Sensorium / Orientation: alert Psych mental status grossly normal <Dr. Mariah Machado MD - Last Filed: 05/08/21 17:55> Physical Exam Const Vital Signs: 05/08/21 15:48 Temperature 97.5 F L Temperature Source Temporal Pulse Rate 93 Respiratory Rate 18 Blood Pressure 115/66 Blood Pressure Mean 82 Pulse Ox 99 Oxygen Delivery Method Room Air MDM <Dr. Ericka Cain MD - Last Filed: 05/08/21 18:23> MDM MDM Narrative Medical decision making narrative: Patient was given IV fluids, Zofran. Labs were reviewed. Urinalysis shows 25-50 white blood cells. She was given Keflex. Patient continues to have nausea and was given Reglan with improvement. She admits to marijuana use and is advised to discontinue use of marijuana. She is feeling improved. She is given prescription for Zofran. She is given Dr. Colby economic developer for no doctor for follow-up. Advised return to ED for worsening complaints. Lab Data Attestation: I reviewed the patient's lab results. Labs: Laboratory Results - last 24 hr 05/08/21 05/08/21 05/08/21 16:26 16:26 16:26 WBC 9.6 RBC 5.14 Hgb 15.2 H Hct 43.8 MCV 85.2 MCH 29.6 MCHC 34.7 RDW Std Deviation 35.8 RDW Coeff of Robert 11.6 Plt Count 205 MPV 11.3 Immature Gran % (Auto) 0.400 Neut % (Auto) 63.7 Lymph % (Auto) 31.8 [place] % (Auto) 3.5 Eos % (Auto) 0.3 Baso % (Auto) 0.3 Absolute Neuts (auto) 6.1 Absolute Lymphs (auto) 3.07 Nucleated RBC % 0 Sodium 139 Potassium 3.2 L Chloride 105 Carbon Dioxide 26.0 Anion Gap 8 BUN 13 Creatinine 0.83 Estim Creat Clear Calc 76.25 Est GFR (MDRD) Af Amer 101 Est GFR (MDRD) Non-Af 84 BUN/Creatinine Ratio 15.6 Glucose 100 Calcium 9.0 Total Bilirubin 0.40 AST 13 L ALT 17 Alkaline Phosphatase 65 Total Protein 7.6 Albumin 3.6 Globulin 4.0 Albumin/Globulin Ratio 0.9 Lipase 52 L Serum , Qual NEGATIVE Urine Color Urine Clarity Urine pH Ur Specific [place] Urine Protein Urine Glucose (UA) Urine Ketones Urine Occult Blood Urine Nitrite Urine Bilirubin Urine Urobilinogen Ur Leukocyte Esterase Urine RBC Urine WBC Ur Squamous Epith Cells Ur Transition Epith Cell Amorphous Sediment Urine Bacteria Urine Mucus 05/08/21 16:36 WBC RBC Hgb Hct MCV MCH MCHC RDW Std Deviation RDW Coeff of Robert Plt Count MPV Immature Gran % (Auto) Neut % (Auto) Lymph % (Auto) [place] % (Auto) Eos % (Auto) Baso % (Auto) Absolute Neuts (auto) Absolute Lymphs (auto) Nucleated RBC % Sodium Potassium Chloride Carbon Dioxide Anion Gap BUN Creatinine Estim Creat Clear Calc Est GFR (MDRD) Af Amer Est GFR (MDRD) Non-Af BUN/Creatinine Ratio Glucose Calcium Total Bilirubin AST ALT Alkaline Phosphatase Total Protein Albumin Globulin Albumin/Globulin Ratio Lipase Serum , Qual Urine Color Yellow Urine Clarity Sl. Cloudy Urine pH 6.0 Ur Specific [place] 1.020 Urine Protein 30 H Urine Glucose (UA) Normal Urine Ketones 5 H Urine Occult Blood 10 H Urine Nitrite Negative Urine Bilirubin Negative Urine Urobilinogen Normal Ur Leukocyte Esterase 500 H Urine RBC 0-5 SEEN Urine WBC 25-50 SEEN Ur Squamous Epith Cells 5-10 SEEN Ur Transition Epith Cell 0-5 SEEN Amorphous Sediment 1+ URATE Urine Bacteria 0 SEEN Urine Mucus 3+ <Dr. Mariah Machado MD - Last Filed: 05/08/21 17:55> [facility] Lab Data Labs: Laboratory Results - last 24 hr 05/08/21 05/08/21 05/08/21 16:26 16:26 16:26 WBC 9.6 RBC 5.14 Hgb 15.2 H Hct 43.8 MCV 85.2 MCH 29.6 MCHC 34.7 RDW Std Deviation 35.8 RDW Coeff of Robert 11.6 Plt Count 205 MPV 11.3 Immature Gran % (Auto) 0.400 Neut % (Auto) 63.7 Lymph % (Auto) 31.8 [place] % (Auto) 3.5 Eos % (Auto) 0.3 Baso % (Auto) 0.3 Absolute Neuts (auto) 6.1 Absolute Lymphs (auto) 3.07 Nucleated RBC % 0 Sodium 139 Potassium 3.2 L Chloride 105 Carbon Dioxide 26.0 Anion Gap 8 BUN 13 Creatinine 0.83 Estim Creat Clear Calc 76.25 Est GFR (MDRD) Af Amer 101 Est GFR (MDRD) Non-Af 84 BUN/Creatinine Ratio 15.6 Glucose 100 Calcium 9.0 Total Bilirubin 0.40 AST 13 L ALT 17 Alkaline Phosphatase 65 Total Protein 7.6 Albumin 3.6 Globulin 4.0 Albumin/Globulin Ratio 0.9 Lipase 52 L Serum , Qual NEGATIVE Urine Color Urine Clarity Urine pH Ur Specific [place] Urine Protein Urine Glucose (UA) Urine Ketones Urine Occult Blood Urine Nitrite Urine Bilirubin Urine Urobilinogen Ur Leukocyte Esterase Urine RBC Urine WBC Ur Squamous Epith Cells Ur Transition Epith Cell Amorphous Sediment Urine Bacteria Urine Mucus 05/08/21 16:36 WBC RBC Hgb Hct MCV MCH MCHC RDW Std Deviation RDW Coeff of Robert Plt Count MPV Immature Gran % (Auto) Neut % (Auto) Lymph % (Auto) [place] % (Auto) Eos % (Auto) Baso % (Auto) Absolute Neuts (auto) Absolute Lymphs (auto) Nucleated RBC % Sodium Potassium Chloride Carbon Dioxide Anion Gap BUN Creatinine Estim Creat Clear Calc Est GFR (MDRD) Af Amer Est GFR (MDRD) Non-Af BUN/Creatinine Ratio Glucose Calcium Total Bilirubin AST ALT Alkaline Phosphatase Total Protein Albumin Globulin Albumin/Globulin Ratio Lipase Serum , Qual Urine Color Yellow Urine Clarity Sl. Cloudy Urine pH 6.0 Ur Specific [place] 1.020 Urine Protein 30 H Urine Glucose (UA) Normal Urine Ketones 5 H Urine Occult Blood 10 H Urine Nitrite Negative Urine Bilirubin Negative Urine Urobilinogen Normal Ur Leukocyte Esterase 500 H Urine RBC 0-5 SEEN Urine WBC 25-50 SEEN Ur Squamous Epith Cells 5-10 SEEN Ur Transition Epith Cell 0-5 SEEN Amorphous Sediment 1+ URATE Urine Bacteria 0 SEEN Urine Mucus 3+ Discharge Plan Triage Chief Complaint: Nausea/Vomiting/Diarrhea ED Provider: Ericka Cain Dx/Rx/DC Orders Clinical Impression: Nausea and vomiting Instructions: ED Vomiting (Adult) Prescriptions: New ondansetron HCl [Zofran] 4 mg tablet 4 mg PO Q8H PRN (Reason: nausea and vomiting) Qty: 20 RF: 0 cephalexin 500 mg capsule 500 mg PO Q12 Qty: 14 RF: 0 No Action naproxen 500 MG tablet 500 mg PO BID Qty: 14 RF: 0 Primary Care Provider: Care Physician,No Primary Referrals: Darwin Colby, [NON-STAFF] - Care Physician,No Primary [Primary Care Provider] - Disposition Disposition: Home, Self Care
[2021-05-08 16:33] LABS: Absolute Lymphocyte Count 3.07 X10^3/uL (0.83-4.51); Absolute Neutrophil Count 6.1 X10^3/uL (2.0-7.7); Basophil# 0.03 X10^3/uL; Basophil% 0.3 % (0-1); Eosinophil# 0.03 X10^3/uL; Eosinophils% 0.3 % (0-5); Hematocrit 43.8 % (37-47); Hemoglobin 15.2 g/dL (12.0-15.0); Lymphocyte # 3.07 X10^3/ul (0.83-4.51); Lymphocyte % 31.8 % (19-41); Mean Corp Hgb Conc 34.7 g/dL (32-36); Mean Corpuscular Hgb 29.6 pg (27.0-32.0); Mean Corpuscular Volume 85.2 fL (81-99); Mean Platelet Vol. 11.3 fl (6.2-12.0); Monocyte# 0.34 X10^3/uL; Monocyte% 3.5 % (0-10); NRBC Flagged by Analyzer 0 % (0-5); Neutrophil # 6.13 X10^3/uL (2.7-7.7); Neutrophil % 63.7 % (47-70); Platelet Count 205 K/mm3 (150-450); RBC Distribution Width CV 11.6 % (11.6-14.6); RBC Distribution Width SD 35.8 fl (35.1-43.9); Red Blood Count 5.14 M/mm3 (4.2-5.4); White Blood Count 9.6 K/mm3 (4.4-11.0)
[2021-05-08] MEDS: 0.9% Normal Saline 1,000 ML 1000 ML IV (16:36)
[2021-05-08] MEDS: Ondansetron 4 MG/2 ML Vial IV (16:36)
[2021-05-08 16:45] LABS: Bacteria 0 SEEN /hpf (None Seen)
[2021-05-08 16:47] LABS: Color, Urine Yellow (Yellow); Glucose, Dipstick Normal (Normal); Ketone-Dipstick 5 mg/dl (Negative); Leukocyte Esterase-Dipstick 500 /ul (Negative); Nitrite-Dipstick Negative (Negative); Occult Blood-Urine 10 /ul (Negative); Protein-Dipstick 30 mg/dl (Negative); Urine Bilirubin Dipstick Negative (Negative); Urine Clarity Sl. Cloudy (Clear); Urine Urobilinogen Normal (Normal)
[2021-05-08 16:49] LABS: Internal QC Validated? YES +Cl - CLEAR BKGD
[2021-05-08 16:50] LABS: Pregnancy, Serum, hCG Quali. NEGATIVE Negative
[2021-05-08 16:51] LABS: ALB/GLOB Ratio 0.9 RATIO (0.9-2.4); AST(SGOT) 13 U/L (15-37); Alanine Aminotransfer ALT/SGPT 17 U/L (13-56); Albumin, Serum 3.6 g/dL (3.2-5.0); Alkaline Phosphatase 65 U/L (45-117); Anion Gap 8 (5-15); BUN 13 mg/dL (7-18); BUN/Creat Ratio 15.6 RATIO (10-20); Chloride 105 mmol/L (98-107); Creatinine, Serum 0.83 mg/dL (0.55-1.02); EST Glomerular Filtration Rate 84 mL/min (>60); Est Glom Filt Rate - Afr Amer 101 mL/min (>60); Estimated Creatinine Clearance 76.25 ml/min; Glucose 100 mg/dL (74-106); Lipase 52 U/L (73-393); Potassium 3.2 mmol/L (3.5-5.1); Protein, Total 7.6 g/dL (6.4-8.2); Sodium Level 139 mmol/L (136-145)
[2021-05-08 16:57] LABS: Red Blood Cells-Urine 0-5 SEEN /hpf (0-5); Squamous Epithelial Cells - UA 5-10 SEEN /hpf (5-10); Transitional Epithelial - Ur 0-5 SEEN /hpf (0-5); White Blood Cells 25-50 SEEN /hpf (0-5)
[2021-05-08 16:58] LABS: Amorphous Sediment 1+ URATE; Mucous, Urine 3+ /hpf (<or=2+)
[2021-05-08] MEDS: Metoclopramide 10 MG/2 ML Vial 5 MG IV (18:04)
[2021-05-08 19:04] VITALS: BP 127/74; PULSE 94; RESP 16; O2SAT 98
== END 2021-05-08 19:05 | disposition home or self-care (01) ==
PROVIDERS: Emergency Provider Emergency Medicine
DX: R11.2 Nausea with vomiting, unspecified (principal); R19.7 Diarrhea, unspecified
CPT/HCPCS: 80053; 81001; 83690; 84703; 85025; 87426; 96361; 96374; 96375; 99282; J7030; A4216; J2405

== ENCOUNTER 2021-09-05 13:03 | Emergency (ER) | payer MEDICAID, SELFPAY ==
[2021-09-05 13:04] VITALS: BP 123/94; PULSE 71; RESP 18; TEMP 36.6; O2SAT 100; BMI 28.3
--- NOTE | 2021-09-05 13:17 | EX.ED.DYSGE1 ---
HPI History of Present Illness Chief Complaint: Nausea/Vomiting Informant: patient Narrative Narrative: Patient presents with nausea vomiting abdominal cramping. She has had this off and on for years. She does not know what causes it. She states it has been recommended that she sees a prepleater but never has. She has not had colonoscopy or EGD. Her only medication is Depo shot which she is not due for until 28 September. She is not having any dysuria or urinary symptoms. She has no vaginal discharge or bleeding. She has no diarrhea. Her symptoms started Monday. But then Monday they started to improve. She kind got better Monday although had occasional episodes of nausea and vomiting. It came back worse it about 430 this morning. No blood in the vomitus. Nothing really makes it better or worse. She has had tubal ligation and one tube removal. She still has gallbladder and appendix. PFSH PFSH Home Medications NK 09/05/21 [History Last Taken Unknown] metoclopramide HCl [Reglan] 10 mg PO Q6H PRN #14 tab 09/05/21 [Rx Last Taken Unknown] ondansetron 4 mg PO Q8H PRN #10 tab 09/05/21 [Rx Last Taken Unknown] Allergy/AdvReac Type Severity Reaction Status Date / Time No Known Allergies Allergy Verified 09/05/21 13:06 Family History Father Diabetes Mother Diabetes Surgical History Encounter for prophylactic removal of fallopian tube H/O knee surgery H/O tubal ligation Social History number of children: 2 current occupational status: employed current occupation: [employer] Smoking Status: Never smoker alcohol intake: never substance use type: does not use seatbelt use: sometimes do you feel safe at home: Yes ROS ROS ED Constitutional Constitutional ED: Denies chills or fever(s) Eyes Eyes: Denies blurry vision ENT ENT ED: Denies rhinorrhea or sore throat Cardiovascular Cardiovascular: Denies chest pain Respiratory/Chest Respiratory/Chest: Denies cough or dyspnea Gastrointestinal Gastrointestinal: Reports abdominal pain, nausea and vomiting; Denies constipation, diarrhea or melena Genitourinary Genitourinary ED: Denies dysuria, hematuria or urinary frequency Musculoskeletal Musculoskeletal: Denies arthralgias, back pain or myalgias Integumentary Denies rash Neurologic Neurologic: Denies headache(s), paresthesias or weakness Endocrine Endocrinology: Denies polydipsia or polyuria Allergic/Immunologic Allergic/Immunologic ED: Denies urticaria EXAM Physical Exam Const Vital Signs: 09/05/21 13:04 09/05/21 15:29 Temperature 97.9 F Temperature Source Temporal Pulse Rate 71 70 Respiratory Rate 18 15 Blood Pressure 123/94 H 123/75 H Blood Pressure Mean 103 91 Pulse Ox 100 98 Oxygen Delivery Method Room Air Room Air Positive well nourished and well developed General Appearance ED: well developed and NAD HEENT Reports dry mucous membranes Mouth ED: Yes dry mucous membranes Mouth: dry mucous membranes Eyes General Eye ED: Negative for pale conjunctiva or scleral icterus Neck no JVD Chest Wall inspection of chest normal Resp normal respiratory effort and clear to auscultation bilaterally Cardio regular rate and regular rhythm GI normal to inspection, nondistended, normoactive bowel sounds GI Narrative: Mild nonfocal tenderness but no rebound or guarding. She is able to talk and answer questions throughout exam. No masses. Palpation: soft Back/Spine no CVA tenderness Extremity normal to inspection General Extremety ED: Negative for edema General Extremity: Negative for edema Neuro oriented x3 Sensorium / Orientation: alert Psych mental status grossly normal Skin no rashes or lesions noted MDM MDM MDM Narrative Medical decision making narrative: Patient CBC is normal other than mild hemoconcentration. Electrolytes show minimal decrease potassium. This should self correct with diet. Liver function test lipase is normal. is negative. Urine shows a few white cells but this is typical for her. She always has a few white cells. She has no symptoms at all of UTI. Tox is positive for cannabis. We did discuss with her that regular cannabis use can cause this. She denies that this is the source on her. Patient we talked about medications. She states Zofran works a little bit but not well. Reglan does work better. I will give her a dose of Reglan here as well as some ago. We discussed reasons to return and follow-up. I will refer her to GI. Lab Data Attestation: I reviewed the patient's lab results. Labs: Laboratory Results - last 24 hr 09/05/21 09/05/21 09/05/21 13:50 13:50 13:50 WBC 10.5 RBC 5.19 Hgb 15.7 H Hct 43.7 MCV 84.2 MCH 30.3 MCHC 35.9 RDW Std Deviation 36.1 RDW Coeff of Robert 11.9 Plt Count 219 MPV 11.3 Immature Gran % (Auto) 0.400 Neut % (Auto) 81.5 H Lymph % (Auto) 15.7 L [place] % (Auto) 2.1 Eos % (Auto) 0.0 Baso % (Auto) 0.3 Absolute Neuts (auto) 8.6 H Absolute Lymphs (auto) 1.65 Nucleated RBC % 0 Sodium 138 Potassium 3.1 L Chloride 105 Carbon Dioxide 21.0 Anion Gap 12 BUN 17 Creatinine 0.87 Estim Creat Clear Calc 72.74 Est GFR (MDRD) Af Amer 96 Est GFR (MDRD) Non-Af 79 BUN/Creatinine Ratio 19.5 Glucose 107 H Calcium 9.4 Total Bilirubin 0.60 AST 13 L ALT 18 Alkaline Phosphatase 63 Total Protein 7.8 Albumin 4.2 Globulin 3.6 Albumin/Globulin Ratio 1.2 Lipase 51 L Serum , Qual NEGATIVE Urine Color Urine Clarity Urine pH Ur Specific [place] Urine Protein Urine Glucose (UA) Urine Ketones Urine Occult Blood Urine Nitrite Urine Bilirubin Urine Urobilinogen Ur Leukocyte Esterase Urine RBC Urine WBC Ur Squamous Epith Cells Urine Bacteria Urine Mucus Urine Opiates Screen Urine Methadone Screen Ur Barbiturates Screen Ur Phencyclidine Scrn Ur Amphetamines Screen MDMA (Ecstasy) Screen U Benzodiazepines Scrn Urine Cocaine Screen U Cannabinoids Screen Ur Drug Screen Comment 09/05/21 09/05/21 15:00 15:00 WBC RBC Hgb Hct MCV MCH MCHC RDW Std Deviation RDW Coeff of Robert Plt Count MPV Immature Gran % (Auto) Neut % (Auto) Lymph % (Auto) [place] % (Auto) Eos % (Auto) Baso % (Auto) Absolute Neuts (auto) Absolute Lymphs (auto) Nucleated RBC % Sodium Potassium Chloride Carbon Dioxide Anion Gap BUN Creatinine Estim Creat Clear Calc Est GFR (MDRD) Af Amer Est GFR (MDRD) Non-Af BUN/Creatinine Ratio Glucose Calcium Total Bilirubin AST ALT Alkaline Phosphatase Total Protein Albumin Globulin Albumin/Globulin Ratio Lipase Serum , Qual Urine Color Yellow Urine Clarity Clear Urine pH 6.0 Ur Specific [place] 1.020 Urine Protein 30 H Urine Glucose (UA) Normal Urine Ketones 150 A* Urine Occult Blood 10 H Urine Nitrite Negative Urine Bilirubin Negative Urine Urobilinogen 1 H Ur Leukocyte Esterase 100 H Urine RBC 0-5 SEEN Urine WBC 10-25 SEEN Ur Squamous Epith Cells 0-5 SEEN Urine Bacteria RARE Urine Mucus 0 SEEN Urine Opiates Screen NEGATIVE Urine Methadone Screen NEGATIVE Ur Barbiturates Screen NEGATIVE Ur Phencyclidine Scrn NEGATIVE Ur Amphetamines Screen NEGATIVE MDMA (Ecstasy) Screen NEGATIVE U Benzodiazepines Scrn NEGATIVE Urine Cocaine Screen NEGATIVE U Cannabinoids Screen POSITIVE H Ur Drug Screen Comment Discharge Plan Triage Chief Complaint: Nausea/Vomiting ED Provider: Fernando Souza Dx/Rx/DC Orders Clinical Impression: Cyclic vomiting syndrome Instructions: ED Vomiting (Adult) Prescriptions: New ondansetron 4 mg tablet,disintegrating 4 mg PO Q8H PRN (Reason: nausea and vomiting) Qty: 10 RF: 0 metoclopramide HCl [Reglan] 10 mg tablet 10 mg PO Q6H PRN (Reason: nausea and vomiting) Qty: 14 RF: 0 No Action NK RF: 0 Primary Care Provider: Care Physician,No Primary Referrals: Casey Taveras DO [STAFF PHYSICIAN] - 1-2 Weeks Care Physician,No Primary [Primary Care Provider] - Disposition Disposition: Home, Self Care
[2021-09-05] MEDS: Ondansetron 4 MG/2 ML Vial IV (13:54)
[2021-09-05] MEDS: 0.9% Normal Saline 1,000 ML 1000 ML IV (13:55)
[2021-09-05 13:56] LABS: Absolute Lymphocyte Count 1.65 X10^3/uL (0.83-4.51); Absolute Neutrophil Count 8.6 X10^3/uL (2.0-7.7); Basophil# 0.03 X10^3/uL; Basophil% 0.3 % (0-1); Hematocrit 43.7 % (37-47); Hemoglobin 15.7 g/dL (12.0-15.0); Lymphocyte # 1.65 X10^3/ul (0.83-4.51); Lymphocyte % 15.7 % (19-41); Mean Corp Hgb Conc 35.9 g/dL (32-36); Mean Corpuscular Hgb 30.3 pg (27.0-32.0); Mean Corpuscular Volume 84.2 fL (81-99); Mean Platelet Vol. 11.3 fl (6.2-12.0); Monocyte# 0.22 X10^3/uL; Monocyte% 2.1 % (0-10); NRBC Flagged by Analyzer 0 % (0-5); Neutrophil # 8.55 X10^3/uL (2.7-7.7); Neutrophil % 81.5 % (47-70); Platelet Count 219 K/mm3 (150-450); RBC Distribution Width CV 11.9 % (11.6-14.6); RBC Distribution Width SD 36.1 fl (35.1-43.9); Red Blood Count 5.19 M/mm3 (4.2-5.4); White Blood Count 10.5 K/mm3 (4.4-11.0)
[2021-09-05 14:13] LABS: ALB/GLOB Ratio 1.2 RATIO (0.9-2.4); AST(SGOT) 13 U/L (15-37); Alanine Aminotransfer ALT/SGPT 18 U/L (13-56); Albumin, Serum 4.2 g/dL (3.2-5.0); Alkaline Phosphatase 63 U/L (45-117); Anion Gap 12 (5-15); BUN 17 mg/dL (7-18); BUN/Creat Ratio 19.5 RATIO (10-20); Calcium,Total 9.4 mg/dL (8.5-10.1); Chloride 105 mmol/L (98-107); Creatinine, Serum 0.87 mg/dL (0.55-1.02); EST Glomerular Filtration Rate 79 mL/min (>60); Est Glom Filt Rate - Afr Amer 96 mL/min (>60); Estimated Creatinine Clearance 72.74 ml/min; Globulin 3.6 g/dL (2.2-4.2); Glucose 107 mg/dL (74-106); Lipase 51 U/L (73-393); Potassium 3.1 mmol/L (3.5-5.1); Protein, Total 7.8 g/dL (6.4-8.2); Sodium Level 138 mmol/L (136-145)
[2021-09-05 14:14] LABS: Internal QC Validated? YES +Cl - CLEAR BKGD; Pregnancy, Serum, hCG Quali. NEGATIVE Negative
[2021-09-05 15:08] LABS: Mucous, Urine 0 SEEN /hpf (<or=2+)
[2021-09-05 15:14] LABS: Color, Urine Yellow (Yellow); Glucose, Dipstick Normal (Normal); Leukocyte Esterase-Dipstick 100 /ul (Negative); Nitrite-Dipstick Negative (Negative); Occult Blood-Urine 10 /ul (Negative); Protein-Dipstick 30 mg/dl (Negative); Urine Bilirubin Dipstick Negative (Negative); Urine Clarity Clear (Clear); Urine Urobilinogen 1 mg/dl (Normal)
[2021-09-05 15:18] LABS: Ketone-Dipstick 150 mg/dl (Negative)
[2021-09-05 15:21] LABS: Bacteria RARE /hpf (None Seen); Red Blood Cells-Urine 0-5 SEEN /hpf (0-5); Squamous Epithelial Cells - UA 0-5 SEEN /hpf (5-10); White Blood Cells 10-25 SEEN /hpf (0-5)
[2021-09-05] MEDS: Dicyclomine 20 MG/2 ML Vial IM (15:21)
[2021-09-05] MEDS: 0.9% Normal Saline 1,000 ML 999 ML IV (15:21)
[2021-09-05 15:23] LABS: Amphetamine Urine VISTA NEGATIVE (<1000 ng/mL); Barbiturate Urine VISTA NEGATIVE (< 200 ng/mL); Benzodiazepine Urine VISTA NEGATIVE (< 200 ng/mL); Cocaine Urine VISTA NEGATIVE (< 300 ng/mL); Ecstacy Urine VISTA NEGATIVE (< 500 ng/mL); Methadone Urine VISTA NEGATIVE (< 300 ng/mL); PCP Urine VISTA NEGATIVE (< 25 ng/mL); THC Urine VISTA POSITIVE (< 50 ng/mL); Vista UDS pH Range 6
[2021-09-05 15:29] VITALS: BP 123/75; PULSE 70; RESP 15; O2SAT 98
[2021-09-05 16:32] VITALS: BP 122/84; PULSE 67; RESP 15; O2SAT 98
== END 2021-09-05 16:34 | disposition home or self-care (01) ==
PROVIDERS: Emergency Provider Emergency Medicine; Visit Provider Emergency Medicine
DX: R11.15 Cyclical vomiting syndrome unrelated to migraine (principal)
CPT/HCPCS: 80053; 80307; 81001; 83690; 84703; 85025; 96361; 96372; 96374; 96375; 99285; J7030; A4216; J2405; J3490

== ENCOUNTER 2021-10-23 11:42 | Emergency (ER) | payer MEDICAID, SELFPAY ==
[2021-10-23 11:42] VITALS: BP 112/73; PULSE 62; RESP 16; TEMP 36.6; O2SAT 100; BMI 29.2
--- NOTE | 2021-10-23 12:03 | EDS_ITS ---
HPI HPI - GI History of Present Illness Chief Complaint: Abd Pain Informant: patient Nausea/Vomiting/Emesis GI Symptom: Positive for Nausea and Vomiting Onset: Days (3-4) Quality: Positive for Nonbilious; Negative for Blood streaks, Coffee ground and Hematemesis Severity: Moderate Diarrhea/Melena/Hematochezia GI Symptom: Negative for Diarrhea, Melena and Hematochezia Associated Symptoms Associated Symptoms: Negative for Dysuria, Frequency and Hematuria Narrative Narrative: Patient has a history of cyclic vomiting syndrome, she has chronic nausea and vomiting intermittently, this episode is basically been for the past 3 to 4 days, she denies have any abdominal pain except for the feeling of a knot in her upper stomach at times, she states she has Reglan and Zofran at home that she has received from the emergency department, she does not have a PCP so she does not have any other medications, so she is using those and they are just not working for her nausea. She has not been vomiting a lot, couple times several days ago, she has not vomited yesterday or today, but just feeling very rosalind seated looking for help. No new symptoms. No fevers or chills. PFSH PFSH Home Medications metoclopramide HCl [Reglan] 10 mg PO Q6H PRN #14 tab 09/05/21 [Rx Last Taken Unknown] ondansetron 4 mg PO Q8H PRN #10 tab 09/05/21 [Rx Last Taken Unknown] Allergy/AdvReac Type Severity Reaction Status Date / Time No Known Allergies Allergy Verified 10/23/21 11:44 Family History Father Diabetes Mother Diabetes Surgical History Encounter for prophylactic removal of fallopian tube H/O knee surgery H/O tubal ligation Social History number of children: 2 current occupational status: employed current occupation: [employer] Smoking Status: Never smoker alcohol intake: never substance use type: does not use seatbelt use: sometimes do you feel safe at home: Yes ROS ROS ED Constitutional Constitutional ED: Denies chills or fever(s) Eyes Eyes: Denies change in vision or diplopia ENT ENT ED: Denies rhinorrhea or sore throat Cardiovascular Cardiovascular: Denies chest pain or palpitations Respiratory/Chest Respiratory/Chest: Denies cough or dyspnea Gastrointestinal Gastrointestinal: Reports as per HPI, nausea and vomiting; Denies abdominal pain or diarrhea Genitourinary Genitourinary ED: Denies dysuria or hematuria Musculoskeletal Musculoskeletal: Denies back pain or neck pain Integumentary Denies abscess or rash Neurologic Neurologic: Denies headache(s), paresthesias or weakness Psychiatric Psychiatric: Denies anxiety or suicidal thoughts EXAM Physical Exam Const Vital Signs: 10/23/21 11:42 Temperature 98 F Temperature Source Temporal Pulse Rate 62 Respiratory Rate 16 Blood Pressure 112/73 Blood Pressure Mean 86 Pulse Ox 100 Oxygen Delivery Method Room Air Positive well nourished and well developed General Appearance ED: well developed and NAD HEENT Reports moist mucous membranes normocephalic and atraumatic Eyes PERRL and EOMs intact bilaterally Neck full ROM and supple Resp normal respiratory effort and clear to auscultation bilaterally Cardio regular rate, regular rhythm and no murmurs Rate: Negative for tachycardic GI non-tender and non-distended Auscultation: normoactive bowel sounds Palpation: soft Back/Spine no CVA tenderness General Back: other FROM Extremity normal to inspection General Extremety ED: Negative for edema, pulses abnormal or tenderness General Extremity: Negative for edema or pulses abnormal Neuro oriented x3, CN's II-XII intact bilaterally and no sensory deficits noted Sensorium / Orientation: awake and alert Motor Exam: strength 5/5 throughout Skin no rashes or lesions noted and no wounds MDM MDM MDM Narrative Medical decision making narrative: I did a chemistry panel and a on this patient, they are negative. She was treated with a liter of IV fluid in addition to Thorazine, Benadryl, and Ativan. On reevaluation she feels much better and is keenly alert, tolerating oral fluids. Uncomfortable with her being discharged home she states she has an outpatient appointment with someone to have establish care. Lab Data Attestation: I reviewed the patient's lab results. Labs: Laboratory Results - last 24 hr 10/23/21 10/23/21 12:15 12:15 Sodium 139 Potassium 3.7 Chloride 107 Carbon Dioxide 24.0 Anion Gap 8 BUN 15 Creatinine 0.81 Estim Creat Clear Calc 78.13 Est GFR (MDRD) Af Amer 104 Est GFR (MDRD) Non-Af 86 BUN/Creatinine Ratio 18.5 Glucose 85 Calcium 8.8 Serum , Qual NEGATIVE Discharge Plan Triage Chief Complaint: Abd Pain ED Provider: Rubén Smith Dx/Rx/DC Orders Clinical Impression: Nausea and vomiting Instructions: ED Cyclic Vomiting Syndrome Prescriptions: No Action ondansetron 4 mg tablet,disintegrating 4 mg PO Q8H PRN (Reason: nausea and vomiting) Qty: 10 RF: 0 metoclopramide HCl [Reglan] 10 mg tablet 10 mg PO Q6H PRN (Reason: nausea and vomiting) Qty: 14 RF: 0 Primary Care Provider: Care Physician,No Primary Referrals: Care Physician,No Primary [Primary Care Provider] - Keep Diego appointment (The doctor you have an appointment with) Disposition Disposition: Home, Self Care
[2021-10-23] MEDS: DiphenhydrAMINE 50 MG/ML Syringe 25 MG IV (12:14)
[2021-10-23] MEDS: 0.9% Normal Saline 1,000 ML 999 ML IV (12:14)
[2021-10-23] MEDS: LORazepam 2 MG/ML Syringe 0.5 MG IV (12:14)
[2021-10-23] MEDS: ChlorproMAZINE 50 MG/2 ML Ampul 25 MG IV (12:15)
[2021-10-23 12:36] LABS: Internal QC Validated? YES +Cl - CLEAR BKGD; Pregnancy, Serum, hCG Quali. NEGATIVE Negative
[2021-10-23 12:42] LABS: Anion Gap 8 (5-15); BUN 15 mg/dL (7-18); BUN/Creat Ratio 18.5 RATIO (10-20); Calcium,Total 8.8 mg/dL (8.5-10.1); Chloride 107 mmol/L (98-107); Creatinine, Serum 0.81 mg/dL (0.55-1.02); EST Glomerular Filtration Rate 86 mL/min (>60); Est Glom Filt Rate - Afr Amer 104 mL/min (>60); Estimated Creatinine Clearance 78.13 ml/min; Glucose 85 mg/dL (74-106); Potassium 3.7 mmol/L (3.5-5.1); Sodium Level 139 mmol/L (136-145)
[2021-10-23 14:11] VITALS: BP 124/78
== END 2021-10-23 14:13 | disposition home or self-care (01) ==
PROVIDERS: Emergency Provider Emergency Medicine; Visit Provider Emergency Medicine
DX: R11.2 Nausea with vomiting, unspecified (principal)
CPT/HCPCS: 80048; 84703; 96361; 96374; 96375; 99283; J7030

== ENCOUNTER → 2021-11-10 | Outpatient (CLI) | payer MEDICAID, SELFPAY ==
[2021-11-10 10:47] LABS: Erythrocyte Sedimentation Rate 10 mm/hr (0-30)
[2021-11-10 11:22] LABS: CRP < 2.90 mg/L (0.0-3.0); Ferritin 34 ng/mL (8-252); LDH 190 U/L (84-246)
[2021-11-11 17:07] LABS: Endomysial Antibody IgA Negative (Negative)
[2021-11-11 18:20] LABS: Immunoglobulin A 141 mg/dL (87-352); t-Transglutaminase IgA <2 U/mL (0-3)
[2021-11-17 06:08] LABS: Albumin 3.8 g/dL (2.9-4.4); Alpha-1-Globulins 0.3 g/dL (0.0-0.4); Alpha-2-Globulins 0.7 g/dL (0.4-1.0); Cytoplasmic Ab (C-ANCA) <1:20 titer (Neg:<1:20); Gamma Globulin 0.9 g/dL (0.4-1.8); HEPATITIS B SURFACE AG Negative (Negative); Hep C Antibodies <0.1 s/co ratio (0.0-0.9); Hepatitis A IgM Antibody Negative (Negative); Hepatitis B Core AB IgM Negative (Negative); Immunoglobulin A 135 mg/dL (87-352); Immunoglobulin G 929 mg/dL (586-1602); Immunoglobulin M 100 mg/dL (26-217); PROEL- TOTAL PROTEIN 6.6 g/dL (6.0-8.5)
[2021-11-17 08:40] LABS: Immunoglobulin E 48 IU/mL (6-495); Perinuclear Ab (P-ANCA) <1:20 titer (Neg:<1:20)
== END | disposition home or self-care (01) ==
LOC: LAB 09:25
PROVIDERS: Referring Provider Internal Medicine Gastroenterology; Visit Provider Internal Medicine Gastroenterology
DX: R11.2 Nausea with vomiting, unspecified (principal)
CPT/HCPCS: 36415; 80074; 82728; 82784; 82785; 83036; 83516; 83615; 84165; 85652; 86140; 86255; 86256; 86334

== ENCOUNTER → 2021-12-01 | Outpatient (CLI) | payer MEDICAID, SELFPAY ==
--- NOTE | 2021-12-01 10:38 | NM_ITS ---
EXAM: NM GASTRIC EMPTYING SCAN CLINICAL INDICATION: nausea and vomiting TECHNIQUE: Patient was fed a drink and meal containing Tc99m sulfur colloid. Images of the abdomen were obtained over a period of 4 hours. Half time of gastric emptying and percent retention of radionuclide activity were calculated. This report was created using [employer] report generation technology. COMPARISON: None. FINDINGS: STOMACH: 60% gastric emptying noted at 30 minutes and greater than 85% at 60 minutes. Half-life of the gastric activity is 30 minutes. NM/Gastric Emptying Study IMPRESSION: Normal gastric emptying. Electronically Signed: Manish Mendez MD at 13:13 EDT ,
== END | disposition home or self-care (01) ==
LOC: NM 10:35
PROVIDERS: Referring Provider Internal Medicine Gastroenterology; Visit Provider Internal Medicine Gastroenterology
DX: R11.2 Nausea with vomiting, unspecified (principal)
CPT/HCPCS: 78264; A9541

== ENCOUNTER 2021-12-04 10:55 | Emergency (ER) | payer MEDICAID, SELFPAY ==
[2021-12-04 10:56] VITALS: BP 126/74; PULSE 71; RESP 15; TEMP 36.8; O2SAT 97; BMI 27.6
--- NOTE | 2021-12-04 11:29 | ED.VIS.GI ---
HPI HPI - GI History of Present Illness Chief Complaint: Nausea/Vomiting Informant: patient Abdominal Pain/Flank Pain Onset: Days Context: Gradual Onset Timing: Continuous Quality: Cramping Current Severity: Mild Maximum Severity: Mild Worsened by: Nothing Relieved by: Nothing Nausea/Vomiting/Emesis GI Symptom: Positive for Nausea and Vomiting Onset: Days Severity: Mild Diarrhea/Melena/Hematochezia GI Symptom: Negative for Diarrhea or Melena Associated Symptoms Associated Symptoms: Negative for Dysuria, Frequency, Hematuria or Urgency Narrative Narrative: 36-year-old female history of 2. Prior tubal ligation reversal. Cells Symptoms of nausea vomiting. She is thrown up 4 times a day. Just diffuse abdominal cramping. Denies any hematemesis. No melena. No diarrhea constipation. No fever or chills. No dysuria. Does not believe she is with has been before with nausea vomiting. She is currently undergoing a GI work-up with Dr. Taveras with this child figure out the cause. She denies use of antinausea pain which she points behind her ear that he prescribed. At times she uses Zofran. She also uses marijuana THC patches. Prior similar symptoms: Yes Recent Illness/Hospitalization: No PFSH PFSH Home Medications metoclopramide HCl 10 mg tablet (Reglan) 10 mg PO Q6H PRN nausea and vomiting #14 tabs 09/05/21 [Rx Last Taken Unknown] ondansetron 4 mg disintegrating tablet 4 mg PO Q8H PRN nausea and vomiting #10 tabs 09/05/21 [Rx Last Taken Unknown] alprazolam 0.5 mg tablet 1 mg PO QHS PRN sleep #14 tabs 11/10/21 [Rx Last Taken Unknown] prochlorperazine 25 mg rectal suppository (Compazine) 25 mg TN QHS PRN nausea and vomiting #12 ea 11/10/21 [Rx Last Taken Unknown] scopolamine base 1 mg over 3 days transdermal patch 1 patch transdermal Q3D PRN nausea and vomiting #10 ea 11/10/21 [Rx Last Taken Unknown] hyoscyamine sulfate 0.125 mg tablet (Levsin) 0.125 mg PO TID PRN dyspepsia #30 tabs 12/01/21 [Rx Last Taken Unknown] Allergy/AdvReac Type Severity Reaction Status Date / Time No Known Allergies Allergy Verified 12/04/21 10:56 Family History Father Diabetes Mother Diabetes Surgical History Encounter for prophylactic removal of fallopian tube H/O knee surgery H/O tubal ligation Social History number of children: 2 current occupational status: employed current occupation: [employer] Smoking Status: Never smoker alcohol intake: never substance use type: does not use seatbelt use: sometimes do you feel safe at home: Yes ROS ROS ED ROS Narrative Nausea and vomiting. Abdominal cramping. Review of Systems ROS Unobtainable: Denies due to encephalopathy Constitutional Constitutional ED: Denies chills ENT ENT ED: Denies ear pain Cardiovascular Cardiovascular: Denies chest pain Respiratory/Chest Respiratory/Chest: Denies cough Gastrointestinal Gastrointestinal: Reports nausea and vomiting; Denies abdominal pain, constipation, diarrhea or melena Genitourinary Genitourinary ED: Denies dysuria Musculoskeletal Musculoskeletal: Denies arthralgias Integumentary Denies abscess Neurologic Neurologic: Denies headache(s) Psychiatric Psychiatric: Denies anxiety Endocrine Endocrinology: Denies polydipsia Hematologic/Lymphatic Hematologic/Lymphatic: Denies easy bleeding Allergic/Immunologic Allergic/Immunologic ED: Denies mouth swelling EXAM Physical Exam Narrative Exam Narrative: 36-year-old female no acute distress. Vital signs stable afebrile. H EENT exam mild DryMax membranes. Neck nontender. Lungs clear to auscultation. Heart regular rhythm rate about 70. Abdomen soft nontender, nondistended, normal bowel sounds no peritoneal signs. No hernia or mass. Otherwise exam unremarkable. Const Vital Signs: 12/04/21 10:56 12/04/21 13:51 Temperature 98.2 F Temperature Source Temporal Pulse Rate 71 60 Respiratory Rate 15 16 Blood Pressure 126/74 H 116/74 Blood Pressure Mean 91 88 Pulse Ox 97 100 Oxygen Delivery Method Room Air Room Air Positive well developed; Negative for cachectic or contractures General Appearance ED: well developed; Negative for cachectic, contractures or pallor Nutritional Appearance: Negative for cachectic HEENT Reports dry mucous membranes; Denies moist mucous membranes normocephalic and atraumatic; Negative for trauma Mouth ED: Yes dry mucous membranes Mouth: dry mucous membranes Eyes PERRL and EOMs intact bilaterally General Eye ED: Negative for pale conjunctiva or scleral icterus Neck no lymphadenopathy, supple and no JVD Resp normal respiratory effort and clear to auscultation bilaterally Effort and Inspection: Negative for respiratory distress or retractions Auscultation: Negative for rales, rhonchi or wheezes Cardio regular rate, regular rhythm, S1 normal heart sound and S2 normal heart sound Rate: Negative for bradycardia Rhythm: Negative for abnormal rhythm GI non-tender, non-distended and no masses Inspection: Negative for abdominal distention Auscultation: normoactive bowel sounds; Negative for hyperactive bowel sounds Palpation: soft; Negative for tender, guarding, rigid, hepatomegaly, splenomegaly, hernia, mass, pulsatile mass or rebound tenderness present Back/Spine no CVA tenderness General Back: Negative for CVA tenderness Cervical Spine: Negative for cervical spine tenderness Thoracic Spine / Upper Back: Negative for thoracic spinal tenderness Lumbar Spine / Lower Back: Negative for lumbar spinal tenderness Extremity full ROM General Extremety ED: Negative for edema or tenderness General Extremity: Negative for edema Neuro CN's II-XII intact bilaterally and moves all extremities Sensorium / Orientation: alert, oriented to person, oriented to place and oriented to time; Negative for orientation impaired, confused, lethargic or stuporous Motor Exam: strength 5/5 throughout Psych mental status grossly normal and thought process normal Skin no wounds General Skin Exam: Negative for jaundice or pallor Lesions: no lesions Rashes: no rashes MDM MDM MDM Narrative Medical decision making narrative: 36-year-old with a known history of nausea and vomiting. She has had a history of this she is undergoing a work-up for it. This may or may not be secondary to her THC ileus. She will be treated with IV fluids and IV Zofran. Screening labs will be obtained. Repeat exam patient doing well at 2:20 PM. Nausea resolved. No abdominal pain. Abdomen is benign. She is comfortable being discharged home. She will follow-up with her GI doctor. She has nausea medication at home. And she understands she needs to stop using THC which may be be causing her nausea. Lab Data Attestation: I reviewed the patient's lab results. Lab results narrative: CBC unremarkable. White count 9. H&H 15 and 43. Electrolytes potassium 3.0. Gap of 11. BUN 19 creatinine 0.8. Liver enzymes unremarkable. Serum test negative. Labs: Laboratory Results - last 24 hr 12/04/21 12/04/21 12/04/21 11:45 11:45 11:45 WBC 9.9 RBC 4.96 Hgb 15.0 Hct 43.5 MCV 87.7 MCH 30.2 MCHC 34.5 RDW Std Deviation 38.4 RDW Coeff of Robert 11.9 Plt Count 198 MPV 11.8 Immature Gran % (Auto) 0.300 Neut % (Auto) 78.6 H Lymph % (Auto) 17.9 L [place]ard % (Auto) 2.9 Eos % (Auto) 0.0 Baso % (Auto) 0.3 Absolute Neuts (auto) 7.8 H Absolute Lymphs (auto) 1.77 Nucleated RBC % 0.3 Sodium 139 Potassium 3.0 L Chloride 105 Carbon Dioxide 23.0 Anion Gap 11 BUN 19 H Creatinine 0.83 Estim Creat Clear Calc 75.54 Est GFR (MDRD) Af Amer 101 Est GFR (MDRD) Non-Af 83 BUN/Creatinine Ratio 22.8 H Glucose 96 Calcium 9.0 Total Bilirubin 0.60 AST 12 L ALT 20 Alkaline Phosphatase 59 Total Protein 7.8 Albumin 4.1 Globulin 3.7 Albumin/Globulin Ratio 1.1 Serum , Qual NEGATIVE Discharge Plan Triage Chief Complaint: Nausea/Vomiting ED Provider: Felix Leigh Dx/Rx/DC Orders Clinical Impression: Nausea & vomiting Instructions: ED Cyclic Vomiting Syndrome, ED Vomiting (Adult) Prescriptions: No Action scopolamine base 1 mg over 3 days patch 3 day 1 patch transdermal Q3D PRN (Reason: nausea and vomiting) Qty: 10 0RF prochlorperazine [Compazine] 25 mg suppository 25 mg TN QHS PRN (Reason: nausea and vomiting) Qty: 12 0RF alprazolam 0.5 mg tablet 1 mg PO QHS PRN (Reason: sleep) Qty: 14 0RF ondansetron 4 mg tablet,disintegrating 4 mg PO Q8H PRN (Reason: nausea and vomiting) Qty: 10 0RF metoclopramide HCl [Reglan] 10 mg tablet 10 mg PO Q6H PRN (Reason: nausea and vomiting) Qty: 14 0RF hyoscyamine sulfate [Levsin] 0.125 mg tablet 0.125 mg PO TID PRN (Reason: dyspepsia) Qty: 30 2RF Primary Care Provider: Care Physician,No Primary Referrals: Casey Taveras, DO [STAFF PHYSICIAN] - 1 Week if not improving Care Physician,No Primary [Primary Care Provider] - Activity Restrictions/Additional Instructions: Plenty of fluids and rest. Use your home nausea medication. Follow-up with Dr. Taveras. Strongly try to wean herself from the marijuana. That could be what is causing her to have nausea and vomiting. Disposition Disposition: Home, Self Care
[2021-12-04] MEDS: 0.9% Normal Saline 1,000 ML 1000 ML IV (11:39)
[2021-12-04] MEDS: Ondansetron 4 MG/2 ML Vial IV (11:39)
[2021-12-04 11:59] LABS: Internal QC Validated? YES +Cl - CLEAR BKGD; Pregnancy, Serum, hCG Quali. NEGATIVE Negative
[2021-12-04 12:02] LABS: Absolute Lymphocyte Count 1.77 X10^3/uL (0.83-4.51); Absolute Neutrophil Count 7.8 X10^3/uL (2.0-7.7); Basophil# 0.03 X10^3/uL; Basophil% 0.3 % (0-1); Hematocrit 43.5 % (37-47); Lymphocyte # 1.77 X10^3/ul (0.83-4.51); Lymphocyte % 17.9 % (19-41); Mean Corp Hgb Conc 34.5 g/dL (32-36); Mean Corpuscular Hgb 30.2 pg (27.0-32.0); Mean Corpuscular Volume 87.7 fL (81-99); Mean Platelet Vol. 11.8 fl (6.2-12.0); Monocyte# 0.29 X10^3/uL; Monocyte% 2.9 % (0-10); NRBC Flagged by Analyzer 0.3 % (0-5); Neutrophil # 7.78 X10^3/uL (2.7-7.7); Neutrophil % 78.6 % (47-70); Platelet Count 198 K/mm3 (150-450); RBC Distribution Width CV 11.9 % (11.6-14.6); RBC Distribution Width SD 38.4 fl (35.1-43.9); Red Blood Count 4.96 M/mm3 (4.2-5.4); White Blood Count 9.9 K/mm3 (4.4-11.0)
[2021-12-04 12:06] LABS: ALB/GLOB Ratio 1.1 RATIO (0.9-2.4); AST(SGOT) 12 U/L (15-37); Alanine Aminotransfer ALT/SGPT 20 U/L (13-56); Albumin, Serum 4.1 g/dL (3.2-5.0); Alkaline Phosphatase 59 U/L (45-117); Anion Gap 11 (5-15); BUN 19 mg/dL (7-18); BUN/Creat Ratio 22.8 RATIO (10-20); Chloride 105 mmol/L (98-107); Creatinine, Serum 0.83 mg/dL (0.55-1.02); EST Glomerular Filtration Rate 83 mL/min (>60); Est Glom Filt Rate - Afr Amer 101 mL/min (>60); Estimated Creatinine Clearance 75.54 ml/min; Globulin 3.7 g/dL (2.2-4.2); Glucose 96 mg/dL (74-106); Protein, Total 7.8 g/dL (6.4-8.2); Sodium Level 139 mmol/L (136-145)
[2021-12-04 13:51] VITALS: BP 116/74; PULSE 60; RESP 16; O2SAT 100
== END 2021-12-04 14:45 | disposition home or self-care (01) ==
PROVIDERS: Emergency Provider Emergency Medicine; Visit Provider Emergency Medicine
DX: R11.2 Nausea with vomiting, unspecified (principal)
CPT/HCPCS: 80053; 84703; 85025; 96361; 96374; 99282; J7030; A4216; J2405

== ENCOUNTER 2022-02-15 10:57 | Day surgery (SDC) | payer MEDICAID, SELFPAY ==
[2022-02-15] VITALS (7 sets, daily range): BP systolic 114–123; BP diastolic 61–100; PULSE 67–79; RESP 16–17; TEMP 36.7–37.2; O2SAT 100; BMI 30.4
--- NOTE | 2022-02-15 11:45 | HP.PCM_ITS ---
History and Physical Date of Admission: 02/15/22 ARIELLE MOORE, is a 35 F who presents to the office today for Initial consult. Arielle established with this clinic 11.10.21 following presentation to [facility] ED. She has been having difficulty with lower abdominal pain, nausea and vomiting with occasional diarrhea since 08.27.20. Abdominal pain, nausea and emesis lasting 2-10 days occurring every 2-3 months; Zofran, reglan, omeprazole ineffective. Red sauces and spicy foods elimination without effect. Repeated emesis causes her to feel weak/dehydrated requiring IVF. Marijuana smoked each day and finds this helpful to increase appetite; smoking since age 16 and smokes 4-5 times a day. Reports that showers and baths are utilized frequently and ?lives in the shower? when she is having an attack. Denies anxiety/depression; worked up for endometriosis, negative. PMH includes removal of fallopian tube r/t tubal ligation then fallopian . ROS Const Constitutional: No fatigue, malaise, night sweats, weight change, sleep problems, abnormal sleep pattern or change in appetite ENT ENT: No difficulty swallowing, hoarseness or sore throat Cardio Cardiology: No chest pain at rest Gastro GI: No belching, bloating, change in bowel habits, change in stool character, coffee ground emesis, constipation, cramping, diarrhea, heartburn, difficulty swallowing, feeling full early, excessive flatus, incontinent of stools, Vomi ting blood/hematemesis, Blood in stool, loose stools, Black,tarry stools, pain with swallowing or other Musc Musculoskeletal: No joint pain Skin Skin: No yellowing of the eye or itchy eyes Neuro Neurology: No behavioral changes Psych Psychiatric: No abnormal sleep pattern, No anxiety, No behavioral changes, No change in appetite and No depression Endo Endocrine: No fatigue or weight change Aller/Imm Allergy/Immunologic: No itchy eyes Jaime/Lymp Hematologic/Lymphatic: No easy bleeding or easy bruising Exam Const General: cooperative and comfortable Nutritional Appearance: average body habitus and well nourished HENKS Head: normal to inspection Ears: hearing grossly normal bilaterally Nose: external nose normal Face and sinus: normal facial exam Mouth: oral mucosae normal Throat: posterior oropharynx normal Eyes General: appearance normal, both eyes and all related structures Neck Neck: normal visual inspection Chest Chest palpation & inspection: normal inspection of the chest and normal palpation of entire chest wall Resp Effort & Inspection: normal respiratory effort Auscultation: Bilateral: Clear to Auscultation Cardio Palpation: normal PMI Rate: regular rate Rhythm: regular rhythm GI Inspection: normal to inspection Auscultation: normal bowel sounds Percussion: normal to percussion Palpation: no hepatosplenomegaly Skin General: no rashes or lesions noted Neuro General: patient alert Extrem General: normal to inspection Psych Affect: normal affect Quality Reporting Tobacco Screening ([facility] 138) Smoking Status: Never smoker Assessment and Plan Assessment and Plan (1) Nausea and vomiting: ?Status:?Acute ? ? ? Orders:?Orders: ? CRP Today ? ? ? Ferritin Today ? ? ? LDH Today ? ? ? Erythrocyte Sed Rate Today ? ? ? Gastric Emptying Study Today ? ? ? Hepatitis Panel Acute Today ? ? ? ANCA Today ? ? ? Celiac Disease Profile Today ? ? ? Immunoglobulin E Today ? ? ? NANCY + Protein Elect, Serum Today ? ? ? Hemoglobin A1c Today ?Plan - Dr. Peña Friend, DO: The differential diagnosis for her nausea vomiting does include cyclic vomiting syndrome, marijuana hyperemesis, gastroparesis secondary to medications or functional disorder.? It is concerning that she is losing weight.? I asked her if she had tried anything in the past and she says the only thing that helps is marijuana.? She is not having reflux symptoms and is on omeprazole therapy in the past and it did not seem to help her symptoms.? She originally thought this was all secondary to her menstrual cycle however she has not had a menstrual cycle in 3 years secondary to being on Depo therapy.? She has no history of blood clots or spontaneous abortions.? She has no family history of any GI malignancy or GI disease.? She does not drink any alcohol.? She does not take any nonsteroidals.? It appears to be likely a functional disorder but she should have an upper endoscopy to evaluate for structural disorder such as a hiatal hernia, infectious disorders such as H. pylori associated gastritis.? She should also have an upper endoscopy to evaluate the lining of her GI tract for eosinophilic diseases.? She is okay with this plan.? I will give her a short course of scopolamine to use on a every 72 hour basis, Compazine rectal suppositories and alprazolam 1 mg at night because she is not able to sleep.? She is taking Zofran and Reglan without any improvement.? I will give her some literature on hyperemesis syndrome. Plan Details Other Medications: ?New: ? scopolamine base 1 patch? transdermal Q3D PRN 10 ea 0RF n ausea and vomiting ? ? ? prochlorperazine (Compazine) 25 mg? FL QHS PRN 12 ea 0RF nausea and v omiting ? ? ? alprazolam 1 mg (2 x 0.5 mg) PO QHS PRN 14 tabs 0RF sleep ? ? I have re-examined the patient. There are no clinical changes since date of exam.
[2022-02-15] MEDS: Lactated Ringers 1,000 ML 15 ML IV (12:00)
--- NOTE | 2022-02-15 12:00 | EGD_PTH ---
PATIENT: ARIELLE MOORE LOC: EN U#:[id number] AGE/SX: 36/F ROOM: RE02/15/[address]: Dr. Casey Taveras DO : 1985 BED: DIS: 02/15/2022 SPEC #: [id number] RECD: 02/15/22 17:57 STATUS: PREETI NICOL #: [id number] MICHAEL: 02/15/22 12:[address]: Casey Taveras DEPT: SURGICAL PATHOLOGY RECD BY: Estrellita Robbins ENTERED: 02/16/22 08:16 SP TYPE: EGD BIOPSY OT DR: Fior Primary Care Phys Tissues: A - Duodenum, NOS B - Gastric mucous membrane C - Esophagus, NOS Procedures: Special Stain Group II Surgery Specimen Level IV Alcian Blue/PAS (control) HEADER OPERATION: [place] [place] PRE-OP DIAGNOSIS: Nausea and vomiting TISSUE SUBMITTED: A ? Duodenum biopsy, B ? Antrum biopsy for H. pylori and path, C ? Distal esophagus biopsy MICROSCOPIC DIAGNOSIS A. 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 B. Gastric antrum, biopsy: Chronic gastritis. See comment. C. Distal esophagus, biopsy: Gastroesophageal junctional mucosa with chronic inflammation. No evidence of goblet cell metaplasia. No evidence of dysplasia. See comment. AM:noel 02/17/2022 COMMENT B. The results of immunohistochemistry for Helicobacter pylori will be reported separately ([id number]). C. Alcian blue/PAS stain with matched control supports the above diagnosis. MICROSCOPIC DESCRIPTION Slides are reviewed. GROSS DESCRIPTION A - Received in fixative is one container labeled with the patient's name and designated duodenum biopsy. The specimen consists of multiple irregular fragments of light chan soft tissue that in aggregate measure 1 x 0.5 x 0.1 cm. The specimen is totally submitted in one cassette. B - Received in fixative is one container labeled with the patient's name and designated gastric antrum. The specimen consists of two irregular fragments of light chan soft tissue that in aggregate measure 0.7 x 0.6 x 0.1 cm. The specimen is totally submitted in one cassette. C - Received in fixative is one container labeled with the patient's name and designated distal esophagus. The specimen consists of two irregular fragments of light chan soft tissue that in aggregate measure 0.7 x 0.5 x 0.1 cm. The specimen is totally submitted in one cassette. / AM:noel 02/16/2022 TC:3 CPT: 51641 x3, 68862
--- NOTE | 2022-02-15 12:00 | IMM_PTH ---
PATIENT: ARIELLE MOORE LOC: [facility] U#:[id number] AGE/SX: 36/F ROOM: RE02/15/[address]: Dr. Casey Taveras DO : 1985 BED: DIS: 02/15/2022 SPEC #: [id number] RECD: 02/16/22 09:07 STATUS: PREETI NICOL #: [id number] MICHAEL: 02/15/22 12:[address]: Casey Taveras DEPT: IMMUNOHISTOCHEMISTRY RECD BY: Adriana Garcia ENTERED: 02/16/22 09:08 SP TYPE: IMMUNO OT DR: Fior Primary Care Phys Tissues: B - Stomach, NOS Procedures: H Pylori (initial) PHYSICIAN & INSTITUTION [place] [id number] SPECIMEN INFORMATION: Tissue Source: B - Antrum Clinical Info: Nausea and vomiting Specimen Number: [id number] CPT code: 03222 METHODOLOGY: Deparaffinized sections of prefer/formalin-fixed tissue or PAP/DQ stained slides are incubated with monoclonal/polyclonal antibodies/oligonucleotide probes. Localization is made via biotin free immunoperoxidase method. Appropriate controls are performed and reacted as expected. Results on target cell population are indicated in the following table: RESULTS: ANTIBODY / CLONE RESULT Block B H Pylori (polyclonal) negative These tests were developed and their performance characteristics determined by [facility]. They may not have been cleared or approved by the U.S. Food and Drug Administration. The FDA has determined that such clearance or approval is not necessary. The above immunohistochemical/dualISH markers are ordered and reviewed by the Pathologist. INTERPRETATION: B. Antrum, biopsy: Negative for Helicobacter pylori organisms. AM:noel 02/17/2022
--- NOTE | 2022-02-15 12:28 | OP.CCLET_ITS ---
03/24/2022 No Primary Care Physician Re : Upper GI endoscopy procedure for Miriam Liang [facility] Care Physician This procedure was performed on Tuesday, February 15, 2022. My impressions and recommendations are as follows: Impressions : - Normal esophagus. - Z-line irregular, 37 cm from the incisors. Biopsied. - Small hiatal hernia. - No gross lesions in the stomach. Biopsied. - No gross lesions in the second portion of the duodenum. Biopsied. Recommendations : - Discharge patient to home. - Resume previous diet. - Continue present medications. - Await pathology results. My findings are described in the full procedure note, which is enclosed. If I can be of further assistance, please feel free to contact me at . Sincerely, Casey Taveras, 02/15/2022 12:28:37 PM This report has been signed electronically.
--- NOTE | 2022-02-15 12:28 | OP.EGD_ITS ---
Patient Name: Miriam Liang Procedure Date: 02/15/2022 12:03 PM Date of : 1985 Age: 36 Procedure: Upper GI endoscopy Indications: Epigastric abdominal pain, Functional Dyspepsia, Failure to respond to medical treatment Providers: Casey Taveras DO Medicines: Monitored Anesthesia Care Patient Profile: This is a 36 year old female. Refer to note in patient chart for documentation of history and physical. Patient has symptoms of chronic global abdominal pain, chronic nausea and chronic vomiting. Complications: No immediate complications. Procedure: Pre-Anesthesia Assessment: - Prior to the procedure, a History and Physical was performed, and patient medications and allergies were reviewed. The patient is competent. The risks and benefits of the procedure and the sedation options and risks were discussed with the patient. All questions were answered and informed consent was obtained. Patient identification and proposed procedure were verified by the physician in the pre-procedure area. Mental Status Examination: alert and oriented. Airway Examination: normal oropharyngeal airway and neck mobility. Respiratory Examination: clear to auscultation. CV Examination: normal. Prophylactic Antibiotics: The patient does not require prophylactic antibiotics. Prior Anticoagulants: The patient has taken no previous anticoagulant or antiplatelet agents. ASA Grade Assessment: II - A patient with mild systemic disease. After reviewing the risks and benefits, the patient was deemed in satisfactory condition to undergo the procedure. The anesthesia plan was to use moderate sedation / analgesia (conscious sedation). Immediately prior to administration of medications, the patient was re-assessed for adequacy to receive sedatives. The heart rate, respiratory rate, oxygen saturations, blood pressure, adequacy of pulmonary ventilation, and response to care were monitored throughout the procedure. The physical status of the patient was re-assessed after the procedure. After obtaining informed consent, the endoscope was passed under direct vision. Throughout the procedure, the patient's blood pressure, pulse, and oxygen saturations were monitored continuously. The gastroscope was introduced through the mouth, and advanced to the second part of duodenum. The upper GI endoscopy was accomplished without difficulty. The patient tolerated the procedure well. Scope In: 12:11:57 PM Scope Out: 12:18:52 PM Total Procedure Duration Time 0 hours 6 minutes 55 seconds Findings: The examined esophagus was normal. The Z-line was irregular and was found 37 cm from the incisors. Biopsies were taken with a cold forceps for histology. Verification of patient identification for the specimen was done. Estimated blood loss was minimal. A small hiatal hernia was present. No gross lesions were noted in the entire examined stomach. Biopsies were taken with a cold forceps for histology. Verification of patient identification for the specimen was done. Estimated blood loss was minimal. No gross lesions were noted in the second portion of the duodenum. Biopsies were taken with a cold forceps for histology. Verification of patient identification for the specimen was done. Estimated blood loss was minimal. Impression: - Normal esophagus. - Z-line irregular, 37 cm from the incisors. Biopsied. - Small hiatal hernia. - No gross lesions in the stomach. Biopsied. - No gross lesions in the second portion of the duodenum. Biopsied. Recommendation: - Discharge patient to home. - Resume previous diet. - Continue present medications. - Await pathology results. Procedure Code(s): --- Professional --- 55679, Esophagogastroduodenoscopy, flexible, transoral; with biopsy, single or multiple CPT copyright 2017 [employer] [place] [employer]. All rights reserved. The codes documented in this report are preliminary and upon equine internship review may be revised to meet current compliance requirements. Casey Taveras DO 02/15/2022 12:28:37 PM This report has been signed electronically. Number of Addenda: 1 Note Initiated On: 02/15/2022 12:03 PM Addendum Number: 1 Addendum Date: 03/24/2022 6:02:49 AM MAC was used as sedation for this procedure. Casey Taveras DO 03/24/2022 6:02:55 AM This report has been signed electronically.
== END 2022-02-15 13:04 | disposition home or self-care (01) ==
LOC: EN 10:58 → AC 10:59
PROVIDERS: Visit Provider Internal Medicine Gastroenterology
PROC: 0DJ08ZZ Inspection of Upper Intestinal Tract, Via Natural or Artificial Opening Endoscopic (ICD-10-PCS; CPT 43235; principal; 2022-02-15 11:55)
DX: K44.9 Diaphragmatic hernia without obstruction or gangrene (principal); K31.89 Other diseases of stomach and duodenum; K29.50 Unspecified chronic gastritis without bleeding; K20.90 Esophagitis, unspecified without bleeding; F12.90 Cannabis use, unspecified, uncomplicated; Z79.899 Other long term (current) drug therapy; Z87.891 Personal history of nicotine dependence
CPT/HCPCS: 43239; 88305; 88313; 88342; J7120; J2405

== ENCOUNTER → 2022-04-06 | Outpatient (CLI) | payer MEDICAID, SELFPAY ==
[2022-04-13 11:42] LABS: HPV APTIMA, High Risk Negative (Negative)
== END | disposition home or self-care (01) ==
LOC: LABSPEC 13:55
PROVIDERS: Visit Provider Student in an Organized Health Care Education/Training Program
DX: Z12.4 Encounter for screening for malignant neoplasm of cervix (principal)
CPT/HCPCS: 87624; 88175; G0145